=== PATIENT | male | born 1955 | race Caucasian/White ===

== ENCOUNTER 2021-11-29 08:25 | Outpatient (CLI) | payer MEDICARE, OTHER, SELFPAY ==
--- NOTE | 2021-11-29 08:45 | CRLHL7_ITS ---
For Patients: As a result of the Century Cures Act, medical imaging exams and procedure reports are released immediately into your electronic medical record. You may view this report before your referring provider. If you have questions, please contact your health care provider. Examination: Doppler Ultrasound of mesenteric arteries Indication: Periumbilical pain. Technique: Ultrasound images of the aorta and mesenteric vessels was obtained. Ultrasound performed using real-time chester scale imaging (B-mode 2D), color-flow Doppler and spectral analysis. 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 Proximal aorta: 142 cm/S. Celiac origin: 310 cm/S Celiac proximal: 361 cm/S Celiac mid/distal: 200 cm/S Superior mesenteric artery origin: 328 cm/S Superior mesenteric artery proximal: 212 cm/S Superior mesenteric artery mid: 88 cm/S Superior mesenteric artery distal: 111 cm/S SMA/aorta ratio: 2.3 Splenic artery: 158 cm/S Hepatic artery: 248 cm/S Inferior mesenteric origin: 119 cm/S Limited Doppler exam demonstrates multiphasic waveforms in the celiac and SMA with no parvus tardus waveform distally in either artery. Impression: 1. Indeterminate exam. The peak systolic velocities at the celiac and SMA origins would meet criteria for a greater than 70 percent stenosis. However, the distal waveforms are not diminished and that SMA/aorta ratio is below the threshold for a severe stenosis. If there is ongoing concern for mesenteric ischemia, consider CTA or MRA for further evaluation. Dictated by Michele Alanis MD @ 11/30/2021 4:18:16 PM (Electronically Signed)
== END 2021-11-29 08:26 | disposition home or self-care (01) ==
LOC: US 08:31
PROVIDERS: Visit Provider Internal Medicine Gastroenterology
DX: R10.33 Periumbilical pain (principal); I70.8 Atherosclerosis of other arteries
CPT/HCPCS: 93975

== ENCOUNTER 2023-10-07 10:07 | Emergency (ER) | payer MEDICARE, BC, SELFPAY ==
[2023-10-07] VITALS (13 sets, daily range): BP systolic 118–138; BP diastolic 70–90; PULSE 62–80; RESP 24; TEMP 36.3; O2SAT 96–100; BMI 31.6
--- NOTE | 2023-10-07 10:44 | CRLHL7_ITS ---
For Patients: As a result of the Century Cures Act, medical imaging exams and procedure reports are released immediately into your electronic medical record. You may view this report before your referring provider. If you have questions, please contact your health care provider. INDICATION: Lower chest and abdominal pain. History of carcinoid. TECHNIQUE: CT chest pulmonary angiogram acquired with 95 cc of Isovue 370 IV contrast. COMPARISON: None. FINDINGS: Cardiovascular structures: CT pulmonary angiogram demonstrates adequate opacification of the pulmonary arteries. No evidence of pulmonary embolus. Aortic atherosclerosis. The thoracic aorta is normal in caliber. Coronary artery calcifications. Heart size is within normal limits. Mediastinum and antonio: No pathologic lymphadenopathy. Lungs: No pneumothorax. Central airways are patent. Calcified granuloma in the right upper lobe. Mild motion artifact. Mild bibasilar ground-glass opacities. Lungs are otherwise clear. Pleura and pericardium: No effusions. Chest wall and axilla: Unremarkable. Bones: Degenerative changes. No acute or suspicious osseous abnormality. Upper abdomen: Please refer to CT abdomen and pelvis same day. IMPRESSION: 1. No evidence of pulmonary embolus. 2. Mild bibasilar ground-glass opacities may represent incidental subsegmental atelectasis or infection/inflammation in the appropriate clinical setting. Dictated by Zackery Quintero MD @ 10/07/2023 12:51:59 PM Please note that all CT scans at this facility use dose modulation, iterative reconstruction, and/or weight-based dosing when appropriate to reduce radiation dose to as low as reasonably achievable. Dictated by: Zackery Quintero MD @ 10/07/2023 12:52:15 (Electronically Signed)
--- NOTE | 2023-10-07 10:44 | CRLHL7_ITS ---
For Patients: As a result of the Century Cures Act, medical imaging exams and procedure reports are released immediately into your electronic medical record. You may view this report before your referring provider. If you have questions, please contact your health care provider. 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 TECHNIQUE: CT abdomen and pelvis acquired with 95 cc Isovue 370 IV contrast. COMPARISON: Same day chest CT. FINDINGS: Lower chest: Please see same-day chest CT for findings above the diaphragm. Liver: Unremarkable. Normal in size and attenuation. No suspicious masses. Gallbladder and bile ducts: Prior cholecystectomy. No biliary dilatation. Pancreas: Atrophic pancreas. No mass or inflammation. No pancreatic duct dilation. Spleen: Unremarkable. Normal in size. No masses. Adrenal glands: Unremarkable. No nodules. Kidneys: Unremarkable. No suspicious masses, stones, or hydronephrosis. GI tract: Unremarkable. Normal in caliber. No sign of mass or inflammation. Colonic diverticulosis Vasculature: Abdominal aorta is normal in caliber. Moderate atherosclerotic calcifications of the abdominal aorta. Mesenteric arteries are patent. Lymph nodes: No lymphadenopathy. Peritoneum/Abdominal Wall: Unremarkable. No sign of mass or infiltration. No free air or significant free fluid. Pelvis: Streak artifact from bilateral hip arthroplasties slightly limits evaluation in the pelvis, however there is no definite abnormality. Bones: Bilateral hip arthroplasties. Multilevel degenerative change of the imaged spine. Chronic appearing mild anterior compression deformity of the L1 and L2 vertebral bodies. IMPRESSION: 1. No acute findings in the abdomen or pelvis. No evidence of disease recurrence. 2. Please see same-day chest CT for findings above the diaphragm. Please note that all CT scans at this facility use dose modulation, iterative reconstruction, and/or weight-based dosing when appropriate to reduce radiation dose to as low as reasonably achievable. Dictated by Mónica Carlton MD @ 10/07/2023 12:23:14 PM (Electronically Signed)
[2023-10-07] MEDS: 0.9 % SODIUM CHLORIDE 500 ML 500 ML IV (11:07)
[2023-10-07 11:09] LABS: Lactate Sepsis w/Reflex* 1.8 mmol/L (0.5-1.9)
[2023-10-07 11:16] LABS: Basophils Absolute Auto 0.05 K/uL (0.00-0.30); Basophils Percent Auto 0.9 % (0.0-3.0); Eosinophils Absolute Auto 0.11 K/uL (0.00-0.50); Eosinophils Percent Auto 2.1 % (0.0-7.0); Hematocrit 40.5 % (37.0-53.0); Hemoglobin* 13.5 gm/dL (13.5-17.5); Immature Granulocytes Abs Auto 0.01 K/uL (0.00-0.30); Immature Granulocytes Pct Auto 0.2 %; Lymphocytes Absolute Auto 1.83 K/uL (0.90-2.90); Lymphocytes Percent Auto 34.2 % (20-44); Mean Corpuscular HGB Conc 33 gm/dL (32-36); Mean Corpuscular Hemoglobin 26 pg (26-34); Mean Corpuscular Volume 79 fL (80-100); Monocytes Percent Auto 9.3 % (0.0-11.0); Neutrophils Absolute Auto 2.85 K/uL (1.7-7.0); Neutrophils Percent Auto 53.3 % (42.0-72.0); Platelet Count* 146 K/uL (140-440); RDW Coefficient of Variation % 13.4 % (11.5-15.5); Red Blood Count 5.12 m/uL (4.30-5.90); White Blood Count* 5.35 K/uL (4.50-11.00)
[2023-10-07 11:17] LABS: Slide Review Reflex No
[2023-10-07 11:19] LABS: Troponin, Point-of-Care* 0.01 ng/ml (0.01-0.04)
[2023-10-07 11:27] LABS: Chloride* 104 mmol/L (96-114); Potassium* 3.9 mmol/L (3.6-5.1); Sodium* 135 mmol/L (135-149)
[2023-10-07 11:29] LABS: Alkaline Phosphatase* 113 U/L (40-150); Aspartate Amino Transferase* 30 U/L (12-35); Bilirubin Direct* 0.2 mg/dL (0.0-0.5); Bilirubin Total* 0.7 mg/dL (0.1-1.5); Total Protein* 6.8 g/dL (6.0-8.3)
[2023-10-07 11:30] LABS: Alanine Aminotransferase* 26 U/L (4-50); Est. Creatinine Clearance* 88.01; Estimated Glomerular Filt Rate 82 ml/min; Lipase* 53 U/L (23-300)
[2023-10-07 11:31] LABS: Anion Gap 9 mEq/L (7-15); Blood Urea Nitrogen* 16 mg/dL (7-30); Calcium* 8.6 mg/dL (8.4-10.6); Carbon Dioxide* 22 mmol/L (20-32); Glucose* 200 mg/dL (60-115)
[2023-10-07 11:36] LABS: C Reactive Protein* < 0.5 mg/dL (0.5-1.0)
[2023-10-07] MEDS: MORPHINE 4 MG/ML INJ IVP (11:57)
--- NOTE | 2023-10-07 13:08 | ED.GENADULT ---
HPI - General Adult General Date Seen: 10/07/23 Chief complaint: Chest Pain Stated complaint: Chest Pain/Short of Breath Time Seen by Provider: 10/07/23 10:32 Source: patient Mode of arrival: ambulatory Limitations: no limitations History of Present Illness HPI narrative: Patient is a 68-year-old male who presents for evaluation of chest pain. He says about a week and half ago he started to have problems with some dizziness, he talked to his commercial real estate paralegal at [facility] and had some kind of monitoring, it sounds like maybe a Holter monitor was placed. He says that nothing was found there. About a week ago he started to get pain in his rib cage bilaterally. This started out as episodic, lasting an hour to but the last several days has been continuous. He notes pain with breathing and with moving. He has not had a cough, denies fever. He has not had vomiting or diarrhea, denies lower extremity swelling or pain. No history of DVT or PE. He does have a history of carcinoid tumor and a couple of prior abdominal surgeries, he has had small bowel resection and also tells me that his gallbladder and appendix have been removed. He does have chronic abdominal pain, which he says has been attributed previously to his carcinoid. He also says however that his last surgeries were about 15 years ago and that he has not had progression of his carcinoid since then. His doctor discontinued his octreotide few months ago wondering if maybe that was contributing to his abdominal symptoms. He does have oxycodone at home prescribed for chronic pain but he says he does not take it because he is worried about constipation which he says is worse than the chronic GI symptoms. He does have a history of PR, several stents placed previously. Current pain is not exertional, feels somewhat better lying down. Related Data Home Medications ?Medication ?Instructions ?Recorded ?Confirmed apixaban 5 mg tablet (Eliquis) 5 mg PO BID 10/07/23 10/07/23 atorvastatin 20 mg tablet 20 mg PO DAILY 10/07/23 10/07/23 baclofen 10 mg tablet 10 mg PO QPM 10/07/23 10/07/23 calcium citrate 200 mg (950 mg) 200 mg PO 3XD 10/07/23 10/07/23 tablet clomiphene citrate 50 mg tablet 50 mg PO Q1D 10/07/23 10/07/23 (Clomid) cyanocobalamin (vitamin B-12) 1,000 mcg IM 10/07/23 1,000 mcg/mL injection solution empagliflozin 25 mg tablet 25 mg PO DAILY 10/07/23 10/07/23 (Jardiance) ergocalciferol (vitamin D2) 1,250 1,250 mcg PO 2XW 10/07/23 10/07/23 mcg (50,000 unit) capsule famotidine 40 mg tablet 40 mg PO DAILY 10/07/23 10/07/23 gabapentin 300 mg capsule 600 mg PO 3XD 10/07/23 10/07/23 insulin glargine 100 unit/mL (3 0 - 40 unit subcut DAILY 10/07/23 10/07/23 mL) subcutaneous pen (Lantus Solostar U-100 Insulin) insulin lispro 100 unit/mL 0 - 55 unit subcut DAILY 10/07/23 10/07/23 subcutaneous pen (Humalog KwikPen (U-100) Insulin) levothyroxine 125 mcg tablet 250 mcg PO DAILY 10/07/23 10/07/23 ledakv-ukoffgxm-pugdkwx 2 cap PO 3XD 10/07/23 10/07/23 12,000-38,000-60,000 unit capsule,delayed rel (Creon) lubiprostone 24 mcg capsule 24 mcg PO DAILY 10/07/23 10/07/23 metoprolol tartrate 50 mg tablet 50 mg PO BID 10/07/23 10/07/23 omeprazole 40 mg capsule,delayed 40 mg PO DAILY 10/07/23 10/07/23 release oxycodone 5 mg tablet 5 mg PO Q6H PRN pain 10/07/23 10/07/23 sucralfate 1 gram tablet 1 g PO QID 10/07/23 10/07/23 Allergies Allergy/AdvReac Type Severity Reaction Status Date / Time No Known Drug Allergies Allergy Verified 10/07/23 10:15 Review of Systems Status of ROS: Reports: 10 or more systems reviewed and unremarkable except as noted in History and below [facility] Social History Smoking Status: Never smoker Do you use any of these nicotine containing products: None Second hand tobacco smoke exposure: No How often do you have a drink containing alcohol: never AUDIT-C Alcohol total score: 0 Non-prescribed substance use: denies use Exam Narrative: Exam Narrative: Vital signs as noted above. In general, an alert, nontoxic male, looks uncomfortable. Head: Normocephalic, atraumatic. Eyes: Pupils are equal reactive. Extraocular movements are full. Conjunctivae are normal. ENT: Mucous membranes are moist. Throat is normal. Neck: Supple without lymphadenopathy. Heart: Regular rate and rhythm. No murmur or rub. Lungs: Clear bilaterally. No increased work of breathing, crackles or wheezes. Chest wall seems nontender to palpation laterally, but he does have some tenderness around the sternal costal joints anteriorly. Abdomen: Soft, protuberant. Minimally tender to palpation diffusely. Large midline scar. No obvious hernia. Extremities: Well perfused. No edema. No calf tenderness. Pulses intact. Neurologic: Patient is alert and oriented to person and place. Speech is fluent. Face is symmetric. Moves all extremities equally. Affect: Normal. Skin: Warm and dry. Well perfused. Const: Vital Signs, click to edit/add: Vital Signs - 24 hr 10/07/23 10:11 10/07/23 11:33 10/07/23 11:34 Temperature 97.3 F L Pulse Rate 67 68 Pulse Rate [Right Pulse Oximeter] 80 Respiratory Rate 24 Blood Pressure 118/73 Blood Pressure [Ri ght Upper Arm] 134/75 Pulse Oximetry 97 98 [facility] 10/07/23 11:52 10/07/23 12:00 10/07/23 12:02 Temperature Pulse Rate 65 66 64 Pulse Rate [Right Pulse Oximeter] Respiratory Rate Blood Pressure 138/74 Blood Pressure [Ri ght Upper Arm] Pulse Oximetry 100 100 99 Oxygen Delivery Nh thod 10/07/23 12:15 10/07/23 12:30 10/07/23 12:32 Temperature Pulse Rate 63 62 62 Pulse Rate [Right Pulse Oximeter] Respiratory Rate Blood Pressure 128/70 Blood Pressure [Ri ght Upper Arm] Pulse Oximetry 98 97 [facility] 10/07/23 12:45 10/07/23 13:00 10/07/23 13:01 Temperature Pulse Rate 62 65 63 Pulse Rate [Right Pulse Oximeter] Respiratory Rate Blood Pressure 118/90 H Blood Pressure [Ri ght Upper Arm] Pulse Oximetry 99 99 98 Oxygen Delivery Me thod 10/07/23 13:15 Temperature Pulse Rate 67 Pulse Rate [Right Pulse Oximeter] Respiratory Rate Blood Pressure Blood Pressure [Ri ght Upper Arm] Pulse Oximetry 96 Oxygen Delivery Nh thod Documenting provider has reviewed patient's vital signs: yes Course Course ED Course: Initially, patient declined pain medication stating that he did not want anything that might be constipating. However he did change his mind and was given 4 mg of morphine IV. I ordered labs as well as a CT angiogram of the chest and a CT of the abdomen and pelvis. Differential diagnosis would include acute coronary syndrome though I think this is unlikely given the history, pulmonary embolism, pneumonia, pneumothorax, bony pathology such as metastases, pancreatitis gastritis, perforated viscus, diverticulitis, colitis, among others. Labs notable for a normal white blood cell count of 5.4, normal hemoglobin of 13.5. Metabolic panel is unremarkable. Blood sugar is elevated at 200 but everything else is normal. Lactate is normal at 1.8, LFTs are unremarkable and lipase was 53. CRP is normal at less than 0.5. Point of care troponin is 0.01. I think given a week of pain and 3-4 days of constant pain a single troponin is adequate to rule out acute coronary syndrome. He did have an EKG which by my review showed a sinus rhythm, ventricular rate of 74. No acute ST segment changes. Q-waves noted in the inferior leads. CT of the chest by my review did not show evidence of pulmonary embolism. Read as follows by Radiology:FINDINGS: Cardiovascular structures: CT pulmonary angiogram demonstrates adequate opacification of the pulmonary arteries. No evidence of pulmonary embolus. Aortic atherosclerosis. The thoracic aorta is normal in caliber. Coronary artery calcifications. Heart size is within normal limits. Mediastinum and antonio: No pathologic lymphadenopathy. Lungs: No pneumothorax. Central airways are patent. Calcified granuloma in the right upper lobe. Mild motion artifact. Mild bibasilar ground-glass opacities. Lungs are otherwise clear. Pleura and pericardium: No effusions. Chest wall and axilla: Unremarkable. Bones: Degenerative changes. No acute or suspicious osseous abnormality. Upper abdomen: Please refer to CT abdomen and pelvis same day. IMPRESSION: 1. No evidence of pulmonary embolus. 2. Mild bibasilar ground-glass opacities may represent incidental subsegmental atelectasis or infection/inflammation in the appropriate clinical setting. FINDINGS: Lower chest: Please see same-day chest CT for findings above the diaphragm. Liver: Unremarkable. Normal in size and attenuation. No suspicious masses. Gallbladder and bile ducts: Prior cholecystectomy. No biliary dilatation. Pancreas: Atrophic pancreas. No mass or inflammation. No pancreatic duct dilation. Spleen: Unremarkable. Normal in size. No masses. Adrenal glands: Unremarkable. No nodules. Kidneys: Unremarkable. No suspicious masses, stones, or hydronephrosis. GI tract: Unremarkable. Normal in caliber. No sign of mass or inflammation. Colonic diverticulosis Vasculature: Abdominal aorta is normal in caliber. Moderate atherosclerotic calcifications of the abdominal aorta. Mesenteric arteries are patent. Lymph nodes: No lymphadenopathy. Peritoneum/Abdominal Wall: Unremarkable. No sign of mass or infiltration. No free air or significant free fluid. Pelvis: Streak artifact from bilateral hip arthroplasties slightly limits evaluation in the pelvis, however there is no definite abnormality. Bones: Bilateral hip arthroplasties. Multilevel degenerative change of the imaged spine. Chronic appearing mild anterior compression deformity of the L1 and L2 vertebral bodies. IMPRESSION: 1. No acute findings in the abdomen or pelvis. No evidence of disease recurrence. 2. Please see same-day chest CT for findings above the diaphragm. I will add on COVID test. At this time, etiology of symptoms is somewhat unclear although there may be an infectious component contributing. I have discussed all this with him. I do not think this pain is cardiac based on normal EKG, negative COVID and several days of continuous pain which in general is not consistent with cardiac pain. Patient says he is very susceptible to pneumonia, get sick ?all the time. He says he always gets better with a Z-Mundo. Discussed with him that azithromycin is typically not my 1st choice for community-acquired pneumonia, but as he feels quite sure that this is the best medicine for him, I will prescribe that along with Augmentin. Reviewed with him that he can certainly take the oxycodone that he has at home for chronic pain, if he does that, he probably would benefit from starting on MiraLax as well. If not improving over the next couple of days, primary care follow-up recommended. He does not have a primary care doctor as of this point, I have given him the number for clinic, offered to make an appointment but he says he will do that himself he does not improve. If he worsens, has severe pain, significant shortness of breath, new symptoms such as fever vomiting, return to the emergency department at any time Vital Signs Vital signs: Initial Vital Signs Temperature 97.3 F L 10/07/23 10:11 Temperature Source Temporal Artery Scan 10/07/23 10:11 Pulse Rate 80 10/07/23 10:11 Pulse Rhythm Regular 10/07/23 10:11 Pulse Strength 3+ Normal 10/07/23 10:11 Respiratory Rate 24 10/07/23 10:11 Blood Pressure 134/75 10/07/23 10:11 Blood Pressure Mean 94 10/07/23 10:11 Blood Pressure Position Sitting 10/07/23 10:11 Pulse Oximetry 97 10/07/23 10:11 Oxygen Delivery Method Room Air 10/07/23 10:11 Vital Signs Temperature 97.3 F L 10/07/23 10:11 Pulse Rate 80 10/07/23 10:11 Respiratory Rate 24 10/07/23 10:11 Blood Pressure 134/75 10/07/23 10:11 Pulse Oximetry 97 10/07/23 10:11 Oxygen Delivery Method Room Air 10/07/23 10:11 Temperature 97.3 F L 10/07/23 10:11 Pulse Rate 67 10/07/23 13:15 Respiratory Rate 24 10/07/23 10:11 Blood Pressure 118/90 H 10/07/23 13:01 Pulse Oximetry 96 10/07/23 13:15 Oxygen Delivery Method Room Air 10/07/23 10:11 Medications Administered Medications: Discontinued Medications Generic Name Dose Route Start Last Admin Trade Name Anirudhq PRN Reason Stop Dose Admin Sodium Chloride 500 mls @ 500 mls/hr 10/07/23 10:44 10/07/23 12:28 0.9 % Sodium Chloride 500 Ml IV 10/07/23 11:43 Infused .Q1H ONE Infusion Morphine Sulfate 4 mg 10/07/23 11:53 10/07/23 11:57 Morphine 4 Mg/Ml Inj IVP 10/07/23 11:54 4 mg ONCE ONE Administration Medical Decision Making Lab Data Labs: Lab Results 10/07/23 10/07/23 Range/Units 10:45 11:00 WBC 5.35 (4.50-11.00) K/uL RBC 5.12 (4.30-5.90) m/uL Hgb 13.5 (13.5-17.5) gm/dL Hct 40.5 (37.0-53.0) % MCV 79 L (80-100) fL MCH 26 (26-34) pg MCHC 33 (32-36) gm/dL RDW Coeff of Carolyn 13.4 (11.5-15.5) % Plt Count 146 (140-440) K/uL Neut % (Auto) 53.3 (42.0-72.0) % Lymph % (Auto) 34.2 (20-44) % [place] % (Auto) 9.3 (0.0-11.0) % Eos % (Auto) 2.1 (0.0-7.0) % Baso % (Auto) 0.9 (0.0-3.0) % Neut # (Auto) 2.85 (1.7-7.0) K/uL Lymph # (Auto) 1.83 (0.90-2.90) K/uL [place] # (Auto) 0.50 (0.00-0.90) K/UL Eos # (Auto) 0.11 (0.00-0.50) K/uL Baso # (Auto) 0.05 (0.00-0.30) K/uL Abs Immat Gran (auto) 0.01 (0.00-0.30) K/uL Imm/Tot Granulo (auto) 0.2 % Sodium 135 (135-149) mmol/L Potassium 3.9 (3.6-5.1) mmol/L Chloride 104 (96-114) mmol/L Carbon Dioxide 22 (20-32) mmol/L Anion Gap 9 (7-15) mEq/L BUN 16 (7-30) mg/dL Creatinine 1.0 (0.5-1.5) mg/dL Estimated Creat Clear 88.01 Estimated GFR 82 ml/min Glucose 200 H (60-115) mg/dL Lactate 1.8 (0.5-1.9) mmol/L Calcium 8.6 (8.4-10.6) mg/dL Total Bilirubin 0.7 (0.1-1.5) mg/dL Direct Bilirubin 0.2 (0.0-0.5) mg/dL AST 30 (12-35) U/L ALT 26 (4-50) U/L Alkaline Phosphatase 113 (40-150) U/L C-Reactive Protein < 0.5 L (0.5-1.0) mg/dL Total Protein 6.8 (6.0-8.3) g/dL Albumin 4.0 (3.3-5.0) g/dL Lipase 53 (23-300) U/L POC Troponin I 0.01 (0.01-0.04) ng/ml Discharge Plan Discharge Clinical Impression: Atypical chest pain, Pneumonia Patient Disposition: Home, Self-Care Condition: Improved Instructions: Community Acquired Pneumonia (DC), Noncardiac Chest Pain (ED) Additional Instructions: Antibiotics as prescribed. If you are not improving over the next couple of days please follow-up in clinic, [address] Estevez would be a good option for you. You can take the oxycodone that you have at home if you needed for pain, I would recommend starting on MiraLax if you choose to take the oxycodone. Return to the ER at any time for severe uncontrolled pain, fevers, significant worsening shortness of breath or other worsening. Prescriptions: No Action famotidine 40 mg tablet 40 mg PO DAILY omeprazole 40 mg capsule,delayed release(DR/EC) 40 mg PO DAILY baclofen 10 mg tablet 10 mg PO QPM levothyroxine 125 mcg tablet 250 mcg PO DAILY metoprolol tartrate 50 mg tablet 50 mg PO BID gabapentin 300 mg capsule 600 mg PO 3XD ergocalciferol (vitamin D2) 1,250 mcg (50,000 unit) capsule 1,250 mcg PO 2XW calcium citrate 200 mg (950 mg) tablet 200 mg PO 3XD lubiprostone 24 mcg capsule 24 mcg PO DAILY Creon 12,000-38,000 -60,000 unit capsule,delayed release(DR/EC) 2 cap PO 3XD Eliquis 5 mg tablet 5 mg PO BID Jardiance 25 mg tablet 25 mg PO DAILY atorvastatin 20 mg tablet 20 mg PO DAILY clomiphene citrate [Clomid] 50 mg tablet 50 mg PO Q1D sucralfate 1 gram tablet 1 g PO QID cyanocobalamin (vitamin B-12) 1,000 mcg/mL solution 1,000 mcg IM oxycodone 5 mg tablet 5 mg PO Q6H PRN (Reason: pain) insulin lispro [Humalog KwikPen Insulin] 100 unit/mL insulin pen 0 - 55 unit subcut DAILY insulin glargine [Lantus Solostar U-100 Insulin] 100 unit/mL (3 mL) insulin pen 0 - 40 unit subcut DAILY Follow Up/Referrals: Provider,Not a Local [Primary Care Provider] - Stand Alone [facility]: [facility] Inst[facility]
[2023-10-07 14:05] LABS: PCR FLU A Negative PCR FLU A (Negative); PCR FLU B Negative PCR FLU B (Negative); PCR RSV Negative PCR RSV (Negative); SARS PCR* Negative SARS-CoV-2 (Negative)
== END 2023-10-07 13:48 | disposition home or self-care (01) ==
PROVIDERS: Emergency Provider Emergency Medicine
DX: R07.9 Chest pain, unspecified (principal); J18.9 Pneumonia, unspecified organism
CPT/HCPCS: 36415; 71275; 74177; 80048; 80076; 83605; 83690; 84484; 85025; 86140; 87631; 93005; 99284; 99285; J2270; J7030; Q9967

== ENCOUNTER 2024-07-03 07:02 | Emergency (ER) | payer MEDICARE, BC, SELFPAY ==
[2024-07-03] VITALS (34 sets, daily range): BP systolic 133–154; BP diastolic 80–108; PULSE 69–85; RESP 7–27; TEMP 36.2; O2SAT 93–99; BMI 34.6
--- OUTSIDE RECORDS SUMMARY | 2024-07-03 07:04 | XMS_ITS | Data Portability ---
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 I reviewed the pathophysiology of the disorder, potential contributing and risk factors as well as treatment options to address their complaints. I recommended advanced imaging with CT to rule out DJD. Today cone beam CT imaging was obtained. From a treatment perspective I recommended a rehabilitative treatment approach. Treatment begins with home self management designed to rest the muscles of mastication and reduce inflammation in the temporomandibular joints. This includes heat and ice compresses, eating a soft food or pain-free diet, bilateral chewing identifying and decreasing daytime muscle tension and modification of their sleep position. Beyond self management I believe that they would benefit from a mandibular intraoral appliance. In addition I've recommended rehabilitation with physical therapy. The goal of treatment is to improve pain, function and focus on long-term self-management strategies. I believe that by following these treatment recommendations there is a good prognosis for reduction of symptoms. History was obtained from the patient. The patient has 3 diagnoses they would like to address. This case is moderate complexity because of multiple diagnoses with chronic symptoms. Data reviewed included: outside records. Discussion with pain team members before visit was necessary. Risk of complications include progressive disease/symptoms. Today time spent may have included a review of past records, history taking, review of diagnoses, contributing factors, treatment plan, diagnostic testing, prognosis, expectations, risks and complications of treatment/no treatment, discussions with other providers and completing documentation was 60 minutes. Cost of care and insurance coverage was reviewed and discussed with the patient. [email or web address] Not available 08/24/2020 13:16:30 09/06/2020 09/06/2020 Symptoms are consistent with TMD diagnosis. Patient is low complexity with 1 personal factors/comorbidit ies affecting the plan of care, low complexity decision making and a stable clinical presentation. Examination yields 3 affected structures, participation restrictions and/or functional limitations. The patient will benefit from PT to decrease pain and increase function. Contributing factors include muscle guarding, Treatment will include exercises to release muscle tension and increase strength and stability. Habit monitoring and repeated reminding techniques will be utilized to eliminate habitual clenching. Improvement in first session; jaw opening increased, cervical ROM increased, pain level decreased Short term goals; 3 weeks Client to be able to open mouth to 35 mm pain free without deviation or crepitis Client to be able to bite down with 50% less pain than at evaluation Client to improve cervical ROM to Within Normal Limits Improve patient awareness of muscle guarding habits to decrease pain by 50% ferry terminal agent goals-6 weeks Client to not have jaw pain upon awakening in AM Client to demonstrate independence in maintaining precautions to prevent TMJ pain Client to present with at least 75% less crepitis Client to open jaw to at least 40 mm without pain, deviation or crepitis Improve active lateral excursion to at least 8 mm right and left without pain Client to have pain-free chewing with moderately hard diet 75% of the time Client to report pain level is reduced at least 75% as evidenced by functional limitation scale PLAN: Client is to be seen 1x/week for up to 8 visits for instruction in jaw and neck exercises, postural exercises and body mechanics instructions, self-soft tissue mobilization and avoidance of precipitating parafunctional activities.. At end of initial treatment series, client is to be seen PRN within 90 days from last visit. [email or web address] Not available 09/06/2020 10:55:55 09/07/2020 09/07/2020 Patient was seen today for follow-up and insertion of a mandibular stabilization intraoral appliance. Diagnosis and contributing factors were reviewed. Questions were answered. Self-management and home exercise techniques were reviewed. Today the intraoral appliance was fit to patient comfort. Specifically, no adjustments were necessary. Instructions on proper use and care were discussed/reviewed both written and verbally. I suggested that (s)he uses the appliance as a retraining tool to aid in relaxing their jaw muscles - put it in 20-30 minutes before bed time, keeping their jaw in a relaxed balanced position, simultaneously applying a heat compress on the jaw as a way to help with jaw relaxation. Potential side effects were reviewed. The patient was advised to discontinue oral appliance use should they experience untoward side effects or be unable to return for follow-up care. The patient was advised to return in 3-4 weeks to reassess their progress and continue their treatment plan as previously outlined. In addition to oral appliance insertion today we review home self-care strategies as previously discussed. We discussed additional treatment options including rehabilitative treatment with physical therapy. History today was obtained from the patient. The patient has 3 diagnoses which we are addressing. Their symptoms are improving. This case is moderate complexity because of Today I reviewed the pathophysiology of this disorder, potential contributing factors and treatment options with the patient. We reviewed the findings of his CT. Findings include We reviewed the findings of her CT. 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 The left side also showed signs of DJD. Questionable apical periodontitis of #9 and #15. There were no other abnormalities noted. For complete details regarding her imaging see the radiology report in their EHR. Diagnosis and treatment options were reviewed at today's appointment. I am continuing to recommend rehabilitative care at this time. The focus of care will be continued, gradual rehabilitation and pain management with occasional oral appliance adjustments as needed. I suggested that he return for follow-up care in 3-4 weeks. History today was obtained from the patient. The patient has 3 diagnoses they would like to address. Their symptoms are improving. This case is moderate complexity because of multiple diagnoses with chronic symptoms. Data reviewed included previous imaging. Discussion with treatment team members before visit was necessary. Risk of complications include monitoring for complications of treatment were discussed. Today time spent may have included a review of past records, history taking, review of diagnoses, contributing factors, treatment plan, diagnostic testing, prognosis, expectations, risks and complications of treatment/no treatment, discussions with other providers and completing documentation was 35 minutes. [email or web address] Not available 09/07/2020 09:39:18 Plan of Treatment Reminders Order Date Submit Date Provider Last Modified By Organization Details Last Modified Time Details Appointments None recorded. Lab None recorded. Referral physical therapist referral 2020 [email or web address] Zenobia Vazquez[address], [place], [address], 13:19:34 Procedures None recorded. Surgeries None recorded. Imaging CT, temporal bone, w/o contrast 2020 021 [facility], [address] [facility] [address], [place], [address], 14:30:52 Medication Orders None recorded. Patient TargetsNo targets recorded. Patient Instructions Encounter Date Encounter Id Patient Instructions Last Modified By Organization Details Last Modified Time 08/24/2020 [id number] oral appliance preparation* [email or web address] Not available 08/24/2020 13:19:34 Self Care for TMD [email or web address] Not availabl e 08/24/2020 13:19:34 09/06/2020 [id number] Plan: Medicare requires a portable track crew chief or STAFF WRITER to authorize our plan of care. If you agree with the plan as outlined above, please sign, date and fax back to [phone]. Thank you. 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 [address], [place], [address], 08/29/2020 10:24:03 09/08/19 CT, tempo ral bone, w/o contr ast No observ ation record ed. [address], [place], [address], 09/07/2020 15:33:57 09/14/19 CT, tempo ral bone, w/o contr ast No observ ation record ed. [address] , [place], [address], 09/14/2020 15:22:10 Result Notes None recorded. 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 Procedures Surgical History Date Name Laterality Status Provider Name and Address Organization Details Recorded Time Oral appliance completed Ihsan JAY [facility] 09/07/2020 09:35:08 1 97444 PT Eval - Low Complexity completed Charmaine Young [facility] 09/06/2020 10:53:51 1 36206: Therapeutic Exercise completed Charmaine Marisol [facility] 09/06/2020 10:54:10 1 16843: Manual Therapy completed Charmaine Marisol [facility] 09/06/2020 10:54:[address] TMJ completed Ihsan Bennett [facility] 08/24/2020 13:21:05 1 Hip arthroscopy dx completed Guera Ash [facility] 08/24/2020 10:50:16 0 Hip arthroscopy dx completed Guera Ash [facility] 08/24/2020 10:49:46 8 Cancer Surgery completed Guera Ash [facility] 08/24/2020 10:48:36 7 Cancer treatment plan change completed Guera Ash [facility] 08/24/2020 10:48:15 5 procedure on back completed Guera Ash [facility] 08/24/2020 10:50:50 Imaging Results Imaging Date Name Status LastModified by Organiz ation Details LastModified Time 08/25/2020 CT, temporal bone, w/o contrast completed [address] [place], [address], 08/29/2020 10:24:03 09/07/2020 CT, temporal bone, w/o contrast completed [address] [place], [address], 09/07/2020 15:33:57 09/13/2020 CT, temporal bone, w/o contrast completed [address] [place], [address], 09/14/2020 15:22:10 Procedure Notes None recorded. Medical Equipment None Reported. Allergies No known drug allergies Medications Name Sig Start Date Stop Date Status Note LastModified by Organization Details LastModified Time celecoxib 200 mg capsule TAKE 1 CAPSULE DAILY START THE DAY BEFORE SURGERY, CONTINUE AFTER SURGERY UNTIL GONE 09/07 completed Not Available Not Available Not Available atorvastati n 20 mg tablet TAKE 1 TABLET BY MOUTH EVERY DAY active Not Available Not Available No t Available tizanidine 2 mg tablet TAKE 1 TABLET BY MOUTH EVERY 8 HOURS. DO NO EXCEED 3 TABLETS IN A 24 HOUR PERIOD active Not Available Not Available No t Available azithromyci n 250 mg tablet TAKE 2 TABLETS BY MOUTH TODAY, THEN TAKE 1 TABLET DAILY FOR 4 DAYS 09/07 completed Not Available Not Available Not Available clomiphene citrate 50 mg tablet 1 tablet every other day by oral route. active Not Available Not Available No t Available hydrocodone 5 mg-acetamin ophen 325 mg tablet active Not Available Not Available No t Available phentermine 37.5 mg tablet 1 tablet every day by oral route. active Not Available Not Available No t Available cyanocobala min (vit B-12) 1,000 mcg/mL injection solution INJECT 1 ML UNDER THE SKIN ONCE EVERY MONTH active Not Available Not Available No t Available levothyroxi ne 125 mcg tablet 2 tablets every day by oral route. active Not Available Not Available No t Available octreotide acetate 1,000 mcg/mL injection solution active Not Available Not Available Not Available metoprolol tartrate 50 mg tablet 1 tablet every day by oral route. active Not Available Not Available No t Available gabapentin 300 mg capsule 2 capsules 3 times a day by oral route. active Not Available Not Available No t Available omeprazole 20 mg capsule,del ayed release TAKE 1 CAPSULE (20 MG TOTAL) BY MOUTH 2 (TWO) TIMES A DAY BEFORE MEALS. active Not Available Not Available No t Available hydroxyzine HCl 25 mg tablet TAKE 1 TABLET (25 MG TOTAL) BY MOUTH EVERY 6 (SIX) HOURS NEEDED FOR ANXIETY (ADJUVANT PAIN). active Not Available Not Available No t Available methylpredn isolone 4 mg tablets in a dose pack TAKE 6 TABLETS ON DAY 1 DIRECTED ON PACKAGE AND DECREASE BY 1 TAB EACH DAY FOR A TOTAL OF 6 DAYS 09/07 completed Not Available Not Available Not Available Vitamin D2 1,250 mcg (50,000 unit) capsule 1 capsule twice a week by oral route. active Not Available Not Available No t Available Calcitrate 200 mg (950 mg) tablet TAKE 1 TABLET BY MOUTH 3 TIMES A DAY WITH EACH MEAL active Not Available Not Available No t Available BD Luer-Lisset Syringe 3 mL 22 x 1 1/2 USE 1 SYRINGE ONCE MONTHLY FOR CYANOCOBA MARITZA INJECTION S active Not Available Not Available No t Available amoxicillin 875 mg-potassiu m clavulanate 125 mg tablet TAKE 1 TABLET BY MOUTH TWICE DAILY WITH MEALS FOR 10 DAYS 09/07 completed Not Available Not Available Not Available oxycodone 5 mg tablet TAKE 1 2 TABLETS BY MOUTH EVERY 4 6 HOURS NEEDED FOR PAIN active Not Available Not Available No t Available Paradigm Nebo 3 mL active Not Available Not Available Not Available BD Ultra-Fine Mini Pen Needle 31 gauge x 3/16 USES 1 PEN 4 TIMES DAILY active Not Available Not Available No t Available atorvastati n active Not Available Not Available Not Available amoxicillin 2020 active Not Available Not Available Not Avai lable octreotide acetate active Not Available Not Available Not Available Calcitrate active Not Available Not Av ailable Not Available Lantus Solostar U-100 Insulin 100 unit/mL (3 mL) subcutaneou s pen 26 mL every day by sub-q route. active Not Available Not Available No t Available Humalog KwikPen (U-100) Insulin 100 unit/mL subcutaneou s 8 mL 3 times a day by sub-q route. active Not Available Not Available No t Available Creon 12,000-38,0 00-60,000 unit capsule,del ayed release TAKE 2 CAPSULES BY MOUTH 3 TIMES DAILY active Not Available Not Available No t Available Zenpep active Not Available Not Availa ble Not Available Eliquis 5 mg tablet 2 tablets every day by oral route. active Not Available Not Available No t Available Invokana 300 mg tablet 1 tablet every day by oral route. active Not Available Not Available No t Available Zenpep 15,000 unit-47,000 unit-63,000 unit capsule,del ayed release TAKE 1 2 CAPSULES BY MOUTH 3 TIMES DAILY BEFORE MEALS. active Not Available Not Available No t Available Accu-Chek Fastclix Lancet Drum USE 1 LANCET 4 TIMES DAILY active Not Available Not Available No t Available MiniMed Dameon Advance Infusion Set 23 active Not Available Not Available Not Available Vitals Date Recorded Body height Body mass index (BMI) Body weight Body temperature Heart rate Systolic blood pressure Diastolic blood pressure Provider Name and Address Organization Details Last Updated DateTime 1 190.5 cm 35 kg/m2 486880. 86 g 95.1 [degF] 80 /min 125 mm[Hg] 89 mm[Hg] Guera Ash [facility] 11:17:22 Date Recorded Body height Body mass index (BMI) Body weight Body temperature Heart rate Systolic blood pressure Diastolic blood pressure Provider Name and Address Organization Details Last Updated DateTime 1 190.5 cm 35 kg/m2 177051. 86 g 95.5 [degF] 74 /min 131 mm[Hg] 81 mm[Hg] Amy Tang [facility] 09:06:12 Social History Question Answer Notes LastModified by Organizat ion Details LastModified Time Tobacco Smoking Status Former Smoker Guera Ash [facility] 08/24/2020 10:47:15 What Is Your Level Of Caffeine Consumption? Heavy [email or web address] Information not available 08/24/2020 What Type Of Diet Are You Following? REGULAR [email or web address] Information not available 08/24/2020 What Is The Highest Grade Or Level Of School You Have Completed Or The Highest Degree You Have Received? [id number] [email or web address] Information not available 08/24/2020 What Is Your Relationship Status? [email or web address] Information not available 08/24/2020 Sex: Unknown Functional Status Question Answer Note LastModified by Organization D etails LastModified Time What is your level of alcohol consumption? Moderate [email or web address] Information not available 08/24/2020 What is your exercise level? Heavy [email or web address] Information not available 08/24/2020 Mental Status None recorded. Family History Relationship Description Onset Age of this Age Resolved Age Notes LastModified by Organization Details LastModified Time Brother Diabetes mellitus [email or web address] Not available 08/2020 10:45:23 Sister Diabetes mellitus [email or web address] Not available 08/2020 10:45:24 Sister Diabetes mellitus [email or web address] Not available 08/2020 10:45:24 Father Heart disease [email or web address] Not available 08/2020 10:45:53 Mother Heart disease [email or web address] Not available 08/2020 10:45:53 Medical History Condition Response Coronary Artery Disease N Gout N Other N Chronic fatigue syndrome N Hyperthyroidism N Premenstrual syndrome (PMS) N MRSA N Emphysema N Head Trauma/Injury N Irritable bowel syndrome N Hypothyroidism N Lung Disease N Glaucoma N Depression N COPD N Pneumonia N Pacemaker N Obstructive Sleep Apnea N Anxiety Disorder N Muscle, Joint, or Bone Problems N Autoimmune disease N Vision or Eye Problems N Arthritis N Serious Illness or Injuries N Acid Reflux (GERD) N Cancer Y Stroke N Neck Injury N Eating disorder N Back Injury Y High Cholesterol N Neurologic Disorder N History of chemotherapy N Liver Disease N Organ Transplant N Rheumatoid Arthritis N Headaches N Fibromyalgia N Kidney Disease N Allergies/Hayfever N Post traumatic stress disorder (PTSD) N Parkinson's Disease N Migraines N Brain Tumors N Anemia N Multiple Sclerosis N Immune System Disorder N Meningitis N Pancreatic disease N Heart Attack ([place]) Y Stomach Ulcers N Diabetes Y Back pain N Bleeding Disorder N Seizures/Epilepsy N Sjogren's syndrome N Mental Health Concerns N Tuberculosis N AIDS/HIV N Hyperlipidemia N History of radiation therapy N Dementia N Asthma N Physical or sexual abuse N Substance Abuse N Psoriasis N Peripheral Vascular Disease N Reflux/GERD N Vertigo N Sleep Disorder N Hepatitis N Aneurysm N Neuropathy N Heart Disease Y Pulmonary Embolism N Hypertension N Osteoporosis N Immunizations Vaccine Type Date Status Note Provider Nam e and Address Organization Details Recorded Time Influenza, split virus, trivalent, preservative completed MISTY Munroe [facility] 08/24/2020 10:43:27 Past Encounters Encounter ID Performer Location Encounter Start Date Encounter Closed Date Diagnosis/Indication Diagnosis SNOMED-CT Code Diagnosis ICD10 Code Diagnosis Note [id number] IHSAN BENNETT DDS [address] [place] [address] 08/24/2020 10:37:30 08/24/2020 12:01:00 Myofascial pain 528647564 M79.11 M79.12 Pain of temporomandibular joint 51701505 M26.621 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 5460269738 2526273 M26.631 [id number] CHARMAINE YOUNG, PT Mike [place] [address] [place] [address] 09/06/2020 09:54:30 09/06/2020 11:00:24 Pain of temporomandibular joint 66603816 M26.629 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 9829775273 4423689 M26.631 Myofascial pain 82240968 9 M79.10 [id number] IHSAN BENNETT, [address] [facility] [address] [place] [address] 09/07/2020 08:59:32 09/07/2020 09:38:13 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 9564978873 7196974 M26.631 Myofascial pain 88323765 9 M79.11 M79.12 Pain of temporomandibular joint 48323766 M26.621 Health Concerns Section Related Observation LastModified by Organization Detai ls LastModified Time None Recorded Concern Status LastModified by Organization Details LastModified Time None Recorded Advance Directives Directive None Recorded Payers Encounter Date Sequence Insurance Name Policy Number Policy Rodriguez Covered Member ID Rodriguez Member ID Guarantor Name 08/24/2020 1 [employer] Gale Munson [id number] Brooks Munson 09/06/2020 1 [employer] Gale Munson [id number] Brooks Munson 09/07/2020 1 [employer] Gale Munson [id number] Brooks Munson Notes Date Note Type Note Provider Name and Address Organization Details Recorded Time 08/24/2020 text/html Jaw painReported bypatient.Onset:starte d 10 year(s) ago Location:right Quality:shooting; sharp; stabbing; throbbing Severity:moderate; pain level 5-10/10 Duration and frequencyconstant Context:chews gum; chews hard/crunchy/chewy foods Aggravating/contributi on factors:stress; wide mouth opening; chewing; crunchy foods Alleviating Factors:NSAIDs Associated Symptoms:jaw clicking right;jaw popping right;jaw locks open;jaw locks closed right;causing awakening from sleep;causing inability to sleep Prior Tests:CT maxillofacial Prior Treatment:soft diet Prior opinionprimary care provider Patient presents today for evaluation of a possible temporomandibular disorder. These symptoms are {{acute chronic*}} and began with {{ no clear triggering events* significant stress and tension}}. Previous consultation include {{ none evaluation with his/her primary care provider* evaluation with his/her dentist evaluation with both his/her dentist and primary care provider}}. Symptoms are {{right sided only* left sided only bilateral}} and aggravated by {{ no clear triggers jaw use and function* clenching and grinding of their teeth stress and tension}}. The patient is {{aware not aware*}} of teeth clenching and grinding. Pt has been having trouble with Jaw pain for 10 years.Saturday he his jaw locked closed. He went to the clinic for this severe jaw pain.Pain scale was 10 on Saturday and a 5 today. He was given Vicodin however has not taken it due to not liking how It made him feel. Ihsan corrales [facility] 08/24/2020 13:22:10 09/06/2020 text/html Jaw painReported bypatient.Onset:starte d 10 year(s) ago Location:right Quality:shooting; sharp; stabbing; throbbing Severity:moderate; pain level 5-10/10 Duration and frequencyconstant Context:chews gum; chews hard/crunchy/chewy foods Aggravating/contributi on factors:stress; wide mouth opening; chewing; crunchy foods Alleviating Factors:NSAIDs Associated Symptoms:jaw clicking right;jaw popping right;jaw locks open;jaw locks closed right;causing awakening from sleep;causing inability to sleep Prior Tests:CT maxillofacial Prior Treatment:soft diet Prior opinionprimary care provider Patient presents today for PT evaluation regarding {{jaw pain* jaw pain and neck pain jaw pain, neck pain and headaches jaw pain and decreased jaw range of motion}}. Symptoms began with {{no clear triggering events* trauma stress and anxiety oral habits stress, anxiety and oral habits}}. Functional limitations and participation restrictions include eating, yawning, talking, laughing, oral hygiene. Personal factors and/or comorbidities affecting the plan of care include: *Clenching; not sure *Bruxism *Leaning on chin no *Biting objects nono Unilateral chewing *{{Low* Medium High}} stress level *{{Low* Medium High}} anxiety level *Nicotine no. gum chew used to until this acted up he reports *Caffeine {{1 2* 3 4 5}} per day *Sleep position {{left side right side sides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
--- OUTSIDE RECORDS SUMMARY | 2024-07-03 07:04 | XMS_ITS | Encounter Summary ---
Author Organization [facility] Address [address] [place] [address]. [place] [address] Care Team Providers Care [employer] Program Coordinator Name Role Phone Ciarra PascalC Primary Care Provider + Denis Sharma MD Unavailable Unavailab Sergio Rosas MD Unavailable Misty Wellington NP Unavailable [phone] Prosper Shrestha MD Unavailable [phone] Jayden Brantley MD Unavailable [phone] Avril Dumont RN Unavailable Ramin Whitfield MD Unavailable [phone] Sergio Martinez MD Unavailable Sarah Gould RN Unavailable Jerrod Werner MD Unavailable [phone] Jerrod Werner MD Unavailable [phone] Reason for Visit * Reason Onset Date Comments Appointment 05/07/2023 1-2 weeks per re ferral Encounter Details Date Type Department Care Team (Late st Contact Info) Description 05/07/[address] [place] [address] Denis Sharma MD Appointment (1-2 weeks per referral) Social History Tobacco Use Types Packs/Day Years Used Date Smoking Tobacco: Former Cigarettes Q uit: 02/19/1984 Passive Smoke Exposure: Never Smokeless Tobacco: Never Alcohol Use Standard Drinks/Week Comments Not Currently 0 (1 standard drink = 0.6 oz pur e alcohol) PHQ-2 Answer Date Recorded PHQ-2 Score 0 06/02/2024 Adolescent Education Answer Date Record ed Getting School Help Needed Not on file 11/09 Interpersonal Safety Answer Date Record ed Do you feel physically and e motionally safe where you currently live? Yes 05/05/2024 Within the past 12 months, h ave you been hit, slapped, kicked or otherwise physically hurt by someone? No 05/05/2024 Within the past 12 months, h ave you been humiliated or emotionally abused in other ways by your partner or ex-partner? 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 Sharma. Based on theavailability of our provider(s), we are unable to accommodate this request. Were all sites offered this patient? Yes Does scheduling algorithm request to schedule next available? Patient has been scheduled for the first available opening with Dr. Sharma on 08/07/23. We have informed the patient that the clinic will review their referral and reach out if a sooner appointment is medically necessary. Patient scheduled as above. Please assist patient for a sooner appointment. documented in this encounter Plan of Treatment Upcoming Encounters Date Type Department Care Team (Latest Contact Info) Description 07/28/2024 9:00 AM CDT Infusion Therapy Visit [facility] [address] [place] [address] Sergio Martinez MD [address] [place] [address] 08/18/2024 2:30 PM CDT Virtual Visit [facility] [address] [place] [phone] Sergio Martinez MD [address] [place] [address] 08/25/2024 11:00 AM CDT Infusion Therapy Visit [facility] [id number] [place] [address] [address] [place] [phone] Sergio Martinez MD [address] [place] [address] 10/23/2024 10:30 AM CDT Office Visit [facility] [place] [address] [facility] [address] [place] [phone] Jerrod Werner MD [address] [place] [address] 11/11/2024 9:35 AM CDT Hospital Encounter [facility] [address] [place] [phone] Alfonzo Sultana MD [facility] [address] [place] [address] 11/11/2024 9:35 AM CDT - 11/11/2024 12:30 PM CDT Surgery [facility] [address] [place] [phone] Alfonzo Sultana MD [facility] [place] [address] RIGHT TOTAL SHOULDER ARTHROPLASTY VERSUS Scheduled Procedures Name Priority Associated Diagnoses Date/Ti me ARTHROPLASTY, SHOULDER, TOTAL Osteoarthritis of right shoulder 11/11/2024 9:35 AM CDT ARTHROPLASTY, SHOULDER, TOTAL, REVERSE Osteoarthritis of right shoulder 11/11/2024 9:35 AM CDT documented as of this encounter Visit Diagnoses Not on filedocumented in this encounter Care Teams [employer] Coordinator Relationship Specialty Start Date End Date Ciarra Pascal PA-C PCP - General 05/03/20 10/21/23 Denis Sharma MD Assigned Heart and Vascular Provider 05/12/22 04/11/24 Sergio Martinez MD [address] [place] [address] Hematology 05/06/23 Misty Wellington, ERLIN [address] [place] [address] Nurse Practitioner Nurse Practitioner 05/07/23 Prosper Shrestha MD [address] [place], [place] [phone] Emergency Medicine 05/07/23 Jayden Brantley MD [address] [facility] [address] [place] [address] Assigned Surgical Provider 05/11/23 07/10/23 Avril Dumont, GRZEGORZ Specialty Disability Insurance Claim Examiner Hematology & Oncology 05/28/23 05/22/24 Ramin Whitfield MD [address] [place] [id number] Assigned Surgical Provider 07/11/23 Sergio Martinez MD [address] [facility] [place], [place] [address] Assigned Cancer Care Provider 09/10/23 Sarah Gould, GRZEGORZ [address] [place] [address] Specialty Disability Insurance Claim Examiner Hematology & Oncology 08/13/23 Jerrod Werner MD [address] [place] [id number] Cardiovascular Disease 04/07/24 Jerrod Werner MD [address] [place] [address] Assigned Heart and Vascular Provider 04/12/24 documented as of this encounter
--- OUTSIDE RECORDS SUMMARY | 2024-07-03 07:04 | XMS_ITS | Clinical Summary ---
Author Organization [facility] Address [address] [place] [address]. [place] [address] Care Team Providers Care General Medical Practitioner Name Role Phone Heaven Sumner MD Unavailable Misty Wellington NP Unavailable [phone] Prosper Shrestha MD Unavailable [phone] Ramin Whitfield MD Unavailable [phone] Heaven Sumner MD Unavailable No Ref-Primary, Physician Primary Care Provider Sarah Gould RN Unavailable Ihsan Sharif MD Unavailable [phone] Ihsan Sharif MD Unavailable [phone] Shaila Landis MD Unavailable [phone] Allergies No known active allergies Medications jjjlvaz-eelkjc-jjy tease (CREON 12) 43734 UNITS CPEP Take 2 capsules by mouth 3 times daily (with meals) Active cyanocobalamin (VITAMIN B12) 1000 MCG/ML injection Inject 1 mL into the muscle every 30 days Injection once a month 01/03/20 16 Active levothyroxine (SYNTHROID, LEVOTHROID) 125 MCG tablet Take 2 tablets (250 mcg) by mouth daily 01/03/20 16 Active gabapentin (NEURONTIN) 300 MG capsule Take 2 capsules (600 mg) by mouth 3 times daily 01/03/20 16 Active insulin lispro (HUMALOG PEN) 100 UNIT/ML pen Inject 8 Units Subcutaneous 3 times daily (before meals) Active Octreotide Acetate 1000 MCG/ML SOLN 1,800 mcg by Subcutaneous Infusion route daily Patient uses an insulin pump to infuse octreotide subcutaneously. It is filled with octreotide 1000mcg/ml(pt brought vials). Pt infuses 1.8ml/day(1800mc g/day) continous with the basal setting at 7.5 units/hr(0.075ml /hr) and has the option for a 100mcg(0.1ml or 10 units on insulin pump) bolus up to three times a day as needed. His insulin pump reservoir is only 2ml so pt fills pump twice daily to avoid it possibly running out. Active JARDIANCE 25 MG TABS tablet Take 25 mg by mouth daily 07/15/19 22 Active insulin glargine (LANTUS PEN) 100 UNIT/ML pen Inject 26 Units Subcutaneous At Bedtime Active omeprazole (PRILOSEC) [address] capsule Take 40 mg by mouth daily Active vitamin D2 (ERGOCALCIFEROL) 53351 units (1250 mcg) capsule Take 50,000 Units by mouth twice a week Saturday & Active calcium citrate (CITRACAL) 950 (200 Ca) MG tablet Take 200 mg by mouth 3 times daily Active clomiPHENE (CLOMID) 50 MG tablet Take 50 mg by mouth every other day Active lubiprostone (AMITIZA) 24 MCG capsule Take 24 mcg by mouth daily. 04/19/19 24 Active famotidine (PEPCID) 40 MG tablet Take 40 mg by mouth daily Active oxyCODONE (ROXICODONE) 5 MG tablet Take 5 mg by mouth every 6 hours as needed 05/18/19 24 Active sucralfate (CARAFATE) 1 GM tablet Take 1 g by mouth 4 times daily 06/13/19 24 Active baclofen (LIORESAL) 10 MG tablet Take 10 mg by mouth once 04/28/19 24 Active B-D U/F insulin pen needle USE 1 (ONE) PEN NEEDLE FOUR TIMES DAILY 08/06/19 24 Active apixaban ANTICOAGULANT (ELIQUIS ANTICOAGULANT) 5 MG tabletIndications: Atrial fibrillation with RVR (H) Take 1 tablet (5 mg) by mouth 2 times daily 180 tablet 3 08/27/19 24 Active metoprolol tartrate (LOPRESSOR) 50 MG tabletIndications: Coronary artery disease involving [place] coronary artery of [place] heart without angina pectoris Take 1 tablet (50 mg) by mouth 2 times daily. 180 tablet 3 10/29/19 24 Active diazepam (VALIUM) 5 MG tabletIndications: Neuroendocrine cancer (H) Take 1 tablet (5 mg) by mouth every 6 hours as needed for anxiety. 4 tablet 01/28/20 24 Active Additional Information Patient not taking.Reported on 2024 atorvastatin (LIPITOR) 40 MG tabletIndications: Mixed hyperlipidemia,Cor onary artery disease involving [place] coronary artery of [place] heart without angina pectoris Take 1 tablet (40 mg) by mouth daily. 60 tablet 3 04/22/19 25 Active oxyCODONE (ROXICODONE) 5 MG tabletIndications: Primary pancreatic neuroendocrine tumor (H) Take 1 tablet (5 mg) by mouth every 6 hours as needed for pain. 30 tablet 06/18/19 25 025 Active polyethylene glycol (MIRALAX) 17 g packetIndications: Primary pancreatic neuroendocrine tumor (H) Take 17 g by mouth daily. 30 each 3 06/18/19 25 Active Active Problems Problem Noted Date Diagnosed Date Neuroendocrine cancer 06/23/2024 Nonrheumatic mitral valve regurgitation 03/07/19 21 Benign essential hypertension 05/05/2018 PAF (paroxysmal atrial fibrillation) 04/22/2018 Atypical chest pain 04/22/2018 Unstable angina 12/03/2016 ACS (acute coronary syndrome) 12/03/2016 HDL deficiency 07/14/2015 Class 1 obesity due to exces s calories with serious comorbidity and body mass index (BMI) of 33.0 to 33.9 in adult 07/14/2015 Hypothyroidism Stomach cancer Mixed hyperlipidemia Type 2 diabetes mellitus wit hout complication, with long-term current use of insulin NSTEMI (non-ST elevated myocardial infarction) Coronary artery disease invo lving [place] coronary artery of [place] heart without angina pectoris Overview (09/20/2014): cardiac cath 2014: BMS to OM1, cath 2010: diffuse disease Family history of early CAD Resolved Problems Problem Noted Date Diagnosed Date Resolved Date Ischemic cardiomyopathy 10/07/201407/20 Hypertriglyceridemia 016 Cardiomyopathy 10/07/2014 Overview (07/22/2014): 07/2014 EF 50-55% by Echo Encounters Date Type Department Care Team Description 07/01/2024 11:34 AM CDT Anesthesia Event [facility] PeriOp Services [address] [place] [address] Kelton Bah MD Anderson, Jeanna 07/01/2024 11:10 AM CDT - 07/01/2024 12:20 PM CDT Surgery [facility] [address] [place] [address] Guru Nicolle Garzon MD ENDOSCOPIC ULTRASOUND, ESOPHAGOSCOPY / UPPER GASTROINTESTINAL TRACT (GI) with celiac plexus block 07/01/2024 9:47 AM CDT - 07/01/2024 1:00 PM CDT Hospital Encounter [facility] Same Day Surgery [place] [address] [place] [address] Guru Nicolle Garzon MD Discharge Disposition: Home or Self Care 06/30/2024 12:00 PM CDT Infusion Therapy Visit [facility] [address] [place] [phone] Heaven Sumner MD Neuroendocrine cancer (H) (Primary Dx) 06/29/2024 Travel 06/26/2024 Travel 06/26/2024 MyC Medical Advice [facility] Gastroenterology Clinic [address] [address] Baldo Bailon 06/26/2024 Prep for Procedure [facility] Pancreas [facility] Biliary [facility] [address] [address] Carmina Reed, GRZEGORZ Neuroendocrine tumor (H) (Primary Dx); Cancer related pain 06/23/2024 Telephone [facility] [address] [address] Oxana Bullock RN 06/22/2024 8:30 AM CDT Virtual Visit [facility] [address] [phone] Heaven Sumner MD Neuroendocrine cancer (H) (Primary Dx) 06/17/2024 Orders Only [facility] [address] [phone] Heaven Sumner MD Primary pancreatic neuroendocrine tumor (H) (Primary Dx) 06/10/2024 Telephone [facility] Heart [facility] [address] [facility] [address] [place] [phone] Ihasn Sharif MD Results (Echo & NM Lexiscan stress test (nuc card)) 06/02/2024 8:00 AM CDT Virtual Visit [address] [address] Shaila Landis MD Secondary diabetes mellitus (H) (Primary Dx); 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); Hypothyroidism, unspecified type 05/12/2024 3:30 PM CDT Virtual Visit [facility] Cancer [address] [phone] Heaven Sumner MD Primary pancreatic neuroendocrine tumor (H) (Primary Dx) 05/05/2024 10:30 AM CDT - 05/05/2024 11:30 AM CDT Surgery [facility] Endoscopy [address] [place] [phone] Guru Nicolle Garzon MD ESOPHAGOGASTRODUODENOS COPY, WITH FINE NEEDLE ASPIRATION BIOPSY, WITH ENDOSCOPIC ULTRASOUND GUIDANCE 05/05/2024 9:59 AM CDT Anesthesia Event [facility] Endoscopy [address] [place] [phone] Hong Reina MD 05/05/2024 8:38 AM CDT - 05/05/2024 1:01 PM CDT Hospital Encounter [facility] Same Day Surgery [place] [address] [place] [phone] Guru Nicolle Garzon MD S/P fine needle aspiration (Primary Dx) Discharge Disposition: Home or Self Care 04/28/2024 MyC Medical Advice [facility] [address] [phone] Stephanie Damon, GRZEGORZ 04/28/2024 Telephone [facility] [phone] [place] [phone] Shaila Landis MD Appointment 04/28/2024 MyC Medical Advice [facility] Gastroenterology [address] [phone] Stephanie Damon, GRZEGORZ 04/28/2024 Telephone [facility] Gastroenterology [address] [phone] Stephanie Damon, RN Pt. Information/instructio n (EUS) 04/27/2024 Telephone [facility] Gastroenterology [address] [address] None Procedure (EUS) 04/22/2024 7:09 AM EPIC ANESTHESIA ANALYST - 04/22/2024 11:59 PM EPIC ANESTHESIA ANALYST Hospital Encounter [facility] [address] [place] [address] Ihsan Sharif MD PAF (paroxysmal atrial fibrillation) (H); Type 2 diabetes mellitus without complication, with long-term current use of insulin (H); Benign essential hypertension; Coronary artery disease involving [place] coronary artery of [place] heart without angina pectoris; Dizziness; Atrial fibrillation with RVR (H) Discharge Disposition: Home or Self Care 04/22/2024 Travel 04/21/2024 Refill [facility] Heart [address] [place] [phone] Denis Sharma MD Refill Request 04/17/2024 Telephone [facility] [address] [place] [phone] Esther Walker RN 04/16/2024 9:57 AM EPIC ANESTHESIA ANALYST - 04/16/2024 11:59 PM EPIC ANESTHESIA ANALYST Hospital Encounter [facility] [address] [place] [address] Ihsan Sharif MD Discharge Disposition: Home or Self Care 04/16/2024 9:57 AM EPIC ANESTHESIA ANALYST - 04/16/2024 11:59 PM EPIC ANESTHESIA ANALYST Hospital Encounter [facility] Heart Care [address] [place] [address] Ihsan Sharif MD Discharge Disposition: Home or Self Care 04/16/2024 Travel 04/15/2024 7:06 AM EPIC ANESTHESIA ANALYST - 04/15/2024 11:59 PM EPIC ANESTHESIA ANALYST Hospital Encounter [facility] [address] [place] [address] Ihsan Sharif MD Discharge Disposition: Home or Self Care 04/15/2024 7:06 AM EPIC ANESTHESIA ANALYST - 04/15/2024 11:59 PM EPIC ANESTHESIA ANALYST Hospital Encounter [facility] [address] [place] [address] Ihsan Sharif MD PAF (paroxysmal atrial fibrillation) (H); Type 2 diabetes mellitus without complication, with long-term current use of insulin (H); Benign essential hypertension; Coronary artery disease involving [place] coronary artery of [place] heart without angina pectoris Discharge Disposition: Home or Self Care 04/15/2024 Travel 04/14/2024 Orders Only [facility] [address] [phone] Carmina Reed RN Epigastric pain (Primary Dx) 2024 8:00 AM EPIC ANESTHESIA ANALYST Office Visit [facility] [address] [place] [phone] Ihsan Sharif MD PAF (paroxysmal atrial fibrillation) (H) (Primary Dx); Type 2 diabetes mellitus without complication, with long-term current use of insulin (H); Benign essential hypertension; Coronary artery disease involving [place] coronary artery of [place] heart without angina pectoris 2024 Telephone [facility] [address] [place] [address] Esther Walker RN 2024 Telephone [facility] [address] [facility] [address] [place] [address] Ihsan Sharif MD Appointment 04/06/2024 8:30 AM EPIC ANESTHESIA ANALYST Virtual Visit [facility] [address] [place] [address] Heaven Sumner MD Neuroendocrine cancer (H) (Primary Dx) from Last 3 Months Immunizations Immunization Administration Dates Next Due Pneumococcal 23 valent 02/06/2002 TDAP (Adacel,Boostrix) 04/11/2020 Zoster vaccine, live 02/01/2014 Family History Medical History Relation Comments Diabetes Brother Heart Disease Brother Heart Surgery Brother stents placed Myocardial Infarction Father Cancer Mother ovarian Myocardial Infarction Paternal Grandfather Diabetes Sister 1 Diabetes Sister 2 Relation Status Comments Brother Alive Father Maternal Grandfather Maternal Grandmother Mother Paternal Grandfather Paternal Grandmother Sister 1 Alive Sister 2 Alive Social History Tobacco Use Types Packs/Day Years Used Date Smoking Tobacco: Former Cigarettes Q uit: 02/19/1984 Passive Smoke Exposure: Never Smokeless Tobacco: Never Tobacco Cessation:Counseling Given: Not Answered Alcohol Use Standard Drinks/Week Comments Not Currently 0 (1 standard drink = 0.6 oz pur e alcohol) PHQ-2 Answer Date Recorded PHQ-2 Score 0 06/02/2024 Adolescent Education Answer Date Record ed Getting School Help Needed Not on file 11/09 Interpersonal Safety Answer Date Record ed Do you feel physically and e motionally safe where you currently live? Yes 07/01/2024 Within the past 12 months, h ave you been hit, slapped, kicked or otherwise physically hurt by someone? No 07/01/2024 Within the past 12 months, h ave you been humiliated or emotionally abused in other ways by your partner or ex-partner? No 07/01/2024 Sex and Gender Information Value Date Recorded Sex Assigned at Not on file Legal Sex Male 3:10 AM EPIC ANESTHESIA ANALYST Gender Identity Not on file Sexual Orientation Not on file Last Filed Vital Signs Vital Sign Reading Time Taken Comments Blood Pressure 127/77 07/01/2024 12:30 PM CDT Pulse 76 07/01/2024 12:10 PM CDT Temperature 37 C (98.6 F) 07/01/2024 12:30 PM CDT Respiratory Rate 19 07/01/2024 12:3 0 PM CDT Oxygen Saturation 96% 07/01/2024 12: 30 PM CDT Inhaled Oxygen Concentration - - Weight 125.5 kg (276 lb 10.8 oz) 2024 10:45 AM CDT Height 190.5 cm (6' 3) 07/01/2024 10:4 5 AM CDT Body Mass Index 34.58 07/01/2024 10:45 AM CDT Plan of Treatment Upcoming Encounters Date Type Department Care Team (Latest Contact Info) Description 07/28/2024 9:00 AM CDT Infusion Therapy Visit [address] [place] [phone] Heaven Sumner MD [address] [place], [place] [phone] 08/18/2024 2:30 PM CDT Virtual Visit [facility] [address] [place] [address] Heaven Sumner MD [address] [place] [address] 08/25/2024 11:00 AM CDT Infusion Therapy Visit [facility] [address] [place] [phone] Heaven Sumner MD [address] [place] [address] 10/23/2024 10:30 AM CDT Office Visit [facility] [place] [address] [place] [address] Ihsan Sharif MD [address] [place] [address] 11/11/2024 9:35 AM CDT Hospital Encounter [facility] Services [address] [place] [address] Alfonzo Sultana MD [facility] [address] [place] [address] 11/11/2024 9:35 AM CDT - 11/11/2024 12:30 PM CDT Surgery [facility] [address] [place] [address] Alfonzo Sultana MD [facility] [address] [place] [phone] RIGHT TOTAL SHOULDER ARTHROPLASTY VERSUS Scheduled Procedures Name Priority Associated Diagnoses Date/Ti me ARTHROPLASTY, SHOULDER, TOTAL Osteoarthritis of right shoulder 11/11/2024 9:35 AM CDT ARTHROPLASTY, SHOULDER, TOTAL, REVERSE Osteoarthritis of right shoulder 11/11/2024 9:35 AM CDT Health Maintenance Due Date Last Done Comments ADVANCE CARE PLANNING 1955 ANNUAL REVIEW OF HM ORDERS [address] CT COLONOGRAPHY 1955 DIABETIC FOOT EXAM 1955 FIT 1955 FLEX SIG 1955 MICROALBUMIN 1955 sDNA (Cologuard) 1955 HEPATITIS C SCREENING 1974 ZOSTER IMMUNIZATION (1 of 2) 03/29/2014 02/01/2014 RSV VACCINE (1 - Risk 60-74 years 1-dose series) 2016 A1C 10/22/2018 04/21/2018, 11/18, 07/20/2014, Additional history exists TSH W/FREE T4 REFLEX 04/22/2019 04/21/2018, 06/04/2017, 12/03/2016 FALL RISK ASSESSMENT 2021 MEDICARE ANNUAL WELLNESS VISIT 2021 Pneumococcal Vaccine: 50+ Years (3 of 3 - PPSV23, PCV20 or PCV21) 03/23/2022 01/26/2022, 02/06/2002 COVID-19 Vaccine ( season) 2023 05/29/2021, 06/09/2020, 05/19/2020 EYE EXAM 04/12/2024 04/12/2023 LIPID 08/06/2024 08/07/2023, 04/19, 05/18/2021, Additional history exists INFLUENZA VACCINE (Season Ended) 2024 04/06/2020, 01/03/2017, 12/06/2015, Additional history exists BMP 01/20/2025 01/21/2024, 09/0 04/2023, 08/07/2023, Additional history exists DTAP/TDAP/TD IMMUNIZATION (2 - Td or Tdap) 04/11/2030 04/11/2020, 12/11/2005 COLONOSCOPY 07/07/2031 07/06/2021, 06/18, 06/30/2021, Additional history exists COLORECTAL CANCER SCREENING 07/07/2031 AORTIC ANEURYSM SCREENING (SYSTEM ASSIGNED) Completed 03/31/2024, 05/06/2023, 04/26/2023, Additional history exists PHQ-2 (once per calendar year) Completed 06/02/2024, 2024, 08/07/2023, Additional history exists HPV IMMUNIZATION Aged Out No longer e ligible based on patient's age to complete this topic MENINGITIS IMMUNIZATION Aged Out No l onger eligible based on patient's age to complete this topic Goals Goal Patient Goal Type Associated Problems Recent Progress Patient-Stated? Author Total Joint Replacement Shoulder Pathway Care Plan Total Joint Replacement Shoulder Pathway No [employer] Implanted Type Area Inventory Administrator Device Identifier Shelf Expiration Date Model / Serial / Lot Cement Bone Simplex P Speedset Full Dose - [id number] Implanted:Qt y: 1 on 01/31/2022 by Alfonzo Sultana MD at [facility] Cement, Bone Left: Shoulder [employer] 03/20/2023 [id number] / / [id number] Imp [place] Hole Eliminator Hip Depuy Duraloc 1246-03-000 Implanted:Qt y: 1 on 08/04/2018 Metallic Hardware/A nchor Right: Hip [employer] [id number] 05/18/2026 [id number] / / [id number] Imp [place] Hole Eliminator Hip Depuy Duraloc 1246-03-000 Implanted:Qt y: 1 on 05/02/2020 Metallic Hardware/A nchor Left: Hip [employer] [id number] 01/17/2030 [id number] / / [id number] Cementless Femoral Stem Size 18 High Offset Implanted:Qt y: 1 on 05/02/2020 Other Left: Hip Depuy [id number] 02/17/2023 [id number] / / [id number] Imp Liner Depuy [place] Altrx [id number] +4 [id number] Implanted:Qt y: 1 on 08/04/2018 Total Joint Component/ Insert Right: Hip [employer] [id number] 06/17/2022 [id number] / / [id number] Imp Cup Chris [place] 60mm 1217-22-060 Implanted:Qt y: 1 on 08/04/2018 Total Joint Component/ Insert Right: Hip [employer] [id number] 03/20/2028 [id number] / / [id number] Stem Femoral Ho Collarless Sz 16 Implanted:Qt y: 1 on 08/04/2018 Total Joint Component/ Insert Right: Hip [employer] [id number] 06/17/2020 [id number] / / [id number] Head Ceramic Delta 01/31 36mm +12 Implanted:Qt y: 1 on 08/04/2018 Total Joint Component/ Insert Right: Hip [employer] [id number] 08/17/2021 1365-36-740 / / [id number] Liner Acetabular Altrx +4 Neut [id number] Implanted:Qt y: 1 on 05/02/2020 Total Joint Component/ Insert Left: Hip [employer] [id number] 10/19/2023 [id number] / / [id number] Imp Head Femoral Depuy Ceramic 36mm +1.5mm 1365-36-310 Implanted:Qt y: 1 on 05/02/2020 Total Joint Component/ Insert Left: Hip [employer] [id number] 03/20/2025 [id number] / / [id number] Imp Cup Chris [place] 62mm 1217-22-062 Implanted:Qt y: 1 on 05/02/2020 Total Joint Component/ Insert Left: Hip [employer] [id number] 09/17/2029 [id number] / / [id number] [place] Cortiloc Md 40mm - [id number] Implanted:Qt y: 1 on 01/31/2022 by Alfonzo Sultana MD at [facility] Total Joint Component/ Insert Left: Shoulder [employer] [id number] 04/25/2026 [id number] / [id number] / NA Head Humeral Stb Low Offset [id number] - [id number] Implanted:Qt y: 1 on 01/31/2022 by Alfonzo Sultana MD at [facility] Total Joint Component/ Insert Left: Shoulder [employer] [id number] 08/21/2026 [id number] / [id number] / NA Stem Humeral Anatomic Std Ptc 6b - [id number] Implanted:Qt y: 1 on 01/31/2022 by Alfonzo Sultana MD at [facility] Total Joint Component/ Insert Left: Shoulder [employer] [id number] 10/04/2026 [id number] / [id number] / NA Procedures Procedure Name Priority Date/Time Associated Diagnosis Comments GLUCOSE BY METER Routine 07/01/2024 12:20 PM CDT ESOPHAGOGASTRODUODENOSCOPY 07/01 11:34 AM CDT Neuroendocrine tumor (H) Cancer related pain ENDOSCOPIC ULTRASOUND, ESOPHAGOSCOPY / UPPER GASTROINTESTINAL TRACT (GI) 07/01/2024 11:34 AM CDT Neuroendocrine tumor (H) Cancer related pain GLUCOSE BY METER Routine 07/01/2024 11:01 AM CDT UPPER EUS Routine 07/01/2024 11:00 AM CDT FINE NEEDLE ASPIRATE Routine 05/05/2024 10:41 AM CDT SURGICAL PATHOLOGY EXAM Routine 05/06/19 10:20 AM CDT UGI ENDOSCOPY DIAG W BIOPSY 04/18 9:59 AM CDT Epigastric pain ESOPHAGOGASTRODUODENOSCOPY, WITH FINE NEEDLE ASPIRATION BIOPSY, WITH ENDOSCOPIC ULTRASOUND GUIDANCE 05/05/2024 9:59 AM CDT Epigastric pain UPPER EUS Routine 05/05/2024 9:43 AM CDT GLUCOSE BY METER Routine 05/05/2024 9:29 AM CDT ECHO COMPLETE Routine 04/22/2024 7:45 AM EPIC ANESTHESIA ANALYST PAF (paroxysmal atrial fibrillation) (H) Type 2 diabetes mellitus without complication, with long-term current use of insulin (H) Benign essential hypertension Coronary artery disease involving [place] coronary artery of [place] heart without angina pectoris Dizziness Atrial fibrillation with RVR (H) NM MPI WITH LEXISCAN Routine 04/16/2024 11:40 AM EPIC ANESTHESIA ANALYST PAF (paroxysmal atrial fibrillation) (H) Type 2 diabetes mellitus without complication, with long-term current use of insulin (H) Benign essential hypertension Coronary artery disease involving [place] coronary artery of [place] heart without angina pectoris CT CHEST/ABDOMEN/PELVIS W CONTRAST Routine 03/31/2024 2:36 PM EPIC ANESTHESIA ANALYST Neuroendocrine cancer (H) Secondary carcinoid tumors of peritoneum (H) Carcinoid tumor, unspecified site, unspecified whether malignant (H) COMPREHENSIVE METABOLIC PANEL Routine 10:00 AM EPIC ANESTHESIA ANALYST Neuroendocrine cancer (H) LIPID PROFILE Routine 08/07/2023 10:46 AM CDT Mixed hyperlipidemia COLONOSCOPY - HIM SCAN 12:00 AM CDT TSH Routine 04/21/2018 10:46 PM EPIC ANESTHESIA ANALYST HEMOGLOBIN A1C Routine 04/21/2018 10:46 PM EPIC ANESTHESIA ANALYST Syncope, unspecified syncope type from Last 3 Months or Most Recently Relevant to Health Maintenance Results * (ABNORMAL) Glucose by meter (07/01/2024 12:20 PM CDT) Only the most recent of3 resultswithin the time period is included. GLUCOSE BY METER POCT 167(H) 70 - 99 mg/dL 07/01/2024 12:27 PM CDT [facility] Blood, Capillary BLOOD SPECIMEN / Unknown 07/01/2024 12:20 PM CDT 07/01/2024 12:27 PM CDT Guru Nicolle Garzon MD LAB - BEAK ER POCT Final Result [facility] [address] [facility], [address] [place] [address] * UPPER EUS (07/01/2024 11:00 AM CDT) [facility] [address] [place] [address] [phone] Endoscopy Department ___ Patient Name: Brooks Willis Procedure Date: 07/01/2024 11:00 AM Date of : 1955 Admit Type: Outpatient Age: 69 Room: [place] [address] Gender: Male Note Status: Finalized Attending MD: GURU NICOLLE GARZON , , Pause for the Cause: completed Total Sedation Time: ___ Procedure: Upper EUS Indications: Abdominal pain. 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 Providers: PHYLLIS POLANCO Referring MD: HEAVEN SUMNER Medicines: Monitored Anesthesia Care Complications: No immediate complications. ___ Procedure: Pre-Anesthesia Assessment: - Prior to the procedure, a History and Physical was performed, and patient medications and allergies were reviewed. The patient is competent. The risks and benefits of the procedure and the sedation options and risks were discussed with the patient. All questions were answered and informed consent was obtained. Patient identification and proposed procedure were verified by the physician, the nurse and the feather drying machine operator in the procedure room. Mental Status Examination: alert and oriented. Respiratory Examination: Normal work of breathing. CV Examination: regular rate and rhythm. Prophylactic Antibiotics: The patient does not require prophylactic antibiotics. Prior Anticoagulants: The patient has taken no anticoagulant or antiplatelet agents. ASA Grade Assessment: III - A patient with severe systemic disease. After reviewing the risks and benefits, the patient was deemed in satisfactory condition to undergo the procedure. The anesthesia plan was to use general anesthesia. Immediately prior to administration of medications, the patient was re-assessed for adequacy to receive sedatives. The heart rate, respiratory rate, oxygen saturations, blood pressure, adequacy of pulmonary ventilation, and response to care were monitored throughout the procedure. The physical status of the patient was re-assessed after the procedure. After obtaining informed consent, the endoscope was passed under direct vision. Throughout the procedure, the patient's blood pressure, pulse, and oxygen saturations were monitored continuously. The EUS Linear was introduced through the mouth, and advanced to the second part of duodenum. The Endoscope was introduced through the mouth, and advanced to the body of the stomach. The upper EUS was accomplished without difficulty. The patient tolerated the procedure well. Findings: ENDOSCOPIC FINDING: : The Z-line was regular and was found 38 cm from the incisors. The examined esophagus was normal. The entire examined stomach was normal. The examined duodenum was normal. ENDOSONOGRAPHIC FINDING: : Celiac plexus neurolysis was performed. Celiac axis was identified. A 22 gauge EchoTip needle was used to puncture the posterior gastric wall. The needle was inserted under EUS guidance immediately adjacent and anterior to the lateral aspect of the aorta at the level of the celiac trunk. The needle was flushed with bupivacaine to remove any tissue acquired during insertion. An aspiration test was performed to rule out vessel penetration prior to each injection. 9 mL (0.25 percent) of bupivacaine was injected followed by 9 mL (98 percent) dehydrated alcoho. The entire process was then repeated on the opposite side of the aorta. A total of 18 ml of bupivacaine and 18 ml of dehydrated alcohol was injected. Impression: - Fundic gland polyps but otherwise normal EGD and no clear cause for abdominal pain could be identified during upper endoscopy - EUS with successful celiac plexus neurolysis by injecting bupivacaine and ethanol Recommendation: - Observe patient in GI recovery unit for possible discharge same day. - Resume previous diet. - If he shows clinical response with improvement of pain, will consider repeat neurolysis in the future. If no significant clinical improvement, then consider IR consult for splanchnic lucille block - The findings and recommendations were discussed with the patient and their family. - Written discharge instructions were provided to the patient. GURU NICOLLE GARZON, 07/02/2024 9:22:05 AM I was physically present for the entire viewing portion of the exam. Signature of teaching physician Jean/[id number] GARZON FRANKLIN MERRITT, Number of Addenda: 0 Note Initiated On: 07/01/2024 11:00 AM Scope In: Scope Out: RADIOLOGY RESULTS 07/01/2024 11:0 0 AM CDT Heaven Sumner MD PROCEDURES Final Result RADIOLOGY RESULTS * (ABNORMAL) Fine Needle Aspirate Other (05/05/2024 10:41 AM CDT) Final Diagnosis OTHER, SOFT TISSUE ALONG SPLENIC ARTERY, ULTRASOUND-GUIDED FINE NEEDLE ASPIRATION: Interpretation: - Well-differentiated neuroendocrine tumor, see comment Adequacy: Satisfactory for evaluation 05/07/2024 2:06 PM CDT [facility] Comment Cytologic preparatio n and cell block demonstrate clusters of tumor cells with neuroendocrine differentiation. Immunohistochemical stains with appropriate controls are performed. The tumor cells are positive for INSM1 and synaptophysin. Ki-67 demonstrates a proliferation index of less than 3%. The overall morphologic and immunohistochemical profile is consistent with a well-differentiated neuroendocrine tumor, preliminarily grade 1. However, cytologic evaluation is limited by sampling and a better proliferation index can be obtained on excision specimen. This case received intradepartmental peer review. 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 Aspirate immediate study/adequacy: I, ARACELI RUCKER MD, attest that I immediately examined smears while the procedure was underway and determined or confirmed the adequacy of the specimens via telepathology. It is of note that the final assessment and report may be performed and signed by a different pathologist. Onsite adequacy/interpretati on: A: Adequate 05/07/2024 2:06 PM CDT [facility] Gross Description A(3). Other, soft tissue along splenic artery:A. Other, soft tissue along splenic artery, Fine Needle Aspirate: Received are 1 fixed slides, processed for Pap stain, 1 air dried slides, processed for Diff Quik stain, and material in formalin, processed for one hematoxylin stained cell block. 05/07/2024 2:06 PM CDT [facility] Microscopic Description Microscopic examination is performed. Case was reviewed by the following: Pathology Fellow: Sierra Mack MD Pathology Fellow: Adali Jeong DO Resident Pathologist: Venkat Prabhakar MD A resident or fellow in a training program was involved in the initial review, preparation, and/or interpretation of this case. I, as the senior physician, attest that I have personally reviewed all specimens and or slides, including the listed special stains, and used them with my medical judgement to determine the final diagnosis. 05/07/2024 2:06 PM CDT [facility] Abnormal Result? Yes(A) No 05/07/2024 2:06 PM CDT [facility] Performing Labs The technical component of this testing was completed at [facility]. Stain controls for all stains resulted within this report have been reviewed and show appropriate reactivity. 05/07/2024 2:06 PM CDT [facility] Fine Needle Aspiration TOPOGRAPHY UNKNOWN / Unknown 05/05/2024 10:41 AM CDT 05/05/2024 10:46 AM CDT Guru Nicolle Garzon MD LAB - [facility] AP Final Result [facility] Specialty Lab [address] [facility], [address] [place] [address] * Surgical Pathology Exam (05/05/2024 10:20 AM CDT) Case Report Surgical Pathology Report Case: [id number] Authorizing Provider: Guru Nicolle Garzon Collected: 05/05/2024 10:20 AM MD Renato Ordering Location: [facility] Received: 05/05/2024 10:52 AM Endoscopy Pathologist: Charlie Mills DO Specimens: A) - Stomach, multiple polyps bx B) - Stomach, Gastric biopsy 05/06/2024 8:10 AM CDT [facility] Final Diagnosis A. GASTRIC POLYPS: - Fundic gland polyps - No H. pylori-like organisms identified on routine staining - No intestinal metaplasia identified B. GASTRIC BIOPSY - Mild reactive gastropathy - No H. pylori-like organisms identified on routine staining - No intestinal metaplasia identified 05/06/2024 8:10 AM CDT [facility] Clinical Information Epigastric pain 05/06/2024 8:10 AM CDT [facility] Gross Description A(1). Stomach, multiple polyps bx: The specimen is received in formalin with proper patient identification , labeled multiple polyps BX. The specimen consists of 5 pieces of pink-hartley soft tissue averaging 0.1 cm each, which are entirely submitted in cassette A1. B(2). Stomach, Gastric biopsy: The specimen is received in formalin with proper patient identification , labeled gastric biopsy. The specimen consists of 5 pieces of pink-hartley soft tissue ranging in size from 0.1 to 0.2 cm in greatest dimension, which are entirely submitted in cassette B1. 05/06/2024 8:10 AM CDT [facility] Microscopic Description Microscopic examination was performed. 05/06/2024 8:10 AM CDT [facility] Performing Labs The technical component of this testing was completed at [facility]. Stain controls for all stains resulted within this report have been reviewed and show appropriate reactivity. 05/06/2024 8:10 AM CDT [facility] Case Images 05/06/2024 8:10 AM CDT [facility] Biopsy STOMACH STRUCTURE / Unknown 05/05/2024 10:20 AM CDT 05/05/2024 10:52 AM CDT Specimen from unspecified body site obtained by biopsy (specimen) STOMACH STRUCTURE / Unknown 05/05/2024 10:21 AM CDT 05/05/2024 10:52 AM CDT Comment:R/O H Pylori us Guru Nicolle HARDY - SYD MASCORRO Final Result [facility] [address] [facility] [address], [address] [address], [facility] [address] [facility] [address] [facility], [address] [address], [facility] * UPPER EUS (05/05/2024 9:43 AM CDT) Pathologist [facility] Upper EUS [facility] [address] [place] [place] [address] [phone] Endoscopy Department ___ Patient Name: Brooks Willis Procedure Date: 05/05/2024 9:43 AM Date of : 1955 Admit Type: Outpatient Age: 69 Room: [place] [address] Gender: Male Note Status: Finalized Attending MD: GURU NICOLLE GARZON , , Total Sedation Time: ___ Procedure: Upper EUS Indications: Abnormal abdominal PET scan Providers: GURU NICOLLE GARZON, Irais Ponce RN Referring MD: HEAVEN SUMNER Medicines: Monitored Anesthesia Care Complications: No immediate complications. ___ Procedure: Pre-Anesthesia Assessment: - Prior to the procedure, a History and Physical was performed, and patient medications and allergies were reviewed. The patient is competent. The risks and benefits of the procedure and the sedation options and risks were discussed with the patient. All questions were answered and informed consent was obtained. Patient identification and proposed procedure were verified by the physician and the nurse in the pre-procedure area. Mental Status Examination: alert and oriented. Airway Examination: normal oropharyngeal airway and neck mobility. Respiratory Examination: clear to auscultation. CV Examination: normal. Prophylactic Antibiotics: The patient does not require prophylactic antibiotics. Prior Anticoagulants: The patient has taken no anticoagulant or antiplatelet agents. ASA Grade Assessment: II - A patient with mild systemic disease. After reviewing the risks and benefits, the patient was deemed in satisfactory condition to undergo the procedure. The anesthesia plan was to use monitored anesthesia care (MAC). Immediately prior to administration of medications, the patient was re-assessed for adequacy to receive sedatives. The heart rate, respiratory rate, oxygen saturations, blood pressure, adequacy of pulmonary ventilation, and response to care were monitored throughout the procedure. The physical status of the patient was re-assessed after the procedure. After obtaining informed consent, the endoscope was passed under direct vision. Throughout the procedure, the patient's blood pressure, pulse, and oxygen saturations were monitored continuously. The was introduced through the mouth, and advanced to the second part of duodenum. The EGD was introduced through the mouth, and advanced to the second part of duodenum. The upper EUS was accomplished without difficulty. The patient tolerated the procedure well. Findings: ENDOSCOPIC FINDING: : The Z-line was irregular. A few 2 to 3 mm sessile polyps with no bleeding and no stigmata of recent bleeding were found in the stomach. This was biopsied with a cold forceps for histology. Localized mildly erythematous mucosa without bleeding was found in the gastric antrum. Biopsies were taken with a cold forceps for Helicobacter pylori testing. The examined duodenum was normal. ENDOSONOGRAPHIC FINDING: : The major papilla was endoscopically and sonographically normal. The common bile duct was followed from the major papilla to the liver and no stones were seen. The duct was non-dilated, measuring 5 mm in maximal diameter.The gallbladder was surgically absent.There was no intrahepatic biliary dilation. An irregular mass was identified in the pancreatic tail. The mass was hypoechoic. The mass measured 5 mm by 4 mm in maximal cross-sectional diameter. The outer margins were irregular. An intact interface was seen between the mass and the adjacent structures suggesting a lack of invasion. Fine needle biopsy was performed. Color Doppler imaging was utilized prior to needle puncture to confirm a lack of significant vascular structures within the needle path. Three passes were made with the 22 gauge Acquire biopsy needle using a transgastric approach. A preliminary cytologic examination was performed. Final cytology results are pending. Pancreatic parenchymal abnormalities were noted in the entire pancreas. These consisted of patchy areas of echogenicity suggestive of fatty changes. Main pancreatic duct measured Endosonographic imaging in the visualized portion of the liver showed no intrahepatic ductal dilation, lesion or mass. The major papilla was endoscopically and sonographically normal. The common bile duct was followed from the major papilla to the liver and no stones were seen. The duct was non-dilated.The gallbladder was surgically absent.There was no intrahepatic biliary dilation. There was no sign of significant endosonographic abnormality in the visualized portion of the left adrenal gland. No focal pathology was identified. No lymphadenopathy seen. Impression: - No cause for abdominal pain could be identified from the upper endoscopy - Z-line irregular. - A few gastric polyps. Biopsied. - Erythematous mucosa in the antrum. Random biopsies were performed from the gastric body and antrum to exclude H.pylori. - Normal examined duodenum. - A 5 mm by 4 mm soft tissue mass was identified along the splenic artery in the region pancreatic tail which may correspond to the focal intense radiotracer activity seen in the DOTATATE scan. The endosonographic appearance is a neuroendocrine tumor. Fine needle biopsy performed. - Rest of the parenchymal abnormalities consisting of diffuse echogenicity were noted in the entire pancreas. - No focal masses or lesions were seen in the visualized portion of the liver - Endosonographic images of the left adrenal gland were unremarkable. Recommendation: - Observe patient in same day observation unit for ongoing care. - Await cytology results. - Discussed with patient and his that the cause for abdominal pain could not be established following this EGD/EUS examination. If cytology is positive for neuroendocrine tumor, full work up for possible functional neuroendocrine tumor should be performed - The findings and recommendations were discussed with the patient. GURU NICOLLE GARZON, 05/05/2024 7:46:51 PM I was physically present for the entire viewing portion of the exam. Signature of teaching physician [place]/[id number] GARZON Number of Addenda: 0 Note Initiated On: 05/05/2024 9:43 AM Scope In: Scope Out: RADIOLOGY RESULTS 05/05/2024 9:43 AM CDT us Heaven Sumner MD PROCEDURES Final Result RADIOLOGY RESULTS * ECHO COMPLETE (04/22/2024 7:45 AM EPIC ANESTHESIA ANALYST) LVEF 50-55% CARDIOLOGY RESULTS Anatomical Region Laterality Modality Echocardiography 04/22/2024 7:19 AM EPIC ANESTHESIA ANALYST Narrative 04/22/2024 8:12 AM EPIC ANESTHESIA ANALYST [id number]^CHANTE^IHSAN^IMELDA [facility] Echocardiography Laboratory [address] [place], [place] [id number] Name: BROOKS WILLIS : 1955 Study Date: 04/22/2024 07:19 AM Age: 69 yrs Gender: Male Patient Location: [facility] Reason For Study: PAF (paroxysmal atrial fibrillation) (H), Type 2 diabetes mellit Ordering Physician: IHSAN SHARIF Referring Physician: IHSAN SHARIF Performed By: Jaron Medina RDCS BSA: 2.6 m2 Height: 75 in Weight: 285 lb HR: 63 BP: 138/81 mmHg Procedure Echocardiogram with two-dimensional, color and spectral Doppler. Interpretation Summary There is mild concentric left ventricular hypertrophy. The visual ejection fraction is 50-55%. There is borderline lateral wall hypokinesis. There is moderate inferolateral wall hypokinesis. The right ventricular systolic function is borderline reduced. Aortic valve not well seen, it is likely trileaflet, sclerotic with mild/moderate aortic valve stenosis. The has increased mildly compared to echo 05/01/21 Sinus rhythm was noted. Left Ventricle The left ventricle is normal in size. There is mild concentric left ventricular hypertrophy. The visual ejection fraction is 50-55%. Left ventricular diastolic function is indeterminate. There is borderline lateral wall hypokinesis. There is moderate inferolateral wall hypokinesis. Right Ventricle The right ventricle is normal size. The right ventricular systolic function is borderline reduced. Atria Normal left atrial size. Right atrial size is normal. Mitral Valve There is mild mitral annular calcification. There is trace mitral regurgitation. Tricuspid Valve Normal tricuspid valve. Right ventricular systolic pressure could not be approximated due to inadequate tricuspid regurgitation. Aortic Valve Aortic valve not well seen, it is likely trileaflet, sclerotic with mild/moderate aortic valve stenosis. The has increased mildly compared to echo 05/01/21. Moderate valvular aortic stenosis. The mean AoV pressure gradient is 16.0 mmHg. Pulmonic Valve The pulmonic valve is not well seen, but is grossly normal. Vessels The aortic root is normal size. Pericardium The pericardium appears normal. Rhythm Sinus rhythm was noted. MMode/2D Measurements & Calculations IVSd: 1.3 cm LVIDd: 5.4 cm LVIDs: 3.5 cm LVPWd: 1.2 cm FS: 35.3 % LV mass(C)d: 276.7 grams LV mass(C)dI: 108.5 grams/m2 Ao root diam: 3.8 cm asc Aorta Diam: 3.7 cm LVOT diam: 2.3 cm LVOT area: 4.0 cm2 Ao root diam index Ht(cm/m): 2.0 Ao root diam index BSA (cm/m2): 1.5 Asc Ao diam index BSA (cm/m2): 1.4 Asc Ao diam index Ht(cm/m): 1.9 LA Volume (BP): 66.3 ml LA Volume Index (BP): 26.0 ml/m2 RV Base: 4.0 cm RWT: 0.44 TAPSE: 2.5 cm Time Measurements Aortic HR: 64.0 BPM Doppler Measurements & Calculations MV E max reagan: 87.5 cm/sec MV A max reagan: 93.8 cm/sec MV E/A: 0.93 MV max P.6 mmHg MV mean P.1 mmHg MV V2 VTI: 34.4 cm MVA(VTI): 2.7 cm2 MV dec time: 0.27 sec Ao V2 max: 262.0 cm/sec Ao max P.0 mmHg Ao V2 mean: 184.0 cm/sec Ao mean P.0 mmHg Ao V2 VTI: 59.2 cm ZAC(I,D): 1.5 cm2 ZAC(V,D): 1.5 cm2 LV V1 max P.7 mmHg LV V1 max: 95.9 cm/sec LV V1 VTI: 22.8 cm CO(LVOT): 5.9 l/min CI(LVOT): 2.3 l/min/m2 SV(LVOT): 91.6 ml SI(LVOT): 35.9 ml/m2 PA acc time: 0.11 sec AV Reagan Ratio (DI): 0.37 ZAC Index (cm2/m2): 0.61 E/E' av.3 Lateral E/e': 12.6 Medial E/e': 14.1 Report approved by: Shayne Castellanos MD on 04/22/2024 08:12 AM Procedure Note Shayne Castellanos MD - 04/22/2024 [id number]^CHANTE^IHSAN^IMELDA [facility] Echocardiography Laboratory [address] [place] [address] Name: BROOKS WILLIS : 1955 Study Date: 04/22/2024 07:19 AM Age: 69 yrs Gender: Male Patient Location: [facility] Reason For Study: PAF (paroxysmal atrial fibrillation) (H), Type 2diabetes mellit Ordering Physician: IHSAN SHARIF Referring Physician: IHSAN SHARIF Performed By: Jaron Medina RDCS BSA: 2.6 m2 Height: 75 in Weight: 285 lb HR: 63 BP: 138/81 mmHg Procedure Echocardiogram with two-dimensional, color and spectral Doppler. Interpretation Summary There is mild concentric left ventricular hypertrophy. The visual ejection fraction is 50-55%. There is borderline lateral wall hypokinesis. There is moderate inferolateral wall hypokinesis. The right ventricular systolic function is borderline reduced. Aortic valve not well seen, it is likely trileaflet, sclerotic with mild/moderate aortic valve stenosis. The has increased mildly comparedto echo 05/01/21 Sinus rhythm was noted. Left Ventricle The left ventricle is normal in size. There is mild concentric left ventricular hypertrophy. The visual ejection fraction is 50-55%. Left ventricular diastolic function is indeterminate. There is borderlinelateral wall hypokinesis. There is moderate inferolateral wall hypokinesis. Right Ventricle The right ventricle is normal size. The right ventricular systolicfunction is borderline reduced. Atria Normal left atrial size. Right atrial size is normal. Mitral Valve There is mild mitral annular calcification. There is trace mitral regurgitation. Tricuspid Valve Normal tricuspid valve. Right ventricular systolic pressure could not be approximated due to inadequate tricuspid regurgitation. Aortic Valve Aortic valve not well seen, it is likely trileaflet, sclerotic with mild/moderate aortic valve stenosis. The has increased mildly comparedto echo 05/01/21. Moderate valvular aortic stenosis. The mean AoV pressure gradient is 16.0 mmHg. Pulmonic Valve The pulmonic valve is not well seen, but is grossly normal. Vessels The aortic root is normal size. Pericardium The pericardium appears normal. Rhythm Sinus rhythm was noted. MMode/2D Measurements & Calculations IVSd: 1.3 cm LVIDd: 5.4 cm LVIDs: 3.5 cm LVPWd: 1.2 cm FS: 35.3 % LV mass(C)d: 276.7 grams LV mass(C)dI: 108.5 grams/m2 Ao root diam: 3.8 cm asc Aorta Diam: 3.7 cm LVOT diam: 2.3 cm LVOT area: 4.0 cm2 Ao root diam index Ht(cm/m): 2.0 Ao root diam index BSA (cm/m2): 1.5 Asc Ao diam index BSA (cm/m2): 1.4 Asc Ao diam index Ht(cm/m): 1.9 LA Volume (BP): 66.3 ml LA Volume Index (BP): 26.0 ml/m2 RV Base: 4.0 cm RWT: 0.44 TAPSE: 2.5 cm Time Measurements Aortic HR: 64.0 BPM Doppler Measurements & Calculations MV E max reagan: 87.5 cm/sec MV A max reagan: 93.8 cm/sec MV E/A: 0.93 MV max P.6 mmHg MV mean P.1 mmHg MV V2 VTI: 34.4 cm MVA(VTI): 2.7 cm2 MV dec time: 0.27 sec Ao V2 max: 262.0 cm/sec Ao max P.0 mmHg Ao V2 mean: 184.0 cm/sec Ao mean P.0 mmHg Ao V2 VTI: 59.2 cm ZAC(I,D): 1.5 cm2 ZAC(V,D): 1.5 cm2 LV V1 max P.7 mmHg LV V1 max: 95.9 cm/sec LV V1 VTI: 22.8 cm CO(LVOT): 5.9 l/min CI(LVOT): 2.3 l/min/m2 SV(LVOT): 91.6 ml SI(LVOT): 35.9 ml/m2 PA acc time: 0.11 sec AV Reagan Ratio (DI): 0.37 ZAC Index (cm2/m2): 0.61 E/E' av.3 Lateral E/e': 12.6 Medial E/e': 14.1 Report approved by: Shayne Castellanos MD on 04/22/2024 08:12 AM us Ihsan Sharif MD CV ECHO ORDERABLES Edited Result - Final * NM Lexiscan stress test (nuc card) (04/16/2024 11:40 AM EPIC ANESTHESIA ANALYST) Target HR 152 RADIANT Baseline Systolic BP 145 RADIANT Baseline Diastolic BP 76 RADIANT Last Stress Systolic BP 139 RADIANT Last Stress Diastolic BP 81 RADIANT Baseline HR 71 bpm RADIANT Max HR 89 RADIANT Max Predicted HR 59 % RADIANT Rate Pressure Product 12,371.0 RADIANT Left Ventricular EF 57 % RADIANT Anatomical Region Laterality Modality Chest Nuclear Medicine Narrative 04/16/2024 3:56 PM EPIC ANESTHESIA ANALYST The nuclear stress test is abnormal. There is a small area of transmural infarction in the basal and mid inferior and basal inferolateral sesay of the left ventricle. No residual ischemia is idenfied. Left ventricular function is normal. The left ventricular ejection fraction at stress is 57%. A prior study was conducted on 04/23/2018. This study has changes noted when compared with the prior study. The region of abnormality appears the same as the previous study, but now appears more fixed, rather than partially reversible. Stress Findings A pharmacologic stress test was performed following a sitting Lexiscan protocol using 0.4 mg of intravenous regadenoson administered over 10 seconds under the supervision of Toribio Roy MD [[id number]]. The patient reported chest discomfort, dyspnea and flushing during the stress test. ECG Baseline electrocardiogram demonstrates sinus rhythm. Inferior Q waves. The stress electrocardiogram is negative for inducible ischemic EKG changes. Isotope Administration Nuclear imaging was accomplished using a two day high dose protocol with 32.9 mCi of technetium sestamibi injected at the completion of Lexiscan infusion on 04/16/2024 and 33 mCi of technetium sestamibi at rest on 04/15/2024. Nuclear Study Quality The quality improvement consultant images demonstrate diaphragmatic attenuation. Final image quality is satisfactory. Perfusion Defect The nuclear stress test is abnormal. There is a small area of transmural infarction in the basal and mid inferior and basal inferolateral sesay of the left ventricle. No residual ischemia is idenfied. The left ventricular ejection fraction at stress is 57%. Left ventricular function is normal. Nuclear Prior Study A prior study was conducted on 04/23/2018. This study has changes noted when compared with the prior study. The region of abnormality appears the same at the previous study, but now appears more fixed, rather than partially reversible. Perfusion Scoring Stress Summed Score: 6 Percent Normal: 8.82% Severe count reduction in the following segments: basal inferolateral. Moderate count reduction in the following segments: basal inferior. Mild count reduction in the following segments: mid inferior. All other segments are normal. Perfusion Scoring Resting Summed Score: 6 Percent Normal: 8.82% Severe count reduction in the following segments: basal inferolateral. Moderate count reduction in the following segments: basal inferior. Mild count reduction in the following segments: mid inferior. All other segments are normal. Perfusion Scores: SRS Score: 6 Percentage Abnormal: 8.82% Perfusion Scores: SSS Score: 6 Percentage Abnormal: 8.82% Perfusion Scores: SDS Score: 0 Percentage Abnormal: 0.00% Wall Motion Score Index: 1.24 The following segments are akinetic: basal inferolateral. The following segments are hypokinetic: basal inferior and mid inferior. All other segments are normal. Ihsan Sharif MD [facility] [place] ORDERABLES Final R esult * CT Chest/Abdomen/Pelvis w Contrast (03/31/2024 2:36 PM EPIC ANESTHESIA ANALYST) Anatomical Region Laterality Modality Abdomen/Pelvis, Chest, SUBRA D CT BODY, UMP CT CHEST, UMP CT ABDOMEN PELVIS, RAD CT Positron Emission Tomography (PET) Impressions 04/01/2024 11:15 AM EPIC ANESTHESIA ANALYST IMPRESSION: 1. Unchanged size of intensely radiotracer avid central mesenteric lymph node/nodule, concerning for metastatic disease. 2. Multiple foci of increased uptake throughout the head and body of the pancreas, with possible CT correlates, though the pancreas is incompletely characterized on this examination. This is nonspecific, but could represent pancreatic neuroendocrine tumor foci. Recommend further characterization with pancreatic protocol CT or MRI for further characterization of these regions. 3. Slight increase in avidity of lymph nodes within the mediastinum and antonio laterally, more likely reflect inflammatory change. Recommend continued attention on follow-up imaging. 4. Bilateral dependent pulmonary opacities, without significant uptake. These are more likely to reflect bibasilar atelectatic changes in the setting of intubation, though developing inflammatory or infectious process cannot be excluded. Recommend correlation patient's symptoms. 5. Incidental CT findings, as above Krenning Score of Neuroendocrine Tumor Uptake 0: None 1: Much lower than liver 2: Slightly less than or equal to liver 3: Greater than liver 4: Greater than spleen GLEN FISHER MD Narrative 04/01/2024 11:15 AM EPIC ANESTHESIA ANALYST Combined Report of: PET Dotatate and CT on 03/31/2024 2:36 PM: 1. PET of the neck, chest, abdomen, and pelvis. 2. PET CT Fusion for Attenuation Correction and Anatomical Localization. 3. Diagnostic CT of the chest, abdomen and pelvis with intravenous contrast obtained for diagnostic interpretation. 4. 3D MIP and PET-CT fused images were processed on an independent workstation and archived to PACS and reviewed by a radiologist. Technique: 1. PET: The patient received 5.2 mCi of Ga-68 Dotatate; body weight was 120.9 kg. Images were evaluated in the axial, sagittal, and coronal planes as well as the rotational whole body MIP. Images were acquired from the Vertex to the Feet. UPTAKE WAS MEASURED AT [address]: Volumetric acquisition for clinical interpretation of the chest, abdomen, and pelvis acquired at 3 mm sections. The chest, abdomen, and pelvis were evaluated at 5 mm sections in bone, soft tissue, and lung windows. -- Contrast and Medications: IV contrast: 135 mL of Isovue 370 intravenously. PO contrast: None. Additional Medications: None. 3. 3D MIP and PET-CT fused images were processed on an independent workstation and archived to PACS and reviewed by a radiologist. 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 Subcutaneous octreotide via insulin pump, beginning in 2011 to present COMPARISON: Multiple priors, most recent is a CT of the abdomen and pelvis dated 05/06/2023. Most recent PET/CT comparison dated 06/08/2021 FINDINGS: BACKGROUND: Liver SUV max = 8.2, Spleen SUV max = 20.3. HEAD/NECK: No abnormal uptake. Mild mucosal thickening noted within the nasopharyngeal spaces. Paranasal sinuses are otherwise clear. Mastoid air cells are clear. Mucosal and deep spaces of the neck are unremarkable. Major salivary glands are unremarkable. Thyroid is unremarkable. Major cervical vasculature is patent. CHEST: Bilateral dependent opacities, which may represent atelectasis in the setting of intubation. Endotracheal tube, with tip terminating at the level of the gisel.. Unchanged calcified granuloma within the right upper lobe. Uptake within multiple mediastinal nodes, minimal to mild, slightly increased, up to SUV max 3.3, Krenning score 1, in the right hilum. Central tracheobronchial tree is otherwise clear. No pleural effusion or pneumothorax. Normal heart size. No pericardial effusion. Normal caliber thoracic aorta and main pulmonary artery. Esophagus is unremarkable. ABDOMEN AND PELVIS: No abnormal uptake. No focal hepatic lesion identified. Cholecystectomy. Mild biliary dilation, likely secondary to reservoir effect, grossly unchanged. Diffuse fatty atrophy of the pancreas. Focal intense radiotracer avidity at the superior margin of the pancreatic body, without definite CT correlate, though may correspond to tiny soft tissue nodule within this region. SUV max 20.6, Krenning score 4. Other similar foci of increased uptake within the head of the pancreas anteriorly, nonspecific with similar questionable CT correlates, SUV max 6.7 Krenning score 2. Physiologic uptake noted within the region of the uncinate process. Again noted is small central mesenteric nodule/lymph node, measuring 8 mm in diameter, not significant change compared to prior exams, SUV max 21.9, Krenning score 4. Spleen is unremarkable. Adrenal glands are unremarkable. No hydronephrosis. Urinary bladder is unremarkable. Reproductive organs are unremarkable. Normal caliber small and large bowel. No free air or fluid. Normal caliber abdominal aorta. BONES: Degenerative changes noted throughout the spine. Superior endplate compression deformity at L2, unchanged. Increased uptake associated with significant degenerative changes at the anterior L5/S1 disc space, increased compared to prior. Procedure Note Glen Fisher MD - 04/01/2024 Combined Report of: PET Dotatate and CT on 03/31/2024 2:36 PM: 1. PET of the neck, chest, abdomen, and pelvis. 2. PET CT Fusion for Attenuation Correction and Anatomical Localization. 3. Diagnostic CT of the chest, abdomen and pelvis with intravenous contrast obtained for diagnostic interpretation. 4. 3D MIP and PET-CT fused images were processed on an independent workstation and archived to PACS and reviewed by a radiologist. Technique: 1. PET: The patient received 5.2 mCi of Ga-68 Dotatate; body weight was 120.9 kg. Images were evaluated in the axial, sagittal, and coronal planes as well as the rotational whole body MIP. Images were acquired from the Vertex to the Feet. UPTAKE WAS MEASURED AT [address]: Volumetric acquisition for clinical interpretation of the chest, abdomen, and pelvis acquired at 3 mm sections. The chest, abdomen, and pelvis were evaluated at 5 mm sections in bone, soft tissue, and lung windows. -- Contrast and Medications: IV contrast: 135 mL of Isovue 370 intravenously. PO contrast: None. Additional Medications: None. 3. 3D MIP and PET-CT fused images were processed on an independent workstation and archived to PACS and reviewed by a radiologist. 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 Subcutaneous octreotide via insulin pump, beginning in 2011 to present COMPARISON: Multiple priors, most recent is a CT of the abdomen and pelvis dated 05/06/2023. Most recent PET/CT comparison dated 06/08/2021 FINDINGS: BACKGROUND: Liver SUV max = 8.2, Spleen SUV max = 20.3. HEAD/NECK: No abnormal uptake. Mild mucosal thickening noted within the nasopharyngeal spaces. Paranasal sinuses are otherwise clear. Mastoid air cells are clear. Mucosal and deep spaces of the neck are unremarkable. Major salivary glands are unremarkable. Thyroid is unremarkable. Major cervical vasculature is patent. CHEST: Bilateral dependent opacities, which may represent atelectasis in the setting of intubation. Endotracheal tube, with tip terminating at the level of the gisel.. Unchanged calcified granuloma within the right upper lobe. Uptake within multiple mediastinal nodes, minimal to mild, slightly increased, up to SUV max 3.3, Krenning score 1, in the right hilum. Central tracheobronchial tree is otherwise clear. No pleural effusion or pneumothorax. Normal heart size. No pericardial effusion. Normal caliber thoracic aorta and main pulmonary artery. Esophagus is unremarkable. ABDOMEN AND PELVIS: No abnormal uptake. No focal hepatic lesion identified. Cholecystectomy. Mild biliary dilation, likely secondary to reservoir effect, grossly unchanged. Diffuse fatty atrophy of the pancreas. Focal intense radiotracer avidity at the superior margin of the pancreatic body, without definite CT correlate, though may correspond to tiny soft tissue nodule within this region. SUV max 20.6, Krenning score 4. Other similar foci of increased uptake within the head of the pancreas anteriorly, nonspecific with similar questionable CT correlates, SUV max 6.7 Krenning score 2. Physiologic uptake noted within the region of the uncinate process. Again noted is small central mesenteric nodule/lymph node, measuring 8 mm in diameter, not significant change compared to prior exams, SUV max 21.9, Krenning score 4. Spleen is unremarkable. Adrenal glands are unremarkable. No hydronephrosis. Urinary bladder is unremarkable. Reproductive organs are unremarkable. Normal caliber small and large bowel. No free air or fluid. Normal caliber abdominal aorta. BONES: Degenerative changes noted throughout the spine. Superior endplate compression deformity at L2, unchanged. Increased uptake associated with significant degenerative changes at the anterior L5/S1 disc space, increased compared to prior. IMPRESSION: 1. Unchanged size of intensely radiotracer avid central mesenteric lymph node/nodule, concerning for metastatic disease. 2. Multiple foci of increased uptake throughout the head and body of the pancreas, with possible CT correlates, though the pancreas is incompletely characterized on this examination. This is nonspecific, but could represent pancreatic neuroendocrine tumor foci. Recommend further characterization with pancreatic protocol CT or MRI for further characterization of these regions. 3. Slight increase in avidity of lymph nodes within the mediastinum and antonio laterally, more likely reflect inflammatory change. Recommend continued attention on follow-up imaging. 4. Bilateral dependent pulmonary opacities, without significant uptake. These are more likely to reflect bibasilar atelectatic changes in the setting of intubation, though developing inflammatory or infectious process cannot be excluded. Recommend correlation patient's symptoms. 5. Incidental CT findings, as above Krenning Score of Neuroendocrine Tumor Uptake 0: None 1: Much lower than liver 2: Slightly less than or equal to liver 3: Greater than liver 4: Greater than spleen GLEN FISHER MD Heaven Sumner MD [facility] [place] CT ORDERABLES Final Result * (ABNORMAL) Comprehensive metabolic panel (01/21/2024 10:00 AM EPIC ANESTHESIA ANALYST) Sodium 140 135 - 145 mmol/L 01/21/2024 10:52 AM EPIC ANESTHESIA ANALYST [facility] Potassium 4.4 3.4 - 5.3 mmol/L 01/21/2024 10:52 AM EPIC ANESTHESIA ANALYST [facility] Carbon Dioxide (CO2) 29 22 - 29 mmol/L 01/21/2024 10:52 AM EPIC ANESTHESIA ANALYST [facility] Anion Gap 8 7 - 15 mmol/L 01/21/2024 10:52 AM EPIC ANESTHESIA ANALYST [facility] Urea Nitrogen 16.4 8.0 - 23.0 mg/dL 01/21/2024 10:52 AM EPIC ANESTHESIA ANALYST [facility] Creatinine 1.09 0.67 - 1.17 mg/dL 01/21/2024 10:52 AM EPIC ANESTHESIA ANALYST [facility] GFR Estimate 74 >60 mL/min/1.7 3m2 01/21/2024 10:52 AM EPIC ANESTHESIA ANALYST [facility] Comment:eGFR calculated usin 2020 CKD-EPI equation. Calcium 8.6(L) 8.8 - 10.4 mg/dL 01/21/2024 10:52 AM EPIC ANESTHESIA ANALYST [facility] Comment:Reference intervals for this test were updated on 09/03/2023 to reflect our healthy population more accurately. There may be differences in the flagging of prior results with similar values performed with this method. Those prior results can be interpreted in the context of the updated reference intervals. Chloride 103 98 - 107 mmol/L 01/21/2024 10:52 AM EPIC ANESTHESIA ANALYST [facility] Glucose 129(H) 70 - 99 mg/dL 01/21/2024 10:52 AM EPIC ANESTHESIA ANALYST [facility] Alkaline Phosphatase 109 40 - 150 U/L 01/21/2024 10:52 AM EPIC ANESTHESIA ANALYST [facility] AST 21 0 - 45 U/L 01/21/2024 10:52 AM EPIC ANESTHESIA ANALYST [facility] ALT 15 0 - 70 U/L 01/21/2024 10:52 AM EPIC ANESTHESIA ANALYST [facility] Protein Total 7.2 6.4 - 8.3 g/dL 01/21/2024 10:52 AM EPIC ANESTHESIA ANALYST [facility] Albumin 4.1 3.5 - 5.2 g/dL 01/21/2024 10:52 AM EPIC ANESTHESIA ANALYST [facility] Bilirubin Total 0.8 <=1.2 mg/dL 01/21/2024 10:52 AM EPIC ANESTHESIA ANALYST [facility] Blood BLOOD SPECIMEN / Unknown Venipuncture / Unknown 01/21/2024 10:00 AM EPIC ANESTHESIA ANALYST 01/21/2024 10:16 AM EPIC ANESTHESIA ANALYST us Heaven Sumner MD LAB - BLOOD ORDERABLES Final Res ult [facility] [address] [facility] [place] [address] * (ABNORMAL) Lipid Profile (08/07/2023 10:46 AM CDT) Cholesterol 145 <200 mg/dL 08/07/2023 2:38 PM CDT [facility] Triglycerides 150(H) <150 mg/dL 08/07/2023 2:38 PM CDT [facility] Direct Measure HDL 46 >=40 mg/dL 08/07/2023 2:38 PM CDT [facility] LDL Cholesterol Calculated 69 <=100 mg/dL 08/07/2023 2:38 PM CDT [facility] Non HDL Cholesterol 99 <130 mg/dL 08/07/2023 2:38 PM CDT [facility] Patient Fasting > 8hrs? Yes 08/07/2023 2:38 PM CDT [facility] Blood STRUCTURE OF RIGHT UPPER LIMB / Unknown Venipuncture / Unknown 08/07/2023 10:46 AM CDT 08/07/2023 10:46 AM CDT Narrative [facility] - 08/07/2023 2:38 PM CDT Cholesterol Desirable: <200 mg/dL Triglycerides Normal: Less than 150 mg/dL Borderline High: 150-199 mg/dL High: 200-499 mg/dL Very High: Greater than or equal to 500 mg/dL Direct Measure HDL Female: Greater than or equal to 50 mg/dL Male: Greater than or equal to 40 mg/dL LDL Cholesterol Desirable: <100mg/dL Above Desirable: 100-129 mg/dL Borderline High: 130-159 mg/dL High: 160-189 mg/dL Very High: >= 190 mg/dL Non HDL Cholesterol Desirable: 130 mg/dL Above Desirable: 130-159 mg/dL Borderline High: 160-189 mg/dL High: 190-219 mg/dL Very High: Greater than or equal to 220 mg/dL Denis Sharma MD LAB - BLOOD ORDERABLES Fin al Result [facility] [address] [facility] [address], [address] [place] [address], [facility] [address] Lab (1st floor, no room number) [place] [address], [facility] * COLONOSCOPY - HIM SCAN (07/06/2021 12:00 AM CDT) 07/06/2021 us Provider Outside PROCEDURES Final Result * TSH (04/21/2018 10:46 PM EPIC ANESTHESIA ANALYST) TSH 0.56 0.40 - 4.00 mU/L 04/21/2018 11:17 PM EPIC ANESTHESIA ANALYST [facility] 04/21/2018 10:4 6 PM EPIC ANESTHESIA ANALYST 04/21/2018 10:49 PM EPIC ANESTHESIA ANALYST Marlon Grover MD LAB - BLOOD ORDERABLES Fin al Result Performing Organization Address [facility] de Phone Number [facility] [address] [place], [place] [id number] [place] [address] * (ABNORMAL) Hemoglobin A1c (04/21/2018 10:46 PM EPIC ANESTHESIA ANALYST) Hemoglobin A1C 6.2(H) 0 - 5.6 % 04/22/2018 2:38 AM [facility] Comment: Normal <5.7% Prediabetes 5.7-6.4% Diabetes 6.5% or higher - adopted from ADA consensus guidelines. 04/21/2018 10:4 6 PM EPIC ANESTHESIA ANALYST 04/21/2018 10:49 PM EPIC ANESTHESIA ANALYST Marlon Grover MD LAB - BLOOD ORDERABLES Fin al Result Performing Organization Address [facility] Number [facility] [address] [place], [place] [id number] [place] [address] from Last 3 Months or Most Recently Relevant to Health Maintenance Additional Health Concerns Active Problems Noted Date Diagnosed Date 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 Insurance [place]ICARE [place] MED[place] MED[place] Advance Directives For more information, please contact: [phone] * Full Code (Latest Code Status on File) Date Activated Date Inactivated Comments 01/31/2022 2:54 PM 02/01/2022 12:24 PM All basic and advanced life-sustaining interventions are performed as appropriate Question Answer Comments Code status determined by: Unable to dis cuss and no AD/POLST on file; continue PREVIOUSLY ORDERED code status * Full Code Date Activated Date Inactivated Comments 04/23/2018 11:25 AM 07/14/2019 8:11 AM Question Answer Comments Code status determined by: Discussion with patie nt/legal decision maker * Full Code Date Activated Date Inactivated Comments 04/22/2018 1:12 AM 04/23/2018 11:25 AM Question Answer Comments Code status determined by: Discussion with patie nt/legal decision maker * Full Code Date Activated Date Inactivated Comments 12/05/2016 10:20 AM 04/21/2018 10:27 PM * Full Code Date Activated Date Inactivated Comments 12/03/2016 5:05 PM 12/05/2016 10:20 AM Care Teams General Medical Practitioner Relationship Specialty Start Date End Date No Ref-Primary, Physician PCP - General 07/01/24 Heaven Sumner MD [address] [place], [place] [phone] Hematology 05/06/23 Misty Wellington [employer] [address] [place], [place] [address] Nurse Practitioner Nurse Practitioner 05/07/23 Prosper Shrestha MD [address] [place], [place] [address] Emergency Medicine 05/07/23 Ramin Whitfield MD [address] [facility] [address] [place], [place] [address] Assigned Surgical Provider 07/11/23 Heaven Sumner MD [address] [place], [place] [address] Assigned Cancer Care Provider 09/10/23 Sarah Gould, [facility] [address] [facility] [address] [place] [address] Specialty Cage Fighter Hematology & Oncology 08/13/23 Ihsan Sharif MD [address] [place] [address] Cardiovascular Disease 04/07/24 Ihsan Sharif MD [address] [place] [address] Assigned Heart and Vascular Provider 04/12/24 [place] [address] [place] [address] Assigned Endocrinology Provider 06/10/24
--- OUTSIDE RECORDS SUMMARY | 2024-07-03 07:05 | XMS_ITS | Encounter Summary ---
Author Organization [facility] Address [address] [place] [address] Care Team Providers Care Sugarcane Research Technician Name Role Phone Sergio Martinez MD Unavailable Misty Wellington NP Unavailable [phone] Prosper Shrestha MD Unavailable [phone] Ramin Whitfield MD Unavailable [phone] Sergio Martinez MD Unavailable Sarah Gould RN Unavailable Jerrod Werner MD Unavailable Jerrod Werner MD Unavailable [phone] RadShaila cerna MD Unavailable Reason for Referral * Consultation (Priority: 1-2 Weeks) - Pending Review Specialty Diagnoses / Procedures Referred By Doris t Referred To Contact Gastroenterology Diagnoses Neuroendocrine cancer (H) Sergio Martinez MD [address] [place] [address] Phone: tel: fax: Referral ID Status Reason Start Date Expiration Date V isits Requested Visits Authorized [id number] Pending Review 06/23/2024 06/23/2025 1 1 Question Answer Service: EUS EUS Type: Upper EUS Sedation Concerns: Chronic or scheduled pain/narcotic medication use Sedation Type: General Anesthesia Reason for EUS: consider celiac block for severe pain, may need GA, may need same support as for endoscopy, thank you. Preferred Location: [facility] Patient Scheduling Instructions: Addi [facility] will call you to coordinate your care as prescribed by the provider. If you don t hear from a dairy supplies sales representative within 2 business days, please call . Comments Please be aware that coverage of these services is subject to the terms and limitations of your health insurance plan. Call member services at your health plan with any benefit or coverage questions. [facility] will call you to coordinate your care as prescribed by the provider. If you don t hear from a dairy supplies sales representative within 2 business days, please call . * Consultation (Priority: 1-2 Weeks) - Pending Review Specialty Diagnoses / Procedures Referred By Doris t Referred To Contact Hospice And Palliative Care Diagnoses Neuroendocrine cancer (H) Sergio Martinez MD [address] [place] [address] Phone: tel: fax: Referral ID Status Reason Start Date Expiration Date V isits Requested Visits Authorized [id number] Pending Review 06/23/2024 06/23/2025 1 1 Question Answer Reason for Referral: Evaluate and treat symptoms (including writing prescriptions) What is the patient's life-limiting diagnosis? NET with severe abdominal pain, thank you. Scheduling Instructions: [facility] will call you to coordinate your care as prescribed by your provider. If you don't hear from a dairy supplies sales representative within 2 business days, please call . Comments [facility] will call you to coordinate your care as prescribed by your provider. If you don't hear from a dairy supplies sales representative within 2 business days, please call . 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 Gender Identity Not on file Sexual Orientation Not on file documented as of this encounter Last Filed Vital Signs Vital Sign Reading Time Taken Comments Blood Pressure - - Pulse - - Temperature - - Respiratory Rate - - Oxygen Saturation - - Inhaled Oxygen Concentration - - Weight 122.5 kg (270 lb) 06/22/2024 8:05 AM CDT Height 190.5 cm (6' 3) 06/22/2024 8:05 AM CDT Body Mass Index 33.75 06/22/2024 8:05 AM CDT documented in this encounter Progress Notes * Sergio Martinez MD - 06/22/2024 8:30 AM CDT Virtual Visit Details Type of service: Video Visit Video Start Time: 8:21 AM Video End Time: 8:40 AM Originating Location (pt. 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 Chapa, , Reason for consultation/ patient visit: Abdominal pain and NET History of presenting illness: Mr. Brooks Munson is a 68 year old man. 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 Meds/ allergies: Reviewed in [facility] NET history: summarized from BRIE Guzman note from [facility] on 06/13/2023: 2006: Initial symptoms began with abdominal pain, cramping, nausea and diarrhea. 02/26/2007: Laparoscopic cholecystectomy and excision of cystic lymph nodes. 03/28/2007: Exploratory laparotomy with small bowel resection of mid jejunum and ileum with lymphadenectomy at external facility. Pathology: Multifocal well- differentiated neuroendocrine tumors, 0.4 - 2.9 cm, low grade, invades muscularis propria into subserosa. LVI and PNI present. Multiple mesenteric deposits, largest 3.7 cm, with 8/15 lymph nodes positive, largest 1.1 cm. 03/2007:Initiated Octreotide LAR 3 weekly. 03/21/2009:Exploratory laparotomy with enterolysis and mesenteric mass debulking at external facility. Pathology: Metastatic neuroendocrine tumor, largest 1.7 cm, extracapsular extension present. 08/09/2009: CT CAP: Stable pulmonary nodule in RUL. Mild increased density in mesentery. No discretemass. Capecitabine and panitumumab begun outside hospital with negative OctreoScan at the time. Side effects led to stopping these two drugs. 12/22/2010: CT CAP: No new evidence of recurrent or metastatic disease. Stable nodule in RML, undetermined etiology. Fatty liver infiltration without focal liver lesions. 05/2011: Cycle #1 Jigna-177 DOTA-modified octreotide (ADONIS) peptide receptor radionuclide therapy (PRRNT) 202 mCi in [facility], 07/2011: Cycle #2 Jigna-177 DOTA-modified octreotide (ADONIS) peptide receptor radionuclide therapy (PRRNT) 202 mCi in [facility]. 10/05/2011: CT AP: Fatty liver. Normal arterial phase. No hepatic lesions. No abdominal or pelvic lymphadenopathy. No ascites. Carcinomatosis, suspected but not established. 12/05/2012: Outside CT AP: Decrease of mesenteric mets (from 03/2012). Now only fatty infiltration. 01/13/2014: CT AP: No evidence of liver or retroperitoneal disease. 06/25/2014: CT AP: No liver lesions. No lymphadenopathy. No evidence of partial bowel obstruction. 08/12/2015: CT AP: No evidence of metastatic disease. No retroperitoneal or lymphadenopathy. 10/05/2016: CT CAP: No evidence of metastatic disease. 08/07/2017: [id number] PET, [place]: Two avid mesenteric lymph nodes. 05/08/2018: Ga-68 PET, [place]: Stable mesenteric lymph nodes only. 08/19/2019: CT CAP: No evidence of disease 01/10/2021: Gallium DOTATOC PET: Single mesenteric lymph node visible. Otherwise no evidence of disease. 06/14/2022: CT AP: Unchanged mesenteric node over past 3 years no other disease evident. 01/07/2023: EGD, ext: Normal exam. 04/26/2023: CT AP, ext (for epigastric pain at ED): Normal exam. 05/06/2023: CTA CAP, ext: No aortic dissection. Aortic valve calcifications. Left coronary stent. Coronary arteries heavily calcified. Subcm mesenteric lymph nodes. 06/13/2023: MRI Abd: Incomplete test. No IV contrast. No diagnostic quality. Late 2023: paused octreotide pump, symptoms worsened, he re-started 03/2024: dotatate PET with essentially SD 04/2024: EGD EUS to eval abdominal pain, no clear cause of pain, 5 mm x 4 mm soft tissue mass along the splenic artery, pathology with well-diff grade 1 (Ki67 <3%) NET. TTE with no carcinoid heart disease. 05/2024: visit with Dr. Landis in endocrine and with [place] NET team, no major changes to plan Interval history: Video visit Has continued subQ pump Shoulder surgery-- of R shoulder-- complete replacement postponed to fall (had left sided one done 2 years ago) Severe belly pain, no relation to food Physical examination: ECOG performance status: 1 General: patient appears well in no acute distress, alert and oriented, speech clear and fluid Skin: no visualized rash or lesions on visualized skin Resp: Appears to be breathing comfortably without accessory muscle usage, speaking in full sentences, no audible wheezes or cough. Psych: Coherent speech, normal rate and volume, able to articulate logical thoughts, able to abstract reason, no tangential thoughts, no hallucinations or delusions. Lab and imaging data: I personally reviewed the Hb 14.9 on 06/09/2024 in [place] Assessment and Plan: 68 yo man with NET as above. On subcutaneous octreotide pump, provided by [facility]. In 05/2024, they met with him and he did agree to come off of the pump. Endocrine team agrees with it. The pump may be contributing to the pain Swapna'm unsure of how well the drug is being delivered with this old pump. Will put in for monthly lanreotide, prefers at [place] or home. He may use subq octreotide PRN for flushing. Degree of tumor in body is not large, and cancer is largely stable for years. In terms of active cancer treatment, do not need much/ anything. Even for surveillance, we can do a simple CT CAP or so in 1 year (early 2025). He has extreme claustrophobia, so may need support for scan. Re: abdominal pain, EGD/EUS in 04/2024 with no clear cause of pain. Could the peripanc lesion be the cause? I doubt based on the location but maybe. Some patients can have some desmoplastic reaction from the serotonin or adhesions from prior surgery that can cause this unusual episodic cramping pain. If truly disease related- maybe switching to lanreotide might show some benefit over the next few months. Otherwise, symptomatic management is probably all we would have to offer. Will put in for celiac plexus block and pall care referral. Will keep our 08/11 appt for clinical check in. The longitudinal plan of care for the diagnosis(es)/condition(s) as documented were addressed during this visit. Due to the added complexity in care, I will continue to support Mr. Munson in the subsequent management and with ongoing continuity of care. I spent a total of 55 minutes on the date of service including preparation time (e.g., review of records and interpretation of tests), visit time with the patient and care partners, requesting interventions, communicating with other health childcare teacher, and documentation. Sergio Martinez M.D. Remote Inpatient Coderjunior mechanical engineer Division of Hematology, Oncology and Transplantation [facility] documented in this encounter Nursing Notes * Breanna Harris - 06/22/2024 8:30 AM CDT Current patient location: [address] [place] [phone] Is the patient currently in the state of [place]? YES Visit mode: VIDEO If the visit is dropped, the patient can be reconnected by: Mychart Will anyone else be joining the visit? NO (If patient encounters technical issues they should call [phone]) Are changes needed to the allergy or medication list? Pt stated no changes to allergies and Pt stated no med changes Are refills needed on medications prescribed by this physician? NO Rooming Documentation: Not applicable Reason for visit: RECHECK Breanna Kimberly VVF documented in this encounter Plan of Treatment Upcoming Encounters Date Type Department Care Team (Latest Contact Info) Description 07/28/2024 9:00 AM CDT Infusion Therapy Visit [facility] [address] [place] [phone] Sergio Martinez MD [address] [place] [phone] 08/18/2024 2:30 PM CDT Virtual Visit [facility] [address] [place] [address] Sergio Martinez MD [address] [place] [address] 08/25/2024 11:00 AM CDT Infusion Therapy Visit [facility] [address] [place] [phone] Sergio Martinez MD [address] [place] [address] 10/23/2024 10:30 AM CDT Office Visit [facility] [place] [address] [place] [phone] Jerrod Werner MD [address] [place], [place] [address] 11/11/2024 9:35 AM CDT Hospital Encounter [facility] [address] [place] [phone] Alfonzo Sultana MD [facility] [address] [place] [address] 11/11/2024 9:35 AM CDT - 11/11/2024 12:30 PM CDT Surgery [facility] [address] [place] [phone] Alfonzo Sultana MD [facility] [address] [place] [address] RIGHT TOTAL SHOULDER ARTHROPLASTY VERSUS Scheduled Procedures Name Priority Associated Diagnoses Date/Ti me ARTHROPLASTY, SHOULDER, TOTAL Osteoarthritis of right shoulder 11/11/2024 9:35 AM CDT ARTHROPLASTY, SHOULDER, TOTAL, REVERSE Osteoarthritis of right shoulder 11/11/2024 9:35 AM CDT Scheduled Referrals Name Type Priority Associated Diagnoses Orde r Schedule Adult Palliative Care Rfid Analyst Referral Referral Routine: Next available opening Neuroendocrine cancer (H) Expected: 06/23/2024 (Approximate), Expires: 06/23/2025 Adult GI Rfid Analyst Referral - Procedure Only Referral Priority: 1-2 Weeks Neuroendocrine cancer (H) Expected: 06/23/2024 (Approximate), Expires: 06/23/2025 documented as of this encounter Goals Goal Patient Goal Type Associated Problems Recent Progress Patient-Stated? Author Total Joint Replacement Shoulder Pathway Care Plan Total Joint Replacement Shoulder Pathway Arabella Colleen Cohen documented as of this encounter Visit Diagnoses Diagnosis Neuroendocrine cancer (H)- Primary Other malignant neoplasm without specification of site Osteoarthritis of right shoulder 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 documented as of this encounter Care Teams Sugarcane Research Technician Relationship Specialty Start Date End Date Sergio Martinez MD [address] [place], [place] [address] Hematology 05/06/23 Misty Wellington, [place] [address] [place] [address] Nurse Practitioner Nurse Practitioner 05/07/23 Prosper Shrestha MD [address] [place], [place] [phone] Emergency Medicine 05/07/23 Ramin Whitfield MD [address] [facility] [address] [place], [place] [phone] Assigned Surgical Provider 07/11/23 Sergio Martinez MD [address] [place] [address] Assigned Cancer Care Provider 09/10/23 Sarah Gould, [facility] [address] [facility] [address] [place] [address] Specialty Barrel Planer Hematology & Oncology 08/13/23 Jerrod Werner MD [address] [place] [address] Cardiovascular Disease 04/07/24 Jerrod Werner MD [address] [place] [address] Assigned Heart and Vascular Provider 04/12/24 [place] [address] [place] [address] Assigned Endocrinology Provider 06/10/24 documented as of this encounter
--- OUTSIDE RECORDS SUMMARY | 2024-07-03 07:05 | XMS_ITS | Encounter Summary ---
Author Organization [facility] Address [facility] [place] [address] Care Team Providers Care Critical Care Technician Name Role Phone Sergio Martinez MD Unavailable Misty Wellington NP Unavailable [phone] Prosper Shrestha MD Unavailable [phone] Avril Dumont RN Unavailable Ramin Whitfield MD Unavailable [phone] Sergio Martinez MD Unavailable No Ref-Primary, Physician Primary Care Provider Sarah Gould RN Unavailable Jerrod Werner MD Unavailable [phone] Jerrod Werner MD Unavailable [phone] Shaila Landis MD Unavailable Encounter Details Date Type Department Care Team (Late st Contact Info) Description 04/28/2024 [facility] [address] [place] [address] Stephanie Damon, [place]ORZ Social History Tobacco Use Types Packs/Day Years Used Date Smoking Tobacco: Former Cigarettes Q uit: 02/19/1984 Passive Smoke Exposure: Never Smokeless Tobacco: Never Alcohol Use Standard Drinks/Week Comments Not Currently 0 (1 standard drink = 0.6 oz pur e alcohol) PHQ-2 Answer Date Recorded PHQ-2 Score 0 2024 Adolescent Education Answer Date Record ed Getting School Help Needed Not on file 11/09 Interpersonal Safety Answer Date Record ed Do you feel physically and e motionally safe where you currently live? Yes 03/31/2024 Within the past 12 months, h ave you been hit, slapped, kicked or otherwise physically hurt by someone? No 03/31/2024 Within the past 12 months, h ave you been humiliated or emotionally abused in other ways by your partner or ex-partner? 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 Gender Identity Not on file Sexual Orientation Not on file documented as of this encounter Plan of Treatment Upcoming Encounters Date Type Department Care Team (Latest Contact Info) Description 07/28/2024 9:00 AM CDT Infusion Therapy Visit [facility] [address] [place] [phone] Sergio Martinez MD [address] [place] [phone] 08/18/2024 2:30 PM CDT Virtual Visit [facility] [address] [place] [phone] Sergio Martinez MD [address] [place] [address] [phone] 08/25/2024 11:00 AM CDT Infusion Therapy Visit [facility] [address] [place] [phone] Sergio Martinez MD [address] [place] [address] 10/23/2024 10:30 AM CDT Office Visit [facility] [address] [place] [phone] Jerrod Werner MD [address] [place] [address] 11/11/2024 9:35 AM CDT Hospital Encounter [facility] [address] [place] [phone] Alfonzo Sultana MD [facility] [address] [place] [address] 11/11/2024 9:35 AM CDT - 11/11/2024 12:30 PM CDT Surgery [facility] [address] [place] [phone] Alfonzo Sultana MD [facility] [address] [place] [address] RIGHT TOTAL SHOULDER ARTHROPLASTY VERSUS Scheduled Procedures Name Priority Associated Diagnoses Date/Ti me ARTHROPLASTY, SHOULDER, TOTAL Osteoarthritis of right shoulder 11/11/2024 9:35 AM CDT ARTHROPLASTY, SHOULDER, TOTAL, REVERSE Osteoarthritis of right shoulder 11/11/2024 9:35 AM CDT documented as of this encounter Visit Diagnoses Not on filedocumented in this encounter Care Teams Critical Care Technician Relationship Specialty Start Date End Date No Ref-Primary, Physician PCP - General 07/01/24 Sergio Martinez MD [address] [place] [address] Hematology 05/06/23 [place] [address] [place] [address] Nurse Practitioner Nurse Practitioner 05/07/23 Prosper Shrestha MD [address] [place] [address] Emergency Medicine 05/07/23 Avril Dumont, GRZEGORZ Specialty Physicist Astrophysics Hematology & Oncology 05/28/23 05/22/24 Ramin Whitfield MD [address] [facility] [address] [place], [place] [address] Assigned Surgical Provider 07/11/23 Sergio Martinez MD [address] [place], [place] 4[address]65 Assigned Cancer Care Provider 09/10/23 Sarah Gould, [facility] [facility] [address] [facility] [address] [place], [place] [phone] Specialty Physicist Astrophysics Hematology & Oncology 08/13/23 Jerrod Werner MD [address] [place] [phone] Cardiovascular Disease 04/07/24 Jerrod Werner MD [address] [place] [address] Assigned Heart and Vascular Provider 04/12/24 [place] [address] [place] [id number] Assigned Endocrinology Provider 06/10/24 documented as of this encounter
--- OUTSIDE RECORDS SUMMARY | 2024-07-03 07:05 | XMS_ITS | Encounter Summary ---
Author Organization [facility] Address [facility] [place] [address] Care Team Providers Care Counter Waiter Name Role Phone Sergio Martinez MD Unavailable Misty Wellington NP Unavailable [phone] Prosper Shrestha MD Unavailable Ramin Whitfield MD Unavailable [phone] Sergoi Martinez MD Unavailable Sarah Gould RN Unavailable Jerrod Werner MD Unavailable Jerrod Werner MD Unavailable RadShaila cerna MD Unavailable Encounter Details Date Type Department Care Team (Latest Contact Info) Description 06/26/2024 Prep for Procedure [facility] [id number] [facility] [address] [place] [address] Carmina Reed, GRZEGORZ Neuroendocrine tumor (H) (Primary Dx); Cancer related pain Social History Tobacco Use Types Packs/Day Years [...] on file Legal Sex Male 3:[address] Gender Identity Not on file Sexual Orientation Not on file documented as of this encounter Progress Notes * Carmina Reed RN - 06/26/2024 11:10 AM CDT Please assist in scheduling: Procedure/Imaging/Clinic: Endoscopic Ultrasound (EUS) with celiac plexus block Physician: Duran Timing: everett Scope time: Provider average Anesthesia: General Dx: Neuroendocrine tumor; cancer related pain Tier:2 Location: [facility] OK to schedule while attending: Not specified by provider Patient communication letter header:Endoscopic Ultrasound (EUS) with nerve block for pain management. documented in this encounter Plan of Treatment Upcoming Encounters Date Type Department Care Team (Latest Contact Info) Description 07/28/2024 9:00 AM CDT Infusion Therapy Visit [facility] [address] [address] [place] [phone] Sergio Martinez MD [address] [place] [address] 08/18/2024 2:30 PM CDT Virtual Visit [facility] [address] [place] [phone] Sergio Martinez MD [address] [place], [place] [address] 08/25/2024 11:00 AM CDT Infusion Therapy Visit [facility] [address] [place] [phone] Sergio Martinez MD [address] [place] [address] 10/23/2024 10:30 AM CDT Office Visit [facility] [place] [address] [facility] [address] [place] [phone] Jerrod Werner MD [address] [place], [place] [address] 11/11/2024 9:35 AM CDT Hospital Encounter [facility] [address] [place] [phone] Alfonzo Sultana MD [facility] [address] [place] [address] 11/11/2024 9:35 AM CDT - 11/11/2024 12:30 PM CDT Surgery [place] [address] [place] [phone] Alfonzo Sultana MD [facility] [address] [place] [id number] RIGHT TOTAL SHOULDER ARTHROPLASTY VERSUS Scheduled Procedures Name Priority Associated Diagnoses Date/Ti va ARTHROPLASTY, SHOULDER, TOTAL Osteoarthritis of right shoulder 11/11/2024 9:35 AM CDT ARTHROPLASTY, SHOULDER, TOTAL, REVERSE Osteoarthritis of right shoulder 11/11/2024 9:35 AM CDT documented as of this encounter Goals Goal Patient Goal Type Associated Problems Recent Progress Patient-Stated? 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 Cancer related pain Neoplasm related pain (acute) (chronic) Osteoarthritis of right shoulder 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 documented as of this encounter Care Teams Counter Waiter Relationship Specialty Start Date End Date Sergio Martinez MD [address] [place] [address] Hematology 05/06/23 [place] [address] [place] [address] Nurse Practitioner Nurse Practitioner 05/07/23 Prosper Shrestha MD [address] [place] [address] Emergency Medicine 05/07/23 Ramin Whitfield MD [address] [place] [address] [address] [place] [address] Assigned Surgical Provider 07/11/23 Sergio Martinez MD [address] [place] [address] Assigned Cancer Care Provider 09/10/23 Sarah Gould, GRZEGORZ [facility] [address] [facility] [address] [place] [address] Specialty Redevelopment Specialist Hematology & Oncology 08/13/23 Jerrod Werner MD [address] [place] [id number] Cardiovascular Disease 04/07/24 Jerrod Werner MD [address] [place] [id number] Assigned Heart and Vascular Provider 04/12/24 [place] [address] [place] [address] Assigned Endocrinology Provider 06/10/24 documented as of this encounter
--- OUTSIDE RECORDS SUMMARY | 2024-07-03 07:05 | XMS_ITS | Encounter Summary ---
Author Organization [facility] Address [address] [place] [address] Care Team Providers Care Underwriter Mortgage Loan Name Role Phone Heaven Sumner MD Unavailable Misty Wellington NP Unavailable [phone] Prosper Shrestha MD Unavailable [phone] Ramin Whitfield MD Unavailable [phone] Heaven Sumner MD Unavailable No Ref-Primary, Physician Primary Care Provider Sarah Gould RN Unavailable Jerrod Werner MD Unavailable [phone] Jerrod Werner MD Unavailable [phone] Shaila Landis MD Unavailable Reason for Visit * Auth/Cert Specialty Diagnoses / Procedures Referred By Doris t Referred To Contact Surgery Diagnoses Neuroendocrine tumor (H) Cancer related pain Neuroendocrine tumor (H) [D3A.8] Cancer related pain [G89.3] Procedures ENDOSCOPIC ULTRASOUND, ESOPHAGOSCOPY / UPPER GASTROINTESTINAL TRACT (GI) with celiac plexus block [facility] [address] [place] [address] Phone: tel: fax: Referral ID Status Reason Start Date Expiration Date Visits Re quested Visits Authorized [id number] 1 1 Encounter Details Date Type Department Care Team (Late st Contact Info) Description 07/01/2024 11:10 AM CDT - 07/01/2024 12:20 PM CDT Surgery [facility] [address] [place] [address] Guru Nicolle Garzon MD [address] [place] [address] ENDOSCOPIC ULTRASOUND, ESOPHAGOSCOPY / UPPER GASTROINTESTINAL TRACT (GI) with celiac plexus block Surgery Details Date/Time Status Location OR Service Patient Class Case Class Case Type Trauma Case? 07/01/2024 11:10 AM Posted UU OR UU OR 18 Gastroenterology Same Day Surgery Elective Panel 1 Procedure LRB Anes Op Region Wound Class Comments ENDOSCOPIC ULTRASOUND, ESOPHAGOSCOPY / UPPER GASTROINTESTINAL TRACT (GI) with celiac plexus block N/A MAC Esophagus II-Clean Contaminated Esophagoscopy, gastroscopy, duodenoscopy (EGD), combined N/A Esophagus II-Clean Con taminated Surgeon Surgeon Role Service Panel Phyllis Merritt MD Fellow - Assisting Gastroenterol ogy 1 Guru Nicolle Garzon MD Primary G astroenterology 1 documented in this encounter Social History Tobacco Use Types Packs/Day Years [...] on file 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 Gender Identity Not on file Sexual Orientation Not on file documented as of this encounter Last Filed Vital Signs Vital Sign Reading Time Taken Comments Blood Pressure 111/93 07/01/2024 12:20 PM CDT moving arm will recheck Pulse 76 07/01/2024 12:10 PM CDT Temperature 36.9 C (98.4 F) 07/01/2024 12:10 PM CDT Respiratory Rate 18 07/01/2024 12:2 0 PM CDT Oxygen Saturation 100% 07/01/2024 12: 20 PM CDT Inhaled Oxygen Concentration - - Weight 125.5 kg (276 lb 10.8 oz) 07/01/2024 10:45 AM CDT Height 190.5 cm (6' 3) 07/01/2024 10:4 5 AM CDT Body Mass Index 34.58 07/01/2024 10:45 AM CDT documented in this encounter Discharge Instructions * Discharge Instructions* Pj Pittman RN - 07/01/2024 12:32 PM CDT Contacting your Doctor - To contact a doctor, call Dr Garzon's clinic at [phone] or: [phone] and ask for the resident sr risk management consultant for Internal Medicine (answered 24 hours a day) 911 if you are in need of immediate or emergent help * Attachments The following attachments cannot be sent through Care Everywhere. * (s) After Anesthesia (Sleep Medicine) (Estonian) documented in this encounter Medications at Time of Discharge [id number]-kerg ease (CREON 12) [id number] UNITS CPEP Take 2 capsules by mouth 3 times daily (with meals) apixaban ANTICOAGULANT (ELIQUIS ANTICOAGULANT) 5 MG tabletIndications:A trial fibrillation with RVR (H) Take 1 tablet (5 mg) by mouth 2 times daily 180 tablet 3 4 atorvastatin (LIPITOR) 40 MG tabletIndications:M ixed hyperlipidemia,Harley nary artery disease involving [place] coronary artery of o[place]inkie heart without angina pectoris Take 1 tablet (40 mg) by mouth daily. 60 tablet 3 5 B-D U/F insulin pen needle USE 1 (ONE) PEN NEEDLE FOUR TIMES DAILY 4 baclofen (LIORESAL) 10 MG tablet Take 10 mg by mouth once 4 calcium citrate (CITRACAL) 950 (200 Ca) MG tablet Take 200 mg by mouth 3 times daily clomiPHENE (CLOMID) 50 MG tablet Take 50 mg by mouth every other day cyanocobalamin (VITAMIN B12) 1000 MCG/ML injection Inject 1 mL into the muscle every 30 days Injection once a month 6 diazepam (VALIUM) 5 MG tabletIndications:N euroendocrine cancer (H) Take 1 tablet (5 mg) by mouth every 6 hours as needed for anxiety. 4 tablet 4 famotidine (PEPCID) 40 MG tablet Take 40 mg by mouth daily gabapentin (NEURONTIN) 300 MG capsule Take 2 capsules (600 mg) by mouth 3 times daily 6 insulin glargine (LANTUS PEN) 100 UNIT/ML pen Inject 26 Units Subcutaneous At Bedtime insulin lispro (HUMALOG PEN) 100 UNIT/ML pen Inject 8 Units Subcutaneous 3 times daily (before meals) JARDIANCE 25 MG TABS tablet Take 25 mg by mouth daily 2 levothyroxine (SYNTHROID, LEVOTHROID) 125 MCG tablet Take 2 tablets (250 mcg) by mouth daily 6 lubiprostone (AMITIZA) 24 MCG capsule Take 24 mcg by mouth daily. 4 metoprolol tartrate (LOPRESSOR) 50 MG tabletIndications:C oronary artery disease involving [place] coronary artery of [place] heart without angina pectoris Take 1 tablet (50 mg) by mouth 2 times daily. 180 tablet 3 4 Octreotide Acetate 1000 MCG/ML SOLN 1,800 mcg by Subcutaneous Infusion route daily Patient uses an insulin pump to infuse octreotide subcutaneously. It is filled with octreotide 1000mcg/ml(pt brought vials). Pt infuses 1.8ml/day(1800mcg /day) continous with the basal setting at 7.5 units/hr(0.075ml/ hr) and has the option for a 100mcg(0.1ml or 10 units on insulin pump) bolus up to three times a day as needed. His insulin pump reservoir is only 2ml so pt fills pump twice daily to avoid it possibly running out. omeprazole (PRILOSEC) [address] capsule Take 40 mg by mouth daily oxyCODONE (ROXICODONE) 5 MG tabletIndications:P rimary pancreatic neuroendocrine tumor (H) Take 1 tablet (5 mg) by mouth every 6 hours as needed for pain. 30 tablet 5 07/18/19 25 oxyCODONE (ROXICODONE) 5 MG tablet Take 5 mg by mouth every 6 hours as needed 4 polyethylene glycol (MIRALAX) 17 g packetIndications:P rimary pancreatic neuroendocrine tumor (H) Take 17 g by mouth daily. 30 each 3 5 sucralfate (CARAFATE) 1 GM tablet Take 1 g by mouth 4 times daily 4 vitamin D2 (ERGOCALCIFEROL) 14377 units (1250 mcg) capsule Take 50,000 Units by mouth twice a week Saturday & documented as of this encounter Miscellaneous Notes * Brief Op Note - Phyllis Merritt MD - 07/01/2024 12:22 PM CDT [facility] Brief Operative Note Pre-operative diagnosis: Neuroendocrine tumor (H) [D3A.8] Cancer related pain [G89.3] Post-operative diagnosis Same as pre-operative diagnosis Procedure: ENDOSCOPIC ULTRASOUND, ESOPHAGOSCOPY / UPPER GASTROINTESTINAL TRACT (GI) with celiac plexus block, N/A - Esophagus Esophagoscopy, gastroscopy, duodenoscopy (EGD), combined, N/A - Esophagus Surgeon: Surgeons and Role: * Guru Nicolle Garzon MD - Primary * Phyllis Merritt MD - Fellow - Assisting Anesthesia: MAC Estimated Blood Loss: None Drains: None Specimens: * No specimens in log * Findings: - Fundic gland polyps but otherwise normal EGD - EUS with successful celiac plexus neurolysis by injecting bupivacaine and ethanol Recommendations: - Observe patient in GI recovery prior anticipated home discharge - Resume previous diet - If he shows clinical response with improvement of pain, will consider repeat neurolysis in the future. If no significant clinical improvement, then consider IR consult for splanchnic lucille block - The findings and recommendations were discussed with the patient. Complications: None. Implants: * No implants in log * documented in this encounter Plan of Treatment Upcoming Encounters Date Type Department Care Team (Latest Contact Info) Description 07/28/2024 9:00 AM CDT Infusion Therapy Visit [facility] [id number] [place] [address] [address] [place] [phone] Heaven Sumner MD [address] [place], [place] [phone] 08/18/2024 2:30 PM CDT Virtual Visit [facility] [address] [place] [phone] Heaven Sumner MD [address] [place] [address] 08/25/2024 11:00 AM CDT Infusion Therapy Visit [address] [place] [phone] Heaven Sumner MD [address] [place], [place] [address] 10/23/2024 10:30 AM CDT Office Visit [facility] [place] [address] [facility] [address] [place] [phone] Jerrod Werner MD [address] [place], [place] [address] 11/11/2024 9:35 AM CDT [facility] [address] [place] [phone] Alfonzo Sultana MD [facility] [address] [place] [address] 11/11/2024 9:35 AM CDT - 11/11/2024 12:30 PM CDT [facility] [address] [place] [phone] Alfonzo Sultana MD [facility] [address] [place] [phone] RIGHT TOTAL SHOULDER ARTHROPLASTY VERSUS Scheduled Procedures [...] Colleen Cohen documented as of this encounter Procedures Procedure Name Priority Date/Time Associated Diagnosis Comments GLUCOSE BY METER Routine 07/01/2024 12:20 PM CDT ESOPHAGOGASTRODUODENOSCOPY 07/01 11:34 AM CDT Neuroendocrine tumor (H) Cancer related pain ENDOSCOPIC ULTRASOUND, ESOPHAGOSCOPY / UPPER GASTROINTESTINAL TRACT (GI) 07/01/2024 11:34 AM CDT Neuroendocrine tumor (H) Cancer related pain GLUCOSE BY METER Routine 07/01/2024 11:01 AM CDT UPPER EUS Routine 07/01/2024 11:00 AM CDT documented in this encounter Results * (ABNORMAL) Glucose by meter (07/01/2024 12:20 PM CDT) GLUCOSE BY METER POCT 167(H) 70 - 99 mg/dL 07/01/2024 12:27 PM CDT [facility]U LABORATORY POC Blood, Capillary BLOOD SPECIMEN / Unknown 07/01/2024 12:20 PM CDT 07/01/2024 12:27 PM CDT Guru Nicolle Garzon MD LAB - AK ER POCT Final Result LABORATORY POC [facility] Core Lab [address] [facility], Room [address] [place] [phone] * (ABNORMAL) Glucose by meter (07/01/2024 11:01 AM CDT) GLUCOSE BY METER POCT 169(H) 70 - 99 mg/dL 07/01/2024 11:08 AM CDT U LABORATORY POC Blood, Capillary BLOOD SPECIMEN / Unknown 07/01/2024 11:01 AM CDT 07/01/2024 11:08 AM CDT Guru Nicolle Garzon MD LAB - BEAK ER POCT Final Result LABORATORY POC [facility] Core Lab [address] [facility], [address] [place] [phone] * UPPER EUS (07/01/2024 11:00 AM CDT) Upper EUS [facility] [address] [place] [address] [phone] Endoscopy Department ___ Patient Name: Brooks Munson Procedure Date: 07/01/2024 11:00 AM Date of : 1955 Admit Type: Outpatient Age: 69 Room: OR Gender: Male Note Status: Finalized Attending MD: [...] by the physician, the nurse and the automation manager in the procedure room. Mental Status Examination: [...] instructions were provided to the patient. GURU RICHARDSON OCTAVIOBALAJI GARZON, 07/02/2024 9:22:05 AM I was physically present for the entire viewing portion of the exam. 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 Cancer related pain Neoplasm related pain (acute) (chronic) Osteoarthritis of right shoulder documented in this encounter Administered Medications Inactive Administered Medications - up to 3 most recent administrations Medication Order MAR Action Action Date Dose Rate Site alcohol (dehydrated) (ABLYSINOL) 99 % injection PRN, Starting on Sat07/01/24 at 1203, Intra-procedure $Given 07/01/2024 12:03 PM CDT 6 mLs BUPivacaine (MARCAINE) 0.25 % injection PRN, Starting on Sat07/01/24 at 1203, Intra-procedure $Given 07/01/2024 12:03 PM CDT 6 mLs Operative Site/Surgical Site dexAMETHasone (DECADRON) injection 4 mg 4 mg, Intravenous, ONCE PRN, nausea/vomiting - 2nd line, PACU, Administer over 1 Minutes, Starting on Sat07/01/24 at 1229, For 1 dose, Administer ONLY if dexamethasone (DECADRON) NOT given in the OR. This is Step 2 of nausea and vomiting management. IF nausea vomiting NOT resolved within 30 minutes or dexamethasone (DECADRON) was given in the OR go to Step 3 prochlorperazine (COMPAZINE)., PACU dexAMETHasone (DECADRON) injection 4 mg 4 mg, Intravenous, ONCE PRN, nausea/vomiting - 2nd line, Phase II, Administer over 1 Minutes, Starting on Sat07/01/24 at 1229, For 1 dose, Administer ONLY if dexamethasone (DECADRON) NOT given in the OR. This is Step 2 of nausea and vomiting management. IF nausea vomiting NOT resolved within 30 minutes or dexamethasone (DECADRON) was given in the OR go to Step 3 prochlorperazine (COMPAZINE)., Phase ll fentaNYL (PF) (SUBLIMAZE) injection 25 mcg 25 mcg, Intravenous, EVERY 5 MIN PRN, moderate pain, Give fentaNYL (SUBLIMAZE) first if HYDROmorphone (DILAUDID) also ordered., Starting on Sat07/01/24 at 1229, Administer fentaNYL (SUBLIMAZE) for acute pain control. Move to HYDROmorphone (DILAUDID): - IF patient has received up to 200 mcg of fentaNYL (SUBLIMAZE) OR - IF patient has received 2 doses of fentaNYL (SUBLIMAZE) AND continues to have pain score greater than or equal to six (6) or is unable to participate in post op recovery due to pain. Wait 5 minutes AFTER last fentaNYL (SUBLIMAZE) dose before administering HYDROmorphone (DILADUDID). Postop Anesthesia Phase I only. Notify Provider to assess for uncontrolled pain or analgesic side effects. DO NOT revert back to fentanyl (SUBLIMAZE) after administering HYDROmorphone (DILAUDID)., PACU fentaNYL (PF) (SUBLIMAZE) injection 50 mcg 50 mcg, Intravenous, EVERY 5 MIN PRN, severe pain, Give fentaNYL (SUBLIMAZE) first if HYDROmorphone (DILAUDID) also ordered., Starting on Sat07/01/24 at 1229, Administer fentaNYL (SUBLIMAZE) for acute pain control. Move to HYDROmorphone (DILAUDID): - IF patient has received up to 200 mcg of fentaNYL (SUBLIMAZE), OR - IF patient has received 2 doses of fentaNYL (SUBLIMAZE) AND continues to have severe pain (pain score greater than or equal to seven (7) or is unable to participate in post op recovery due to pain. Wait 5 minutes AFTER last fentaNYL (SUBLIMAZE) dose before administering HYDROmorphone (DILADUDID). Postop Anesthesia Phase I only. Notify Provider to assess for uncontrolled pain or analgesic side effects. DO NOT revert back to fentanyl (SUBLIMAZE) after administering HYDROmorphone (DILAUDID)., PACU hydrALAZINE (APRESOLINE) injection 2.5-5 mg 2.5-5 mg, Intravenous, EVERY 10 MIN PRN, other, for Systolic Blood Pressure greater than 160 mmHg, Administer over 1 Minutes, Starting on Sat07/01/24 at 1229, Max cumulative dose = 20 mg. FOR USE IN PACU ONLY., PACU HYDROmorphone (DILAUDID) injection 0.2 mg 0.2 mg, Intravenous, EVERY 5 MIN PRN, moderate pain, Starting on Sat07/01/24 at 1229, Use FentaNYL (SUBLIMAZE) first if ordered. Maximum total cumulative dose NOT to exceed 2 mg. DO NOT revert back to fentanyl (SUBLIMAZE) after administering HYDROmorphone (DILAUDID). Notify Provider to assess for uncontrolled pain or analgesic side effects., PACU HYDROmorphone (DILAUDID) injection 0.4 mg 0.4 mg, Intravenous, EVERY 5 MIN PRN, severe pain, Starting on Sat07/01/24 at 1229, Use FentaNYL (SUBLIMAZE) first if ordered. Maximum total cumulative dose NOT to exceed 2 mg. DO NOT revert back to fentanyl (SUBLIMAZE) after administering HYDROmorphone (DILAUDID). Notify Provider to assess for uncontrolled pain or analgesic side effects., PACU labetalol (NORMODYNE/TRANDATE) injection 10 mg 10 mg, Intravenous, ONCE PRN, other, for Systolic Blood Pressure GREATER than 160 mmHg AND Heart Rate GREATER than 60 bpm. HOLD if heart rate LESS than 60 bpm., Starting on Sat07/01/24 at 1229, For 1 dose, For PACU USE ONLY., PACU lactated ringers infusion at 100 mL/hr, Intravenous, CONTINUOUS, Continue until IV catheter is weaned, PACU, Starting on Sat07/01/24 at 1230, Until Sat07/01/24 at 1504 naloxone (NARCAN) injection 0.1 mg 0.1 mg, Intravenous, EVERY 2 MIN PRN, opioid reversal, Starting on Sat07/01/24 at 1229, Notify Anesthesia Provider when administering naloxone (NARCAN) for unintended sedation or respiratory depression IF all three of the following criteria are met: 1. Respiratory rate LESS than or EQUAL to 8. 2. SaO2 is LESS than 92% and/or end-tidal CO2 is GREATER than 50. 3. Patient is receiving an opioid, has unintended sedation assessed as RASS (-4) or (-5) and patient is NOT currently on mechanical ventilation. RASS scale (-4) is deep sedation with no response to voice but movement or eye opening to physical stimulation. RASS scale (-5) is unarousable. Notify Anesthesia Provider PRIOR to administering additional opioids if naloxone (NARCAN) given. Monitor in Phase I for 2 hours after last naloxone (NARCAN) dose PRIOR to transfer to Patient Care Unit or Phase II., PACU naloxone (NARCAN) injection 0.1 mg 0.1 mg, Intravenous, EVERY 2 MIN PRN, opioid reversal, Starting on Sat07/01/24 at 1229, Notify Anesthesia Provider when administering naloxone (NARCAN) for unintended sedation or respiratory depression IF all three of the following criteria are met: 1. Respiratory rate LESS than or EQUAL to 8. 2. SaO2 is LESS than 92% and/or end-tidal CO2 is GREATER than 50. 3. Patient is receiving an opioid, has unintended sedation assessed as RASS (-4) or (-5) and patient is NOT currently on mechanical ventilation. RASS scale (-4) is deep sedation with no response to voice but movement or eye opening to physical stimulation. RASS scale (-5) is unarousable. Notify Anesthesia Provider PRIOR to administering additional opioids if naloxone (NARCAN) given. Once patient has demonstrated a response to naloxone (NARCAN), continue to monitor respiratory rate, depth, oxygen saturation EVERY 15 minutes x 2, then EVERY 30 minutes x 2, then EVERY hour x 1 after each naloxone (NARCAN) dose. Monitor in Phase II for 2 hours after last naloxone (NARCAN) dose PRIOR to discharge., Phase ll ondansetron (ZOFRAN ODT) ODT tab 4 mg 4 mg, Oral, EVERY 30 MIN PRN, nausea/vomiting - 1st line, PACU, Starting on Sat07/01/24 at 1229, For 2 doses, Administer if NO vascular access present. This is Step 1 of nausea and vomiting management. If nausea/vomiting not resolved in 15 minutes, go to Step 2 dexamethasone (DECADRON) IV. MAX total dose = 8 mg, including OR dosing. With dry hands, peel back foil backing and gently remove tablet. Do not push oral disintegrating tablet through foil backing. Administer immediately on tongue and oral disintegrating tablet dissolves in seconds, then swallow with saliva. Liquid not required., PACU ondansetron (ZOFRAN ODT) ODT tab 4 mg 4 mg, Oral, EVERY 30 MIN PRN, nausea/vomiting - 1st line, Phase II, Starting on Sat07/01/24 at 1229, For 2 doses, Administer if NO vascular access present. This is Step 1 of nausea and vomiting management. If nausea/vomiting not resolved in 15 minutes, go to Step 2 dexamethasone (DECADRON) IV. MAX total dose = 8 mg, including OR dosing. With dry hands, peel back foil backing and gently remove tablet. Do not push oral disintegrating tablet through foil backing. Administer immediately on tongue and oral disintegrating tablet dissolves in seconds, then swallow with saliva. Liquid not required., Phase ll ondansetron (ZOFRAN ODT) ODT tab 4 mg 4 mg, Oral, EVERY 6 HOURS PRN, nausea, vomiting, Starting on Sat07/01/24 at 1229, This is Step 1 of nausea and vomiting management. If nausea not resolved in 15 minutes, go to Step 2 prochlorperazine (COMPAZINE). Do not push through foil backing. Peel back foil and gently remove. Place on tongue immediately. Administration with liquid unnecessary With dry hands, peel back foil backing and gently remove tablet. Do not push oral disintegrating tablet through foil backing. Administer immediately on tongue and oral disintegrating tablet dissolves in seconds, then swallow with saliva. Liquid not required. ondansetron (ZOFRAN) injection 4 mg 4 mg, Intravenous, EVERY 30 MIN PRN, nausea/vomiting - 1st line, PACU, Administer over 2-5 Minutes, Starting on Sat07/01/24 at 1229, For 2 doses, This is Step 1 of nausea and vomiting management. If nausea/vomiting not resolved in 15 minutes, then go to Step 2 dexamethasone (DECADRON) IV. MAX total dose = 8 mg, including OR dosing., PACU ondansetron (ZOFRAN) injection 4 mg 4 mg, Intravenous, EVERY 30 MIN PRN, nausea/vomiting - 1st line, Phase II, Administer over 2-5 Minutes, Starting on Sat07/01/24 at 1229, For 2 doses, This is Step 1 of nausea and vomiting management. If nausea/vomiting not resolved in 15 minutes, then go to Step 2 dexamethasone (DECADRON) IV. MAX total dose = 8 mg, including OR dosing., Phase ll ondansetron (ZOFRAN) injection 4 mg 4 mg, Intravenous, EVERY 6 HOURS PRN, nausea, vomiting, Administer over 2-5 Minutes, Starting on Sat07/01/24 at 1229, This is Step 1 of nausea and vomiting management. If nausea not resolved in 15 minutes, go to Step 2 prochlorperazine (COMPAZINE). oxyCODONE (ROXICODONE) tablet 5 mg 5 mg, Oral, ONCE PRN, moderate pain, Starting on Sat07/01/24 at 1229, For 1 dose, Max: 5 mg for opioid-na ve patient., Phase ll oxyCODONE IR (ROXICODONE) tablet 10 mg 10 mg, Oral, ONCE PRN, severe pain, Starting on Sat07/01/24 at 1229, For 1 dose, Max: 5 mg for opioid-na ve patient. Use caution with patient Age GREATER than 65 years, COPD, or CrCl LESS than 50 mL/min., Phase ll prochlorperazine (COMPAZINE) injection 5 mg 5 mg, Intravenous, EVERY 6 HOURS PRN, nausea/vomiting - 3rd line, PACU, Administer over 1-2 Minutes, Starting on Sat07/01/24 at 1229, This is Step 3 of the nausea and vomiting protocol. If nausea/vomiting not resolved in 15-30 minutes, notify Provider., PACU prochlorperazine (COMPAZINE) injection 5 mg 5 mg, Intravenous, EVERY 6 HOURS PRN, nausea/vomiting - 3rd line, Phase II, Administer over 1-2 Minutes, Starting on Sat07/01/24 at 1229, This is Step 3 of the nausea and vomiting protocol. If nausea/vomiting not resolved in 15-30 minutes, notify Provider., Phase ll prochlorperazine (COMPAZINE) injection 5 mg 5 mg, Intravenous, EVERY 6 HOURS PRN, nausea, vomiting, Administer over 1-2 Minutes, Starting on Sat07/01/24 at 1229, This is Step 2 of nausea and vomiting management. If nausea not resolved in 15-30 minutes, Notify provider. prochlorperazine (COMPAZINE) tablet 5 mg 5 mg, Oral, EVERY 6 HOURS PRN, nausea, vomiting, Starting on Sat07/01/24 at 1229, This is Step 2 of nausea and vomiting management. If nausea not resolved in 15-30 minutes, Notify provider. documented in this encounter Active and Recently Administered Medications Times are shown in CDT. Continuous Medication Order 06/29/2024 06/30/2024 07/01/2024 lactated ringers infusion at 100 mL/hr, Intravenous, CONTINUOUS, Continue until IV catheter is weaned, PACU, Starting on Sat07/01/24 at 1230, Until Sat07/01/24 at 1504 1230 (Canceled Entry - Provider: Orders Generic Provider - Comment: Automatically canceled at discontinue of medication order) PRN Medication Order 06/29/2024 06/30/2024 07/01/2024 alcohol (dehydrated) (ABLYSINOL) 99 % injection (CANCELED) PRN, Starting on Sat07/01/24 at 1203, Intra-procedure 1203 ($Given - Provi giulia: Guru Nicolle Garzon MD) BUPivacaine (MARCAINE) 0.25 % injection (CANCELED) PRN, Starting on Sat07/01/24 at 1203, Intra-procedure 1203 ($Given - Provi giulia: Guru Nicolle Garzon MD) dexAMETHasone (DECADRON) injection 4 mg 4 mg, Intravenous, ONCE PRN, nausea/vomiting - 2nd line, PACU, Administer over 1 Minutes, Starting on Sat07/01/24 at 1229, For 1 dose, Administer ONLY if dexamethasone (DECADRON) NOT given in the OR. This is Step 2 of nausea and vomiting management. IF nausea vomiting NOT resolved within 30 minutes or dexamethasone (DECADRON) was given in the OR go to Step 3 prochlorperazine (COMPAZINE)., PACU dexAMETHasone (DECADRON) injection 4 mg 4 mg, Intravenous, ONCE PRN, nausea/vomiting - 2nd line, Phase II, Administer over 1 Minutes, Starting on Sat07/01/24 at 1229, For 1 dose, Administer ONLY if dexamethasone (DECADRON) NOT given in the OR. This is Step 2 of nausea and vomiting management. IF nausea vomiting NOT resolved within 30 minutes or dexamethasone (DECADRON) was given in the OR go to Step 3 prochlorperazine (COMPAZINE)., Phase ll fentaNYL (PF) (SUBLIMAZE) injection 25 mcg 25 mcg, Intravenous, EVERY 5 MIN PRN, moderate pain, Give fentaNYL (SUBLIMAZE) first if HYDROmorphone (DILAUDID) also ordered., Starting on Sat07/01/24 at 1229, Administer fentaNYL (SUBLIMAZE) for acute pain control. Move to HYDROmorphone (DILAUDID): - IF patient has received up to 200 mcg of fentaNYL (SUBLIMAZE) OR - IF patient has received 2 doses of fentaNYL (SUBLIMAZE) AND continues to have pain score greater than or equal to six (6) or is unable to participate in post op recovery due to pain. Wait 5 minutes AFTER last fentaNYL (SUBLIMAZE) dose before administering HYDROmorphone (DILADUDID). Postop Anesthesia Phase I only. Notify Provider to assess for uncontrolled pain or analgesic side effects. DO NOT revert back to fentanyl (SUBLIMAZE) after administering HYDROmorphone (DILAUDID)., PACU fentaNYL (PF) (SUBLIMAZE) injection 50 mcg 50 mcg, Intravenous, EVERY 5 MIN PRN, severe pain, Give fentaNYL (SUBLIMAZE) first if HYDROmorphone (DILAUDID) also ordered., Starting on Sat07/01/24 at 1229, Administer fentaNYL (SUBLIMAZE) for acute pain control. Move to HYDROmorphone (DILAUDID): - IF patient has received up to 200 mcg of fentaNYL (SUBLIMAZE), OR - IF patient has received 2 doses of fentaNYL (SUBLIMAZE) AND continues to have severe pain (pain score greater than or equal to seven (7) or is unable to participate in post op recovery due to pain. Wait 5 minutes AFTER last fentaNYL (SUBLIMAZE) dose before administering HYDROmorphone (DILADUDID). Postop Anesthesia Phase I only. Notify Provider to assess for uncontrolled pain or analgesic side effects. DO NOT revert back to fentanyl (SUBLIMAZE) after administering HYDROmorphone (DILAUDID)., PACU flumazenil (ROMAZICON) injection 0.2 mg 0.2 mg, Intravenous, EVERY 1 MIN PRN, benzodiazepine reversal, over sedation, Administer over 1 Minutes, Starting on Sat07/01/24 at 1229, For 12 hours, Give over 15 seconds. If inadequate response after 45 seconds, may repeat up to a MAX total dose of 1 mg. Continue monitoring until discharge criteria are met for a minimum of 2 hours Use with caution in patients on benzodiazepine therapy. hydrALAZINE (APRESOLINE) injection 2.5-5 mg 2.5-5 mg, Intravenous, EVERY 10 MIN PRN, other, for Systolic Blood Pressure greater than 160 mmHg, Administer over 1 Minutes, Starting on Sat07/01/24 at 1229, Max cumulative dose = 20 mg. FOR USE IN PACU ONLY., PACU HYDROmorphone (DILAUDID) injection 0.2 mg 0.2 mg, Intravenous, EVERY 5 MIN PRN, moderate pain, Starting on Sat07/01/24 at 1229, Use FentaNYL (SUBLIMAZE) first if ordered. Maximum total cumulative dose NOT to exceed 2 mg. DO NOT revert back to fentanyl (SUBLIMAZE) after administering HYDROmorphone (DILAUDID). Notify Provider to assess for uncontrolled pain or analgesic side effects., PACU HYDROmorphone (DILAUDID) injection 0.4 mg 0.4 mg, Intravenous, EVERY 5 MIN PRN, severe pain, Starting on Sat07/01/24 at 1229, Use FentaNYL (SUBLIMAZE) first if ordered. Maximum total cumulative dose NOT to exceed 2 mg. DO NOT revert back to fentanyl (SUBLIMAZE) after administering HYDROmorphone (DILAUDID). Notify Provider to assess for uncontrolled pain or analgesic side effects., PACU labetalol (NORMODYNE/TRANDATE) injection 10 mg 10 mg, Intravenous, ONCE PRN, other, for Systolic Blood Pressure GREATER than 160 mmHg AND Heart Rate GREATER than 60 bpm. HOLD if heart rate LESS than 60 bpm., Starting on Sat07/01/24 at 1229, For 1 dose, For PACU USE ONLY., PACU naloxone (NARCAN) injection 0.1 mg 0.1 mg, Intravenous, EVERY 2 MIN PRN, opioid reversal, Starting on Sat07/01/24 at 1229, Notify Anesthesia Provider when administering naloxone (NARCAN) for unintended sedation or respiratory depression IF all three of the following criteria are met: 1. Respiratory rate LESS than or EQUAL to 8. 2. SaO2 is LESS than 92% and/or end-tidal CO2 is GREATER than 50. 3. Patient is receiving an opioid, has unintended sedation assessed as RASS (-4) or (-5) and patient is NOT currently on mechanical ventilation. RASS scale (-4) is deep sedation with no response to voice but movement or eye opening to physical stimulation. RASS scale (-5) is unarousable. Notify Anesthesia Provider PRIOR to administering additional opioids if naloxone (NARCAN) given. Monitor in Phase I for 2 hours after last naloxone (NARCAN) dose PRIOR to transfer to Patient Care Unit or Phase II., PACU naloxone (NARCAN) injection 0.1 mg 0.1 mg, Intravenous, EVERY 2 MIN PRN, opioid reversal, Starting on Sat07/01/24 at 1229, Notify Anesthesia Provider when administering naloxone (NARCAN) for unintended sedation or respiratory depression IF all three of the following criteria are met: 1. Respiratory rate LESS than or EQUAL to 8. 2. SaO2 is LESS than 92% and/or end-tidal CO2 is GREATER than 50. 3. Patient is receiving an opioid, has unintended sedation assessed as RASS (-4) or (-5) and patient is NOT currently on mechanical ventilation. RASS scale (-4) is deep sedation with no response to voice but movement or eye opening to physical stimulation. RASS scale (-5) is unarousable. Notify Anesthesia Provider PRIOR to administering additional opioids if naloxone (NARCAN) given. Once patient has demonstrated a response to naloxone (NARCAN), continue to monitor respiratory rate, depth, oxygen saturation EVERY 15 minutes x 2, then EVERY 30 minutes x 2, then EVERY hour x 1 after each naloxone (NARCAN) dose. Monitor in Phase II for 2 hours after last naloxone (NARCAN) dose PRIOR to discharge., Phase ll naloxone (NARCAN) injection 0.2 mg 0.2 mg, Intravenous, EVERY 2 MIN PRN, opioid reversal, Starting on Sat07/01/24 at 1229, Administer intravenous route when available and notify provider when administered. For unintended sedation or respiratory depression if all of the below criteria are met: ~ respiratory rate LESS than or EQUAL to 8. ~SaO2 less than 92% and or/end-tidal CO2 is greater than 50. ~ the patient is receiving an opioid, has unintended sedations assessed as RASS (-3), and is currently not on mechanical ventilation. RASS scale moderate (-3) is movement or eye opening to voice but no eye contact. Patient Monitoring Once the patient has demonstrated a response to the naloxone, continue to monitor respiratory rate, depth, oxygen saturation and end-tidal CO2 (if available) every 15 minutes x 2, then every 30 minutes x 2, then every 1 hour x 1 after each naloxone dose. Consider transfer to ICU if patient respiratory parameters have not improved after 4 naloxone doses. naloxone (NARCAN) injection 0.2 mg 0.2 mg, Intramuscular, EVERY 2 MIN PRN, opioid reversal, Starting on Sat07/01/24 at 1229, Administer intramuscular if an intravenous route is not available and notify provider when administered. For unintended sedation or respiratory depression if all of the below criteria are met: ~ respiratory rate LESS than or EQUAL to 8. ~SaO2 less than 92% and or/end-tidal CO2 is greater than 50. ~ the patient is receiving an opioid, has unintended sedations assessed as RASS (-3), and is currently not on mechanical ventilation. RASS scale moderate (-3) is movement or eye opening to voice but no eye contact. Patient Monitoring Once the patient has demonstrated a response to the naloxone, continue to monitor respiratory rate, depth, oxygen saturation and end-tidal CO2 (if available) every 15 minutes x 2, then every 30 minutes x 2, then every 1 hour x 1 after each naloxone dose. Consider transfer to ICU if patient respiratory parameters have not improved after 4 naloxone doses. naloxone (NARCAN) injection 0.4 mg 0.4 mg, Intravenous, EVERY 2 MIN PRN, opioid reversal, Starting on Sat07/01/24 at 1229, Administer intravenous route when available and notify provider when administered. For unintended sedation or respiratory depression if all of the below criteria are met: ~ respiratory rate LESS than or EQUAL to 8. ~ SaO2 less than 92% and or/end-tidal CO2 is greater than 50. ~ the patient is receiving an opioid, has unintended sedation assessed as RASS (-4) or (-5) and patient is currently not on mechanical ventilation. RASS scale (-4) is deep sedation with no response to voice but movement or eye opening to physical stimulation. RASS scale (-5) is unarousable. Patient Monitoring Once the patient has demonstrated a response to the naloxone, continue to monitor respiratory rate, depth, oxygen saturation and end-tidal CO2 (if available) every 15 minutes x 2, then every 30 minutes x 2, then every 1 hour x 1 after each naloxone dose. Consider transfer to ICU if patient respiratory parameters have not improved after 4 naloxone doses. naloxone (NARCAN) injection 0.4 mg 0.4 mg, Intramuscular, EVERY 2 MIN PRN, opioid reversal, Starting on Sat07/01/24 at 1229, Administer intramuscular if an intravenous route is not available and notify provider when administered. For unintended sedation or respiratory depression if all of the below criteria are met: ~ respiratory rate LESS than or EQUAL to 8. ~ SaO2 less than 92% and or/end-tidal CO2 is greater than 50. ~ the patient is receiving an opioid, has unintended sedation assessed as RASS (-4) or (-5) and patient is currently not on mechanical ventilation. RASS scale (-4) is deep sedation with no response to voice but movement or eye opening to physical stimulation. RASS scale (-5) is unarousable. Patient Monitoring Once the patient has demonstrated a response to the naloxone, continue to monitor respiratory rate, depth, oxygen saturation and end-tidal CO2 (if available) every 15 minutes x 2, then every 30 minutes x 2, then every 1 hour x 1 after each naloxone dose. Consider transfer to ICU if patient respiratory parameters have not improved after 4 naloxone doses. ondansetron (ZOFRAN ODT) ODT tab 4 mg(Linked Group 1) 4 mg, Oral, EVERY 30 MIN PRN, nausea/vomiting - 1st line, PACU, Starting on Sat07/01/24 at 1229, For 2 doses, Administer if NO vascular access present. This is Step 1 of nausea and vomiting management. If nausea/vomiting not resolved in 15 minutes, go to Step 2 dexamethasone (DECADRON) IV. MAX total dose = 8 mg, including OR dosing. With dry hands, peel back foil backing and gently remove tablet. Do not push oral disintegrating tablet through foil backing. Administer immediately on tongue and oral disintegrating tablet dissolves in seconds, then swallow with saliva. Liquid not required., PACU ondansetron (ZOFRAN ODT) ODT tab 4 mg(Linked Group 2) 4 mg, Oral, EVERY 30 MIN PRN, nausea/vomiting - 1st line, Phase II, Starting on Sat07/01/24 at 1229, For 2 doses, Administer if NO vascular access present. This is Step 1 of nausea and vomiting management. If nausea/vomiting not resolved in 15 minutes, go to Step 2 dexamethasone (DECADRON) IV. MAX total dose = 8 mg, including OR dosing. With dry hands, peel back foil backing and gently remove tablet. Do not push oral disintegrating tablet through foil backing. Administer immediately on tongue and oral disintegrating tablet dissolves in seconds, then swallow with saliva. Liquid not required., Phase ll ondansetron (ZOFRAN ODT) ODT tab 4 mg(Linked Group 3) 4 mg, Oral, EVERY 6 HOURS PRN, nausea, vomiting, Starting on Sat07/01/24 at 1229, This is Step 1 of nausea and vomiting management. If nausea not resolved in 15 minutes, go to Step 2 prochlorperazine (COMPAZINE). Do not push through foil backing. Peel back foil and gently remove. Place on tongue immediately. Administration with liquid unnecessary With dry hands, peel back foil backing and gently remove tablet. Do not push oral disintegrating tablet through foil backing. Administer immediately on tongue and oral disintegrating tablet dissolves in seconds, then swallow with saliva. Liquid not required. ondansetron (ZOFRAN) injection 4 mg(Linked Group 1) 4 mg, Intravenous, EVERY 30 MIN PRN, nausea/vomiting - 1st line, PACU, Administer over 2-5 Minutes, Starting on Sat07/01/24 at 1229, For 2 doses, This is Step 1 of nausea and vomiting management. If nausea/vomiting not resolved in 15 minutes, then go to Step 2 dexamethasone (DECADRON) IV. MAX total dose = 8 mg, including OR dosing., PACU ondansetron (ZOFRAN) injection 4 mg(Linked Group 2) 4 mg, Intravenous, EVERY 30 MIN PRN, nausea/vomiting - 1st line, Phase II, Administer over 2-5 Minutes, Starting on Sat07/01/24 at 1229, For 2 doses, This is Step 1 of nausea and vomiting management. If nausea/vomiting not resolved in 15 minutes, then go to Step 2 dexamethasone (DECADRON) IV. MAX total dose = 8 mg, including OR dosing., Phase ll ondansetron (ZOFRAN) injection 4 mg(Linked Group 3) 4 mg, Intravenous, EVERY 6 HOURS PRN, nausea, vomiting, Administer over 2-5 Minutes, Starting on Sat07/01/24 at 1229, This is Step 1 of nausea and vomiting management. If nausea not resolved in 15 minutes, go to Step 2 prochlorperazine (COMPAZINE). oxyCODONE (ROXICODONE) tablet 5 mg 5 mg, Oral, ONCE PRN, moderate pain, Starting on Sat07/01/24 at 1229, For 1 dose, Max: 5 mg for opioid-na ve patient., Phase ll oxyCODONE IR (ROXICODONE) tablet 10 mg 10 mg, Oral, ONCE PRN, severe pain, Starting on Sat07/01/24 at 1229, For 1 dose, Max: 5 mg for opioid-na ve patient. Use caution with patient Age GREATER than 65 years, COPD, or CrCl LESS than 50 mL/min., Phase ll prochlorperazine (COMPAZINE) injection 5 mg 5 mg, Intravenous, EVERY 6 HOURS PRN, nausea/vomiting - 3rd line, PACU, Administer over 1-2 Minutes, Starting on Sat07/01/24 at 1229, This is Step 3 of the nausea and vomiting protocol. If nausea/vomiting not resolved in 15-30 minutes, notify Provider., PACU prochlorperazine (COMPAZINE) injection 5 mg 5 mg, Intravenous, EVERY 6 HOURS PRN, nausea/vomiting - 3rd line, Phase II, Administer over 1-2 Minutes, Starting on Sat07/01/24 at 1229, This is Step 3 of the nausea and vomiting protocol. If nausea/vomiting not resolved in 15-30 minutes, notify Provider., Phase ll prochlorperazine (COMPAZINE) injection 5 mg(Linked Group 4) 5 mg, Intravenous, EVERY 6 HOURS PRN, nausea, vomiting, Administer over 1-2 Minutes, Starting on Sat07/01/24 at 1229, This is Step 2 of nausea and vomiting management. If nausea not resolved in 15-30 minutes, Notify provider. prochlorperazine (COMPAZINE) tablet 5 mg(Linked Group 4) 5 mg, Oral, EVERY 6 HOURS PRN, nausea, vomiting, Starting on Sat07/01/24 at 1229, This is Step 2 of nausea and vomiting management. If nausea not resolved in 15-30 minutes, Notify provider. Linked Groups Order Group 1: ondansetron (ZOFRAN ODT) ODT tab 4 mgJump to med 4 mg, Oral, EVERY 30 MIN PRN, nausea/vomiting - 1st line, PACU, Starting on Sat07/01/24 at 1229, For 2 doses, Administer if NO vascular access present. This is Step 1 of nausea and vomiting management. If nausea/vomiting not resolved in 15 minutes, go to Step 2 dexamethasone (DECADRON) IV. MAX total dose = 8 mg, including OR dosing. With dry hands, peel back foil backing and gently remove tablet. Do not push oral disintegrating tablet through foil backing. Administer immediately on tongue and oral disintegrating tablet dissolves in seconds, then swallow with saliva. Liquid not required., PACU Or ondansetron (ZOFRAN) injection 4 mgJump to med 4 mg, Intravenous, EVERY 30 MIN PRN, nausea/vomiting - 1st line, PACU, Administer over 2-5 Minutes, Starting on Sat07/01/24 at 1229, For 2 doses, This is Step 1 of nausea and vomiting management. If nausea/vomiting not resolved in 15 minutes, then go to Step 2 dexamethasone (DECADRON) IV. MAX total dose = 8 mg, including OR dosing., PACU Group 2: ondansetron (ZOFRAN ODT) ODT tab 4 mgJump to med 4 mg, Oral, EVERY 30 MIN PRN, nausea/vomiting - 1st line, Phase II, Starting on Sat07/01/24 at 1229, For 2 doses, Administer if NO vascular access present. This is Step 1 of nausea and vomiting management. If nausea/vomiting not resolved in 15 minutes, go to Step 2 dexamethasone (DECADRON) IV. MAX total dose = 8 mg, including OR dosing. With dry hands, peel back foil backing and gently remove tablet. Do not push oral disintegrating tablet through foil backing. Administer immediately on tongue and oral disintegrating tablet dissolves in seconds, then swallow with saliva. Liquid not required., Phase ll Or ondansetron (ZOFRAN) injection 4 mgJump to med 4 mg, Intravenous, EVERY 30 MIN PRN, nausea/vomiting - 1st line, Phase II, Administer over 2-5 Minutes, Starting on Sat07/01/24 at 1229, For 2 doses, This is Step 1 of nausea and vomiting management. If nausea/vomiting not resolved in 15 minutes, then go to Step 2 dexamethasone (DECADRON) IV. MAX total dose = 8 mg, including OR dosing., Phase ll Group 3: ondansetron (ZOFRAN ODT) ODT tab 4 mgJump to med 4 mg, Oral, EVERY 6 HOURS PRN, nausea, vomiting, Starting on Sat07/01/24 at 1229, This is Step 1 of nausea and vomiting management. If nausea not resolved in 15 minutes, go to Step 2 prochlorperazine (COMPAZINE). Do not push through foil backing. Peel back foil and gently remove. Place on tongue immediately. Administration with liquid unnecessary With dry hands, peel back foil backing and gently remove tablet. Do not push oral disintegrating tablet through foil backing. Administer immediately on tongue and oral disintegrating tablet dissolves in seconds, then swallow with saliva. Liquid not required. Or ondansetron (ZOFRAN) injection 4 mgJump to med 4 mg, Intravenous, EVERY 6 HOURS PRN, nausea, vomiting, Administer over 2-5 Minutes, Starting on Sat07/01/24 at 1229, This is Step 1 of nausea and vomiting management. If nausea not resolved in 15 minutes, go to Step 2 prochlorperazine (COMPAZINE). Group 4: prochlorperazine (COMPAZINE) injection 5 mgJump to med 5 mg, Intravenous, EVERY 6 HOURS PRN, nausea, vomiting, Administer over 1-2 Minutes, Starting on Sat07/01/24 at 1229, This is Step 2 of nausea and vomiting management. If nausea not resolved in 15-30 minutes, Notify provider. Or prochlorperazine (COMPAZINE) tablet 5 mgJump to med 5 mg, Oral, EVERY 6 HOURS PRN, nausea, vomiting, Starting on Sat07/01/24 at 1229, This is Step 2 of nausea and vomiting management. If nausea not resolved in 15- 30 minutes, Notify provider. 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 documented as of this encounter Care Teams Underwriter Mortgage Loan Relationship Specialty Start Date End Date No Ref-Primary, Physician PCP - General 07/01/24 Heaven Sumner MD [address] [place] [address] Hematology 05/06/23 Misty Wellington, [employer] SPECIALIST [address] [place] [address] Nurse Practitioner Nurse Practitioner 05/07/23 Prosper Shrestha MD [address] [place], [place] [address] Emergency Medicine 05/07/23 Ramin Whitfield MD [address] [facility] [address] [place], [place] [address] Assigned Surgical Provider 07/11/23 Heaven Sumner MD [address] [place], [place] [address] Assigned Cancer Care Provider 09/10/23 Sarah Gould, [facility] [address] [place], [place] [id number] Specialty Internet Technology Manager Hematology & Oncology 08/13/23 Jerrod Werner MD [address] [place] [id number] Cardiovascular Disease 04/07/24 Jerrod Werner MD [address] [place] [id number] Assigned Heart and Vascular Provider 04/12/24 [place] [address] [place] [address] Assigned Endocrinology Provider 06/10/24 documented as of this encounter
--- OUTSIDE RECORDS SUMMARY | 2024-07-03 07:05 | XMS_ITS | Encounter Summary ---
Author Organization [facility] Address [address] [place] [address] Care Team Providers Care Sole Blacker Name Role Phone Sergio Martinez MD Unavailable Misty Wellington NP Unavailable [phone] Prosper Shrestha MD Unavailable [phone] Ramin Whitfield MD Unavailable [phone] Sergio Martinez MD Unavailable No Ref-Primary, [...] GASTROINTESTINAL TRACT (GI) with celiac plexus block Formerly [facility] [address] [place] [address] Phone: tel: fax: Referral ID Status Reason Start Date Expiration Date Visits Re quested Visits Authorized [id number] 1 1 Encounter Details Date Type Department Care Team (Late st Contact Info) Description 07/01/2024 11:34 AM CDT Anesthesia Event M [facility] [address] [place] [address] Kelton Bah MD [address] [facility] [address] [place] [address] Karin Cartagena Anesthesia Record Procedure Summary Procedure Name Responsible Anesthesiologist Anesthesia Start Time Anesthesia Stop Time ENDOSCOPIC ULTRASOUND, ESOPHAGOSCOPY / UPPER GASTROINTESTINAL TRACT (GI) with celiac plexus block (Esophagus) Kelton Bah MD 07/01/24 1134 07/01/24 1213 Events Date Time Event Comment 07/01/2024 1134 An Start Anesthesia Star t is defined as when the anesthesia provider assumed care, began anesthesia prep, remained continuously present with the patient, and excludes all time for performing the pre-anesthesia evaluation. The Pre-Anesthesia Evaluation was completed before Anesthesia Start. 1134 An Start Data 1139 AN REASSESS I attest that I have identified and re-evaluated the patient immediately before the induction of anesthesia and I am satisfied that the anesthetic plan is suitable for the patient's condition and procedure. The first vital signs recorded are pre-induction. Samantha Navarro APRN CRNA 1139 Anesthesia Ready for Procedu re 1205 an stop data 1213 An Stop Electronically signed by Samantha Navarro APRN CRNA on July 01, 2024 12:13 PM Meds Name Total lidocaine 2% 60 mg propofol 10 mg/mL 70 mg propofol drip mcg/kg/min 340.54 mg ondansetron 2 mg/mL 4 mg benzocaine (HURRICAINE/TOPEX) 20% spray 1 each LR 100 mL * Agents Name O2 N2O Air Exp Sevoflurane Exp Isoflurane Exp Desflurane O2 Delivery Device Ins Sevoflurane Ins Isoflurane Ins Desflurane * Blood No blood administrations on file. 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 Gender Identity Not on file Sexual Orientation Not on file documented as of this encounter OR Notes * Anesthesia Postprocedure Evaluation - Kelton Bah MD - 07/02/2024 1:32 PM CDT Patient: Brooks Munson Procedure: Procedure(s): ENDOSCOPIC ULTRASOUND, ESOPHAGOSCOPY / UPPER GASTROINTESTINAL TRACT (GI) with celiac plexus block Esophagoscopy, gastroscopy, duodenoscopy (EGD), combined Anesthesia Type: MAC Note: Disposition: Outpatient Postop Pain Control: Uneventful Sign Out: Well controlled pain PONV: No Neuro/Psych: Uneventful Sign Out: Acceptable/Baseline neuro status Airway/Respiratory: Uneventful Sign Out: Acceptable/Baseline resp. status CV/Hemodynamics: Uneventful Sign Out: Acceptable CV status; No obvious hypovolemia; No obvious fluid overload Other NRE: NONE DID A NON-ROUTINE EVENT OCCUR? No Last vitals: Vitals Value Taken Time BP 127/77 07/01/24 12:30 Temp 37 ??C (98.6 ??F) 07/01/24 12:30 Pulse 76 07/01/24 12:10 Resp 19 07/01/24 12:30 SpO2 97 % 07/01/24 12:38 Vitals shown include unfiled device data. Electronically Signed By: Kelton Bah MD July 02, 2024 1:32 PM * Anesthesia Preprocedure Evaluation - Kelton Bah MD - 07/01/2024 7:16 AM CDT Anesthesia Pre-Procedure Evaluation Patient: Brooks Munson : 1955 Procedure : Procedure(s): ENDOSCOPIC ULTRASOUND, ESOPHAGOSCOPY / UPPER GASTROINTESTINAL TRACT (GI) with celiac plexus block Past Medical History: Diagnosis Date A-fib (H) ACS (acute coronary syndrome) (H) 12/03/2016 Arthritis bilat. hips CAD (coronary artery disease) 2010 cardiac cath 2014: BMS to OM1, cath 2010: diffuse disease Cancer (H) small intestine Carcinoid syndrome (H) Cardiomyopathy (H) 07/2014 EF 50-55% by Echo Coronary artery disease Diabetes mellitus (H) Diabetes mellitus (H) Disease of thyroid gland Family history of early CAD Hypertension Hypothyroidism Ischemic cardiomyopathy 10/07/2014 Low back pain Mixed hypercholesterolemia and hypertriglyceridemia Mixed hyperlipidemia Myocardial infarction (H) Non morbid obesity due to excess calories 07/14/2015 NSTEMI (non-ST elevated myocardial infarction) (H) Stomach cancer (H) 2007 partial small bowel resection, on continuous infusion of octreotide Unstable angina (H) 12/03/2016 Past Surgical History: Procedure Laterality Date ARTHROPLASTY SHOULDER Left 01/31/2022 Procedure: LEFT TOTAL SHOULDER ARTHROPLASTY; Surgeon: Alfonzo Sultana MD; Location: [facility] Main OR BACK SURGERY Laminectomy-lower back L4-L5 CHOLECYSTECTOMY CORONARY ANGIOGRAPHY ADULT ORDER 08/2010 mild diffuse disease (25-30% left main, 50-60% LAD, 25-30% CFX, 30-40% RCA, EF 60-65% ESOPHAGOSCOPY, GASTROSCOPY, DUODENOSCOPY (EGD), COMBINED N/A 05/05/2024 Procedure: ESOPHAGOGASTRODUODENOSCOPY, WITH FINE NEEDLE ASPIRATION BIOPSY, WITH ENDOSCOPIC ULTRASOUND GUIDANCE; Surgeon: Guru Nicolle Garzon MD; Location: GI ESOPHAGOSCOPY, GASTROSCOPY, DUODENOSCOPY (EGD), COMBINED N/A 05/05/2024 Procedure: ESOPHAGOGASTRODUODENOSCOPY, WITH BIOPSY; Surgeon: Guru Nicolle Garzon MD; Location: [facility] GI exploratory abd surgery 2009 lymph node exploration HEART CATH DRUG ELUTING STENT PLACEMENT 12/04/2016 NICO to RCA HEART CATH STENT COR W/WO PTCA 07/2014 3 vessel CAD - 40-50% left main, 70-75% ostial LAD, 40-50% 1st diagonal, occluded OM1 - BMS placed,tiny RI, 70-75% RCA, EF 50% HEMORRHOID SURGERY 1998 JOINT REPLACEMENT [place] OTHER SURGICAL HISTORY 2017 coronary stents OTHER SURGICAL HISTORY cardiacstents partial small bowel resection 2007 RELEASE CARPAL TUNNEL RHINOPLASTY SMALL INTESTINE SURGERY [facility] TOTAL HIP ARTHROPLASTY Right 08/04/2018 Procedure: RIGHT DIRECT ANTERIOR TOTAL HIP ARTHROPLASTY; Surgeon: Herrera Worrell MD; Location: [facility] Main OR; Service: Orthopedics [facility] TOTAL HIP ARTHROPLASTY Left 05/02/2020 Procedure: LEFT DIRECT ANTERIOR TOTAL HIP ARTHROPLASTY; Surgeon: Herrera Worrell MD; Location: [facility] OR; Service: Orthopedics No Known Allergies Social History Tobacco Use Smoking status: Former Current packs/day: 0.00 Types: Cigarettes Quit date: 02/19/1984 Years since quittin.3 Passive exposure: Never Smokeless tobacco: Never Substance Use Topics Alcohol use: Not Currently Wt Readings from Last 1 Encounters: 06/22/24 122.5 kg (270 lb) Anesthesia Evaluation Pt has had prior anesthetic. Type: General and MAC. ROS/MED HX ENT/Pulmonary: Neurologic: Cardiovascular: (+) Dyslipidemia hypertension- - CAD angina- - stent-2014, 2016, 2021. 3 Bare Metal Stent and Drug Eluting Stent. dysrhythmias, a-fib, Previous cardiac testing Echo: Date: 04/22/2024 Results: Interpretation Summary There is mild concentric left ventricular hypertrophy. The visual ejection fraction is 50-55%. There is borderline lateral wall hypokinesis. There is moderate inferolateral wall hypokinesis. The right ventricular systolic function is borderline reduced. Aortic valve not well seen, it is likely trileaflet, sclerotic with mild/moderate aortic valve stenosis. The has increased mildly compared to echo 05/01/21 Sinus rhythm was noted. Stress Test: Date: Results: ECG Reviewed: Date: Results: Cath: Date: Results: METS/Exercise Tolerance: 4 - Raking leaves, gardening Hematologic: Musculoskeletal: GI/Hepatic: (+) GERD, Asymptomatic on medication, Renal/Genitourinary: Endo: (+) type II DM, Last HgA1c: 7.5, date: 9 months ago, thyroid problem, hypothyroidism, Obesity, (-)Type I DM Psychiatric/Substance Use: Infectious Disease: Malignancy: (+) Malignancy, History of Other.Other CA Carcinoid on octreotide, tried to come off but developped diarrhea. denies cardiovascular nor pulmonary sx status post Surgery, Chemo and Radiation. Other: Physical Exam Airway Mallampati: I Neck ROM: limited Mouth opening: >= 4 cm Cardiovascular - normal exam Dental (+) Minor Abnormalities - some fillings, tiny chips Pulmonary - normal exam Neurological - normal exam He appears awake, alert and oriented x3. Other Findings OUTSIDE LABS: CBC: Lab Results Component Value Date WBC 6.5 01/21/2024 WBC 7.0 10/22/2023 HGB 14.2 01/21/2024 HGB 13.9 10/22/2023 HCT 43.3 01/21/2024 HCT 42.0 10/22/2023 PLT 179 01/21/2024 PLT 159 10/22/2023 BMP: Lab Results Component Value Date NA 140 01/21/2024 NA 137 10/22/2023 POTASSIUM 4.4 01/21/2024 POTASSIUM 4.5 10/22/2023 CHLORIDE 103 01/21/2024 CHLORIDE 101 10/22/2023 CO2 29 01/21/2024 CO2 23 10/22/2023 BUN 16.4 01/21/2024 BUN 17.0 10/22/2023 CR 1.09 01/21/2024 CR 1.12 10/22/2023 GLC 168 (H) 05/05/2024 GLC 124 (H) 03/31/2024 COAGS: Lab Results Component Value Date PTT 29 01/02/2016 INR 1.19 (H) 08/05/2018 POC: Lab Results Component Value Date BGM 78 07/14/2019 HEPATIC: Lab Results Component Value Date ALBUMIN 4.1 01/21/2024 PROTTOTAL 7.2 01/21/2024 ALT 15 01/21/2024 AST 21 01/21/2024 ALKPHOS 109 01/21/2024 BILITOTAL 0.8 01/21/2024 OTHER: Lab Results Component Value Date LACT 1.4 05/06/2023 A1C 6.2 (H) 04/21/2018 SAGE 8.6 (L) 01/21/2024 MAG 2.4 05/02/2020 LIPASE 19 05/06/2023 TSH 0.56 04/21/2018 CRP <3.0 04/20/2008 SED 4 04/20/2008 Anesthesia Plan ASA Status: 3 NPO Status: NPO Appropriate Anesthesia Type: MAC. Airway: natural airway. Techniques and Equipment: - Monitoring Plan: standard ASA monitoring Consents Anesthesia Plan(s) and associated risks, benefits, and realistic alternatives discussed. Questions answered and patient/apprenticeship training representative(s) expressed understanding. - Discussed: - Discussed with: Patient Postoperative Care Pain management: multimodal analgesia. Comments: Kelton Bah MD I have reviewed the pertinent notes and labs in the chart from the past 30 days and (re)examined the patient. Any updates or changes from those notes are reflected in this note. Clinically Significant Risk Factors Present on Admission # Hypertension: Noted on problem list # Obesity: Estimated body mass index is 33.75 kg/m?? as calculated from the following: Height as of 06/22/24: 1.905 m (6' 3). Weight as of 06/22/24: 122.5 kg (270 lb). documented in this encounter Miscellaneous Notes * Anesthesia Care Transfer Note - Samantha Navarro APRN CRNA - 07/01/2024 12:13 PM CDT Patient: Brooks Munson Procedure: Procedure(s): ENDOSCOPIC ULTRASOUND, ESOPHAGOSCOPY / UPPER GASTROINTESTINAL TRACT (GI) with celiac plexus block Esophagoscopy, gastroscopy, duodenoscopy (EGD), combined Diagnosis: Neuroendocrine tumor (H) [D3A.8] Cancer related pain [G89.3] Diagnosis Additional Information: No value filed. Anesthesia Type: MAC Note: Oropharynx: oropharynx clear of all foreign objects and spontaneously breathing Level of Consciousness: drowsy Oxygen Supplementation: face mask Level of Supplemental Oxygen (L/min / FiO2): 8 Independent Airway: airway patency satisfactory and stable Dentition: dentition unchanged Vital Signs Stable: post-procedure vital signs reviewed and stable Report to RN Given: handoff report given Patient transferred to: PACU Handoff Report: Identifed the Patient, Identified the Reponsible Provider, Reviewed the pertinent medical history, Discussed the surgical course, Reviewed Intra-OP anesthesia mangement and issues during anesthesia, Set expectations for post-procedure period and Allowed opportunity for questions andacknowledgement of understanding Vitals: Vitals Value Taken Time BP 139/70 07/01/24 12:11 Temp Pulse 76 07/01/24 12:08 Resp 16 SpO2 100 % 07/01/24 12:12 Vitals shown include unfiled device data. Electronically Signed By: Samantha Navarro APRN CRNA July 01, 2024 12:13 PM documented in this encounter Plan of Treatment Upcoming Encounters Date Type Department Care Team (Latest Contact Info) Description 07/28/2024 9:00 AM CDT Infusion Therapy Visit [facility] [address] [place] [phone] Sergio Martinez MD [address] [place] [address] 08/18/2024 2:30 PM CDT Virtual Visit [facility] [address] [place] [phone] Sergio Martinez MD [address] [place] [address] 08/25/2024 11:00 AM CDT Infusion Therapy Visit [facility] [address] [place] [phone] Sergio Martinez MD [address] [place] [address] 10/23/2024 10:30 AM CDT Office Visit [facility] [place] [address] [facility] [address] [place] [phone] Jerrod Werner MD [address] [place] [address] 11/11/2024 9:35 AM CDT Hospital Encounter [place] [address] [place] [phone] Alfonzo Sultana MD [facility] [address] [place] [address] 11/11/2024 9:35 AM CDT - 11/11/2024 12:30 PM CDT Surgery [place] [address] [place] [phone] Alfonzo Sultana MD [facility] [address] [place] [address] RIGHT TOTAL SHOULDER ARTHROPLASTY VERSUS Scheduled Procedures Name Priority Associated Diagnoses Date/Ti ne ARTHROPLASTY, SHOULDER, TOTAL Osteoarthritis of right shoulder [...] Diagnoses Not on filedocumented in this encounter Administered Medications Inactive Administered Medications - up to 3 most recent administrations Medication Order MAR Action Action Date Dose Rate Site benzocaine 20% (HURRICAINE/TOPEX) 20 % spray Mouth/Throat, PRN, Starting on Sat07/01/24 at 1134, Anesthesia Intra-op $Given 07/01/2024 11:34 AM CDT 1 each lactated ringers infusion Intravenous, CONTINUOUS PRN, Anesthesia Intra-op, Starting on Sat07/01/24 at 1134, Until Sat07/01/24 at 1213 $New Bag 07/01/2024 11:34 AM CDT lidocaine 2% injection (MDV) Intravenous, PRN, Starting on Sat07/01/24 at 1134, Anesthesia Intra-op $Given 07/01/2024 11:34 AM CDT 60 mg ondansetron (ZOFRAN) injection Intravenous, PRN, Administer over 2-5 Minutes, Starting on Sat07/01/24 at 1143, Anesthesia Intra-op $Given 07/01/2024 11:43 AM CDT 4 mg propofol (DIPRIVAN) infusion Intravenous, CONTINUOUS PRN, Starting on Sat07/01/24 at 1137, Anesthesia Intra-op Rate/Dose Change 07/01/2024 11:58 AM CDT 175 mcg/kg/min 105.945 mL/hr Rate/Dose Change 07/01/2024 11:56 AM CDT 150 mcg/kg/min 90 .81 mL/hr $New Bag 07/01/2024 11:37 AM CDT 125 mcg/kg/min 75.675 m L/hr propofol (DIPRIVAN) injection 10 mg/mL vial Intravenous, PRN, Starting on Sat07/01/24 at 1143, Anesthesia Intra-op $Given 07/01/2024 11:57 AM CDT 20 mg $Given 07/01/2024 11:56 AM CDT 30 mg $Given 07/01/2024 11:43 AM CDT 20 mg 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 documented as of this encounter Care Teams Sole Blacker Relationship Specialty Start Date End Date No Ref-Primary, Physician PCP - General 07/01/24 Sergio Martinez MD [address] [place] [address] Hematology 05/06/23 [place] [address] [place] [address] Nurse Practitioner Nurse Practitioner 05/07/23 Prosper Shrestha MD [address] [place] [address] Emergency Medicine 05/07/23 Ramin Whitfield MD [address] [facility] [address] [place], [place] [address] Assigned Surgical Provider 07/11/23 Sergio Martinez MD [address] [place] [address] Assigned Cancer Care Provider 09/10/23 Sarah Gould, [facility] [address] [facility] [address] [place] [address] Specialty Mortgage Loan Officer Originator Hematology & Oncology 08/13/23 Jerrod Werner MD [address] [place] [address] Cardiovascular Disease 04/07/24 Jerrod Werner MD [address] [place] [address] Assigned Heart and Vascular Provider 04/12/24 [place] [address] [place] [address] Assigned Endocrinology Provider 06/10/24 documented as of this encounter
--- OUTSIDE RECORDS SUMMARY | 2024-07-03 07:05 | XMS_ITS | Clinical Summary ---
Author Organization [employer] [facility] Address [address] [place] [id number] Care Team Providers Care Order Entry Specialist Name Role Phone Ignacio Schroeder MD Primary Care Provider [phone] Allergies Active Allergy Reactions Criticality Noted Date Comments Nsaids (Non-Steroidal Anti-Inflammatory Drug) Other - Describe In Comment Field Medium 05/02/2020 Maintenance Representative is told patient he should avoid NSAIDs with past history of acute DE x2 Medications NITROGLYCERIN 0.[address] 1 tablet (0.4mg) by sublingual route at the first sign of an attack; may be repeated every 5 minutes, until relief is obtained. Seek med attn if pain persists after a total of 3 tablets in 15 minutes. 25 prn 1 year 01/30/20 06 Active insulin lispro (HUMALOG KWIKPEN) 100 unit/mL inpn pen Inject 8 Units subcutaneous 3 times daily before meals. Active levothyroxine (SYNTHROID) 125 mcg tablet Take 125 mcg by mouth before breakfast. Active NaCl 0.9% 100 mL with octreotide 50 mcg/mL soln 500 mcgIndications :octriatide per infusion pump Inject 25 mcg/hr intravenous continuous. Indications: octriatide per infusion pump Active cyanocobalamin (VITAMIN B12) 1,000 mcg/mL injection Inject 1,000 mcg intramuscular every 4 weeks. 03/30/19 21 Active ergocalciferol (VITAMIN D2; DRISDOL) 50,000 unit capsule 04/04/19 21 Active insulin glargine (LANTUS U-100 INSULIN) 100 unit/mL injection Inject 26 units subcutaneous before bedtime. 10 mL 04/11/19 Active apixaban (ELIQUIS) 5 mg tablet Take 1 tablet by mouth 2 times daily. 0 04/11/19 Active Calcitrate 200 mg (950 mg) tablet TAKE 1 TABLET BY MOUTH 3 TIMES A DAY WITH EACH MEAL 06/24/19 Active clomiPHENE citrate (CLOMID) 50 mg tablet Take 50 mg by mouth. 04/09/19 Active [facility] Set iset 06/28/19 Active octreotide (SANDOSTATIN) 100 mcg/mL soln Inject subcutaneous. Active bd insulin pen needle uf mini 31 gauge x 3/16 USES 1 PEN 4 TIMES DAILY 06/16/19 Active atorvastatin (LIPITOR) 20 mg tablet Take 20 mg by mouth once daily. 04/29/19 Active metoprolol tartrate (LOPRESSOR) 50 mg tablet Take 50 mg by mouth. 04/13/19 Active lancets (ACCU-CHEK FASTCLIX LANCET DRUM MIS) Accu-Chek Fastclix Lancet Drum USE 1 LANCET 4 TIMES DAILY Active diabetic supplies, miscellan. BD Luer-Lisset Syringe 3 mL 22 x 1 1/2 USE 1 SYRINGE ONCE MONTHLY FOR CYANOCOBALAMIN INJECTIONS Active lancets Accu-Chek Fastclix Lancet Drum USE 1 LANCET 4 TIMES DAILY Active famotidine (PEPCID) 40 mg tablet Take 40 mg by mouth once daily. 04/10/19 Active gabapentin (NEURONTIN) 300 mg capsule Take 2 Capsules (600 mg) by mouth three times daily. 03/27/19 Active oxyCODONE (ROXICODONE) 5 mg immediate release tablet Take 1 Tablet (5 mg) by mouth every 6 hours if needed for Pain. 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 - Initial electron-beam computed tomography scan in August 2000 showed a coronary calcium score of 329.5 (98th percentile.) Subsequent coronary angiogram at [facility] in October 2000 showed a 20% lesion in the proximal left anterior descending and a 20% lesion in the distal right coronary artery, no intervention, normal left ventriculogram. - Repeat electron-beam computed tomography scan on December 07, 2002 showed increased coronary calcium score of 482.9 (97th percentile,) with five new lesions in the right coronary artery. Subsequent Myoview treadmill stress test negative for ischemia. DYSLIPIDEMIA , PRIMARILY HYPERTRIGLYCERIDEMIA Overview (09/25/2004): Intolerance to fish oil capsules, which exacerbate the patient's acid reflux. Esophageal reflux Resolved Problems Problem Noted Date Diagnosed Date Resolved Date HISTORY OF ELEVATED HOMOCYSTEINE LEVEL 04/11/2020 Encounters Date Type Department Care Team Description 04/13/2024 8:30 AM GASTROENTEROLOGIST Office Visit [facility] [address] [place], [place] [id number] Kelsey Akhtar, Preoperative Exam (RIGHT Shoulder replacement - [facility] - Dr. Sultana - 04/23/2024) 04/13/2024 Travel from Last 3 Months Immunizations Immunization Administration Dates Next Due COVID-19 vaccine (OTOYBio NTech 30mcg/0.3mL) 12YO+ GHANSHYAM-SUCROSE GAETANO MAZARIEGOS 05/29/2021 COVID-19 vaccine (Conex Med NTKoding 30mcg/0.3mL) PF, MDV 06/09/2020,05/19/2020 Influenza Virus, Unspecified 04/06/2020 Influenza, IIV3 (Age >=3 years) 01/29/2006 Influenza, IIV4 01/03/2017,12/06/2015,12/03/2015 Pneumococcal Poly,23-Valent (Pneumovax) 02/07/20 02 Pneumococcal conj 13-Valent (Prevnar 13) 022 Td (Age >=7 Years) 12/11/2005 Tdap 04/11/2020 Zoster (Zostavax-ZVL, live) 02/01/2014 Family History Medical History Relation Name Comments Heart attack Father Cancer-colon Mother Genetic Other Father - a t age 48 of an DE, hx of smoking. Mother - at age 72, cancer, hx of rheumatic heart disease. Three brothers (ages 57, 52, 45) - oldest with diabetes. Two sisters (ages 58, 50) - both with diabetes. Paternal grandfather of an * Relation Name Status Comments Father Mother Other Social History Tobacco Use Types Packs/Day Years Used Date Smoking Tobacco: Former Cigarettes Smokeless Tobacco: Never Tobacco Cessation:Counseling Given: Yes Comments:Quit smokin Alcohol Use Standard Drinks/Week Comments Not Currently 0 (1 standard drink = 0.6 oz pur e alcohol) 12 pack Q 2 days PHQ-2 Answer Date Recorded PHQ-2 TOTAL SCORE 0 08/22/2020 Social Connections Answer Date Recorded Do you often feel lonely or isolated from those around you? 0 03/26/2024 Financial Resource Strain Answer Date R ecorded Difficulty of Paying Living Expenses 3 03/26/2024 Difficulty of Paying Living Expenses Not on file 03/26/2024 Food Insecurity Answer Date Recorded Do you worry your food will run out before you are able to buy more? 1 03/26/2024 Transportation Needs Answer Date Record ed Does lack of transportation keep you from medica l appointments? 1 03/26/2024 Does lack of transportation keep you from work, meetings or getting things that you need? 1 03/26/2024 Housing Stability Answer Date Recorded What is your housing situation today? 1 03/26/2024 Utilities Answer Date Recorded Do you have trouble paying f or utilities (for example, heat, electricity, water, phone)? 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 Not on file Not on file Not on fi le Obstetrics History Last Filed Vital Signs Vital Sign Reading Time Taken Comments Blood Pressure 137/85 04/13/2024 8:39 AM GASTROENTEROLOGIST Pulse 83 04/13/2024 8:39 AM GASTROENTEROLOGIST Temperature 36.7 C (98.1 F) 09/03/2022 8:55 AM CDT Respiratory Rate 14 06/20/2023 8:58 AM CDT Oxygen Saturation 98% 04/13/2024 8:39 AM GASTROENTEROLOGIST Inhaled Oxygen Concentration - - Weight 129.5 kg (285 lb 8 oz) 04/13/2024 8:39 AM GASTROENTEROLOGIST Height 189.2 cm (6' 2.5) 03/27/2024 7:03 AM GASTROENTEROLOGIST Body Mass Index 36.17 03/27/2024 7:03 AM GASTROENTEROLOGIST Plan of Treatment Health Maintenance Due Date Last Done Comments Depression screening for age 12+ 1968 Hepatitis C screening for ag e 18-79 1974 Lipids for age 45-75 01/29/2011 01/29/2006, 09/26/2004, 09/26/2004, Additional history exists Zoster (shingles) series for age 50+ (2 of 3) 03/29/2014 02/01/2014 RSV vaccine for adults or (1 - Risk 60-74 years 1-dose series) 2016 AAA screening age 65-74 2021 Medicare Wellness for age 65+ 2021 COVID-19 vaccine series ( season) 2023 05/29/2021, 06/09/2020, 05/19/2020 Influenza Vaccine (Season Ended) 2024 04/06/2020, 01/03/2017, 12/06/2015, Additional history exists BMI (ht and wt on same day) for age 18+ 03/27/2025 03/27/2024, 06/20/2023, 01/26/2022, Additional history exists Pneumococcal series for age 50+ (3 of 3 - PCV20 or PCV21) 01/26/2027 01/26/2022, 02/06/2002 Tetanus booster 04/11/2030 04/11/2020, 12/11/2005 Colonoscopy through age 75 07/07/203107/06, 06/30/2021, 11/02/2018 (Completed outside of [facility]) Tdap Completed 04/11/2020 Procedures Procedure Name Priority Date/Time Associated Diagnosis Comments SCAN-COLONOSCOPY 07/06/2021 2:00 PM CDT LIPID PANEL Timed 01/29/2006 10:10 AM GASTROENTEROLOGIST DYSLIPIDEMIA , PRIMARILY HYPERTRIGLYCERIDEMIA from Last 3 Months or Most Recently Relevant to Health Maintenance Results * SCAN-COLONOSCOPY (07/06/2021 2:00 PM CDT) Narrative Procedure Note Ricky Zurita MD - 07/06/2021 12:53 PM CDT [facility] [address], [address], [place] [address] Patient Name: Brooks Munson Gender: Male Exam Date: 07/06/2021 Visit Number: [id number] Age: 66 Years Date of : 1955 Attending MD: Ricky Zurita MD Medical Record#: [id number] Procedure: Colonoscopy Indications: Previous adenomatous polyp(s) Abdominal pain and rectal bleeding 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 Complications: No immediate complications Procedure: An examination of the heart and lungs was performed and found to be withinacceptable limits. . The patient was therefore deemed a reasonablecandidate for endoscopy and sedation. The risks and benefits of the procedure were explained to the patient.After obtaining informed consent, the patient received monitoredanesthesia care and I passed the scope with difficulty via the rectum to the transverse colon. The quality ofthe prep was good (Miralax/Gatorade Double Prep). This procedure was incomplete due to redundant colon with looping (likelydue to adhesions). Findings: Polyp location: transverse colon. Quantity: 3. Size: 3-5 mm. Polypshape: sessile. Maneuver: polypectomy was performed with a cold snare. Removal: complete. Retrieval: complete. Bleeding: none. Polyp location: sigmoid. Quantity: 2. Size: 3-5 mm. Polyp shape:sessile. Maneuver: polypectomy was performed with a cold snare . Removal: complete. Retrieval: complete. Bleeding: none. Diverticulosis. Location: - sigmoid. Size: medium. Quantity:several. Anal canal: internal hemorrhoid(s) Remainder of the exam is normal. Impression: Colorectal polyps Diverticulosis of colon Internal hemorrhoids Preliminary Plan: The patient and their physician will receive a copy of the pathologyreport as well as pathology-based recommendations for future screening orsurveillance. Antiplatelets/Anticoagulants: Apixaban (Eliquis). Last dose: 3 days ago. Restart. Date: 07/06/2021 Recommendation Comments: Follow-up pathology results. Bleeding likely from hemorrhoids. No cause of abdominal pain found. Continue routine PET scans for metastatic carcinoid. Repeat colonoscopies likely to be technically difficult, but could beconsidered if necessary based on imaging findings or other diagnosticabnormalities in the future. Pathology Results: A: COLON, TRANSVERSE, POLYPS: 1. Tubular adenomas (3) 2. Negative for high grade dysplasia 3. Per the colonoscopy report: a. Polyp sizes: 3 mm - 5 mm b. Resection: Complete c. Retrieval: Complete B: COLON, SIGMOID, POLYPS: 1. Tubular adenomas (2) 2. Negative for high grade dysplasia 3. Per the colonoscopy report: a. Polyp sizes: 3 mm - 5 mm b. Resection: Complete c. Retrieval: Complete MICROSCOPIC A: Performed B: Performed Electronically signed by: Buck [place] [address] Orders Instruction(s)/Education: Instruction/Education Timeframe Assessment Colon Cancer Prevention K64.8 Colon Polyps K64.8 Diverticulosis/Diverticulitis K64.8 Hemorrhoids K64.8 High Fiber Diet K64.8 Additional Comments: As discussed, attempts at repeat colonoscopy would likely be difficult dueto adhesions from prior surgery. However, if repeat colonoscopy isconsidered necessary based on diagnostic abnormalities such as abnormalimaging, it could be attempted. For now, I do not recommend routine surveillance colonoscopy given thatthe colonoscopy was technically difficult, and since you are havingregular PET scans, which may screen for large intestinal lesions aswell. _Electronically signed by: Ricky Zurita MD 07/06/2021 cc: No Primary cc: Migel Greenwood MD Ricky Zurita MD OTHER Final R esult * (ABNORMAL) LIPID PANEL (01/29/2006 10:10 AM GASTROENTEROLOGIST) CHOLESTEROL,TOTAL 194 110 - 199 mg/dL [facility] TRIGLYCERIDES 267(H) <150 mg/dL [facility] HDL CHOLESTEROL 39(L) >40 mg/dL [facility] CHOL/HDL RATIO 4.97(H) <4.51 [facility] LDL CHOLESTEROL 102 60 - 130 mg/dL [facility] PATIENT STATUS Fasting [facility] Blood specimen (specimen) BLOOD SPECIMEN / Unknown 01/29/2006 10:10 AM GASTROENTEROLOGIST 01/29/2006 9:57 AM GASTROENTEROLOGIST Denilson Adams MD CHEMISTRY Final Result [facility] [address] [place] [address] from Last 3 Months or Most Recently Relevant to Health Maintenance Insurance MEDICARE [place] ONLY MEDICARE PART A HB ONLY [facility] MEDICARE PART B HB ONLY Advance Directives * Full Code (Latest Code Status on File) Date Activated Date Inactivated Comments 08/25/2015 8:03 AM 08/25/2015 2:56 PM Question Answer Comments Code Status Discussion: Per Existing Order Care Teams Order Entry Specialist Relationship Specialty Start Date End Date Ignacio Schroeder MD [facility] [place] [address] PCP - General Family Practice 04/13/24
--- OUTSIDE RECORDS SUMMARY | 2024-07-03 07:05 | XMS_ITS | Encounter Summary ---
Author Organization [place] Address [facility] 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 Gender Identity Not on file Sexual Orientation Not on file documented as of this encounter Plan of Treatment Upcoming Encounters Date Type Department Care Team (Latest Contact Info) Description 07/28/2024 9:00 AM CDT Infusion Therapy Visit [address] [place] [phone] Sergio Martinez MD [address] [place], [place] [id number] 08/18/2024 2:30 PM CDT Virtual Visit [facility] [address] [place] [phone] Sergio Martinez MD [address] [place], [place] [address] 08/25/2024 11:00 AM CDT Infusion Therapy Visit [address] [place] [phone] Sergio Martinez MD [address] [place], [place] [address] 10/23/2024 10:30 AM CDT Office Visit [facility] [address] [place] [address] [address] [place] [phone] Jerrod Werner MD [address] [place] [address] 11/11/2024 9:35 AM CDT Hospital Encounter [facility] [address] [place] [address] Alfonzo Sultana MD [facility] [address] [place] [address] 11/11/2024 9:35 AM CDT - 11/11/2024 12:30 PM CDT Surgery [facility] [address] [place] [address] Alfonzo Sultana MD [facility] [address] [place] [id number] RIGHT TOTAL SHOULDER ARTHROPLASTY VERSUS Scheduled Procedures [...] Diagnoses Not on file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 documented as of this encounter Care Teams Title 1 Tutor Relationship Specialty Start Date End Date Sergio Martinez MD [address] [place] [address] Hematology 05/06/23 [place] [address] [address] [place] [address] Nurse Practitioner Nurse Practitioner 05/07/23 Prosper Shrestha MD [address] [place] [address] Emergency Medicine 05/07/23 Ramin Whitfield MD [address] [facility] [address] [place], [place] [address] Assigned Surgical Provider 07/11/23 Sergio Martinez MD [address] [facility] [place], [place] [address] Assigned Cancer Care Provider 09/10/23 Sarah Gould, [facility] [address] [facility] [address] [place], [place] [address] Specialty Line O Scribe Operator Hematology & Oncology 08/13/23 Jerrod Werner MD [address] [place], [place] [address] Cardiovascular Disease 04/07/24 Jerrod Werner MD [address] [place], [place] [address] Assigned Heart and Vascular Provider 04/12/24 [place] [address] [place], [place] [address] Assigned Endocrinology Provider 06/10/24 documented as of this encounter
--- OUTSIDE RECORDS SUMMARY | 2024-07-03 07:05 | XMS_ITS | Encounter Summary ---
Author Organization [place] Address [facility] [place] [address] Care Team Providers Care Assistant Superintendent Name Role Phone Sergio Martinez MD Unavailable Misty Wellington NP Unavailable [phone] Prosper Shrestha MD Unavailable Ramin Whitfield MD Unavailable [phone] Sergio Martinez MD Unavailable Sarah Gould RN Unavailable Jerrod Werner MD Unavailable Jerrod Werner MD Unavailable RadShaila cerna MD Unavailable Encounter Details Date Type Department Care Team (Late st Contact Info) Description 06/23/2024 Telephone [facility] [place] [id number] [facility] 4th [place] [address] Oxana Bullock, RN Social History Tobacco Use Types Packs/Day Years Used Date Smoking Tobacco: Former Cigarettes Q uit: 02/19/1984 Passive Smoke Exposure: Never Smokeless Tobacco: Never Alcohol Use Standard Drinks/Week Comments Not Currently 0 (1 standard drink = 0.6 oz pur e alcohol) PHQ-2 Answer Date Recorded PHQ-2 Score 0 06/02/2024 Adolescent Education Answer Date Record ed Getting School Help Needed Not on file 09/22 /2023 Interpersonal Safety Answer Date Record ed Do [...] on file 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 Called to discuss with patient. Unable to reach at this time. LVM with request to return call to clinic. Attempted to reach patient again and was able to connect. He is agreeable to proceed with scheduling on 07/01/[address] Garzon. Patient will need a hog driver, someone to stay with them for 24 hours and should stay in town for 24 hours (within 45 min of Hospital) post procedure. Patient will need a pre-op physical within 30 days of procedure. If outside Health system, will need physical faxed to number [phone] If you do not get a preop physical, your procedure could be cancelled, patient voiced understanding* Preop Plan: Update Dr. Martinez visit 06/22/24; no PAC appointments available prior to procedure. Does patient have any history of gastric bypass/gastric surgery/altered panc/bili anatomy? No Med Review Blood thinner - apixaban (eliquis) 2 day hold to begin 06/29/24 ASA - None Diabetic - Insulin; empagliflozin (Jardiance) 3 day hold to begin 06/28/24 Injectable or oral medications for weight loss - None Patient Education r/t procedure: Discussion/MyChart A pre-op nurse will call 1-2 days prior to the procedure. NPO/Prep: No solid food 8 hours prior to arrival at the hospital. Clear liquids okay until 2 hours prior to arrival. Other specific details/comments: None Verbalized understanding of all instructions. All questions answered. Clinic contact and schedulingnumbers verified for future questions/concerns. Message routed to OR scheduling. Carmina Reed RN, BSN Cabin Cleaning Supervisor Advanced [facility] * Telephone Encounter - Oxana Bullock RN - 06/23/2024 7:56 AM CDT [facility] Referring provider: Dr Martinez Referred to: [facility] Provider Group Provider Requested: Dr. Garzon did EGD/EUS in April 2024 Referral Received: 06/23/24 Records received: Epic Images received: PACS Insurance Coverage: Medicare Evaluation for: consider celiac block for severe pain, may need GA, may need same support as for endoscopy, thank you. 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 Provider review date: 06/26/24 Dr. Garzon Provider Decision for clinic consultation/Orders: Okay to arrange EUS for celiac plexus block, next availble. Referral updates/Patient contacted: 06/26/24 documented in this encounter Plan of Treatment Upcoming Encounters Date Type Department Care Team (Latest Contact Info) Description 07/28/2024 9:00 AM CDT Infusion Therapy Visit [facility] [id number] [place] [address] [address] [place] [phone] Sergio Martinez MD [address] [place], [place] [address] 08/18/2024 2:30 PM CDT Virtual Visit [facility] [address] [place] [phone] Sergio Martinez MD [address] [place] [address] 08/25/2024 11:00 AM CDT Infusion Therapy Visit [address] [place] [phone] Sergio Martinez MD [address] [place], [place] [address] 10/23/2024 10:30 AM CDT Office Visit [facility] [address] [facility] [address] [place] [phone] Jerrod Werner MD [address] [place], [place] [address] 11/11/2024 9:35 AM CDT [facility] [address] [place] [phone] Alfonzo Sultana MD [facility] [address] [place] [address] 11/11/2024 9:35 AM CDT - 11/11/2024 12:[address] [facility] [place] [phone] Alfonzo Sultana MD [facility] [address] [place] [address] RIGHT TOTAL SHOULDER ARTHROPLASTY VERSUS Scheduled Procedures [...] documented as of this encounter Care Teams Assistant Superintendent Relationship Specialty Start Date End Date Sergio Martinez MD [address] [place], [place] [phone] Hematology 05/06/23 [place] [address] [place] [address] Nurse Practitioner Nurse Practitioner 05/07/23 Prosper Shrestha MD [address] [place], [place] [address] Emergency Medicine 05/07/23 Ramin Whitfield MD [address] [place] [phone] Assigned Surgical Provider 07/11/23 Sergio Martinez MD [address] [place], [place] [phone] Assigned Cancer Care Provider 09/10/23 Sarah Gould, GRZEGORZ [address] [facility] [address] [place], [place] [address] Specialty Cabin Cleaning Supervisor Hematology & Oncology 08/13/23 Jerrod Werner MD [address] [place] [id number] Cardiovascular Disease 04/07/24 Jerrod Werner MD [address] [place] [address] Assigned Heart and Vascular Provider 04/12/24 [place] [address] [place] [address] Assigned Endocrinology Provider 06/10/24 documented as of this encounter
--- OUTSIDE RECORDS SUMMARY | 2024-07-03 07:05 | XMS_ITS | Clinical Summary ---
Author Organization [facility] Address [address] [address] Care Team Providers Care Assistant Boiler Operator Name Role Phone Unassigned, Provider Primary Care Provider Unava ilable Source Comments You are receiving this document as you are listed as the primary care provider,follow-up provider, or the patient has been referred to you for consultation.This is in compliance with the Medicare and[facility] EHR Incentive Program,which states Providers who transition their patient to another setting of careor provider of care or refers their patient to another provider of care shouldprovide summary care record for each transition of care or referral. [email or web address] Allergies No known active allergies Medications Phentermine HCl 37.5 MG TBDP Take 1 Tab by mouth. 6 Active insulin lispro, Human, (HUMALOG KWIKPEN) 100 UNIT/ML injection pen 8 Units by Subdermal route. Active insulin glargine (LANTUS) 100 UNIT/ML pen 26 Units by Subdermal route. Active levothyroxine (SYNTHROID) 125 MCG tablet Take 250 mcg by mouth. 6 Active Canagliflozin 300 MG TABS Take by mouth. 6 Active omeprazole (PRILOSEC) 20 MG capsule Take 20 mg by mouth. 6 Active ergocalciferol (DRISDOL) 76264 UNITS capsule Take 50,000 Units by mouth. 6 Active cyanocobalamin (GCLPTHOV71) 1000 MCG/ML injection Injection once a month 6 Active metoPROLOL tartrate (LOPRESSOR) 25 MG tablet Take 25 mg by mouth. 6 Active Octreotide Acetate (OCTREOTIDE 500 MCG IN NACL 0.9% 250 ML) 6 Active Cyproheptadine HCl 2 MG/5ML syrup 1 tsp three times a day Active atorvastatin (LIPITOR) 40 MG tablet Take 40 mg by mouth. Active lisinopril (ZESTRIL) 5 MG tablet Take 5 mg by mouth. Active gabapentin (NEURONTIN) 300 MG capsule Take 600 mg by mouth. Active pancrelipase, Rjt-Myhi-Vysb, ([id number]) 18675 UNITS capsule-delayed release particles Take 2 Caps by mouth. 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 IHD (ischemic heart disease) 02/14/2016 Old PA (myocardial infarction) 02/14/2016 Immunizations Immunization Administration Dates Next Due Influenza IIV4 (Quadrivalent) 0.5mL (01453) 11/18 Social History Tobacco Use Types Packs/Day Years Used Date Smoking Tobacco: Former Cigarettes Smokeless Tobacco: Never Sex and Gender Information Value Date Recorded Sex Assigned at Not on file Legal Sex Male 7:01 AM CDT Gender Identity Not on file Sexual Orientation Not on file Last Filed Vital Signs Vital Sign Reading Time Taken Comments Blood Pressure 110/79 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 Pulse 79 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 Temperature - - Respiratory Rate - - Oxygen Saturation - - Inhaled Oxygen Concentration - - Weight - - Height - - Body Mass Index - - Plan of Treatment Health Maintenance Due Date Last Done Comments Diabetes: Creatinine 1956 Diabetes: Eye Exam 1956 Diabetes: Foot Exam 1956 Diabetes: HGBA1C 1956 Diabetes: Lipid Panel 1956 Diabetes: Urine Microalbumin 1956 Hep C Screening (Preventive Services) 1955 PSA Screening Discussion 1956 Adult Preventive Visit 1974 DTaP/Tdap/Td Vaccine (1 - Tdap) 1975 Pneumococcal Vaccine 50+ Yrs (1 of 2 - PCV) 1975 Zoster/Shingles Vaccine (1 of 2) 2006 Colon Cancer Screening Plan Due 02/24/2010 1 COVID-19 Vaccine (2023-2 5 season) 2023 Influenza Vaccine (Season Ended) 2024 12/03/19 16 RSV Vaccine (1 - 1-dose 75+ series) 2031 HepA Vaccine Aged Out No longer eligi ble based on patient's age to complete this topic HepB Vaccine Aged Out No longer eligi ble based on patient's age to complete this topic Hib Vaccine Aged Out No longer eligi ble based on patient's age to complete this topic IPV (Polio) Vaccine Aged Out No longe r eligible based on patient's age to complete this topic MCV4 Vaccine Aged Out No longer eligi ble based on patient's age to complete this topic Meningococcal B Vaccine Aged Out No l onger eligible based on patient's age to complete this topic Insurance F[employer] INSUR[employer] Care Teams Assistant Boiler Operator Relationship Specialty Start Date End Date Unassigned, Provider [address] [place] [address] PCP - General 01/28/00
--- OUTSIDE RECORDS SUMMARY | 2024-07-03 07:05 | XMS_ITS | Encounter Summary ---
Author Organization [place] Address [facility] [place] [address] Care Team Providers Care Change Number Operator Name Role Phone Sergio Martinez MD Unavailable Misty Wellington NP Unavailable [phone] Prosper Shrestha MD Unavailable [phone] Ramin Whitfield MD Unavailable [phone] Sergio Martinez MD Unavailable Sarah Gould RN Unavailable Jerrod Werner MD Unavailable Jerrod Werner MD Unavailable [phone] Reason for Visit * Reason Comments RECHECK Encounter Details Date Type Department Care Team (Latest Contact Info) Description 06/02/2024 8:00 AM CDT Virtual Visit [address] [address] Shaila Landis MD [address] [place] [address] Secondary diabetes mellitus (H) (Primary Dx); 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 Location): Home Distant Location (provider location): Off-site Mode of Communication: Video Conference via iTagged Assessment Brooks Munson is a 69 year old male seen for a second opinion regarding management of symptomaticmetastatic NET with subcutaneous octreotide. Metastatic malignant neuroendocrine tumor - Symptoms likely related to neuroendocrine tumors. Tumor does not produce a biochemical marker formonitoring. Octreotide used for symptom management. - Encourage discontinuation of the pump for octreotide and consideration of intramuscular octreotide/lanreotide. Discussed with the patient that the intramuscular dose can be actually more easily adjusted based on his symptoms. Lanreotide offers the option of administering the injections at home, after appropriate instruction. Patient prefers to continue current pump use until consultation at the [facility] on June 09, 2024. Diabetes, either type II or secondary diabetes,, with no microvascular disease per patient report. Diabetes managed with Lantus and Humalog. Episodes of tremor and sweating may be related to hypoglycemia or tumor. I encouraged the patient to consider a glucose sensor or even better, use the Medtronic insulin pump for insulin delivery. Briefly counseled on closed-loop insulin pumps, which should address variability in blood sugar numbers and reduce the risk of hypo and hyperglycemic episodes. No orders of the defined types were placed in this encounter. The patient is seen in consultation at the request of Dr. Martinez. History of Present Illness: Brooks Munson is a 69 year old male with a past medical history significant for coronary artery disease (dx 2002), atrial fibrillation, carcinoid syndrome, diabetes, hypertension, hypothyroidism, hypercholesterolemia, obesity. This patient has NET (extensively treated with minimal burden of disease now) and has been on a subcutaneous octreotide pump for years and years, all prescribed/ managed by [facility] (even thought they were not seeing him actively). 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 He continues to follow-up at [facility] and he has an appointment scheduled next week. He uses an insulin pump for octreotide administration, which he finds effective in managing his symptoms compared to previous intramuscular injections. He prefers not to have clinic appointments for intramuscular injections. Reports having only 2 insulin pumps over the years, which means he has been using the pumps out of warranty. Gutierrez has been experiencing epigastric abdominal pain about three days a week, described as a burningsensation, lasting 2-3 hours. Over the years, he has not been able to identify food products which trigger the abdominal pain. The episodes of abdominal pain are associated with nausea but no other symptoms. He also reports night sweats (resumed 3 to 4 months ago), episodes of facial flushing (intermittently present for the last year, a couple times a week, sometimes 3-4 times daily), and tremors, independent of the abdominal pain. Denies experiencing palpitations, vomiting. Reports episodes of voice loss and persistent phlegm in his throat. He has shoulder pain, with surgery postponed. At times, he wakes up with tremors during the night, which questions whether or not he might have a hypoglycemic episode. 2. Dx with type 2 diabetes in 2011 when A1x was 9.4. The patient follows up with Dr. Bello (plaque maker in [place]). The endocrinology notes were not available at the time of the appointment. Treatment with insulin was started around 2014. Average A1c over the last couple of years has been around 7.5%. Current antidiabetic meds: Jardiance, 25 mg daily Lantus, 26 units at bedtime Humalog, 8 units subcutaneously 3 times daily Prior medications per chart: Metformin Linagliptin He has not been using the sensor. At home, he checks his blood sugar using a glucometer once a week. Reports blood glucose numbers between 80 and 180. No confirming hypoglycemia at the time he is symptomatic, just having a candy bar. According to the patient, he has no diabetes complications. 3. Hypothyroidism, diagnosed around 2009 On 125 mcg levothyroxine daily NET history: 2006: Initial symptoms began with abdominal pain, [...] therapy (PRRNT) 202 mCi in [facility], 07/2011: Cycle #2 [id number] DOTA-modified octreotide (ADONIS) peptide receptor radionuclide therapy (PRRNT) 202 mCi in [facility]. 10/05/2011: CT AP: Fatty liver. Normal [...] CAP: No evidence of metastatic disease. 08/07/2017: [id number] PET, [place]: Two avid mesenteric lymph nodes. 05/08/2018: Ga-68 [...] paused octreotide pump, symptoms worsened, he re-started 03/31/24 PET DOTATATE Unchanged size of intensely radiotracer avid central mesenteric lymph node/nodule, concerning for metastatic disease. Multiple foci of increased uptake throughout the head and body of the pancreas. Slight increase in avidity of lymph nodes within the mediastinum and antonio laterally. 05/05/24 endoscopic FNA of soft tissue along splenic artery: Well-differentiated neuroendocrine tumor, with a Ki-67 index less than 3%. Pertinent labs reviewed: 01/21/24 chromogranin A normal at 45 06/13/23 TSH 0.45, free T41.4, free T3 normal at 2.9 A1c 7.5 chromogranin A normal at 124 (0-1 87), normal serotonin, normal neurokinin A, normal pancreastatin, mildly elevated gastrin at 177 (0-100),normal B12 I met him for the first time last year, and sporadically since. We tried pausing pump last year to see if he really needed it, but then he developed bad diarrhea per him, and he self-started it. His tumor burden is very low (see dotatate In Mar 2024) and he has intense epigastric pain-- he is undergoing an unrelated shoulder surgery soon, may undergo EGD/ possibly even celiac block soon Past Medical History Past Medical History: Diagnosis Date A-fib (H) ACS (acute coronary syndrome) (H) 12/03/2016 Arthritis bilat. hips CAD (coronary artery disease) 2010 cardiac cath 2015: BMS to OM1, cath 2011: diffuse disease Cancer (H) small intestine Carcinoid syndrome Cardiomyopathy (H) 07/2014 EF 50-55% by Echo [...] octreotide Unstable angina (H) 12/03/2016 Past Surgical History Past Surgical History: Procedure Laterality Date ARTHROPLASTY SHOULDER Left 01/31/2022 Procedure: LEFT TOTAL SHOULDER ARTHROPLASTY; Surgeon: Alfonzo Sultana MD; Location: [facility] Main OR BACK SURGERY Laminectomy-lower back [...] BIOPSY; Surgeon: Guru Nicolle Garzon MD; Location: GI exploratory abd surgery 2009 lymph node [...] RELEASE CARPAL TUNNEL RHINOPLASTY SMALL INTESTINE SURGERY [facility] TOTAL HIP ARTHROPLASTY Right 08/04/2018 Procedure: RIGHT DIRECT ANTERIOR TOTAL HIP ARTHROPLASTY; Surgeon: Herrera Worrell MD; Location: [facility] Main OR; Service: Orthopedics [facility] TOTAL HIP ARTHROPLASTY Left 05/02/2020 Procedure: LEFT DIRECT ANTERIOR TOTAL HIP ARTHROPLASTY; Surgeon: Herrera Worrell MD; Location: [facility] Main OR; Service: Orthopedics Current Medications Current Outpatient Medications: socbfac-pajimb-lwailure (CREON 12) 84983 UNITS CPEP, Take 2 capsules by mouth 3 times daily (with meals), Disp: , Rfl: apixaban ANTICOAGULANT (ELIQUIS ANTICOAGULANT) 5 MG tablet, Take 1 tablet (5 mg) by mouth 2 times daily, Disp: 180 tablet, Rfl: 3 atorvastatin (LIPITOR) 40 MG tablet, Take 1 tablet (40 mg) by mouth daily., Disp: 60 tablet, Rfl: 3 B-D U/F insulin pen needle, USE 1 (ONE) PEN NEEDLE FOUR TIMES DAILY, Disp: , Rfl: baclofen (LIORESAL) 10 MG tablet, Take 10 mg by mouth once, Disp: , Rfl: calcium citrate (CITRACAL) 950 (200 Ca) MG tablet, Take 200 mg by mouth 3 times daily, Disp: , Rfl: clomiPHENE (CLOMID) 50 MG tablet, Take 50 mg by mouth every other day, Disp: , Rfl: cyanocobalamin (VITAMIN B12) 1000 MCG/ML injection, Inject 1 mL into the muscle every 30 days Injection once a month, Disp: , Rfl: diazepam (VALIUM) 5 MG tablet, Take 1 tablet (5 mg) by mouth every 6 hours as needed for anxiety. (Patient not taking: Reported on 2024), Disp: 4 tablet, Rfl: 0 famotidine (PEPCID) 40 MG tablet, Take 40 mg by mouth daily, Disp: , Rfl: gabapentin (NEURONTIN) 300 MG capsule, Take 2 capsules (600 mg) by mouth 3 times daily, Disp: , Rfl: insulin glargine (LANTUS PEN) 100 UNIT/ML pen, Inject 26 Units Subcutaneous At Bedtime, Disp: , Rfl: insulin lispro (HUMALOG PEN) 100 UNIT/ML pen, Inject 8 Units Subcutaneous 3 times daily (before meals), Disp: , Rfl: JARDIANCE 25 MG TABS tablet, Take 25 mg by mouth daily, Disp: , Rfl: levothyroxine (SYNTHROID, LEVOTHROID) 125 MCG tablet, Take 2 tablets (250 mcg) by mouth daily, Disp: , Rfl: lubiprostone (AMITIZA) 24 MCG capsule, Take 24 mcg by mouth daily., Disp: , Rfl: metoprolol tartrate (LOPRESSOR) 50 MG tablet, Take 1 tablet (50 mg) by mouth 2 times daily., Disp: 180 tablet, Rfl: 3 Octreotide Acetate 1000 MCG/ML SOLN, 1,800 mcg by Subcutaneous Infusion route daily Patient uses aninsulin pump to infuse octreotide subcutaneously. It is filled with octreotide 1000mcg/ml(pt brought vials). Pt infuses 1.8ml/day(1800mcg/day) continous with the basal setting at 7.5 units/hr(0.075ml/ hr) and has the option for a 100mcg(0.1ml or 10 units on insulin pump) bolus up to three times a day as needed. His insulin pump reservoir is only 2ml so pt fills pump twice daily to avoid it possibly running out., Disp: , Rfl: omeprazole (PRILOSEC) [address] capsule, Take 40 mg by mouth daily, Disp: , Rfl: oxyCODONE (ROXICODONE) 5 MG tablet, Take 5 mg by mouth every 6 hours as needed, Disp: , Rfl: sucralfate (CARAFATE) 1 GM tablet, Take 1 g by mouth 4 times daily (Patient not taking: Reported on2024), Disp: , Rfl: vitamin D2 (ERGOCALCIFEROL) 27386 units (1250 mcg) capsule, Take 50,000 Units by mouth twice a weekSaturday & , Disp: , Rfl: Family History Problem Relation Age of Onset Cancer Mother ovarian Myocardial Infarction Father Myocardial Infarction Paternal Grandfather Heart Surgery Brother stents placed Heart Disease Brother Diabetes Brother Diabetes Sister Diabetes Sister His father of coronary artery disease at the age of 48. His mother at 73 years old of ovarian cancer. 4 of his siblings have diabetes and HTN. Social History . He has 4 daughters. He denies smoking, drinking alcohol or using illicit drugs. 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 Over the recent years, his weight has been stable at 270 to 280 pounds. Eye: No eye symptoms Teri-Laryngeal: No dysphagia, he sometimes has to clear his throat, episodes when his voice gets weak Breast: No breast symptoms Cardiovascular: CP in between the shoulder blades; No palpitations Pulmonary: occasional SOB in the morning; no cough Gastrointestinal: No diarrhea or constipation in the last month; prior episodes of both diarrhea and constipation Genitourinary: No genitourinary symptoms, no increased thirst or urination; drinks 10 bottles of water daily Endocrine: longstanding cold intolerance Neurological: headaches present every other day, no numbness or tingling sensation, some muscle cramps; no dizziness unless he bends over fast Musculoskeletal: joint pain Skin: skin is fragile, with easy bruising, no dry skin, no hair falling out Psychological: No psychological symptoms Vital Signs Previous Weights: Wt Readings from Last 10 Encounters: 05/12/24 127 kg (280 lb) 04/07/24 129.3 kg (285 lb) 04/06/24 122.5 kg (270 lb) 03/31/24 128.9 kg (284 lb 2.8 oz) 03/24/24 120.2 kg (265 lb) 10/22/23 127.4 kg (280 lb 13.9 oz) 08/12/23 123.4 kg (272 lb) 08/07/23 123.1 kg (271 lb 4.8 oz) 05/27/23 122.5 kg (270 lb) 05/02/23 117.9 kg (260 lb) There were no vitals taken for this visit. Physical Exam General Appearance: alert, no distress noted Eyes: grossly normal to inspection, conjunctivae and sclerae normal, no lid lag or stare Respiratory: no audible wheeze, cough, or visible cyanosis. No visible retractions or increased work of breathing. Able to speak fully in complete sentences. Neurological: Cranial nerves grossly intact, mentation intact and speech normal; no tremor of the hands Skin: no lesions on exposed skin Psychological: mentation appears normal, affect normal, judgement and insight intact, normal speechand appearance well-groomed Lab Results I reviewed prior lab results documented in Epic. TSH Date Value Ref Range Status 04/21/2018 0.56 0.40 - 4.00 mU/L Final 06/04/2017 0.449 0.358 - 3.740 mcU/mL Final 12/03/2016 1.59 0.40 - 4.00 mU/L Final 50 minutes spent on the date of the encounter doing chart review, history and exam, coordinating care and documenting in the EHR, as detailed above, exclusive of CGM time. documented in this encounter Nursing Notes * Fernanda Smith CMA - 06/02/2024 8:00 AM CDT Current patient location: [address] [place] [phone] Is the patient currently in the state of [place]? YES Visit mode: VIDEO If the visit is dropped, the patient can be reconnected by:VIDEO VISIT: Text to cell phone: Telephone Information: Will anyone else be joining the visit? NO (If patient encounters technical issues they should call [phone] :[phone]) Are changes needed to the allergy or medication list? No Are refills needed on medications prescribed by this physician? NO Rooming Documentation: Not applicable Reason for visit: RECHECK Fernanda Smith CMA VVF documented in this encounter Plan of Treatment Upcoming Encounters Date Type Department Care Team (Latest Contact Info) Description 07/28/2024 9:00 AM CDT Infusion Therapy Visit [facility] [address] [place] [phone] Sergio Martinez MD [address] [place] [address] 08/18/2024 2:30 PM CDT Virtual Visit [facility] [address] [place] [phone] Sergio Martinez MD [address] [place] [address] 08/25/2024 11:00 AM CDT Infusion Therapy Visit [facility] [address] [place] [phone] Sergio Martinez MD [address] [place] [address] 10/23/2024 10:30 AM CDT Office Visit [facility] [address] [facility] [address] [place] [phone] Jerrod Werner MD [address] [place] [address] 11/11/2024 9:35 AM CDT [facility] [address] [place] [phone] Alfonzo Sultana MD [facility] [address] [place] [address] 11/11/2024 9:35 AM CDT - 11/11/2024 12:30 PM CDT Surgery [facility] [address] [place] [phone] Alfonzo Sultana MD [facility] [address] [place] [address] RIGHT TOTAL SHOULDER ARTHROPLASTY VERSUS Scheduled Procedures Name Priority Associated Diagnoses Date/Ti me ARTHROPLASTY, SHOULDER, TOTAL Osteoarthritis of right shoulder 11/11/2024 9:35 AM CDT ARTHROPLASTY, SHOULDER, TOTAL, REVERSE Osteoarthritis of right shoulder 11/11/2024 9:35 AM CDT documented as of this encounter Visit Diagnoses Diagnosis Secondary diabetes mellitus (H)- Primary Secondary diabetes mellitus without mention of complication, not stated as uncontrolled, or unspecified 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) Secondary neuroendocrine tumor of other sites Hypothyroidism, unspecified type Osteoarthritis of right shoulder documented in this encounter Care Teams Change Number Operator Relationship Specialty Start Date End Date Sergio Martinez MD [address] [place] [address] Hematology 05/06/23 [place] [address] [place] [address] Nurse Practitioner Nurse Practitioner 05/07/23 Prosper Shrestha MD [address] [place] [address] Emergency Medicine 05/07/23 Ramin Whitfield MD [address] [place] [address] [phone] Assigned Surgical Provider 07/11/23 Sergio Martinez MD [address] [place] [address] Assigned Cancer Care Provider 09/10/23 Sarah Gould, RN [facility] [address] [facility] [address] [place] [address] Specialty Bonsai Culturist Hematology & Oncology 08/13/23 Jerrod Werner MD [address] [place] [address] Cardiovascular Disease 04/07/24 Jerrod Werner MD [address] [place] [address] Assigned Heart and Vascular Provider 04/12/24 documented as of this encounter
--- OUTSIDE RECORDS SUMMARY | 2024-07-03 07:05 | XMS_ITS | Encounter Summary ---
Author Organization [place] Address [facility] [place] [address] Care Team Providers Care Shank Stapler Name Role Phone Sergio Martinez MD Unavailable Misty Wellington NP Unavailable [phone] Prosper Shrestha MD Unavailable [phone] Ramin Whitfield MD Unavailable [phone] Sergio Martinez MD Unavailable No Ref-Primary, Physician Primary Care Provider Sarah Gould RN Unavailable Jerrod Werner MD Unavailable [phone] Jerrod Werner MD Unavailable [phone] Shaila Landis MD Unavailable Encounter Details Date Type Department Care Team (Late st Contact Info) Description 06/26/2024 [facility] Medical Advice [facility] [place] [address] [facility] 4th [place] [address] Baldo Bailon Social History Tobacco Use Types Packs/Day Years [...] on file 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 Gender Identity Not on file Sexual Orientation Not on file documented as of this encounter Plan of Treatment Upcoming Encounters Date Type Department Care Team (Latest Contact Info) Description 07/28/2024 9:00 AM CDT Infusion Therapy Visit [address] [place] [phone] Sergio Martinez MD [address] [place], [place] [address] 08/18/2024 2:30 PM CDT [facility] [address] [place] [phone] Sergio Martinez MD [address] [place], [place] [address] 08/25/2024 11:00 AM CDT Infusion Therapy Visit [place] [address] [place] [phone] Sergio Martinez MD [address] [place], [place] [address] 10/23/2024 10:30 AM CDT Office Visit [facility] [address] [place] [phone] Jerrod Werner MD [address] [place], [place] [address] 11/11/2024 9:35 AM CDT Hospital Encounter [place] [address] [place] [address] Alfonzo Sultana MD [facility] [address] [place] [address] 11/11/2024 9:35 AM CDT - 11/11/2024 12:30 PM CDT Surgery [place] [address] [place] [phone] Alfonzo Sultana MD [facility] [address] [place] [address] RIGHT TOTAL SHOULDER ARTHROPLASTY VERSUS Scheduled Procedures [...] documented as of this encounter Care Teams Shank Stapler Relationship Specialty Start Date End Date No Ref-Primary, Physician PCP - General 07/01/24 Sergio Martinez MD [address] [place], [place] [address] Hematology 05/06/23 [place] [address] [place] [address] Nurse Practitioner Nurse Practitioner 05/07/23 Prosper Shrestha MD [address] [place] [address] Emergency Medicine 05/07/23 Ramin Whitfield MD [address] [facility] [address] [place], [place] [address] Assigned Surgical Provider 07/11/23 Sergio Martinez MD [address] [place], [place] [address] Assigned Cancer Care Provider 09/10/23 Sarah Gould, [facility] [address] [facility] [address] [place], [place] [address] Specialty Culinary Art Teacher Hematology & Oncology 08/13/23 Jerrod Werner MD [address] [place] [address] Cardiovascular Disease 04/07/24 Jerrod Werner MD [address] [place] [id number] Assigned Heart and Vascular Provider 04/12/24 [place] [address] [place] [address] Assigned Endocrinology Provider 06/10/24 documented as of this encounter
--- OUTSIDE RECORDS SUMMARY | 2024-07-03 07:05 | XMS_ITS ---
Author Organization [place] Address [address] [place] [address]. 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 No medications schedul ed. No medications scheduled. Past Treatment and Therapy Plans No past plan information found. Resolved Problems Problem Noted Date Diagnosed Date Resolved Date Ischemic cardiomyopathy 10/07/201407/20 Hypertriglyceridemia 016 Cardiomyopathy 10/07/2014 Overview (07/22/2014): 07/2014 EF 50-55% by Echo
--- OUTSIDE RECORDS SUMMARY | 2024-07-03 07:05 | XMS_ITS | Encounter Summary ---
Author Organization [employer] Address [address] [facility] [place] [address] Care Team Providers Care Impress Associate Name Role Phone Heaven Sumner MD Unavailable Misty Wellington NP Unavailable [phone] Prosper Shrestha MD Unavailable [phone] Ramin Whitfield MD Unavailable [phone] Heaven Sumner MD Unavailable No Ref-Primary, [...] TRACT (GI) with celiac plexus block Formerly [facility] PeriOp Services [address] [place] [address] Phone: tel: fax: Referral ID Status Reason Start Date Expiration Date Visits Re quested Visits Authorized [id number] 1 1 Encounter Details Date Type Department Care Team (Latest Contact Info) Description 07/01/2024 9:47 AM CDT - 07/01/2024 1:00 PM CDT Hospital Encounter [facility]ly [facility] Same Day Surgery [facility] [address] [place] [address] Guru Nicolle Garzon MD [address] [place] [address] Discharge Disposition: Home or Self Care Social History Tobacco Use Types Packs/Day Years [...] on file 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 * (s) After Anesthesia (Sleep Medicine) (Prydeinig) documented in this encounter Medications at Time of Discharge hoywtbn-qeqetb-lijj ease (CREON 12) 45688 UNITS CPEP Take 2 capsules by mouth 3 times daily (with meals) apixaban ANTICOAGULANT (ELIQUIS ANTICOAGULANT) 5 MG tabletIndications:A trial fibrillation with RVR (H) Take 1 tablet (5 mg) by mouth 2 times daily 180 tablet 3 4 atorvastatin (LIPITOR) 40 MG tabletIndications:M ixed hyperlipidemia,Harley nary artery disease involving ute coronary artery of ute heart without angina pectoris Take 1 tablet [...] hours as needed for anxiety. 4 tablet 12/10/202 4 famotidine (PEPCID) 40 MG tablet Take [...] 50 MG tabletIndications:C oronary artery disease involving ute coronary artery of ute heart without angina pectoris Take 1 tablet [...] 4 times daily 4 vitamin D2 (ERGOCALCIFEROL) 11984 units (1250 mcg) capsule Take 50,000 Units by mouth twice a week Saturday & documented as of this encounter Miscellaneous Notes * Brief Op Note - Phyllis Merritt MD - 07/01/2024 12:22 PM CDT [facility] Brief Operative Note Pre-operative diagnosis: Neuroendocrine tumor [...] Therapy Visit [facility] [address] [place] [address] [place] [address] Heaven Sumner MD [address] [place] [address] 08/18/2024 2:30 PM CDT Virtual Visit [facility] [address] [place] [phone] Heaven Sumner MD [address] [place] [address] 08/25/2024 11:00 AM CDT Infusion Therapy Visit [facility] [address] [place] [address] Heaven Sumner MD [address] [place] [address] 10/23/2024 10:30 AM CDT Office Visit [facility] Heart [facility] [address] [facility] [address] [place] [address] Jerrod Werner MD [address] [facility] [place] [address] 11/11/2024 9:35 AM CDT Hospital Encounter [facility] Periop Services [address] [place] [address] Alfonzo Sultana MD [facility] [address] [place] [address] 11/11/2024 9:35 AM CDT - 11/11/2024 12:30 PM CDT [facility] [address] [place] [address] Alfonzo Sultana MD [facility] [address] [place] [address] RIGHT TOTAL SHOULDER ARTHROPLASTY VERSUS Scheduled Procedures [...] Guru Nicolle Garzon MD LAB - BEAK POCT Final Result [facility] Core Lab [address] [facility], Room [address] [place] [address] * (ABNORMAL) Glucose by meter (07/01/2024 11:01 AM CDT) GLUCOSE BY METER POCT 169(H) 70 - 99 mg/dL 07/01/2024 11:08 AM CDT [facility] Blood, Capillary BLOOD SPECIMEN / Unknown 07/01/2024 11:01 AM CDT 07/01/2024 11:08 AM CDT us Guru Nicolle Garzon MD LAB - BEAK ER POCT Final Result [facility] Ox[facility] Core Lab [address] [facility] [address], [address] [place] [address] * UPPER EUS (07/01/2024 11:00 AM CDT) Pathologist [facility] Upper EUS [facility] [address] [facility] [place] [address] [phone] Endoscopy Department ___ Patient Name: Brooks Munson Procedure Date: 07/01/2024 11:00 AM Date of : 1955 Admit Type: Outpatient Age: 69 Room: [place] [address] Gender: Male Note Status: Finalized Attending MD: [...] for EUS for celiac pelxus neurolysis. Providers: GURU VYTHIA GANPHYLLIS RAZO MD: HEAVEN SUMNER Medicines: Monitored Anesthesia Care [...] by the physician, the nurse and the arnp in the procedure room. Mental Status Examination: [...] of the exam. Signature of teaching physician [id number] GARZON PHYLLIS MERRITT, Number of Addenda: 0 Note Initiated On: 07/01/2024 11:00 AM Scope In: Scope Out: RADIOLOGY RESULTS 07/01/2024 11:0 0 AM CDT us Heaven Sumner MD PROCEDURES Final Result RADIOLOGY RESULTS documented in this encounter Visit Diagnoses Not on filedocumented in this encounter Administered Medications Inactive Administered Medications - up to 3 most recent administrations Medication Order MAR Action Action Date Dose Rate Site dexAMETHasone (DECADRON) injection 4 mg 4 [...] documented as of this encounter Care Teams Impress Associate Relationship Specialty Start Date End Date No Ref-Primary, Physician PCP - General 07/01/24 Heaven Sumner MD [address] [place] [address] Hematology 05/06/23 [place] [address] [place] [address] Nurse Practitioner Nurse Practitioner 05/07/23 Prosper Shrestha MD [address] [place], [place] [address] Emergency Medicine 05/07/23 Ramin Whitfield MD [address] [place] [address] [address] [place] [address] Assigned Surgical Provider 07/11/23 Heaven Sumner MD [address] [place] [address] Assigned Cancer Care Provider 09/10/23 Sarah Gould, [facility]Z [facility] [address] [facility] 806 [place] [address] Specialty Casting And Curing Operator Hematology & Oncology 08/13/23 Jerrod Werner MD [address] [place] [address] Cardiovascular Disease 04/07/24 Jerrod Werner MD [address] [place] [address] Assigned Heart and Vascular Provider 04/12/24 [place] [address] [place] [address] Assigned Endocrinology Provider 06/10/24 documented as of this encounter
--- OUTSIDE RECORDS SUMMARY | 2024-07-03 07:05 | XMS_ITS | Encounter Summary ---
Author Organization [employer] Address [address] [place] [address]. [place] [address] Care Team Providers Care Patient Care Manager Name Role Phone Ciarra PascalC Primary Care Provider + Antonietta Burton APRN SIZING SPONGER Unavailable [phone] Ramin Whitfield MD Unavailable [phone] Dago Newell MD Unavailable [phone] Denis Sharma MD Unavailable Unavailab Sergio oRsas MD Unavailable Misty Wellington PERSONAL SECURITY SPECIALIST Unavailable [phone] Prosper Shrestha MD Unavailable [phone] Jayden Brantley MD Unavailable [phone] Avril Dumont RN Unavailable Ramin Whitfield MD Unavailable [phone] Sergio Martinez MD Unavailable Sarah Gould RN Unavailable Jerrod Werner MD Unavailable [phone] Jerrod Werner MD Unavailable [phone] Encounter Details Date Type Department Care Team (Late st Contact Info) Description 05/30/2021 Documentation Only INTERFACED REPORT Unknown, Provider Social History Tobacco Use Types Packs/Day Years Used Date Smoking Tobacco: Former Cigarettes Q uit: 02/18/1979 Smokeless Tobacco: Never Alcohol Use Standard Drinks/Week Comments Yes 24 (1 standard drink = 0.6 oz pure alcohol) Alcoholic Drinks/day: reports 24 ETOH beverages/week PHQ-2 Answer Date Recorded PHQ-2 Score 0 [...] on file 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 No / Unsure 05/09/2022 11:17 AM CDT documented as of this encounter Plan of Treatment Upcoming Encounters Date Type Department Care Team (Latest Contact Info) Description 07/28/2024 9:00 AM CDT Infusion Therapy Visit [address] CARTY [address] [place] [phone] Sergio Martinez MD [address] [place] [address] 08/18/2024 2:30 PM CDT Virtual Visit [facility] Cancer Clinic [address] [place] [phone] Sergio Martinez MD [address] [place] [address] 08/25/2024 11:00 AM CDT [facility] [address] [place] [address] [place] [address] Sergio Martinez MD [address] [place] [address] 10/23/2024 10:30 AM CDT Office Visit [facility] [place] [address] [facility] [address] [place] [phone] Jerrod Werner MD [address] [facility] [address] [place] [address] 11/11/2024 9:35 AM CDT Hospital Encounter [facility] Services [address] [place] [address] [facility]fonzo [facility] [address] [place] [address] 11/11/2024 9:35 AM CDT - 11/11/2024 12:30 PM CDT Surgery [address] [phone] Alfonzo Sultana MD [facility] [address] [place] [address] RIGHT TOTAL SHOULDER ARTHROPLASTY VERSUS Scheduled Procedures Name Priority Associated Diagnoses Date/Ti me ARTHROPLASTY, SHOULDER, TOTAL Osteoarthritis of right shoulder 11/11/2024 9:35 AM CDT ARTHROPLASTY, SHOULDER, TOTAL, REVERSE Osteoarthritis of right shoulder 11/11/2024 9:35 AM CDT documented as of this encounter Visit Diagnoses Not on filedocumented in this encounter Care Teams Patient Care Manager Relationship Specialty Start Date End Date Ciarra Pascal PA-C PCP - General 05/03/20 10/21/23 Antonietta Burton APRN SIZING SPONGER [address] [place] [address] Assigned Heart and Vascular Provider 05/21/21 10/25/21 Ramin Whitfield MD [address] [facility] [address] [place], [place] [address] Assigned Surgical Provider 09/16/21 03/13/23 Dago Newell [facility] [address] [facility] [address] [place] [address] Assigned Heart and Vascular Provider 10/28/21 05/11/22 Denis Sharma MD [facility] [address] [address] [place] [address] Assigned Heart and Vascular Provider 05/12/22 04/11/24 Sergio Martinez MD [address] [place], [place] [address] Hematology 05/06/23 [place] [address] [place] [address] Nurse Practitioner Nurse Practitioner 05/07/23 Prosper Shrestha MD 500 [place] [address] Emergency Medicine 05/07/23 Jayden Brantley MD [address] [facility] [address] [place], [place] [address] Assigned Surgical Provider 05/11/23 07/10/23 Avril Dumont RN Specialty Warehouse Loader Hematology & Oncology 05/28/23 05/22/24 Ramin Whitfield MD [address] [facility] [address] [place], [place] [address] Assigned Surgical Provider 07/11/23 Sergio Martinez MD [address] [place], [place] [address] Assigned Cancer Care Provider 09/10/23 Sarah Gould, [facility] [address] [facility] 8[address] [place], [place] [address] Specialty Warehouse Loader Hematology & Oncology 08/13/23 Jerrod Werner MD [address] [place] [address] Cardiovascular Disease 04/07/24 Jerrod Werner MD [address] [place] [address] Assigned Heart and Vascular Provider 04/12/24 documented as of this encounter
--- OUTSIDE RECORDS SUMMARY | 2024-07-03 07:05 | XMS_ITS | Encounter Summary ---
Author Organization [employer] Address [facility] [place] [address] Care Team Providers Care What Job Titles Mean Name Role Phone Sergio Martinze MD Unavailable Misty Wellington NP Unavailable Prosper Shrestha MD Unavailable Ramin Whitfield MD Unavailable Sergio Martinez MD Unavailable Sarah Gould RN Unavailable [phone] Jerrod Werner MD Unavailable Jerrod Werner MD Unavailable RadShaila cerna MD Unavailable Encounter Details Date Type Department Care Team (Late st Contact Info) Description 06/17/2024 [facility] [address] [place] [address] Sergio Martinez MD [address] [place] [address] Primary pancreatic neuroendocrine tumor (H) (Primary Dx) Social History Tobacco Use [...] on file 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 Gender Identity Not on file Sexual Orientation Not on file documented as of this encounter Plan of Treatment Upcoming Encounters Date Type Department Care Team (Latest Contact Info) Description 07/28/2024 9:00 AM CDT Infusion Therapy Visit [facility] [address] [place] [phone] Sergio Martinez MD [address] [place], [place] [address] 08/18/2024 2:30 PM CDT Virtual Visit [facility] Cancer [facility] [address] [place] [address] Sergio Martinez MD [address] [place] [address] 08/25/2024 11:00 AM CDT Infusion Therapy Visit [facility] [address] [place] [address] [place] [address] Sergio Martinez MD [address] [place] [address] 10/23/2024 10:30 AM CDT Office Visit [facility] Heart [facility] [address] [facility] [address] [place] [address] Jerrod Werner MD [address] [place] [address] 11/11/2024 9:35 AM CDT Hospital Encounter [facility] Services [address] [place] [address] Alfonzo Sultana MD [facility] [address] [place] [address] 11/11/2024 9:35 AM CDT - 11/11/2024 12:30 PM CDT Surgery [facility] [address] [place] [address] Alfonzo Sultana MD [facility] [address] [place] [address] RIGHT TOTAL SHOULDER ARTHROPLASTY VERSUS Scheduled Procedures [...] Care Plan Total Joint Replacement Shoulder Pathway Collene Walker documented as of this encounter Visit Diagnoses Diagnosis 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, any site Osteoarthritis of right shoulder 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 documented as of this encounter Care Teams What Job Titles Mean Relationship Specialty Start Date End Date Sergio Martinez MD [address] [place] [address] Hematology 05/06/23 [place] [address] [place] [address] Nurse Practitioner Nurse Practitioner 05/07/23 Prosper Shrestha MD [address] [place] [address] Emergency Medicine 05/07/23 Ramin Whitfield MD [address] [facility] 195 [place], [place] [address] Assigned Surgical Provider 07/11/23 Sergio Martinez MD [address] [place] [address] Assigned Cancer Care Provider 09/10/23 Sarah Gould, [facility] 420 [facility] 806 [place] [address] Specialty Calcine Furnace Tender Hematology & Oncology 08/13/23 Jerrod Werner MD [address] [place] [address] Cardiovascular Disease 04/07/24 Jerrod Werner MD [address] [place] [address] Assigned Heart and Vascular Provider 04/12/24 [place] [address] [place] [address] Assigned Endocrinology Provider 06/10/24 documented as of this encounter
--- OUTSIDE RECORDS SUMMARY | 2024-07-03 07:05 | XMS_ITS | Encounter Summary ---
Author Organization [place] Address [facility] [place] 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 Gender Identity Not on file Sexual Orientation Not on file documented as of this encounter Plan of Treatment Upcoming Encounters Date Type Department Care Team (Latest Contact Info) Description 07/28/2024 9:00 AM CDT Infusion Therapy Visit [address] [place] [phone] Sergio Martinez MD [address] [place], [place] [address] 08/18/2024 2:30 PM CDT Virtual Visit [facility] [address] [place] [address] Sergio Martinez MD [address] [place], [place] [address] 08/25/2024 11:00 AM CDT Infusion Therapy Visit [address] [place] [phone] Sergio Martinez MD [address] [place], [place] [address] 10/23/2024 10:30 AM CDT Office Visit [facility] [address] [place] [address] [address] [place] [phone] Jerrod Werner MD [address] [place] [address] 11/11/2024 9:35 AM CDT Hospital Encounter [facility] [address] [place] [address] Alfonzo Sultana MD [facility] [address] [place] [address] 11/11/2024 9:35 AM CDT - 11/11/2024 12:30 PM CDT Surgery [facility] [address] [place] [address] Alfonzo Sultana MD [facility] [address] [place] [address] RIGHT TOTAL SHOULDER ARTHROPLASTY VERSUS Scheduled Procedures [...] documented as of this encounter Care Teams Director Of Midwifery/Staff Midwife Relationship Specialty Start Date End Date Sergio Martinez MD [address] [place] [address] Hematology 05/06/23 [place] [address] [address] [place] [address] Nurse Practitioner Nurse Practitioner 05/07/23 Prosper Shrestha MD [address] [place] [address] Emergency Medicine 05/07/23 Ramin Whitfield MD 420 [facility] [address] [place], [place] [address] Assigned Surgical Provider 07/11/23 Sergio Martinez MD [address] [facility] [address] [place], [place] [address] Assigned Cancer Care Provider 09/10/23 Sarah Gould, [facility] 420 [facility] [address] [place], [place] [address] Specialty Engine Manager Hematology & Oncology 08/13/23 Jerrod Werner MD [address] [place], [place] [address] Cardiovascular Disease 04/07/24 Jerrod Werner MD [address] [place], [place] [address] Assigned Heart and Vascular Provider 04/12/24 [place] [address] [place], [place] [address] Assigned Endocrinology Provider 06/10/24 documented as of this encounter
--- OUTSIDE RECORDS SUMMARY | 2024-07-03 07:05 | XMS_ITS | Encounter Summary ---
Author Organization [place] Address [address] [place] [address]. [place] [address] Care Team Providers Care Jet Blade Polisher Name Role Phone Sergio Martinez MD Unavailable Misty Wellington NP Unavailable [phone] Prosper Shrestha MD Unavailable [phone] Ramin Whitfield MD Unavailable [phone] Sergio Martinez MD Unavailable Sarah Gould RN Unavailable [phone] Jerrod Werner MD Unavailable Jerrod Werner MD Unavailable [phone] RadShaila cerna MD Unavailable Reason for Visit * Reason Comments Imm/Inj Lanreotide * Treatment and Therapy Plans (Routine: Next available opening) - Authorized Specialty Diagnoses / Procedures Referred By Contkimmie t Referred To Contact Infusion Therapy Diagnoses Neuroendocrine cancer (H) Procedures ZZC INJECTION, LANREOTIDE, 1 MG Sergio Martinez MD [address] [place] [address] Phone: tel: fax: [address] [place] [address] Phone: tel: fax: Referral ID Status Reason Start Date Expiration Date V isits Requested Visits Authorized [id number] Authorized 06/23/2024 02/17/2025 99 99 Encounter Details Date Type Department Care Team (Latest Contact Info) Description 06/30/2024 12:00 PM CDT Infusion Therapy Visit [facility] [address] [place] [place] [phone] Sergio Martinez MD [address] [place], [place] [id number] Neuroendocrine cancer (H) (Primary Dx) Social History [...] on file 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 Patient seen by provider today: No Mushroom Cultivator present during visit today: Not Applicable. Note: Gutierrez has been treated for neuroendocrine tumor for past 15 years. Has been on Sandostatin in the past. Most recently was on subcutaneous Octreotide for the past 5 years. This was discontinues inApril of this year Will start monthly Lanreotide today To undergo EUS with nerve block tomorrow, as well as get rid of one small lymph node by my pancreas Denies any abd pain today. States it comes/goes but can get severe at times. Intravenous Access: No Intravenous access/labs at this visit. Treatment Conditions: Not Applicable. Post Infusion Assessment: Patient tolerated Lanreotide injection to superior external quadrant of left buttock Site patent and intact, free from redness, edema or discomfort. Discharge Plan: AVS to patient via MYCHART. Patient will return 07/28/24 for next dose of Lanreotide Patient discharged in stable condition accompanied by: self. Departure Mode: Ambulatory. Neetu Mason RN documented in this encounter Plan of Treatment Upcoming Encounters Date Type Department Care Team (Latest Contact Info) Description 07/28/2024 9:00 AM CDT Infusion Therapy Visit [facility] [address] [place] [phone] Sergio Martinez MD [address] [place], [place] [address] 08/18/2024 2:30 PM CDT Virtual Visit [facility] [address] [place] [address] Sergio Martinez MD [address] [place], [place] [address] 08/25/2024 11:00 AM CDT Infusion Therapy [facility] [address] [place] [address] [address] [place] [phone] Sergio Martinez MD [address] [place] [address] 10/23/2024 10:30 AM CDT Office Visit [facility] [place] [address] [facility] [address] [place] [phone] Jerrod Werner MD [address] [place], [place] [address] 11/11/2024 9:35 AM CDT Hospital Encounter [facility] [address] [place] [address] Alfonzo [facility]ultana MD [facility] [address] [place] [address] 11/11/2024 9:35 AM CDT - 11/11/2024 12:30 PM CDT Surgery [place] [address] [place] [address] Alfonzo Sultana MD [facility] [address] [place] [address] RIGHT TOTAL SHOULDER ARTHROPLASTY VERSUS Scheduled Procedures Name Priority Associated Diagnoses Date/Ti nv ARTHROPLASTY, SHOULDER, TOTAL Osteoarthritis of right shoulder [...] MAR Action Action Date Dose Rate Site lanreotide acetate (SOMATULINE) injection 120 mg 120 mg, Subcutaneous, ONCE, On Sat06/30/24 at 1200, For 1 dose, Inject via the deep subcutaneous route in the superior external quadrant of the buttock. Alternate the injection site between the right and left sides from one injection to the next. See enclosed Instructions for Use Leaflet for further information.Indications:Neuroendo crine cancer (H) $Given 06/30/2024 12:10 PM CDT 120 mg 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 documented as of this encounter Care Teams Jet Blade Polisher Relationship Specialty Start Date End Date Sergio Martinez MD [address] [place] [address] Hematology 05/06/23 [place] [address] [facility] [place] [address] Nurse Practitioner Nurse Practitioner 05/07/23 Prosper Shrestha MD 500 [place] [address] Emergency Medicine 05/07/23 Ramin Whitfield MD [address] [place] [address] 195 [place] [address] Assigned Surgical Provider 07/11/23 Sergio Martinez MD [address] [place] [address] Assigned Cancer Care Provider 09/10/23 Sarah Gould, GRZEGORZ [facility] [address] [facility] 806 [place] [address] Specialty First Line Supervisor Hematology & Oncology 08/13/23 Jerrod Werner MD [address] [place] [address] Cardiovascular Disease 04/07/24 Jerrod Werner MD [address] [place] [address] Assigned Heart and Vascular Provider 04/12/24 [place] [address] [place] [address] Assigned Endocrinology Provider 06/10/24 documented as of this encounter
--- OUTSIDE RECORDS SUMMARY | 2024-07-03 07:05 | XMS_ITS | Encounter Summary ---
Author Organization [place] Address [facility] [place] [address] Care Team Providers Care Repair Service Clerk Name Role Phone Sergio Martinez MD Unavailable Misty Wellington NP Unavailable [phone] Prosper Shrestha MD Unavailable [phone] Avril Dumont RN Unavailable Ramin Whitfield MD Unavailable [phone] Sergio Martinez MD Unavailable No Ref-Primary, Physician Primary Care Provider Sarah Gould RN Unavailable Jerrod Werner MD Unavailable [phone] Jerrod Werner MD Unavailable [phone] Shaila Landis MD Unavailable Encounter Details Date Type Department Care Team (Late st Contact Info) Description 04/28/2024 [facility] [address] [place] [address] Stephanie Damon, GRZEGORZ Social History [...] on file 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 Gender Identity Not on file Sexual Orientation Not on file documented as of this encounter Plan of Treatment Upcoming Encounters Date Type Department Care Team (Latest Contact Info) Description 07/28/2024 9:00 AM CDT Infusion Therapy Visit [place] [address] [place] [address] [place] [phone] Sergio Martinez MD [address] [place] [address] 08/18/2024 2:30 PM CDT Virtual Visit [facility] [address] [place] [phone] Sergio Martinez MD [address] [place] [address] 08/25/2024 11:00 AM CDT Infusion Therapy Visit [place] [address] [place] [address] [place] [address] Sergio Martinez MD [address] [place] [address] 10/23/2024 10:30 AM CDT Office Visit [facility] Heart [address] [place] [phone] Jerrod Werner MD [address] [place] [address] 11/11/2024 9:35 AM CDT Hospital Encounter [facility] [address] [place] [address] Alfonzo Sultana MD [facility] [address] [place] [address] 11/11/2024 9:35 AM CDT - 11/11/2024 12:[address] [facility] [address] [place] [address] Alfonzo Sultana MD [facility] [address] [place] [address] RIGHT TOTAL SHOULDER ARTHROPLASTY VERSUS Scheduled Procedures Name Priority Associated Diagnoses Date/Ti me ARTHROPLASTY, SHOULDER, TOTAL Osteoarthritis of right shoulder 11/11/2024 9:35 AM CDT ARTHROPLASTY, SHOULDER, TOTAL, REVERSE Osteoarthritis of right shoulder 11/11/2024 9:35 AM CDT documented as of this encounter Visit Diagnoses Not on filedocumented in this encounter Care Teams Repair Service Clerk Relationship Specialty Start Date End Date No Ref-Primary, Physician PCP - General 07/01/24 Sergio Martinez MD [address] [place] [address] Hematology 05/06/23 [place] [address] [place] [address] Nurse Practitioner Nurse Practitioner 05/07/23 Prosper Shrestha MD [address] [place] [address] Emergency Medicine 05/07/23 Avril Dumont, GRZEGORZ Specialty Doll Dresser Hematology & Oncology 05/28/23 05/22/24 Ramin Whitfield MD 420 [facility] 195 [place], [place] [address] Assigned Surgical Provider 07/11/23 Sergio Martinez MD [address] [place], [place] [address] Assigned Cancer Care Provider 09/10/23 Sarah Gould, GR[facility]Z [facility] 420 [facility] 806 [place], [place] [address] Specialty Doll Dresser Hematology & Oncology 08/13/23 Jerrod Werner MD [address] [place] [address] Cardiovascular Disease 04/07/24 Jerrod Werner MD [address] [place] [address] Assigned Heart and Vascular Provider 04/12/24 [place] [address] [place] [address] Assigned Endocrinology Provider 06/10/24 documented as of this encounter
--- OUTSIDE RECORDS SUMMARY | 2024-07-03 07:05 | XMS_ITS | Encounter Summary ---
Author Organization [place] Address [facility] [place] [address] Care Team Providers Care Lapping Machine Operator Name Role Phone Sergio Martinez MD Unavailable Misty Wellington NP Unavailable [phone] Prosper Shrestha MD Unavailable Avril Dumont RN Unavailable Ramin Whitfield MD Unavailable [phone] Sergio Martinez MD Unavailable No Ref-Primary, Physician Primary Care Provider Sarah Gould RN Unavailable Jerrod Werner MD Unavailable Jerrod Werner MD Unavailable [phone] Shaila Landis MD Unavailable Encounter Details Date Type Department Care Team (Late st Contact Info) Description 04/17/[address] [address] Esther Walker, RN Social History Tobacco Use Types Packs/Day [...] on file 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 Per below. Will fax copy of response below to 's Team at [phone] Esther [facility] UCTION SUPPLY EQUIPMENT TENDER * Telephone Encounter - Scarlet Gudino RN - 04/22/2024 1:57 PM CST Faxed to [facility] attention Dr. Sultana's team Left message for patient to return call. Scarlet Gudino RN, BSN [phone] UCTION SUPPLY EQUIPMENT TENDER * Telephone Encounter - Saundra Kovacs RN - 04/22/2024 8:31 AM CST Echocardiogram noted 04/22/24: Interpretation Summary There is mild concentric left ventricular hypertrophy. The visual ejection fraction is 50-55%. There is borderline lateral wall hypokinesis. There is moderate inferolateral wall hypokinesis. The right ventricular systolic function is borderline reduced. Aortic valve not well seen, it is likely trileaflet, sclerotic with mild/moderate aortic valve stenosis. The has increased mildly compared to echo 05/01/21 Sinus rhythm was noted. Will route to Dr. Werner for review to get cardiac clearance for patient's surgery tomorrow. UCTION SUPPLY EQUIPMENT TENDER * Telephone Encounter - Esther Walker RN - 04/17/2024 1:03 PM CST Patient left detailed VM. Once pt completes his Echo on 04/22 and it's reviewed by MD. If pt is cleared, he will need a clearance letter typed up and faxed to [facility]. Reminder was sent to [facility] - [phone] Fax #: [phone] Pt has Right Shoulder replacement on 04/23/2024. Esther [facility] UCTION SUPPLY EQUIPMENT TENDER UCTION SUPPLY EQUIPMENT TENDER * Telephone Encounter - Esther Walker RN - 04/17/2024 10:57 AM PRODUCTION SUPPLY EQUIPMENT TENDER Called patient to review stress test results. Pt has Echo on 04/22/24. Will await results. Spoke with pt. Advised pt to check if he needs Cardiology to write a letter of clearance once we get Echo results and where to send to. Pt will call back once he has more information on what is needed from us. ----- Message ----- From: Jerrod Werner MD Sent: 04/16/2024 5:10 PM PRODUCTION SUPPLY EQUIPMENT TENDER To: Sergio Martinez MD; Saundra Kovacs RN; # Hi team Please tell the patient his nuclear stress test is stable and there is no indication for an angiogram before his planned orthopedic surgery. We are still awaiting his TTE to evaluate the cardiac murmur. UCTION SUPPLY EQUIPMENT TENDER UCTION SUPPLY EQUIPMENT TENDER UCTION SUPPLY EQUIPMENT TENDER documented in this encounter Plan of Treatment Upcoming Encounters Date Type Department Care Team (Latest Contact Info) Description 07/28/2024 9:00 AM CDT Infusion Therapy Visit [facility] [address] [place] [place] [phone] Sergio Martinez MD [address] [place] [address] 08/18/2024 2:30 PM CDT Virtual Visit [facility] 909 [place] [address] Sergio Martinez MD [address] [place], [place] [address] 08/25/2024 11:00 AM CDT Infusion Therapy Visit [facility] [address] [place] [address] Sergio Martinez MD [address] [place] [address] 10/23/2024 10:30 AM CDT Office Visit [facility] [address] [facility] [address] [place] [phone] Jerrod Werner MD [address] [place], [place] [address] 11/11/2024 9:35 AM CDT [facility] [address] [place] [phone] Alfonzo Sultana MD [facility] [address] [place] [address] 11/11/2024 9:35 AM CDT - 11/11/2024 12:30 PM CDT Surgery [facility] [address] [place] [address] Alfonzo Sultana MD [facility] [address] [place] [address] RIGHT TOTAL SHOULDER ARTHROPLASTY VERSUS Scheduled Procedures Name Priority Associated Diagnoses Date/Ti me ARTHROPLASTY, SHOULDER, TOTAL Osteoarthritis of right shoulder 11/11/2024 9:35 AM CDT ARTHROPLASTY, SHOULDER, TOTAL, REVERSE Osteoarthritis of right shoulder 11/11/2024 9:35 AM CDT documented as of this encounter Visit Diagnoses Not on filedocumented in this encounter Care Teams Lapping Machine Operator Relationship Specialty Start Date End Date No Ref-Primary, Physician PCP - General 07/01/24 Sergio Martinez MD [address] [place] [address] Hematology 05/06/23 [place] [address] [place] [address] Nurse Practitioner Nurse Practitioner 05/07/23 Prosper Shrestha MD 500 [place] [address] Emergency Medicine 05/07/23 Avril Dumont, RN Specialty Bag Loader Hematology & Oncology 05/28/23 05/22/24 Ramin Whitfield MD [address] [place] [address] Assigned Surgical Provider 07/11/23 Sergio Martinez MD 500 [facility] [place] [address] Assigned Cancer Care Provider 09/10/23 Sarah Gould, RN [address] [place] [address] Specialty Bag Loader Hematology & Oncology 08/13/23 Jerrod Werner MD [address] [place] [address] Cardiovascular Disease 04/07/24 Jerrod Werner MD [address] [place] [address] Assigned Heart and Vascular Provider 04/12/24 [place] [address] [place] [address] Assigned Endocrinology Provider 06/10/24 documented as of this encounter
--- OUTSIDE RECORDS SUMMARY | 2024-07-03 07:06 | XMS_ITS | Encounter Summary ---
Author Organization [place] Address [address] [place] [address] Care Team Providers Care Anatomy Professor Name Role Phone Sergio Martinez MD Unavailable Misty Wellington NP Unavailable [phone] Prosper Shrestha MD Unavailable Ramin Whitfield MD Unavailable [phone] Sergio Martinez MD Unavailable No Ref-Primary, Physician Primary Care Provider Sarah Gould RN Unavailable Jerrod Werner MD Unavailable Jerrod Werner MD Unavailable RadShaila cerna MD Unavailable Reason for Visit * Reason Onset Date Comments Results 06/10/2024 Echo & NM Lexisc an stress test (nuc card) Encounter Details Date Type Department Care Team (Late st Contact Info) Description 06/10/2024 Telephone [facility] [address] [facility] [address] [place] [address] Jerrod Werner MD [address] [facility] [address] [place], [place] [address] Results (Echo & NM Lexiscan stress test (nuc card)) Social History Tobacco Use Types Packs/Day Years [...] on file 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 Patient states that his oncologist read his echo results and stress test results the other day, and was concerned about the results. Reviewed results again with patient, as well as comments from Dr. Werner regarding the testing. Patient verbalized understanding and agreed with plan of care. Patient states that he is having shoulder surgery end of October, and will need to see cardiology prior to that, so he is wanting to schedule follow up with Dr. Werner or someone in October to see someone within 30 days prior to shoulder surgery for cardiac clearance. Will route to scheduling to set up. * Telephone Encounter - Saundra Kovacs RN - 06/10/2024 10:01 AM CDT Contacted patient to review further. No answer. Left message for patient to call back. * Telephone Encounter - June Kelly - 06/10/2024 8:15 AM CDT [facility] Phone Message May a detailed message be left on voicemail: yes Reason for Call: Patient called requesting to speak with a member of his care team. Would like to go over the results for his Echo & NM Lexiscan stress test (nuc card). Please call back to further discuss. Thank you! [facility] documented in this encounter Plan of Treatment Upcoming Encounters Date Type Department Care Team (Latest Contact Info) Description 07/28/2024 9:00 AM CDT Infusion Therapy Visit [facility] [address] [place] [address] [address] [place] [phone] Sergio Martinez MD [address] [place], [place] [address] 08/18/2024 2:30 PM CDT Virtual Visit [facility] 909 [place] [phone] Sergio Martinez MD [address] [place], [place] [address] 08/25/2024 11:00 AM CDT Infusion Therapy Visit [facility] [address] [place] [address] [address] [place] [phone] Sergio Martinez MD [address] [place], [place] [address] 10/23/2024 10:30 AM CDT Office Visit [facility] [place] [address] [facility] [address] [place] [phone] Jerrod Werner MD [address] [place] [address] 11/11/2024 9:35 AM CDT Hospital Encounter [address] [address] Alfonzo Sultana MD [facility] [address] [place] [address] 11/11/2024 9:35 AM CDT - 11/11/2024 12:30 PM CDT Surgery [facility] [address] [place] [address] Alfonzo Sultana MD [facility] [address] [place] [address] RIGHT TOTAL SHOULDER ARTHROPLASTY VERSUS Scheduled Procedures [...] documented as of this encounter Care Teams Anatomy Professor Relationship Specialty Start Date End Date No Ref-Primary, Physician PCP - General 07/01/24 Sergio Martinez MD [address] [place] [address] Hematology 05/06/23 [place] [address] [place] [address] Nurse Practitioner Nurse Practitioner 05/07/23 Prosper Shrestha MD [address] [place], [place] [address] Emergency Medicine 05/07/23 Ramin Whitfield MD [address] [facility] 195 [place], [place] [address] Assigned Surgical Provider 07/11/23 Sergio Martinez MD [address] [place], [place] [address] Assigned Cancer Care Provider 09/10/23 Sarah Gould, GR[facility]Z [facility] [address] [facility] 806 [place], [place] [address] Specialty Reed Worker Hematology & Oncology 08/13/23 Jerrod Werner MD [address] [place], [place] [address] Cardiovascular Disease 04/07/24 Jerrod Werner MD [address] [place] [address] Assigned Heart and Vascular Provider 04/12/24 [place] [address] [facility] [place] [address] Assigned Endocrinology Provider 06/10/24 documented as of this encounter
--- NOTE | 2024-07-03 07:23 | ED.CHESTPAIN ---
HPI - Chest Pain General Chief Complaint: Chest Pain <Johnnie Estes MD - Last Filed: 07/04/24 08:04> Stated Complaint: chest pain <Johnnie Estes MD - Last Filed: 07/04/24 08:04> Time Seen by Provider: 07/03/24 07:07 <Johnnie Estes MD - Last Filed: 07/04/24 08:04> History of Present Illness HPI narrative: Patient is a 69-year-old gentleman who comes in today with pain in the left side of his chest with radiation through to his back. Patient has had intermittent chest pain similar to this in the past. He is anticoagulated on apixaban. He 2 days ago had some type of upper GI endoscopy with resection of tissue at the [facility]. The pain is been present ever since. He has had no fevers no chills. He has had a nonproductive cough general malaise body aches and fatigue. He is not able to identify any aggravating or alleviating factors although he does have some improvement when he lays on heating pad. Patient states he does have history of heart disease. History is somewhat unclear at this point as the patient is very uncomfortable. <Johnnie Estes MD - Last Filed: 07/04/24 08:04> Related Data Home Medications: Home Medications ?Medication ?Instructions ?Recorded ?Confirmed apixaban 5 mg tablet (Eliquis) 5 mg PO BID 10/07/23 07/03/24 atorvastatin 20 mg tablet 20 mg PO DAILY 10/07/23 07/03/24 baclofen 10 mg tablet 10 mg PO QPM 10/07/23 07/03/24 calcium citrate 200 mg PO 3XD 10/07/23 07/03/24 clomiphene citrate 50 mg tablet 50 mg PO Q1D 10/07/23 10/07/23 (Clomid) cyanocobalamin (vitamin B-12) 1,000 mcg IM 10/07/23 1,000 mcg/mL injection solution empagliflozin 25 mg tablet 25 mg PO DAILY 10/07/23 10/07/23 (Jardiance) ergocalciferol (vitamin D2) 1,250 1,250 mcg PO 2XW 10/07/23 10/07/23 mcg (50,000 unit) capsule famotidine 40 mg tablet 40 mg PO DAILY 10/07/23 07/03/24 gabapentin 300 mg capsule 600 mg PO 3XD 10/07/23 07/03/24 insulin glargine 100 unit/mL (3 0 - 40 unit subcut DAILY 10/07/23 10/07/23 mL) subcutaneous pen (Lantus Solostar U-100 Insulin) insulin lispro 100 unit/mL 0 - 55 unit subcut DAILY 10/07/23 10/07/23 subcutaneous pen (Humalog KwikPen (U-100) Insulin) levothyroxine 125 mcg tablet 250 mcg PO DAILY 10/07/23 07/03/24 mlqnvu-hvuvwyck-wgsdszr 2 cap PO 3XD 10/07/23 07/03/24 12,000-38,000-60,000 unit capsule,delayed rel (Creon) lubiprostone 24 mcg capsule 24 mcg PO DAILY 10/07/23 07/03/24 metoprolol tartrate 50 mg tablet 50 mg PO BID 10/07/23 07/03/24 omeprazole 40 mg capsule,delayed 40 mg PO DAILY 10/07/23 07/03/24 release oxycodone 5 mg tablet 5 mg PO Q6H PRN pain 10/07/23 10/07/23 sucralfate 1 gram tablet 1 g PO QID 10/07/23 10/07/23 <Johnnie Estes MD - Last Filed: 07/04/24 08:04> Allergies/Adverse Reactions: Allergies Allergy/AdvReac Type Severity Reaction Status Date / Time No Known Drug Allergies Allergy Verified 10/07/23 10:15 <Johnnie Estes MD - Last Filed: 07/04/24 08:04> Review of Systems Status of ROS Reports: 10 or more systems reviewed and unremarkable except as noted in History and below <Johnnie Estes MD - Last Filed: 07/04/24 08:04> [facility] Social History: Social History Smoking Status: Never smoker Do you use any of these nicotine containing products: None Second hand tobacco smoke exposure: No How often do you have a drink containing alcohol: never AUDIT-C Alcohol total score: 0 Non-prescribed substance use: denies use <Johnnie Estes MD - Last Filed: 07/04/24 08:04> Exam Narrative Exam Narrative: EXAM GENERAL: Patient appears comfortable and well. EYES: No scleral icterus. LYMPH: No supraclavicular or cervical lymphadenopathy. SKIN: Visible skin seen during exam normal or with benign process only. EXT: No dependent lower extremity pedal edema. HEART: Regular rate and rhythm with no murmurs, rubs, or gallops. LUNGS: Clear to auscultation bilaterally with no crackles or wheezes. ABD: Soft, non tender, non distended. PSYCH: Good eye contact, speech is not pressured. <Johnnie Estes MD - Last Filed: 07/04/24 08:04> Const Vital Signs, click to edit/add: Vital Signs - 24 hr 07/03/24 08:15 07/03/24 08:30 07/03/24 08:55 Pulse Rate 73 80 73 Respiratory Rate 25 H 24 21 Blood Pressure Pulse Oximetry 94 93 97 07/03/24 08:57 07/03/24 09:00 07/03/24 09:01 Pulse Rate 71 70 73 Respiratory Rate 22 22 23 Blood Pressure 147/87 H 152/84 H Pulse Oximetry 98 95 95 07/03/24 09:15 07/03/24 09:30 07/03/24 09:31 Pulse Rate 74 74 75 Respiratory Rate 17 10 L 16 Blood Pressure 140/87 H Pulse Oximetry 96 95 96 07/03/24 09:52 07/03/24 10:00 07/03/24 10:01 Pulse Rate 72 69 Respiratory Rate 23 19 16 Blood Pressure 133/85 Pulse Oximetry 97 99 07/03/24 10:15 07/03/24 10:30 07/03/24 10:31 Pulse Rate 74 72 70 Respiratory Rate 27 H 19 23 Blood Pressure 139/80 Pulse Oximetry 99 95 94 07/03/24 10:45 07/03/24 11:00 07/03/24 11:01 Pulse Rate 74 77 74 Respiratory Rate 20 16 Blood Pressure 154/108 H Pulse Oximetry 95 93 95 07/03/24 11:15 07/03/24 14:33 07/03/24 14:34 Pulse Rate 78 85 84 Respiratory Rate 16 10 L 12 Blood Pressure Pulse Oximetry 94 97 96 07/03/24 14:45 07/03/24 15:00 07/03/24 15:15 Pulse Rate 79 81 84 Respiratory Rate 9 L 14 Blood Pressure Pulse Oximetry 94 96 94 07/03/24 15:36 07/03/24 15:45 07/03/24 16:00 Pulse Rate 83 81 84 Respiratory Rate 21 7 L 17 Blood Pressure Pulse Oximetry 94 94 93 <Johnnie Estes MD - Last Filed: 07/04/24 08:04> Vital Signs - 24 hr 07/03/24 08:15 07/03/24 08:30 07/03/24 08:55 Pulse Rate 73 80 73 Respiratory Rate 25 H 24 21 Blood Pressure Pulse Oximetry 94 93 97 07/03/24 08:57 07/03/24 09:00 07/03/24 09:01 Pulse Rate 71 70 73 Respiratory Rate 22 22 23 Blood Pressure 147/87 H 152/84 H Pulse Oximetry 98 95 95 07/03/24 09:15 07/03/24 09:30 07/03/24 09:31 Pulse Rate 74 74 75 Respiratory Rate 17 10 L 16 Blood Pressure 140/87 H Pulse Oximetry 96 95 96 07/03/24 09:52 07/03/24 10:00 07/03/24 10:01 Pulse Rate 72 69 Respiratory Rate 23 19 16 Blood Pressure 133/85 Pulse Oximetry 97 99 07/03/24 10:15 07/03/24 10:30 07/03/24 10:31 Pulse Rate 74 72 70 Respiratory Rate 27 H 19 23 Blood Pressure 139/80 Pulse Oximetry 99 95 94 07/03/24 10:45 07/03/24 11:00 07/03/24 11:01 Pulse Rate 74 77 74 Respiratory Rate 20 16 Blood Pressure 154/108 H Pulse Oximetry 95 93 95 07/03/24 11:15 07/03/24 14:33 07/03/24 14:34 Pulse Rate 78 85 84 Respiratory Rate 16 10 L 12 Blood Pressure Pulse Oximetry 94 97 96 07/03/24 14:45 07/03/24 15:00 07/03/24 15:15 Pulse Rate 79 81 84 Respiratory Rate 9 L 14 Blood Pressure Pulse Oximetry 94 96 94 07/03/24 15:36 07/03/24 15:45 07/03/24 16:00 Pulse Rate 83 81 84 Respiratory Rate 21 7 L 17 Blood Pressure Pulse Oximetry 94 94 93 <Arlene Siddiqui MD - Last Filed: 07/03/24 17:04> Course Course ED Course: This time I am not certain what his past medical history fully consists of or what is procedure at the [facility] was. I did send off CBC troponin EKG CTA of the chest comprehensive metabolic panel and we will reassess. <Johnnie Estes MD - Last Filed: 07/04/24 08:04> Reevaluation(s) Time of Reevaluation #1: 08:26 <Arlene Siddiqui MD - Last Filed: 07/03/24 17:04> Reevaluation #1: This patient is complaining about anxiety with imaging. Will discuss with him that the CT is not like MRI. He should not have any claustrophobia with the CT. Patient is reassured. Did cancel the Ativan as I do not believe we have any IV left or are critically low on this. Patient now understands that this is different than the MRI and feels he can do this. He is still having some discomfort but remains hemodynamically stable. <Arlene Siddiqui MD - Last Filed: 07/03/24 17:04> Time of Reevaluation #2: 09:26 <Arlene Siddiqui MD - Last Filed: 07/03/24 17:04> Reevaluation #2: Patient had follow-up EGD reportedly on Saturday, and had a procedure where they had done some nerve ablation a few weeks prior. 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 Will give him some IV fentanyl, he has not had any pain management yet. Will also give him some Zofran as he is nauseated. Reviewed that the radiologist does see some free air in the left retroperitoneum. It is possible that he had some procedure that will explain this, will get CT imaging done and have all images pushed up to the [facility]. We are proceeding with abdominal imaging, reviewed with the radiologist and he does want IV contrast given. Will give 500 mL normal saline fluid bolus. <Arlene Siddiqui MD - Last Filed: 07/03/24 17:04> Time of Reevaluation #3: 12:19 <Arlene Siddiqui MD - Last Filed: 07/03/24 17:04> Reevaluation #3: Did update patient on my conversation with GI at [facility]. His pain is return back. His abdomen is benign, soft, nontender, certainly no rebound or guarding. His pain is likely referred pain, feeling it in his left chest radiating up to his left shoulder and back area. <Arlene Siddiqui MD - Last Filed: 07/03/24 17:04> Additional Reevaluation(s): 3:15 p.m.: Patient was requesting to leave AMA. He unfortunately is in the room without a TV. Reviewed with him that we cannot facilitate the transfer right now as they do not have beds. Explain to him that his situation could certainly be life-threatening and a surgical emergency if there is a micro perforation that would become infected/septic. There is a possible need for surgical intervention if worsening. I highly encourage him to stay. Consequences of significant illness from this are real and very concerning. We can work to try to make him more comfortable, just needs to be a bit patient with us. Soon as we have some room availability, can switch him to room with the TV. Staff will try to get him a hospital bed. We will get an Accu-Chek on him. He states he has not ate or drink, did take his insulin this morning but feels flushed, feels like his glucose is high. Reviewed with him that I do want him NPO. He did take his morning medicines. 3:48 p.m.: Point care glucose is 97. Will talk to patient regarding this. I feel he is possibly relatively hypoglycemic as he does seem to have some symptoms. Can do some oral glucose but do not want to give him significant oral intake. 4:58 p.m.: There reportedly is a bed at [facility] of for patient. Nursing staff is giving sign-out. Patient is having a headache. Will do a point of care glucose to make sure this is stable. Will give him some IV Tylenol as we are attempting to maintain NPO status until he has been cleared by GI. patient actually just got his oral glucose, had not come down from pharmacy. His headache is resolving with oral glucose. Did have nursing staff hold on rechecking the point of care glucose as he actually just got the oral glucose. Did order IV Tylenol but nursing staff will hold if the headache resolves. They will do the point of care glucose in the next hour or before if return of symptoms. He hopefully will be transferring shortly. <Arlene Siddiqui MD - Last Filed: 07/03/24 17:04> Consultations Consultation #1: Have spoke with Dr. Sultan WILLIAMSON from [facility]. She did look in patient's record. 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 This was done by Dr. Garzon. We will need to page this physician. 12:10 p.m.: Have spoken with Dr. Abdi from . He accepts patient in transfer, does want the patient up there. 1:25 p.m.: Did speak with the hospitalist Dr. Brooks from [facility]. The E spank is currently full and patients have been waiting days to get in there. She is hesitant to place him on the [facility] due to inability to get surgical consult there but GI could see him. Patient at this time does not have an acute surgical abdomen. I do understand if there is a microperforation it could worsen and could become surgical. GI reportedly does want him up there as soon as possible to evaluate. From my perspective, do feel comfortable that this patient transfer for GI consultation. I am going to cover with antibiotics as there is likely [place] [facility] [place], have ordered Zosyn. He already has p.r.n. fentanyl written for. Will start him on IV fluids, make sure his oral status is NPO, will give a dose of IV Protonix. <Arlene Siddiqui MD - Last Filed: 07/03/24 17:04> Time: 10:38 <Arlene Siddiqui MD - Last Filed: 07/03/24 17:04> Vital Signs Vital signs: Initial Vital Signs Pulse Rate 81 07/03/24 07:12 Respiratory Rate 18 07/03/24 07:12 Respiratory Effort Normal, Spontaneous, Non-Labored 07/03/24 07:12 Respiratory Depth Normal 07/03/24 07:12 Respiratory Pattern Normal 07/03/24 07:12 Blood Pressure 147/91 H 07/03/24 07:12 Blood Pressure Mean 109 H 07/03/24 07:12 Pulse Oximetry 97 07/03/24 07:12 Vital Signs Pulse Rate 81 07/03/24 07:12 Respiratory Rate 18 07/03/24 07:12 Blood Pressure 147/91 H 07/03/24 07:12 Pulse Oximetry 97 07/03/24 07:12 Temperature 97.1 F L 07/03/24 07:13 Pulse Rate 84 07/03/24 16:00 Respiratory Rate 17 07/03/24 16:00 Blood Pressure 154/108 H 07/03/24 11:01 Pulse Oximetry 93 07/03/24 16:00 Oxygen Delivery Method Room Air 07/03/24 07:13 <Johnnie Estes MD - Last Filed: 07/04/24 08:04> Initial Vital Signs Pulse Rate 81 07/03/24 07:12 Respiratory Rate 18 07/03/24 07:12 Respiratory Effort Normal, Spontaneous, Non-Labored 07/03/24 07:12 Respiratory Depth Normal 07/03/24 07:12 Respiratory Pattern Normal 07/03/24 07:12 Blood Pressure 147/91 H 07/03/24 07:12 Blood Pressure Mean 109 H 07/03/24 07:12 Pulse Oximetry 97 07/03/24 07:12 Vital Signs Pulse Rate 81 07/03/24 07:12 Respiratory Rate 18 07/03/24 07:12 Blood Pressure 147/91 H 07/03/24 07:12 Pulse Oximetry 97 07/03/24 07:12 Temperature 97.1 F L 07/03/24 07:13 Pulse Rate 84 07/03/24 16:00 Respiratory Rate 17 07/03/24 16:00 Blood Pressure 154/108 H 07/03/24 11:01 Pulse Oximetry 93 07/03/24 16:00 Oxygen Delivery Method Room Air 07/03/24 07:13 <Arlene Siddiqui MD - Last Filed: 07/03/24 17:04> Medications Administered Medications: Discontinued Medications Generic Name Dose Route Start Last Admin Trade Name Freq PRN Reason Stop Dose Admin Fentanyl 50 mcg 07/03/24 09:30 07/03/24 10:12 Fentanyl 100 Mcg/2 Ml Inj IVP 07/03/24 09:31 50 mcg ONCE ONE Administration Fentanyl 50 mcg 07/03/24 12:19 07/03/24 14:06 Fentanyl 100 Mcg/2 Ml Inj IVP 07/03/24 12:20 50 mcg ONCE ONE Administration Glucose 4 gm 07/03/24 15:49 07/03/24 16:58 Glucose 4 Gm Chewable Tab PO 4 gm Q30M PRN Administration Sodium Chloride 500 mls @ 500 mls/hr 07/03/24 09:26 07/03/24 11:24 0.9 % Sodium Chloride 500 Ml IV 07/03/24 10:25 Infused .Q1H ONE Infusion Piperacillin Sod/Tazobactam 100 mls @ 200 mls/hr 07/03/24 14:00 07/03/24 14:52 Sod 3.375 gm/ Sodium Chloride IVPB Infused Q6H CAREY Infusion Potassium Chloride/Sodium Chloride 1,000 mls @ 100 mls/hr 07/03/24 13:50 07/03/24 15:00 0.9 % Sodium Ch + Kcl 20 Meq/L IV 100 mls/hr .Q10H CAREY Administration Acetaminophen 1,000 mg in 100 mls @ 400 mls/hr 07/03/24 16:59 07/03/24 18:22 Acetaminophen Inj IVPB 07/03/24 17:13 Not Given ONCE ONE Ondansetron HCl 4 mg 07/03/24 09:30 07/03/24 10:12 Ondansetron 2 Mg/Ml Inj IVP 07/03/24 09:31 4 mg ONCE ONE Administration Pantoprazole Sodium 40 mg 07/03/24 13:49 07/03/24 14:07 Pantoprazole Sodium 40 Mg Inj IVP 07/03/24 13:50 40 mg ONCE ONE Administration <Johnnie Estes MD - Last Filed: 07/04/24 08:04> Discontinued Medications Generic Name Dose Route Start Last Admin Trade Name Freq PRN Reason Stop Dose Admin Fentanyl 50 mcg 07/03/24 09:30 07/03/24 10:12 Fentanyl 100 Mcg/2 Ml Inj IVP 07/03/24 09:31 50 mcg ONCE ONE Administration Fentanyl 50 mcg 07/03/24 12:19 07/03/24 14:06 Fentanyl 100 Mcg/2 Ml Inj IVP 07/03/24 12:20 50 mcg ONCE ONE Administration Glucose 4 gm 07/03/24 15:49 07/03/24 16:58 Glucose 4 Gm Chewable Tab PO 4 gm Q30M PRN Administration Sodium Chloride 500 mls @ 500 mls/hr 07/03/24 09:26 07/03/24 11:24 0.9 % Sodium Chloride 500 Ml IV 07/03/24 10:25 Infused .Q1H ONE Infusion Piperacillin Sod/Tazobactam 100 mls @ 200 mls/hr 07/03/24 14:00 07/03/24 14:52 Sod 3.375 gm/ Sodium Chloride IVPB Infused Q6H CAREY Infusion Potassium Chloride/Sodium Chloride 1,000 mls @ 100 mls/hr 07/03/24 13:50 07/03/24 15:00 0.9 % Sodium Ch + Kcl 20 Meq/L IV 100 mls/hr .Q10H CAREY Administration Acetaminophen 1,000 mg in 100 mls @ 400 mls/hr 07/03/24 16:59 07/03/24 18:22 Acetaminophen Inj IVPB 07/03/24 17:13 Not Given ONCE ONE Ondansetron HCl 4 mg 07/03/24 09:30 07/03/24 10:12 Ondansetron 2 Mg/Ml Inj IVP 07/03/24 09:31 4 mg ONCE ONE Administration Pantoprazole Sodium 40 mg 07/03/24 13:49 07/03/24 14:07 Pantoprazole Sodium 40 Mg Inj IVP 07/03/24 13:50 40 mg ONCE ONE Administration <Arlene Siddiqui MD - Last Filed: 07/03/24 17:04> MDM - Chest Pain Lab Data Attestation: I reviewed the patient's lab results. <Arlene Siddiqui MD - Last Filed: 07/03/24 17:04> Labs: Lab Results 07/03/24 07/03/24 07/03/24 Range/Units 07:26 07:37 07:39 WBC 6.51 (4.50-11.00) K/uL RBC 5.07 (4.30-5.90) m/uL Hgb 14.2 (13.5-17.5) gm/dL Hct 41.8 (37.0-53.0) % MCV 82 (80-100) fL MCH 28 (26-34) pg MCHC 34 (32-36) gm/dL RDW Coeff of Carolyn 15.4 (11.5-15.5) % Plt Count 159 (140-440) K/uL Neut % (Auto) 67.1 (42.0-72.0) % Lymph % (Auto) 23.2 (20-44) % Mcclain % (Auto) 8.3 (0.0-11.0) % Eos % (Auto) 0.8 (0.0-7.0) % Baso % (Auto) 0.3 (0.0-3.0) % Neut # (Auto) 4.37 (1.7-7.0) K/uL Lymph # (Auto) 1.51 (0.90-2.90) K/uL Mcclain # (Auto) 0.50 (0.00-0.90) K/UL Eos # (Auto) 0.05 (0.00-0.50) K/uL Baso # (Auto) 0.02 (0.00-0.30) K/uL Abs Immat Gran (auto) 0.02 (0.00-0.30) K/uL Imm/Tot Granulo (auto) 0.3 % Sodium 140 (135-149) mmol/L Potassium 4.1 (3.6-5.1) mmol/L Chloride 104 (96-114) mmol/L Carbon Dioxide 27 (20-32) mmol/L Anion Gap 9 (7-15) mEq/L BUN 16 (7-30) mg/dL Creatinine 0.9 (0.5-1.5) mg/dL Estimated Creat Clear 84.50 Estimated GFR 93 ml/min Glucose 183 H (60-115) mg/dL Calcium 8.9 (8.4-10.6) mg/dL Total Bilirubin 1.0 (0.1-1.5) mg/dL AST 31 (12-35) U/L ALT 23 (4-50) U/L Alkaline Phosphatase 100 (40-150) U/L Troponin I < 0.01 (0.01-0.04) ng/mL Total Protein 7.3 (6.0-8.3) g/dL Albumin 4.2 (3.3-5.0) g/dL SARS-CoV-2 (PCR) Negative SARS-CoV-2 (Negative) Influenza Type A (PCR) Negative PCR FLU A (Negative) Influenza Type B (PCR) Negative PCR FLU B (Negative) RSV (PCR) Negative PCR RSV (Negative) POC Glucose (60-115) mg/dl 07/03/24 Range/Units 15:17 WBC (4.50-11.00) K/uL RBC (4.30-5.90) m/uL Hgb (13.5-17.5) gm/dL Hct (37.0-53.0) % MCV (80-100) fL MCH (26-34) pg MCHC (32-36) gm/dL RDW Coeff of Carolyn (11.5-15.5) % Plt Count (140-440) K/uL Neut % (Auto) (42.0-72.0) % Lymph % (Auto) (20-44) % Mcclain % (Auto) (0.0-11.0) % Eos % (Auto) (0.0-7.0) % Baso % (Auto) (0.0-3.0) % Neut # (Auto) (1.7-7.0) K/uL Lymph # (Auto) (0.90-2.90) K/uL Mcclain # (Auto) (0.00-0.90) K/UL Eos # (Auto) (0.00-0.50) K/uL Baso # (Auto) (0.00-0.30) K/uL Abs Immat Gran (auto) (0.00-0.30) K/uL Imm/Tot Granulo (auto) % Sodium (135-149) mmol/L Potassium (3.6-5.1) mmol/L Chloride (96-114) mmol/L Carbon Dioxide (20-32) mmol/L Anion Gap (7-15) mEq/L BUN (7-30) mg/dL Creatinine (0.5-1.5) mg/dL Estimated Creat Clear Estimated GFR ml/min Glucose (60-115) mg/dL Calcium (8.4-10.6) mg/dL Total Bilirubin (0.1-1.5) mg/dL AST (12-35) U/L ALT (4-50) U/L Alkaline Phosphatase (40-150) U/L Troponin I (0.01-0.04) ng/mL Total Protein (6.0-8.3) g/dL Albumin (3.3-5.0) g/dL SARS-CoV-2 (PCR) (Negative) Influenza Type A (PCR) (Negative) Influenza Type B (PCR) (Negative) RSV (PCR) (Negative) POC Glucose 97 (60-115) mg/dl <Johnnie Estes MD - Last Filed: 07/04/24 08:04> Lab Results 07/03/24 07/03/24 07/03/24 Range/Units 07:26 07:37 07:39 WBC 6.51 (4.50-11.00) K/uL RBC 5.07 (4.30-5.90) m/uL Hgb 14.2 (13.5-17.5) gm/dL Hct 41.8 (37.0-53.0) % MCV 82 (80-100) fL MCH 28 (26-34) pg MCHC 34 (32-36) gm/dL RDW Coeff of Carolyn 15.4 (11.5-15.5) % Plt Count 159 (140-440) K/uL Neut % (Auto) 67.1 (42.0-72.0) % Lymph % (Auto) 23.2 (20-44) % Mcclain % (Auto) 8.3 (0.0-11.0) % Eos % (Auto) 0.8 (0.0-7.0) % Baso % (Auto) 0.3 (0.0-3.0) % Neut # (Auto) 4.37 (1.7-7.0) K/uL Lymph # (Auto) 1.51 (0.90-2.90) K/uL Mcclain # (Auto) 0.50 (0.00-0.90) K/UL Eos # (Auto) 0.05 (0.00-0.50) K/uL Baso # (Auto) 0.02 (0.00-0.30) K/uL Abs Immat Gran (auto) 0.02 (0.00-0.30) K/uL Imm/Tot Granulo (auto) 0.3 % Sodium 140 (135-149) mmol/L Potassium 4.1 (3.6-5.1) mmol/L Chloride 104 (96-114) mmol/L Carbon Dioxide 27 (20-32) mmol/L Anion Gap 9 (7-15) mEq/L BUN 16 (7-30) mg/dL Creatinine 0.9 (0.5-1.5) mg/dL Estimated Creat Clear 84.50 Estimated GFR 93 ml/min Glucose 183 H (60-115) mg/dL Calcium 8.9 (8.4-10.6) mg/dL Total Bilirubin 1.0 (0.1-1.5) mg/dL AST 31 (12-35) U/L ALT 23 (4-50) U/L Alkaline Phosphatase 100 (40-150) U/L Troponin I < 0.01 (0.01-0.04) ng/mL Total Protein 7.3 (6.0-8.3) g/dL Albumin 4.2 (3.3-5.0) g/dL SARS-CoV-2 (PCR) Negative SARS-CoV-2 (Negative) Influenza Type A (PCR) Negative PCR FLU A (Negative) Influenza Type B (PCR) Negative PCR FLU B (Negative) RSV (PCR) Negative PCR RSV (Negative) POC Glucose (60-115) mg/dl 07/03/24 Range/Units 15:17 WBC (4.50-11.00) K/uL RBC (4.30-5.90) m/uL Hgb (13.5-17.5) gm/dL Hct (37.0-53.0) % MCV (80-100) fL MCH (26-34) pg MCHC (32-36) gm/dL RDW Coeff of Carolyn (11.5-15.5) % Plt Count (140-440) K/uL Neut % (Auto) (42.0-72.0) % Lymph % (Auto) (20-44) % Mcclain % (Auto) (0.0-11.0) % Eos % (Auto) (0.0-7.0) % Baso % (Auto) (0.0-3.0) % Neut # (Auto) (1.7-7.0) K/uL Lymph # (Auto) (0.90-2.90) K/uL Mcclain # (Auto) (0.00-0.90) K/UL Eos # (Auto) (0.00-0.50) K/uL Baso # (Auto) (0.00-0.30) K/uL Abs Immat Gran (auto) (0.00-0.30) K/uL Imm/Tot Granulo (auto) % Sodium (135-149) mmol/L Potassium (3.6-5.1) mmol/L Chloride (96-114) mmol/L Carbon Dioxide (20-32) mmol/L Anion Gap (7-15) mEq/L BUN (7-30) mg/dL Creatinine (0.5-1.5) mg/dL Estimated Creat Clear Estimated GFR ml/min Glucose (60-115) mg/dL Calcium (8.4-10.6) mg/dL Total Bilirubin (0.1-1.5) mg/dL AST (12-35) U/L ALT (4-50) U/L Alkaline Phosphatase (40-150) U/L Troponin I (0.01-0.04) ng/mL Total Protein (6.0-8.3) g/dL Albumin (3.3-5.0) g/dL SARS-CoV-2 (PCR) (Negative) Influenza Type A (PCR) (Negative) Influenza Type B (PCR) (Negative) RSV (PCR) (Negative) POC Glucose 97 (60-115) mg/dl <Arlene Siddiqui MD - Last Filed: 07/03/24 17:04> Imaging Data CT scan - chest: Attestation: I have reviewed the pertinent imaging results. <Arlene Siddiqui MD - Last Filed: 07/03/24 17:04> Radiologist's impression: Patient: ERICKA WILLIS Facility:?[facility] Patient ID:?[id number] Site Patient ID:?[id number]. 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 Reconstructed multiplanar MIP series were done. Please note that all CT scans at this facility use dose modulation, iterative reconstruction, and/or weight-based dosing when appropriate to reduce radiation dose to as low as reasonably achievable. FINDINGS: THORAX Pulmonary Arterial Vasculature: Opacification of the pulmonary arterial tree is adequate for assessment of pulmonary embolism. No intraluminal pulmonary arterial filling defect is identified to indicate a pulmonary embolism. Visualized Lower Neck: No lower cervical adenopathy. Lungs: Stable 3 mm anterior right apical pulmonary nodule (6; 40) for which no routine imaging surveillance is indicated in the absence of an established history of malignancy and without significant risk factors for lung cancer such as a smoking history. If the latter, Fleischner Society guidelines suggest an optional 12 month follow-up CT to confirm benignity. Note is otherwise made of a benign calcified right upper lobe granuloma elsewhere (6; 57). Bilateral lower lobe dependent hypoventilatory changes. Pleura: No pleural effusion. No pneumothorax. Mediastinum: Thoracic aorta and pulmonary trunk are normal in caliber. Chronic severe multivessel atherosclerotic coronary artery calcifications are noted. Trachea and esophagus are normal in appearance. No mediastinal lymphadenopathy. ABDOMEN Visualized Upper Abdomen: Nonspecific locules of extraluminal gas are noted in the left retroperitoneum of the visualized upper abdomen of undetermined etiology. CT of the abdomen and pelvis is recommended for further evaluation. Nonobstructing right nephrolith (5; 199). Cholecystectomy. SKELETON AND BODY WALL Thoracic DISH. Incidental note is made of a left shoulder hemiarthroplasty. Right glenohumeral osteoarthrosis. IMPRESSION: 1. No evidence of pulmonary embolism. 2. Nonspecific small volume left pneumoretroperitoneum of undetermined etiology/clinical significance, presumably representing a perforated hollow viscus until proven otherwise. Infection is included in the differential diagnosis. On discussing this case with Dr. Chirinos the patient is recently status post upper endoscopy and complains of left shoulder pain. CT of the abdomen and pelvis with intravenous contrast is recommended for further evaluation. 3. Stable 3 mm anterior right apical pulmonary nodule (6; 40) for which no routine imaging surveillance is indicated in the absence of an established history of malignancy and without significant risk factors for lung cancer such as a smoking history. If the latter, Fleischner Society guidelines suggest an optional 12 month follow-up CT to confirm benignity. 4. Incidental findings described in the body of the report. Findings and recommendations discussed with the ordering provider Dr. Arlene Chirinos at 9:22 a.m. INTERNAL COMBUSTION ENGINEER. Please note that all CT scans at this facility use dose modulation, iterative reconstruction, and/or weight-based dosing when appropriate to reduce radiation dose to as low as reasonably achievable. Dictated by Nathan Cano MD @ 07/03/2024 9:26:47 AM (Electronic Signature) <Arlene Siddiqui MD - Last Filed: 07/03/24 17:04> CT scan - abdomen: Attestation: I have reviewed the pertinent imaging results. <Arlene Siddiqui MD - Last Filed: 07/03/24 17:04> Radiologist's impression: Patient: ERICKA WILLIS Facility:?[facility] Patient ID:?[id number] Site Patient ID:?[id number]. Site :?[id number] Study:?CT-Abdomen/Pelvis W/ ISOVUE 370-07/03/2024 9:57:54 AM Ordering Physician:Guru Jacobs Final Report: INDICATION: Retroperitoneal air noted in the upper left abdomen on chest CT obtained earlier this day. An abdomen and pelvis CT was recommended to assess for the exact etiology. Patient has a history of recent endoscopy and history of small intestine carcinoid. COMPARISON: A chest CT from earlier the same day. Also, portions of in October 07, [address] TECHNIQUE: CT examination of the abdomen and pelvis was performed following the uneventful intravenous administration of 130 cc of Isovue 370. Thin section axial images were obtained from the lung bases through the pubic symphysis. Oral contrast was not administered. Please note that all CT scans at this facility use dose modulation, iterative reconstruction, and/or weight-based dosing when appropriate to reduce radiation dose to as low as reasonably achievable. FINDINGS: LUNG BASES: Linear opacities at the lung bases consistent with atelectasis.Heart size normal the lung bases. LIVER/BILIARY SYSTEM:Hepatic steatosis. No focal mass. Cholecystectomy. Mildly prominent biliary ductal system. This is probably reservoir phenomena from a prior cholecystectomy. This is similar to in October 07, [address] ADRENALS: Normal KIDNEYS, URETERS and BLADDER:The kidneys appear normal. No visible mass, calculus or hydronephrosis. The ureters and bladder as visualized appear normal. SPLEEN:Normal appearance. PANCREAS: Appears normal. RETROPERITONEUM and MESENTERY: No adenopathy or mass. There is a very small amount of gas in the retroperitoneum. This is adjacent to the left robert of the diaphragm in the region of the celiac and SMA. By report, this patient has had ganglionic region injections for pain management and it is possible that this is related to those injections. The patient also apparently had recent upper endoscopy and is possible that there is a micro perforation associated with an endoscopy. GASTROINTESTINAL SYSTEM: There is no evidence of diverticulitis, colitis, mechanical obstruction, or appendicitis. The small bowel as visualized appears normal.Gaseous distention of colon without mechanical obstruction. I do not see any findings indicative of small bowel carcinoid as per clinical history. I do not see any direct discontinuity in the bowel. PELVIS: No mass, adenopathy or free fluid. OSSEOUS STRUCTURES and ABDOMINAL WALL: There is an age-appropriate appearance of the osseous structures.No significant abdominal wall defect. OTHER: No free fluid or free air. IMPRESSION: 1. A few locules of air are noted in the upper abdominal retroperitoneum. This could be air related to recent injection for upper abdominal ganglionic injections for pain management. The patient also had recent upper endoscopy and it is possible this is related to a micro perforation 2. Other nonacute appearing findings as discussed above Please note that all CT scans at this facility use dose modulation, iterative reconstruction, and/or weight-based dosing when appropriate to reduce radiation dose to as low as reasonably achievable. Dictated by Richard Torres MD @ 07/03/2024 10:10:40 AM (Electronic Signature) <Arlene Siddiqui MD - Last Filed: 07/03/24 17:04> ECG Data Attestation: I personally reviewed and interpreted this ECG as follows: (Normal sinus rhythm, 64 beats per minute. Poor R-wave progression anterior precordial leads with flipped T-waves V1 V2, flattened V3 but no definitive ST segment change.) <Arlene Siddiqui MD - Last Filed: 07/03/24 17:04> ECG interpretation date: 07/03/24 <Arlene Siddiqui MD - Last Filed: 07/03/24 17:04> ECG interpretation time: 08:23 <Arlene Siddiqui MD - Last Filed: 07/03/24 17:04> Prior ECG tracings: available for review (Compared to 10/07/2023, this EKG had normal R-wave progression, no flipped T-waves.) <Arlene Siddiqui MD - Last Filed: 07/03/24 17:04> Discharge Plan Discharge Clinical Impression: Intra-abdominal free air of unknown etiology <Johnnie Estes MD - Last Filed: 07/04/24 08:04> Patient Disposition: [facility] <Johnnie Estes MD - Last Filed: 07/04/24 08:04> Discharge Location: [facility] <Johnnie Estes MD - Last Filed: 07/04/24 08:04>
--- NOTE | 2024-07-03 07:26 | CRLHL7_ITS ---
For Patients: As a result of the 21st Century Cures Act, medical imaging exams and procedure reports are released immediately into your electronic medical record. You may view this report before your referring provider. If you have questions, please contact your health care provider. INDICATION: chest pain hx small intestine carcinoid (Sic) COMPARISON: 10/07/2023 TECHNIQUE: CT pulmonary angiography with 95 cc of Isovue 370 intravenous contrast. Reconstructed multiplanar MIP series were done. Please note that all CT scans at this facility use dose modulation, iterative reconstruction, and/or weight-based dosing when appropriate to reduce radiation dose to as low as reasonably achievable. FINDINGS: THORAX Pulmonary Arterial Vasculature: Opacification of the pulmonary arterial tree is adequate for assessment of pulmonary embolism. No intraluminal pulmonary arterial filling defect is identified to indicate a pulmonary embolism. Visualized Lower Neck: No lower cervical adenopathy. Lungs: Stable 3 mm anterior right apical pulmonary nodule (6; 40) for which no routine imaging surveillance is indicated in the absence of an established history of malignancy and without significant risk factors for lung cancer such as a smoking history. If the latter, Fleischner Society guidelines suggest an optional 12 month follow-up CT to confirm benignity. Note is otherwise made of a benign calcified right upper lobe granuloma elsewhere (6; 57). Bilateral lower lobe dependent hypoventilatory changes. Pleura: No pleural effusion. No pneumothorax. Mediastinum: Thoracic aorta and pulmonary trunk are normal in caliber. Chronic severe multivessel atherosclerotic coronary artery calcifications are noted. Trachea and esophagus are normal in appearance. No mediastinal lymphadenopathy. ABDOMEN Visualized Upper Abdomen: Nonspecific locules of extraluminal gas are noted in the left retroperitoneum of the visualized upper abdomen of undetermined etiology. CT of the abdomen and pelvis is recommended for further evaluation. Nonobstructing right nephrolith (5; 199). Cholecystectomy. SKELETON AND BODY WALL Thoracic DISH. Incidental note is made of a left shoulder hemiarthroplasty. Right glenohumeral osteoarthrosis. IMPRESSION: 1. No evidence of pulmonary embolism. 2. Nonspecific small volume left pneumoretroperitoneum of undetermined etiology/clinical significance, presumably representing a perforated hollow viscus until proven otherwise. Infection is included in the differential diagnosis. On discussing this case with Dr. Chirinos the patient is recently status post upper endoscopy and complains of left shoulder pain. CT of the abdomen and pelvis with intravenous contrast is recommended for further evaluation. 3. Stable 3 mm anterior right apical pulmonary nodule (6; 40) for which no routine imaging surveillance is indicated in the absence of an established history of malignancy and without significant risk factors for lung cancer such as a smoking history. If the latter, Fleischner Society guidelines suggest an optional 12 month follow-up CT to confirm benignity. 4. Incidental findings described in the body of the report. Findings and recommendations discussed with the ordering provider Dr. Arlene Chirinos at 9:22 a.m. INFORMATION MANAGEMENT SPECIALIST. Please note that all CT scans at this facility use dose modulation, iterative reconstruction, and/or weight-based dosing when appropriate to reduce radiation dose to as low as reasonably achievable. Dictated by Nathan Cano MD @ 07/03/2024 9:26:47 AM (Electronically Signed)
--- OUTSIDE RECORDS SUMMARY | 2024-07-03 07:52 | XMS_ITS | Encounter Summary ---
Author Organization [place] Address [address] [place] [address]. [place] [address] Care Team Providers Care Dental Surgery Doctor Name Role Phone Ciarra PascalC Primary Care Provider + Denis Sharma MD Unavailable Unavailab Sergio Rosas MD Unavailable Misty Wellington NP Unavailable [phone] Prosper Shrestha MD Unavailable [phone] Jayden Brantley MD Unavailable [phone] Avril Dumont RN Unavailable Ramin Whitfield MD Unavailable [phone] Sergio Martinez MD Unavailable Sarah Gould RN Unavailable [phone] Jerrod Werner MD Unavailable [phone] Jerrod Werner MD Unavailable [phone] Reason for Visit * Reason Onset Date Comments Appointment 05/07/2023 1-2 weeks per re ferral Encounter Details Date Type Department Care Team (Late st Contact Info) Description 05/07/[address] [place] [address] Denis Sharma MD Appointment (1-2 [...] on file 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 [address] [place] [address] [address] [place] [phone] Sergio Martinez MD [address] [place] [address] 10/23/2024 10:30 AM CDT Office Visit [facility] [place] [address] [facility] [address] [place] [address] Jerrod Werner MD [address] [place] [address] 11/11/2024 9:35 AM CDT Hospital Encounter [facility] [address] [place] [address] Alfonzo Sultana MD [facility] [address] [place] [address] 11/11/2024 9:35 AM CDT - 11/11/2024 12:30 PM CDT Surgery [facility] [address] [place] [address] Alfonzo Sultana MD [facility] [place] [address] RIGHT TOTAL SHOULDER ARTHROPLASTY VERSUS Scheduled Procedures Name Priority Associated Diagnoses Date/Ti me ARTHROPLASTY, SHOULDER, TOTAL Osteoarthritis of right shoulder 11/11/2024 9:35 AM CDT ARTHROPLASTY, SHOULDER, TOTAL, REVERSE Osteoarthritis of right shoulder 11/11/2024 9:35 AM CDT documented as of this encounter Visit Diagnoses Not on filedocumented in this encounter Care Teams Dental Surgery Doctor Relationship Specialty Start Date End Date Ciarra Pascal PA-C PCP - General 05/03/20 10/21/23 Denis Sharma MD Assigned Heart and Vascular Provider 05/12/22 04/11/24 Sergio Martinez MD [address] [place] [address] Hematology 05/06/23 Misty Wellington, ERLIN [address] [place] [address] Nurse Practitioner Nurse Practitioner 05/07/23 Prosper Shrestha MD [address] [place], [place] [address] Emergency Medicine 05/07/23 Jayden Brantley MD [address] [facility] [address] [place] [address] Assigned Surgical Provider 05/11/23 07/10/23 Avril Dumont, GRZEGORZ Specialty Sheet Heater Helper Hematology & Oncology 05/28/23 05/22/24 Ramin Whitfield MD [address] [place] [address] Assigned Surgical Provider 07/11/23 Sergio Martinez MD [address] [facility] [place], [place] [address] Assigned Cancer Care Provider 09/10/23 Sarah Gould, GRZEGORZ [address] [place] [address] Specialty Sheet Heater Helper Hematology & Oncology 08/13/23 Jerrod Werner MD [address] [place] [address] Cardiovascular Disease 04/07/24 Jerrod Werner MD [address] [place] [address] Assigned Heart and Vascular Provider 04/12/24 documented as of this encounter
--- OUTSIDE RECORDS SUMMARY | 2024-07-03 07:53 | XMS_ITS | Encounter Summary ---
Author Organization [place] Address [address] 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iOp [facility] [address] [place] [address] Phone: tel: fax: Referral ID Status Reason Start Date Expiration Date Visits Re quested Visits Authorized [id number] 1 1 Encounter Details Date Type Department Care Team (Late st Contact Info) Description 07/01/2024 11:10 AM CDT - 07/01/2024 12:20 PM CDT Surgery 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 * (s) After Anesthesia (Sleep Medicine) (Togolese) documented in this encounter Medications at Time of Discharge lxwvjcc-[id number] ease (CREON 12) 40500 UNITS CPEP Take 2 capsules by mouth 3 times daily (with meals) apixaban ANTICOAGULANT (ELIQUIS ANTICOAGULANT) 5 MG tabletIndications:A trial fibrillation with RVR (H) Take 1 tablet (5 mg) by mouth 2 times daily 180 tablet 3 4 atorvastatin (LIPITOR) 40 MG tabletIndications:M ixed hyperlipidemia,Harley nary artery disease involving [place] coronary artery of [place] heart without angina pectoris Take 1 tablet [...] 50 MG tabletIndications:C oronary artery disease involving [place] coronary artery of [place] heart without angina pectoris Take 1 tablet [...] 4 times daily 4 vitamin D2 (ERGOCALCIFEROL) 39219 units (1250 mcg) capsule Take 50,000 Units by mouth twice a week Saturday & documented as of this encounter Miscellaneous Notes * Brief Op Note - Phyllis Merritt MD - 07/01/2024 12:22 PM CDT [facility] Brief Operative Note Pre-operative diagnosis: Neuroendocrine [...] 07/28/2024 9:00 AM CDT Infusion Therapy Visit [facility] [address] [place] [address] [address] [place] [phone] Heaven Sumner MD [address] [place], [place] [address] 08/18/2024 2:30 PM CDT Virtual Visit [facility] [address] [place] [phone] Heaven Sumner MD [address] [place] [address] 08/25/2024 11:00 AM CDT Infusion Therapy Visit [address] [place] [address] Heaven Sumner MD [address] [place], [place] [address] 10/23/2024 10:30 AM CDT Office Visit [facility] [place] [address] [facility] [address] [place] [address] Jerrod Werner MD [address] [place], [place] [address] 11/11/2024 9:35 AM CDT Hospital [facility] [address] [place] [phone] Alfonzo Sultana MD [facility] [address] [place] [address] 11/11/2024 9:35 AM CDT - 11/11/2024 12:30 PM CDT [facility] Services [address] [place] [address] Alfonzo Sultana MD [facility] [address] [place] [address] RIGHT TOTAL SHOULDER ARTHROPLASTY VERSUS Scheduled Procedures [...] AK ER POCT Final Result LABORATORY POC [facility] Core Lab [address] [facility], Room [address] [place] [phone] * (ABNORMAL) Glucose by meter (07/01/2024 11:01 AM CDT) GLUCOSE BY METER POCT 169(H) 70 - 99 mg/dL 07/01/2024 11:08 AM CDT U LABORATORY POC Blood, Capillary BLOOD SPECIMEN / Unknown 07/01/2024 11:01 AM CDT 07/01/2024 11:08 AM CDT Guru Nicolle Garzon MD LAB - BEAK ER POCT Final Result LABORATORY POC [facility] Core Lab [address] [facility], Room [address] [place] [phone] * UPPER EUS (07/01/2024 11:00 AM CDT) Upper EUS [facility] [address] [facility] [place] [address] [phone] Endoscopy Department ___ Patient Name: Brooks Munson [...] by the physician, the nurse and the business intelligence director in the procedure room. Mental Status Examination: [...] of the exam. Signature of teaching physician [id number] MITALI PHYLLIS MERRITT, Number of Addenda: 0 [...] documented as of this encounter Care Teams Software Quality Engineer Relationship Specialty Start Date End Date No Ref-Primary, Physician PCP - General 07/01/24 Heaven Sumner MD [address] [place] [address] Hematology 05/06/23 Misty Wellington, COSMETIC SALES [address] [place] [address] Nurse Practitioner Nurse Practitioner 05/07/23 Prosper Shrestha MD [address] [place], [place] [address] Emergency Medicine 05/07/23 Ramin Whitfield MD [address] [facility] [address] [place], [place] [address] Assigned Surgical Provider 07/11/23 Heaven Sumner MD [address] [place], [place] [address] Assigned Cancer Care Provider 09/10/23 Sarah Gould, GRZEGORZ [facility] [address] [facility] [address] [place], [place] [address] Specialty Shank Sander Hematology & Oncology 08/13/23 Jerrod Werner MD [address] [place] [address] Cardiovascular Disease 04/07/24 Jerrod Werner MD [address] [place] [address] Assigned Heart and Vascular Provider 04/12/24 [place] [address] [place] [address] Assigned Endocrinology Provider 06/10/24 documented as of this encounter
--- OUTSIDE RECORDS SUMMARY | 2024-07-03 07:53 | XMS_ITS | Encounter Summary ---
Author Organization [place] Address [facility] [place] [address] Care Team Providers Care Resource Teacher Name Role Phone Sergio Martinez MD Unavailable Misty Wellington NP Unavailable [phone] Prosper Shrestha MD Unavailable [phone] Ramin Whitfield MD Unavailable [phone] Sergio Martinez MD Unavailable Sarah Gould RN Unavailable Jerrod Werner MD Unavailable Jerrod Werner MD Unavailable RadShaila cerna MD Unavailable Encounter Details Date Type Department Care Team (Latest Contact Info) Description 06/26/2024 Prep for Procedure [facility] [place] [address] [facility] 4th [place] [address] Carmina Reed, GRZEGORZ Neuroendocrine tumor [...] on file 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 Gender Identity Not on file Sexual Orientation [...] 07/28/2024 9:00 AM CDT Infusion Therapy Visit [facility] Cancer [facility] [address] [place] [address] Sergio Martinez MD [address] [place] [address] 08/18/2024 2:30 PM CDT Virtual Visit [facility] [address] [place] [address] Sergio Martinez MD [address] [place], [place] [address] 08/25/2024 11:00 AM CDT Infusion Therapy Visit [facility] [address] [place] [place] [phone] Sergio Martinez MD [address] [place] [address] 10/23/2024 10:30 AM CDT Office Visit [facility] [place] [address] [facility] [address] [place] [address] Jerrod Werner MD [address] [place], [place] [address] 11/11/2024 9:35 AM CDT Hospital Encounter [facility] [address] [place] [address] Alfonzo Sultana MD [facility] [address] [place] [address] 11/11/2024 9:35 AM CDT - 11/11/2024 12:30 PM CDT Surgery [place] [address] [place] [address] Alfonzo Sultana MD [facility] [address] [place] [address] RIGHT TOTAL SHOULDER ARTHROPLASTY VERSUS Scheduled Procedures Name Priority Associated Diagnoses Date/Ti ri ARTHROPLASTY, SHOULDER, TOTAL Osteoarthritis of right shoulder [...] documented as of this encounter Care Teams Resource Teacher Relationship Specialty Start Date End Date Sergio Martinez MD [address] [place] [address] Hematology 05/06/23 [place] [address] [place] [address] Nurse Practitioner Nurse Practitioner 05/07/23 Prosper Shrestha MD 500 [place] [address] Emergency Medicine 05/07/23 Ramin Whitfield MD [address] [place] [address] [address] [place] [address] Assigned Surgical Provider 07/11/23 Sergio Martinez MD [address] [place] [address] Assigned Cancer Care Provider 09/10/23 Sarah Gould, GRZEGORZ [facility] [address] [facility] [address] [place] [address] Specialty Spot Checker Hematology & Oncology 08/13/23 Jerrod Werner MD [address] [place] [phone] Cardiovascular Disease 04/07/24 Jerrod Werner MD [address] [place] [address] Assigned Heart and Vascular Provider 04/12/24 [place] [address] [place] [address] Assigned Endocrinology Provider 06/10/24 documented as of this encounter
--- OUTSIDE RECORDS SUMMARY | 2024-07-03 07:53 | XMS_ITS | Encounter Summary ---
Author Organization [place] Address Critical access hospital0 [facility] 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 Gender Identity Not on file Sexual Orientation Not on file documented as of this encounter Plan of Treatment Upcoming Encounters Date Type Department Care Team (Latest Contact Info) Description 07/28/2024 9:00 AM CDT Infusion Therapy Visit [address] [place] [phone] Sergio Martinez MD 500 [place], [place] [address] 08/18/2024 2:30 PM CDT Virtual Visit [facility] 9[address] [place] [phone] Sergio Martinez MD 500 [place], [place] [address] 08/25/2024 11:00 AM CDT Infusion Therapy Visit [address] [place] [address] Sergio Martinez MD 500 [place], [place] [address] 10/23/2024 10:30 AM CDT Office Visit [facility] [address] [place] [address] [address] [place] [address] Jerrod Werner MD [address] [place] [address] 11/11/2024 9:35 AM CDT Hospital Encounter [facility] [address] [place] [address] Alfonzo Sultana MD [facility] [address] [place] [address] 11/11/2024 9:35 AM CDT - 11/11/2024 12:30 PM CDT Surgery [facility] [address] [place] [address] Alfonzo Sultana MD [facility] [address] [place] [address] RIGHT TOTAL SHOULDER ARTHROPLASTY VERSUS Scheduled Procedures [...] documented as of this encounter Care Teams Band Scroll Saw Operator Relationship Specialty Start Date End Date Sergio Martinez MD 500 [place] [address] Hematology 05/06/23 [place] [address] [address] [place] [address] Nurse Practitioner Nurse Practitioner 05/07/23 Prosper Sherstha MD 500 [place] [address] Emergency Medicine 05/07/23 Ramin Whitfield MD 420 [facility] 195 [place], [place] [address] Assigned Surgical Provider 07/11/23 Sergio Martinez MD 500 [facility] [place], [place] [address] Assigned Cancer Care Provider 09/10/23 Sarah Gould, GRZEGORZ [facility] 420 [facility] 806 [place], [place] [address] Specialty Vegetable Specker Hematology & Oncology 08/13/23 Jerrod Werner MD [address] [place], [place] [address] Cardiovascular Disease 04/07/24 Jerrod Werner MD [address] [place], [place] [address] Assigned Heart and Vascular Provider 04/12/24 [place] [address] [place], [place] [address] Assigned Endocrinology Provider 06/10/24 documented as of this encounter
--- OUTSIDE RECORDS SUMMARY | 2024-07-03 07:53 | XMS_ITS | Encounter Summary ---
Author Organization [place] Address [address] [place] [address]. [place] [address] Care Team Providers Care Public Health Nurse Name Role Phone Ciarra PascalC Primary Care Provider + Antonietta Burton APRN BASS STRING WINDER Unavailable [phone] Ramin Whitfield MD Unavailable [phone] Dago Newell MD Unavailable [phone] Denis Sharma MD Unavailable Unavailab Sergio Rosas MD Unavailable Misty Wellington PUTTY AND CAULKING SUPERVISOR Unavailable [phone] Prosper Shrestha MD Unavailable [phone] Jayden Brantley MD Unavailable [phone] Avril Dumont RN Unavailable Ramin Whitfield MD Unavailable [phone] Sergio Martinez MD Unavailable Sarah Gould RN Unavailable Jerrod Werner MD Unavailable [phone] Jerrod Werner MD Unavailable [phone] Encounter Details Date Type Department Care Team [...] on file 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 Gender Identity Not on file Sexual Orientation [...] 07/28/2024 9:00 AM CDT Infusion Therapy Visit [address] [place] [phone] Sergio Martinez MD [address] [place] [address] 08/18/2024 2:30 PM CDT Virtual Visit [facility] 909 [place] [phone] Sergio Martinez MD [address] [place] [address] 08/25/2024 11:00 AM CDT [facility] [address] [place] [phone] Sergio Martinez MD 500 [place] [address] 10/23/2024 10:30 AM CDT Office Visit [facility] [place] [address] [facility] [address] [place] [phone] Jerrod Werner MD [address] [facility] [address] [place] [address] 11/11/2024 9:35 AM CDT Hospital Encounter [facility] [address] [place] [phone] Alfonzo Sultana MD [facility] [address] [place] [address] 11/11/2024 9:35 AM CDT - 11/11/2024 12:30 PM CDT Surgery [address] [phone] Alfonzo Sultana MD [facility] [address] [place] [address] RIGHT TOTAL SHOULDER ARTHROPLASTY VERSUS Scheduled Procedures Name Priority Associated Diagnoses Date/Ti me ARTHROPLASTY, SHOULDER, TOTAL Osteoarthritis of right shoulder 11/11/2024 9:35 AM CDT ARTHROPLASTY, SHOULDER, TOTAL, REVERSE Osteoarthritis of right shoulder 11/11/2024 9:35 AM CDT documented as of this encounter Visit Diagnoses Not on filedocumented in this encounter Care Teams Public Health Nurse Relationship Specialty Start Date End Date Ciarra Pascal PA-C PCP - General 05/03/20 10/21/23 Antonietta Burton APRN BASS STRING WINDER [address] [place] [address] Assigned Heart and Vascular Provider 05/21/21 10/25/21 Ramin Whitfield MD 420 [facility] 195 [place], [place] [address] Assigned Surgical Provider 09/16/21 03/13/23 Dago Newell MD [facility] [address] [facility] 108 [place] [address] Assigned Heart and Vascular Provider 10/28/21 05/11/22 Denis Sharma MD [facility] [address] 108 [place] [address] Assigned Heart and Vascular Provider 05/12/22 04/11/24 Sergio Martinez MD 500 [place], [place] [address] Hematology 05/06/23 [place] [address] [place] [place] [address] Nurse Practitioner Nurse Practitioner 05/07/23 Prosper Shrestha MD 500 [place] [address] Emergency Medicine 05/07/23 Jayden [facility]antley MD [address] [facility] [address] [place], [place] [address] Assigned Surgical Provider 05/11/23 07/10/23 Avril Dumont RN Specialty Continuous Wave Operator Hematology & Oncology 05/28/23 05/22/24 Ramin Whitfield MD 420 [facility] 195 [place], [place] [address] Assigned Surgical Provider 07/11/23 Sergio Martinez MD 500 [place], [place] [address] Assigned Cancer Care Provider 09/10/23 Sarah Gould, GRZEGORZ [facility] 420 [facility] 806 [place], [place] [address] Specialty Continuous Wave Operator Hematology & Oncology 08/13/23 Jerrod Werner MD [address] [place] [address] Cardiovascular Disease 04/07/24 Jerrod Wrener MD [address] [place] [address] Assigned Heart and Vascular Provider 04/12/24 documented as of this encounter
--- OUTSIDE RECORDS SUMMARY | 2024-07-03 07:53 | XMS_ITS | Clinical Summary ---
Author Organization [facility] Address [address] [place] [address] Care Team Providers Care Zig Zag Stitcher Name Role Phone Ignacio Schroeder MD Primary Care Provider [phone] Allergies Active Allergy Reactions Criticality Noted Date Comments Nsaids (Non-Steroidal Anti-Inflammatory Drug) Other - Describe In Comment Field Medium 05/02/2020 Velvet Weaver is told patient he should avoid NSAIDs with past history of acute KS x2 Medications NITROGLYCERIN 0.4 MG SUBLINGUAL TAB [...] mellitus wit h diabetic cataract, unspecified whether pickler helper insulin use 04/13/2024 Megaloblastic anemia due to [...] 04/08/2020 Male erectile disorder 04/08/2020 CAD in [place] artery Overview (09/25/2004): History of mild coronary artery disease. - Initial electron-beam computed tomography scan in August 2000 showed a coronary calcium score of 329.5 (98th percentile.) Subsequent coronary angiogram at [facility] in October 2000 showed a 20% lesion [...] Department Care Team Description 04/13/2024 8:30 AM SEAFOOD CLERK Office Visit [facility] [address] [place], [place] [phone] Kelsey Akhtar, Preoperative Exam (RIGHT Shoulder replacement - [facility] - Dr. Sultana - 04/23/2024) 04/13/2024 Travel from Last 3 Months Immunizations Immunization Administration Dates Next Due COVID-19 vaccine (Fusion SheepBio NTech 30mcg/0.3mL) 12YO+ GHANSHYAM-SUCROSE GAETANO MAZARIEGOS 05/29/2021 COVID-19 vaccine (Streamline Alliance NTMedia Armor 30mcg/0.3mL) PF, MDV 06/09/2020,05/19/2020 Influenza Virus, Unspecified 04/06/2020 Influenza, IIV3 (Age >=3 years) 01/29/2006 Influenza, IIV4 01/03/2017,12/06/2015,12/03/2015 Pneumococcal Poly,23-Valent (Pneumovax) 02/07/20 02 Pneumococcal conj 13-Valent (Prevnar 13) 022 Td (Age >=7 Years) 12/11/2005 Tdap 04/11/2020 Zoster (Zostavax-ZVL, live) 02/01/2014 Family History Medical History Relation Name Comments Heart attack Father Cancer-colon Mother Genetic Other Father - a t age 48 of an [place], hx of smoking. 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 Not on file Not on file Not on fi le Obstetrics History Last Filed Vital Signs Vital Sign Reading Time Taken Comments Blood Pressure 137/85 04/13/2024 8:39 AM SEAFOOD CLERK Pulse 83 04/13/2024 8:39 AM SEAFOOD CLERK Temperature 36.7 C (98.1 F) 09/03/2022 8:55 AM CDT Respiratory Rate 14 06/20/2023 8:58 AM CDT Oxygen Saturation 98% 04/13/2024 8:39 AM SEAFOOD CLERK Inhaled Oxygen Concentration - - Weight 129.5 kg (285 lb 8 oz) 04/13/2024 8:39 AM SEAFOOD CLERK Height 189.2 cm (6' 2.5) 03/27/2024 7:03 AM SEAFOOD CLERK Body Mass Index 36.17 03/27/2024 7:03 AM SEAFOOD CLERK Plan of Treatment Health Maintenance Due Date [...] 76 07/07/203107/06, 06/30/2021, 11/02/2018 ([facility]) Tdap Completed 04/11/2020 Procedures Procedure Name Priority Date/Time Associated Diagnosis Comments SCAN-COLONOSCOPY 07/06/2021 2:00 PM CDT LIPID PANEL Timed 01/29/2006 10:10 AM SEAFOOD CLERK DYSLIPIDEMIA , PRIMARILY HYPERTRIGLYCERIDEMIA from Last 3 Months or Most Recently Relevant to Health Maintenance Results * SCAN-COLONOSCOPY (07/06/2021 2:00 PM CDT) Narrative Procedure Note Ricky Zurita MD - 07/06/2021 12:53 PM CDT [facility] [address], [address], [place] [address] Patient Name: Brooks Munson Gender: Male Exam Date: 07/06/2021 Visit Number: [id number] Age: 66 Years Date of : 1955 Attending MD: Ricky Zurita MD Medical Record#: [id number] Procedure: Colonoscopy Indications: Previous adenomatous polyp(s) Abdominal [...] signed by: Buck [place] [address] Orders Instruction(s)/Education: Instruction/Education Timeframe Assessment Colon Cancer [...] * (ABNORMAL) LIPID PANEL (01/29/2006 10:10 AM SEAFOOD CLERK) CHOLESTEROL,TOTAL 194 110 - 199 mg/dL [facility] TRIGLYCERIDES 267(H) <150 mg/dL [facility] HDL CHOLESTEROL 39(L) >40 mg/dL [facility] CHOL/HDL RATIO 4.97(H) <4.51 [facility] LDL CHOLESTEROL 102 60 - 130 mg/dL [facility] PATIENT STATUS Fasting [facility] Blood specimen (specimen) BLOOD SPECIMEN / Unknown 01/29/2006 10:10 AM SEAFOOD CLERK 01/29/2006 9:57 AM SEAFOOD CLERK Denilson Adams MD CHEMISTRY Final Result [facility] [address] [place] [address] from Last 3 Months or Most Recently Relevant to Health Maintenance Insurance MEDICARE [place] ONLY MEDICARE PART A HB ONLY [facility] MEDICARE PART B HB ONLY Advance Directives * Full Code (Latest Code Status on File) Date Activated Date Inactivated Comments 08/25/2015 8:03 AM 08/25/2015 2:56 PM Question Answer Comments Code Status Discussion: Per Existing Order Care Teams Zig Zag Stitcher Relationship Specialty Start Date End Date Ignacio Schroeder MD [facility] [place] [address] PCP - General Family Practice 04/13/24
--- OUTSIDE RECORDS SUMMARY | 2024-07-03 07:53 | XMS_ITS | Encounter Summary ---
Author Organization [place] Address [facility] [place] [address] Care Team Providers Care E Commerce Strategist Name Role Phone Sergio Martinez MD Unavailable Misty Wellington NP Unavailable [phone] Prosper Shrestha MD Unavailable [phone] Avril Dumont RN Unavailable Ramin Whitfield MD Unavailable [phone] Sergio Martinez MD Unavailable No Ref-Primary, Physician Primary Care Provider Sarah Gould RN Unavailable [phone] Jerrod Werner MD Unavailable [phone] Jerrod Werner MD Unavailable [phone] Shaila Landis MD Unavailable Encounter Details Date Type Department Care Team (Late st Contact Info) Description 04/28/2024 [facility] [address] [place] [address] Stephanie Damon, GRZEGORZ Social History [...] on file 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 Gender Identity Not on file Sexual Orientation Not on file documented as of this encounter Plan of Treatment Upcoming Encounters Date Type Department Care Team (Latest Contact Info) Description 07/28/2024 9:00 AM CDT Infusion Therapy Visit [place] [address] [place] [address] [place] [phone] Sergio Martinez MD [address] [place] [address] 08/18/2024 2:30 PM CDT Virtual Visit [facility] [address] [place] [phone] Sergio Martinez MD [address] [place] [address] 08/25/2024 11:00 AM CDT Infusion Therapy Visit [place] [address] [place] [address] Sergio Martinez MD [address] [place] [address] 10/23/2024 10:30 AM CDT Office Visit [facility] [address] [place] [address] Jerrod Werner MD [address] [place] [address] 11/11/2024 9:35 AM CDT Hospital Encounter [facility] [address] [place] [address] Alfonzo Sultana MD [facility] [address] [place] [address] 11/11/2024 9:35 AM CDT - 11/11/2024 12:30 PM CDT Surgery [facility] [address] [place] [address] Alfonzo Sultana MD [facility] [address] [place] [address] RIGHT TOTAL SHOULDER ARTHROPLASTY VERSUS Scheduled Procedures Name Priority Associated Diagnoses Date/Ti me ARTHROPLASTY, SHOULDER, TOTAL Osteoarthritis of right shoulder 11/11/2024 9:35 AM CDT ARTHROPLASTY, SHOULDER, TOTAL, REVERSE Osteoarthritis of right shoulder 11/11/2024 9:35 AM CDT documented as of this encounter Visit Diagnoses Not on filedocumented in this encounter Care Teams E Commerce Strategist Relationship Specialty Start Date End Date No Ref-Primary, Physician PCP - General 07/01/24 Sergio Martinez MD 500 [place] [address] Hematology 05/06/23 [place] [address] [place] [address] Nurse Practitioner Nurse Practitioner 05/07/23 Prosper Shrestha MD 500 [place] [address] Emergency Medicine 05/07/23 Avril Dumont, GRZEGORZ Specialty Foiling Machine Adjuster Hematology & Oncology 05/28/23 05/22/24 Ramin Whitfield MD 420 [facility] 195 [place], [place] [address] Assigned Surgical Provider 07/11/23 Sergio Martinez MD 500 [place], [place] [address] Assigned Cancer Care Provider 09/10/23 Sarah Gould, GRZEGORZ [facility] 420 [facility] 806 [place], [place] [address] Specialty Foiling Machine Adjuster Hematology & Oncology 08/13/23 Jerrod Werner MD [address] [place] [address] Cardiovascular Disease 04/07/24 Jerrod Werner MD [address] [place] [address] Assigned Heart and Vascular Provider 04/12/24 [place] [address] [place] [address] Assigned Endocrinology Provider 06/10/24 documented as of this encounter
--- OUTSIDE RECORDS SUMMARY | 2024-07-03 07:53 | XMS_ITS | Clinical Summary ---
Author Organization [facility] Address [address] [place] [address]. [place] [address] Care Team Providers Care Ring Making Machine Operator Name Role Phone Heaven Sumner MD Unavailable Misty Wellington NP Unavailable [phone] Prosper Shrestha MD Unavailable [phone] Ramin Whitfield MD Unavailable [phone] Heaven Sumner MD Unavailable No Ref-Primary, Physician Primary Care Provider Sarah Gould RN Unavailable Ihsan Sharif MD Unavailable [phone] Ihsan Sharif MD Unavailable [phone] Shaila Landis MD Unavailable Allergies No known active allergies Medications xtllxfp-lekegx-sgj tease (CREON 12) 85620 UNITS CPEP Take 2 capsules by mouth [...] by mouth daily Active vitamin D2 (ERGOCALCIFEROL) 71581 units (1250 mcg) capsule Take 50,000 Units [...] 50 MG tabletIndications: Coronary artery disease involving [place] coronary artery of [place] heart without angina pectoris Take 1 tablet [...] tabletIndications: Mixed hyperlipidemia,Cor onary artery disease involving [place] coronary artery of [place] heart without angina pectoris Take 1 tablet [...] myocardial infarction) Coronary artery disease invo lving [place] coronary artery of [place] heart without angina pectoris Overview (09/20/2014): cardiac cath 2014: BMS to OM1, cath 2010: diffuse disease Family history of early CAD Resolved Problems Problem Noted Date Diagnosed Date Resolved Date Ischemic cardiomyopathy 10/07/201407/20 Hypertriglyceridemia 016 Cardiomyopathy 10/07/2014 Overview (07/22/2014): 07/2014 EF 50-55% by Echo Encounters Date Type Department Care Team Description 07/01/2024 11:34 AM CDT Anesthesia Event [facility] PeriOp Services [address] [place] [address] Kelton Bah MD Anderson, Jeanna 07/01/2024 11:10 AM CDT - 07/01/2024 12:20 PM CDT Surgery [facility] [address] [place] [address] Guru Nicolle Garzon MD ENDOSCOPIC ULTRASOUND, ESOPHAGOSCOPY / UPPER GASTROINTESTINAL TRACT (GI) with celiac plexus block 07/01/2024 9:47 AM CDT - 07/01/2024 1:00 PM CDT Hospital Encounter [facility] Same Day Surgery [place] [address] [place] [address] Guru Nicolle Garzon MD Discharge Disposition: Home or Self Care 06/30/2024 12:00 PM CDT Infusion Therapy Visit [facility] Cancer Center [facility] [address] CARTY [address] [place] [phone] Heaven Sumner MD Neuroendocrine cancer (H) (Primary Dx) 06/29/2024 Travel 06/26/2024 Travel 06/26/[address] [facility] Gastroenterology Clinic [address] [address] Baldo Bailon 06/26/[address] [facility] Pancreas and Biliary Clinic [address] [address] Carmina Reed, GRZEGORZ Neuroendocrine tumor (H) (Primary Dx); Cancer related pain 06/23/[address] [facility]iliary [facility] [address] [address] Oxana Bullock RN 06/22/2024 8:30 AM CDT Virtual Visit [facility] Cancer [address] [phone] Heaven Sumner MD Neuroendocrine cancer (H) (Primary Dx) 06/17/2024 Orders Only [facility] Cancer [address] [phone] Heaven Sumner MD Primary pancreatic neuroendocrine tumor (H) (Primary Dx) 06/10/[address] 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 Endoscopy [address] [place] [phone] Guru Nicolle Garzon MD ESOPHAGOGASTRODUODENOS COPY, WITH FINE NEEDLE ASPIRATION BIOPSY, WITH ENDOSCOPIC ULTRASOUND GUIDANCE 05/05/2024 9:59 AM CDT Anesthesia Event [facility] Endoscopy [address] [place] [phone] Hong Reina MD 05/05/2024 8:38 AM CDT - 05/05/2024 1:01 PM CDT Hospital Encounter [facility] Same Day Surgery [place] [address] [place] [phone] Guru Nicolle Garzon MD S/P fine needle aspiration (Primary Dx) Discharge Disposition: Home or Self Care 04/28/[address] [facility] Gastroenterology Clinic [address] [phone] Stephanie Damon, GRZEGORZ 04/28/2024 Telephone [facility] [address] [place] [address] Shaila Landis MD Appointment 04/28/[address] [facility] Gastroenterology [address] [phone] Stephanie Damon, GRZEGORZ 04/28/[address] [facility] Gastroenterology [address] [address] Stephanie Damon, RN Pt. Information/instructio n (EUS) 04/27/[address] [facility] Gastroenterology [address] [address] None Procedure (EUS) 04/22/2024 7:09 AM ABALONE FISHERMAN - 04/22/2024 11:59 PM ABALONE FISHERMAN Hospital Encounter [facility] Specialty Care [address] [facility] [address] [place] [address] Ihsan Sharif MD PAF (paroxysmal atrial fibrillation) (H); Type 2 diabetes mellitus without complication, with long-term current use of insulin (H); Benign essential hypertension; Coronary artery disease involving [place] coronary artery of [place] heart without angina pectoris; Dizziness; Atrial fibrillation with RVR (H) Discharge Disposition: Home or Self Care 04/22/2024 Travel 04/21/[address] [facility] Heart [address] [place] [phone] Denis Sharma MD Refill Request 04/17/2024 Telephone [facility] [address] [place] [phone] Esther Walker RN 04/16/2024 9:57 AM ABALONE FISHERMAN - 04/16/2024 11:59 PM ABALONE FISHERMAN Hospital Encounter [facility] Imaging [address] [place] [address] Ihsan Sharif MD Discharge Disposition: Home or Self Care 04/16/2024 9:57 AM ABALONE FISHERMAN - 04/16/2024 11:59 PM ABALONE FISHERMAN Hospital Encounter [facility] Heart Care [address] [place] [address] Ihsan Sharif MD Discharge Disposition: Home or Self Care 04/16/2024 Travel 04/15/2024 7:06 AM ABALONE FISHERMAN - 04/15/2024 11:59 PM ABALONE FISHERMAN Hospital Encounter [facility] Imaging [address] [place] [address] Ihsan Sharif MD Discharge Disposition: Home or Self Care 04/15/2024 7:06 AM ABALONE FISHERMAN - 04/15/2024 11:59 PM ABALONE FISHERMAN Hospital Encounter [facility] Imaging [address] [place] [address] Ihsan Sharif MD PAF (paroxysmal atrial fibrillation) (H); Type 2 diabetes mellitus without complication, with long-term current use of insulin (H); Benign essential hypertension; Coronary artery disease involving [place] coronary artery of [place] heart without angina pectoris Discharge Disposition: Home or Self Care 04/15/2024 Travel 04/14/[address] [facility] Pancreas [facility] Biliary Clinic [address] [address] Carmina Reed RN Epigastric pain (Primary Dx) 2024 8:00 AM ABALONE FISHERMAN Office Visit [facility] [address] [place] [phone] Ihsan Sharif MD PAF (paroxysmal atrial fibrillation) (H) (Primary Dx); Type 2 diabetes mellitus without complication, with long-term current use of insulin (H); Benign essential hypertension; Coronary artery disease involving [place] coronary artery of [place] heart without angina pectoris 2024 Telephone [facility] [address] [facility] [address] [place] [address] Esther Walker RN 2024 Telephone [facility] [address] [facility] [address] [place] [address] Ihsan Sharif MD Appointment 04/06/2024 8:30 AM ABALONE FISHERMAN Virtual Visit [facility] Cancer [facility] [address] [place] [address] Heaven Sumner MD Neuroendocrine cancer [...] on file Legal Sex Male 3:10 AM ABALONE FISHERMAN Gender Identity Not on file Sexual Orientation [...] 07/28/2024 9:00 AM CDT Infusion Therapy Visit [address] [place] [phone] Heaven Sumner MD [address] [place], [place] [phone] 08/18/2024 2:30 PM CDT Virtual Visit [facility] Cancer Clinic [address] [place] [address] Heaven Sumner MD [address] [place] [address] 08/25/2024 11:00 AM CDT Infusion Therapy Visit [facility] [address] [address] [place] [phone] Heaven Sumner MD [address] [place] [address] 10/23/2024 10:30 AM CDT Office Visit [facility] Heart Clinic [place] [address] [facility] [address] [place] [address] Ihsan Sharif MD [address] [place] [address] 11/11/2024 9:35 AM CDT Hospital Encounter [facility] [address] [place] [address] Alfonzo Sultana MD [facility] [address] [place] [address] 11/11/2024 9:35 AM CDT - 11/11/2024 12:30 PM CDT Surgery [facility] [address] [place] [address] Alfonzo Sultana MD [facility] [address] [place] [phone] RIGHT TOTAL SHOULDER ARTHROPLASTY VERSUS Scheduled Procedures [...] [employer] Implanted Type Area Biodiesel Production Technician Device Identifier Shelf Expiration Date Model / Serial / Lot Cement Bone Simplex P Speedset Full Dose - [id number] Implanted:Qt y: 1 on 01/31/2022 by Alfonzo Sultana MD at [facility] Cement, Bone Left: Shoulder [employer] 03/20/2023 [id number] / / [id number] Imp [place] Hole Eliminator Hip Depuy Duraloc 1246-03-000 Implanted:Qt y: 1 on 08/04/2018 Metallic Hardware/A nchor Right: Hip [employer] [id number] 05/18/2026 [id number] / / [id number] Imp [place] Hole Eliminator Hip Depuy Duraloc 1246-03-000 Implanted:Qt y: 1 on 05/02/2020 Metallic Hardware/A nchor Left: Hip [employer] [id number] 01/17/2030 [id number] / / [id number] Cementless Femoral Stem Size 18 High Offset Implanted:Qt y: 1 on 05/02/2020 Other Left: Hip Depuy [id number] 02/17/2023 [id number] / / [id number] Imp Liner Depuy [place] Altrx [id number] +4 3709-36-041 Implanted:Qt y: 1 on 08/04/2018 Total Joint Component/ Insert Right: Hip [employer] [id number] 06/17/2022 [id number] / / [id number] Imp Cup Chris [place] 60mm 1217-22-060 Implanted:Qt y: 1 on 08/04/2018 Total Joint Component/ Insert Right: Hip [employer] [id number] 03/20/2028 [id number] / / [id number] Stem Femoral Ho Collarless Sz 16 Implanted:Qt y: 1 on 08/04/2018 Total Joint Component/ Insert Right: Hip [employer] [id number] 06/17/2020 [id number] / / [id number] Head Ceramic Delta 01/31 36mm +12 Implanted:Qt y: 1 on 08/04/2018 Total Joint Component/ Insert Right: Hip [employer] [id number] 08/17/2021 1365-36-740 / / [id number] Liner Acetabular Altrx +4 Neut [id number] Implanted:Qt y: 1 on 05/02/2020 Total Joint Component/ Insert Left: Hip [employer] [id number] 10/19/2023 1221-36-462 / / [id number] Imp Head Femoral Depuy Ceramic 36mm +1.5mm 1365-36-310 Implanted:Qt y: 1 on 05/02/2020 Total Joint Component/ Insert Left: Hip [employer] [id number] 03/20/2025 [id number] / / [id number] Imp Cup Chris [place] 62mm 1217-22-062 Implanted:Qt y: 1 on 05/02/2020 Total Joint Component/ Insert Left: Hip [employer] [id number] 09/17/2029 [id number] / / [id number] [place] Cortiloc Md 40mm - [id number] Implanted:Qt y: 1 on 01/31/2022 by Alfonzo Sultana MD at [facility] Total Joint Component/ Insert Left: Shoulder [employer] [id number] 04/25/2026 [id number] / [id number] / NA Head Humeral Stb Low Offset 05p02mu - [id number] Implanted:Qt y: 1 on 01/31/2022 by Alfonzo Sultana MD at [facility] Total Joint Component/ Insert Left: Shoulder [employer] [id number] 08/21/2026 [id number] / [id number] / NA Stem Humeral Anatomic Std Ptc 6b - [id number] Implanted:Qt y: 1 on 01/31/2022 by Alfonzo Sultana MD at [facility] Total Joint Component/ Insert Left: Shoulder [employer] [id number] 10/04/2026 [id number] / [id number] / NA Procedures Procedure Name Priority [...] CDT ECHO COMPLETE Routine 04/22/2024 7:45 AM ABALONE FISHERMAN PAF (paroxysmal atrial fibrillation) (H) Type 2 diabetes mellitus without complication, with long-term current use of insulin (H) Benign essential hypertension Coronary artery disease involving [place] coronary artery of [place] heart without angina pectoris Dizziness Atrial fibrillation with RVR (H) NM MPI WITH LEXISCAN Routine 04/16/2024 11:40 AM ABALONE FISHERMAN PAF (paroxysmal atrial fibrillation) (H) Type 2 diabetes mellitus without complication, with long-term current use of insulin (H) Benign essential hypertension Coronary artery disease involving [place] coronary artery of [place] heart without angina pectoris CT CHEST/ABDOMEN/PELVIS W CONTRAST Routine 03/31/2024 2:36 PM ABALONE FISHERMAN Neuroendocrine cancer (H) Secondary carcinoid tumors of peritoneum (H) Carcinoid tumor, unspecified site, unspecified whether malignant (H) COMPREHENSIVE METABOLIC PANEL Routine 10:00 AM ABALONE FISHERMAN Neuroendocrine cancer (H) LIPID PROFILE Routine 08/07/2023 10:46 AM CDT Mixed hyperlipidemia COLONOSCOPY - HIM SCAN 12:00 AM CDT TSH Routine 04/21/2018 10:46 PM ABALONE FISHERMAN HEMOGLOBIN A1C Routine 04/21/2018 10:46 PM ABALONE FISHERMAN Syncope, unspecified syncope type from Last 3 [...] ER POCT Final Result [facility] [place] Core Lab [address] [facility], [address] [place] [address] * UPPER EUS (07/01/2024 11:00 AM CDT) [facility] [address] [place] [address] [phone] Endoscopy Department ___ Patient Name: Brooks Willis Procedure Date: 07/01/2024 11:00 AM Date of : 1955 Admit Type: Outpatient Age: 69 Room: [place] [address] Gender: Male Note Status: Finalized Attending MD: [...] by the physician, the nurse and the toy assembly supervisor in the procedure room. Mental Status Examination: [...] of the exam. Signature of teaching physician Jean/X6rARIGGURU GARZON FRANKLIN MERRITT, Number of Addenda: 0 [...] Fine needle aspiration was not performed by [facility] staff. Aspirate immediate study/adequacy: I, ARACELI [...] component of this testing was completed at [facility] and [facility]. Stain controls for all stains resulted within this report have been reviewed and show appropriate reactivity. 05/07/2024 2:06 PM CDT SPECIALTY LABS Fine Needle Aspiration TOPOGRAPHY UNKNOWN / Unknown 05/05/2024 10:41 AM CDT 05/05/2024 10:46 AM CDT Guru Nicolle Garzon MD LAB - [place] ER AP Final Result [facility] Specialty Lab [address] [facility], [address] [place] [address] * Surgical Pathology Exam (05/05/2024 10:20 AM CDT) Case Report Surgical Pathology Report Case: [id number] Authorizing Provider: Guru Nicolle Garzon Collected: 05/05/2024 10:20 AM MD Renato Ordering Location: [facility] Received: 05/05/2024 10:52 AM Endoscopy [...] component of this testing was completed at [facility]. Stain controls for all stains [...] CDT Comment:R/O H Pylori us Guru Nicolle HARYD - SYD MASCORRO Final Result SPECIALTY LABS [facility] [address] [facility] [address] Building, [address] [address], [facility] LABORATORY [facility] [place] Core Lab [address] [facility] [address] [facility], Room [address] [address], [facility] * UPPER EUS (05/05/2024 9:43 AM CDT) Pathologist [facility] Upper E[facility] [address] [facility], [place] [address] [phone] Endoscopy Department ___ Patient Name: Brooks Willis Procedure Date: 05/05/2024 9:43 AM Date of : 1955 Admit Type: Outpatient Age: 69 Room: [place] [address] Gender: Male Note Status: Finalized Attending MD: [...] of the exam. Signature of teaching physician Titoc/X6aCDHFGURU GARZON Number of Addenda: 0 Note Initiated On: 05/05/2024 9:43 AM Scope In: Scope Out: RADIOLOGY RESULTS 05/05/2024 9:43 AM CDT us Heaven Sumner MD PROCEDURES Final Result RADIOLOGY RESULTS * ECHO COMPLETE (04/22/2024 7:45 AM ABALONE FISHERMAN) LVEF 50-55% CARDIOLOGY RESULTS Anatomical Region Laterality Modality Echocardiography 04/22/2024 7:19 AM ABALONE FISHERMAN Narrative 04/22/2024 8:12 AM ABALONE FISHERMAN [id number]^CHANTE^IHSAN^IMELDA [facility] Echocardiography Laboratory [address] [place], [place] [id number] Name: BROOKS WILLIS : 1955 Study Date: 04/22/2024 07:19 AM Age: 69 yrs Gender: Male Patient Location: [facility] Reason For Study: PAF (paroxysmal atrial fibrillation) [...] Procedure Note Shayne Castellanos MD - 04/22/2024 [id number]^CHANTE^IHSAN^IMELDA [facility] Echocardiography Laboratory [address] [place] [address] Name: BROOKS WILLIS : 1955 Study Date: 04/22/2024 07:19 AM Age: 69 yrs Gender: Male Patient Location: [facility] Reason For Study: PAF (paroxysmal atrial fibrillation) [...] stress test (nuc card) (04/16/2024 11:40 AM ABALONE FISHERMAN) Target HR 152 RADIANT Baseline Systolic BP 145 RADIANT Baseline Diastolic BP 76 RADIANT Last Stress Systolic BP 139 RADIANT Last Stress Diastolic BP 81 RADIANT Baseline HR 71 bpm RADIANT Max HR 89 RADIANT Max Predicted HR 59 % RADIANT Rate Pressure Product 12,371.0 RADIANT Left Ventricular EF 57 % RADIANT Anatomical Region Laterality Modality Chest Nuclear Medicine Narrative 04/16/2024 3:56 PM ABALONE FISHERMAN The nuclear stress test is abnormal. There [...] under the supervision of Toribio Roy MD [[id number]]. The patient reported chest discomfort, dyspnea and [...] on 04/15/2024. Nuclear Study Quality The quality control tech images demonstrate diaphragmatic attenuation. Final image quality [...] other segments are normal. Ihsan Sharif MD [facility] [place] ORDERABLES Final R esult * CT Chest/Abdomen/Pelvis w Contrast (03/31/2024 2:36 PM ABALONE FISHERMAN) Anatomical Region Laterality Modality Abdomen/Pelvis, Chest, SUBRA D CT BODY, UMP CT CHEST, UMP CT ABDOMEN PELVIS, RAD CT Positron Emission Tomography (PET) Impressions 04/01/2024 11:15 AM ABALONE FISHERMAN IMPRESSION: 1. Unchanged size of intensely radiotracer [...] GLEN FISHER MD Narrative 04/01/2024 11:15 AM ABALONE FISHERMAN Combined Report of: PET Dotatate and CT [...] spleen GLEN FISHER MD Heaven Sumner MD [facility] CT ORDERABLES Final Result * (ABNORMAL) Comprehensive metabolic panel (01/21/2024 10:00 AM ABALONE FISHERMAN) Sodium 140 135 - 145 mmol/L 01/21/2024 10:52 AM ABALONE FISHERMAN [facility] Potassium 4.4 3.4 - 5.3 mmol/L 01/21/2024 10:52 AM ABALONE FISHERMAN [facility] Carbon Dioxide (CO2) 29 22 - 29 mmol/L 01/21/2024 10:52 AM ABALONE FISHERMAN [facility] Anion Gap 8 7 - 15 mmol/L 01/21/2024 10:52 AM ABALONE FISHERMAN [facility] Urea Nitrogen 16.4 8.0 - 23.0 mg/dL 01/21/2024 10:52 AM ABALONE FISHERMAN [facility] Creatinine 1.09 0.67 - 1.17 mg/dL 01/21/2024 10:52 AM ABALONE FISHERMAN [facility] GFR Estimate 74 >60 mL/min/1.7 3m2 01/21/2024 10:52 AM ABALONE FISHERMAN [facility] Comment:eGFR calculated usin 2020 CKD-EPI equation. Calcium 8.6(L) 8.8 - 10.4 mg/dL 01/21/2024 10:52 AM ABALONE FISHERMAN [facility] Comment:Reference intervals for this test were updated on 09/03/2023 to reflect our healthy population more accurately. There may be differences in the flagging of prior results with similar values performed with this method. Those prior results can be interpreted in the context of the updated reference intervals. Chloride 103 98 - 107 mmol/L 01/21/2024 10:52 AM ABALONE FISHERMAN [facility] Glucose 129(H) 70 - 99 mg/dL 01/21/2024 10:52 AM ABALONE FISHERMAN [facility] Alkaline Phosphatase 109 40 - 150 U/L 01/21/2024 10:52 AM ABALONE FISHERMAN [facility] AST 21 0 - 45 U/L 01/21/2024 10:52 AM ABALONE FISHERMAN [facility] ALT 15 0 - 70 U/L 01/21/2024 10:52 AM ABALONE FISHERMAN [facility] Protein Total 7.2 6.4 - 8.3 g/dL 01/21/2024 10:52 AM ABALONE FISHERMAN [facility] Albumin 4.1 3.5 - 5.2 g/dL 01/21/2024 10:52 AM ABALONE FISHERMAN [facility] Bilirubin Total 0.8 <=1.2 mg/dL 01/21/2024 10:52 AM ABALONE FISHERMAN [facility] Blood BLOOD SPECIMEN / Unknown Venipuncture / Unknown 01/21/2024 10:00 AM ABALONE FISHERMAN 01/21/2024 10:16 AM ABALONE FISHERMAN us Heaven Sumner MD LAB - BLOOD ORDERABLES Final Res ult [facility] [place] Core Lab [address] [facility], [address] [place] [address] * (ABNORMAL) Lipid Profile (08/07/2023 10:46 AM [...] BLOOD ORDERABLES Fin al Result [facility] [place] Core Lab [address] [facility] J Building, [address] [place] [address], [facility] LAB[facility] Acute Care Lab [address] Lab (1st floor, no room number) [place] [address], [facility] * COLONOSCOPY - HIM SCAN (07/06/2021 12:00 AM CDT) 07/06/2021 us Provider Outside PROCEDURES Final Result * TSH (04/21/2018 10:46 PM ABALONE FISHERMAN) TSH 0.56 0.40 - 4.00 mU/L 04/21/2018 11:17 PM ABALONE FISHERMAN [facility] 04/21/2018 10:4 6 PM ABALONE FISHERMAN 04/21/2018 10:49 PM ABALONE FISHERMAN Marlon Grover MD LAB - BLOOD ORDERABLES Fin al Result Performing Organization Address [facility] de Phone Number [facility] [address] [place], [place] [phone] [place] [address] * (ABNORMAL) Hemoglobin A1c (04/21/2018 10:46 PM ABALONE FISHERMAN) Hemoglobin A1C 6.2(H) 0 - 5.6 % 04/22/2018 2:38 AM [facility] Comment: Normal <5.7% Prediabetes 5.7-6.4% Diabetes 6.5% or higher - adopted from ADA consensus guidelines. 04/21/2018 10:4 6 PM ABALONE FISHERMAN 04/21/2018 10:49 PM ABALONE FISHERMAN Marlon Grover MD LAB - BLOOD ORDERABLES Fin al Result Performing Organization Address [facility] de [facility] Number [facility] [address] [place], [place] [phone] [place] [address] from Last 3 Months or Most Recently Relevant to Health Maintenance Additional Health Concerns Active Problems Noted Date Diagnosed Date 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 Insurance [place] Advance Directives For more information, please contact: [phone] * Full Code (Latest Code Status on [...] 5:05 PM 12/05/2016 10:20 AM Care Teams Ring Making Machine Operator Relationship Specialty Start Date End Date No Ref-Primary, Physician PCP - General 07/01/24 Heaven Sumner MD [address] [place], [place] [phone] Hematology 05/06/23 Misty Wellington CORK PRESSING MACHINE OPERATOR [address] [place], [place] [id number] Nurse Practitioner Nurse Practitioner 05/07/23 Prosper Shrestha MD [address] [place], [place] [address] Emergency Medicine 05/07/23 Ramin Whitfield MD [address] [facility] [address] [place], [place] [address] Assigned Surgical Provider 07/11/23 Heaven Sumner MD [address] [place], [place] [address] Assigned Cancer Care Provider 09/10/23 Sarah Gould, [facility]Z [facility] [address] [facility] [address] [place] [address] Specialty Dog Track Kennel Manager Hematology & Oncology 08/13/23 Ihsan Sharif MD [address] [place] [address] Cardiovascular Disease 04/07/24 Ihsan Sharif MD [address] [place] [address] Assigned Heart and Vascular Provider 04/12/24 [place] [address] [place] [address] Assigned Endocrinology Provider 06/10/24
--- OUTSIDE RECORDS SUMMARY | 2024-07-03 07:53 | XMS_ITS | Encounter Summary ---
Author Organization [place] Address [address] [place] [address] Care Team Providers Care Bowl Attendant Name Role Phone Heaven Sumner MD Unavailable Misty Wellington NP Unavailable [phone] Prosper Shrestha MD Unavailable [phone] Ramin Whitfield MD Unavailable [phone] Heaven Sumner MD Unavailable No Ref-Primary, [...] block Formerly [facility] PeriOp Services [address] [place] [address] Phone: tel: fax: Referral ID Status Reason Start Date Expiration Date Visits Re quested Visits Authorized [id number] 1 1 Encounter Details Date Type Department Care Team (Latest Contact Info) Description 07/01/2024 9:47 AM CDT - 07/01/2024 1:00 PM CDT Hospital Encounter Formerly [facility] Same Day Surgery [place] [address] [place] [address] Guru Nicolle Garzon MD [address] [place] [address] Discharge Disposition: Home or Self Care Social [...] on file 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 * (s) After Anesthesia (Sleep Medicine) (Jamaican) documented in this encounter Medications at Time of Discharge cvugsyg-knqlcy-[id number] ease (CREON 12) 18738 UNITS CPEP Take 2 capsules by mouth 3 times daily (with meals) apixaban ANTICOAGULANT (ELIQUIS ANTICOAGULANT) 5 MG tabletIndications:A trial fibrillation with RVR (H) Take 1 tablet (5 mg) by mouth 2 times daily 180 tablet 3 4 atorvastatin (LIPITOR) 40 MG tabletIndications:M ixed hyperlipidemia,Harley nary artery disease involving [place] coronary artery of [place] heart without angina pectoris Take 1 tablet [...] 50 MG tabletIndications:C oronary artery disease involving [place] coronary artery of [place] heart without angina pectoris Take 1 tablet [...] 4 times daily 4 vitamin D2 (ERGOCALCIFEROL) 72742 units (1250 mcg) capsule Take 50,000 Units by mouth twice a week Saturday & documented as of this encounter Miscellaneous Notes * Brief Op Note - Phyllis Merritt MD - 07/01/2024 12:22 PM CDT [facility] Brief Operative Note Pre-operative diagnosis: Neuroendocrine tumor [...] 07/28/2024 9:00 AM CDT Infusion Therapy Visit [facility] [address] [place] [address] [place] [address] Heaven Sumner MD [address] [place] [address] 08/18/2024 2:30 PM CDT Virtual Visit [facility] [address] [place] [address] Heaven Sumner MD [address] [place] [address] 08/25/2024 11:00 AM CDT Infusion Therapy Visit [facility] [address] [place] [address] Heaven Sumner MD [address] [place] [address] 10/23/2024 10:30 AM CDT Office Visit [facility] Heart [facility] [address] [facility] [address] [place] [address] Jerrod Werner MD [address] [facility] [place] [address] 11/11/2024 9:35 AM CDT Hospital Encounter [facility] Periop Services [address] [place] [address] Alfonzo Sultana MD [facility] [address] [place] [address] 11/11/2024 9:35 AM CDT - 11/11/2024 12:30 PM CDT [facility] [address] [place] [address] Alfonzo Sultana MD [facility] [address] [place] [address] RIGHT TOTAL SHOULDER ARTHROPLASTY VERSUS Scheduled Procedures [...] BEAK POCT Final Result [facility] Core Lab [address] [facility], Room [address] [place] [address] * (ABNORMAL) Glucose by meter (07/01/2024 11:01 AM CDT) GLUCOSE BY METER POCT 169(H) 70 - 99 mg/dL 07/01/2024 11:08 AM CDT [facility] Blood, Capillary BLOOD SPECIMEN / Unknown 07/01/2024 11:01 AM CDT 07/01/2024 11:08 AM CDT us Guru Nicolle Garzon MD LAB - BEAK ER POCT Final Result [facility] Core Lab 500 [facility] [address] Building, Room [address] [place] [address] * UPPER EUS (07/01/2024 11:00 AM CDT) Pathologist [facility] Upper EUS [facility] [address] [facility] [place] [address] [phone] Endoscopy Department ___ Patient Name: Brooks Munson Procedure Date: 07/01/2024 11:00 AM Date of : 1955 Admit Type: Outpatient Age: 69 Room: [place] [address] Gender: Male Note Status: Finalized Attending MD: [...] by the physician, the nurse and the driver service technician in the procedure room. Mental Status Examination: [...] of the exam. Signature of teaching physician [id number] GARZON PHYLLIS MERRITT, Number of Addenda: 0 [...] documented as of this encounter Care Teams Bowl Attendant Relationship Specialty Start Date End Date No Ref-Primary, Physician PCP - General 07/01/24 Heaven Sumner MD [address] [place] [address] Hematology 05/06/23 [place] [address] [place] [address] Nurse Practitioner Nurse Practitioner 05/07/23 Prosper Shrestha MD 500 [place], [place] [address] Emergency Medicine 05/07/23 Ramin Whitfield MD [address] [place] [address] 195 [place] [address] Assigned Surgical Provider 07/11/23 Heaven Sumner MD [address] [place] [address] Assigned Cancer Care Provider 09/10/23 Sarah Gould, [facility] 420 [facility] 806 [place] [address] Specialty Validation Engineer Hematology & Oncology 08/13/23 Jerrod Werner MD [address] [place] [address] Cardiovascular Disease 04/07/24 Jerrod Werner MD [address] [place] [address] Assigned Heart and Vascular Provider 04/12/24 [place] [address] [place] [address] Assigned Endocrinology Provider 06/10/24 documented as of this encounter
--- OUTSIDE RECORDS SUMMARY | 2024-07-03 07:53 | XMS_ITS | Encounter Summary ---
Author Organization [place] Address [address] [place] [address] Care Team Providers Care Circular Knife Cutter Machine Name Role Phone Sergio Martinez MD Unavailable Misty Wellington NP Unavailable [phone] Prosper Shrestha MD Unavailable [phone] Ramin Whitfield MD Unavailable [phone] Sergio Martinez MD Unavailable No Ref-Primary, [...] TRACT (GI) with celiac plexus block Formerly [facility] PeriOp Services [address] [place] [address] Phone: tel: fax: Referral ID Status Reason Start Date Expiration Date Visits Re quested Visits Authorized [id number] 1 1 Encounter Details Date Type Department Care Team (Late st Contact Info) Description 07/01/2024 11:34 AM CDT Anesthesia Event M [facility] PeriOp Services [address] [place] [address] Kelton Bah MD 420 [facility] [address] [place] [address] Karin Cartagena Anesthesia Record Procedure Summary Procedure [...] on file 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 Main OR; Service: Orthopedics [facility] TOTAL HIP ARTHROPLASTY Left 05/02/2020 Procedure: LEFT DIRECT ANTERIOR TOTAL HIP ARTHROPLASTY; Surgeon: Herrera Worrell MD; Location: [facility] OR; Service: Orthopedics No Known Allergies Social [...] and realistic alternatives discussed. 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 - Discussed: - Discussed [...] 07/28/2024 9:00 AM CDT Infusion Therapy Visit [facility] [address] [place] [address] Sergio Martinez MD [address] [place] [address] 08/18/2024 2:30 PM CDT Virtual Visit [facility] [address] [place] [address] Sergio Martinez MD [address] [place] [address] 08/25/2024 11:00 AM CDT Infusion Therapy Visit [facility] [address] [place] [address] Sergio Martinez MD [address] [place] [address] 10/23/2024 10:30 AM CDT Office Visit [facility] [place] [address] [facility] [address] [place] [address] Jerrod Werner MD [address] [place] [address] 11/11/2024 9:35 AM CDT Hospital Encounter [place] [address] [place] [address] Alfonzo Sultana MD [facility] [address] [place] [address] 11/11/2024 9:35 AM CDT - 11/11/2024 12:30 PM CDT Surgery [place] [address] [place] [address] Alfonzo Sultana MD [facility] [address] [place] [address] RIGHT TOTAL SHOULDER ARTHROPLASTY VERSUS Scheduled Procedures Name Priority Associated Diagnoses Date/Ti dc ARTHROPLASTY, SHOULDER, TOTAL Osteoarthritis of right shoulder [...] documented as of this encounter Care Teams Circular Knife Cutter Machine Relationship Specialty Start Date End Date No Ref-Primary, Physician PCP - General 07/01/24 Sergio Martinez MD [address] [place] [address] Hematology 05/06/23 [place] [address] [place] [address] Nurse Practitioner Nurse Practitioner 05/07/23 Prosper Shrestha MD 500 [place] [address] Emergency Medicine 05/07/23 Ramin Whitfield MD [address] [facility] 195 [place], [place] [address] Assigned Surgical Provider 07/11/23 Sergio Martinez MD [address] [place] [address] Assigned Cancer Care Provider 09/10/23 Sarah Gould, [facility] [address] [facility] 806 [place] [address] Specialty Basket Assembler Hematology & Oncology 08/13/23 Jerrod Werner MD [address] [place] [address] Cardiovascular Disease 04/07/24 Jerrod Werner MD [address] [place] [address] Assigned Heart and Vascular Provider 04/12/24 [place] [address] [place] [address] Assigned Endocrinology Provider 06/10/24 documented as of this encounter
--- OUTSIDE RECORDS SUMMARY | 2024-07-03 07:53 | XMS_ITS ---
Author Organization [place] Address [address] [place] [address]. [place] [address] Care Team Providers Care Stull Installer Name Role Phone Sergio Martinez MD Unavailable Misty Wellington NP Unavailable [phone] Prosper Shrestha MD Unavailable Ramin Whitfield MD Unavailable [phone] Sergio Martinez MD Unavailable No Ref-Primary, [...] myocardial infarction) Coronary artery disease invo lving grayling coronary artery of gray[place] heart without angina pectoris Overview (09/20/2014): cardiac [...]
--- OUTSIDE RECORDS SUMMARY | 2024-07-03 07:53 | XMS_ITS | Encounter Summary ---
Author Organization [place] Address [facility] 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 Gender Identity Not on file Sexual Orientation Not on file documented as of this encounter Plan of Treatment Upcoming Encounters Date Type Department Care Team (Latest Contact Info) Description 07/28/2024 9:00 AM CDT Infusion Therapy Visit [address] [place] [address] Sergio Martinez MD [address] [place], [place] [address] 08/18/2024 2:30 PM CDT Virtual Visit [facility] [address] [place] [address] Sergio Martinez MD [address] [place], [place] [address] 08/25/2024 11:00 AM CDT Infusion Therapy Visit [address] [place] [address] Sergio Martinez MD [address] [place], [place] [address] 10/23/2024 10:30 AM CDT Office Visit [facility] Heart [facility] [address] [place] [address] [address] [place] [address] Jerrod Werner MD [address] [place] [address] 11/11/2024 9:35 AM CDT Hospital Encounter [facility] [address] [place] [address] Alfonzo Sultana MD [facility] [address] [place] [address] 11/11/2024 9:35 AM CDT - 11/11/2024 12:30 PM CDT Surgery [facility] [address] [place] [address] Alfonzo Sultana MD [facility] [address] [place] [address] RIGHT TOTAL SHOULDER ARTHROPLASTY VERSUS Scheduled Procedures [...] as of this encounter Care Teams Assistant Distribution Manager Relationship Specialty Start Date End Date Sergio Martinez MD [address] [place] [address] Hematology 05/06/23 [place] [address] [address] [place] [address] Nurse Practitioner Nurse Practitioner 05/07/23 Prosper Shrestha MD 500 [place] [address] Emergency Medicine 05/07/23 Ramin Whitfield MD 420 [facility] 195 [place], [place] [address] Assigned Surgical Provider 07/11/23 Sergio Martinez MD [address] [facility] [place], [place] [address] Assigned Cancer Care Provider 09/10/23 Sarah Gould, [facility] 420 [facility] 806 [place], [place] [address] Specialty Senior It Specialist Hematology & Oncology 08/13/23 Jerrod Werner MD [address] [place], [place] [address] Cardiovascular Disease 04/07/24 Jerrod Werner MD [address] [place], [place] [address] Assigned Heart and Vascular Provider 04/12/24 [place] [address] [place], [place] [address] Assigned Endocrinology Provider 06/10/24 documented as of this encounter
--- OUTSIDE RECORDS SUMMARY | 2024-07-03 07:53 | XMS_ITS | Clinical Summary ---
Author Organization [facility] Address [address] [facility] [place] [address] Care Team Providers Care Shake Splitter Name Role Phone Unassigned, Provider Primary Care Provider Unava ilable Source Comments You are receiving this document as you are listed as the primary care provider,follow-up provider, or the patient has been referred to you for consultation.This is in compliance with the Medicare and[facility] EHR Incentive Program,which states Providers who transition their patient to another setting of careor provider of care or refers their patient to another provider of care shouldprovide summary care record for each transition of care or referral. [facility] Allerg[facility] No known active allergies Medications Phentermine [...] mg by mouth. 6 Active ergocalciferol (DRISDOL) 14866 UNITS capsule Take 50,000 Units by mouth. 6 Active cyanocobalamin (HEMNVTOU31) 1000 MCG/ML injection Injection once a month [...] Take 600 mg by mouth. Active pancrelipase, Oat-Iodx-Mmbl, ([id number]) 06888 UNITS capsule-delayed release particles Take 2 Caps by mouth. 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 IHD (ischemic heart disease) 02/14/2016 Old [place] (myocardial infarction) 02/14/2016 Immunizations Immunization Administration Dates Next Due Influenza IIV4 (Quadrivalent) 0.5mL (84500) 11/18 Social History Tobacco Use Types Packs/Day Years Used Date Smoking Tobacco: Former Cigarettes Smokeless Tobacco: Never Sex and Gender Information Value Date Recorded Sex Assigned at Not on file Legal Sex Male 7:01 AM CDT Gender Identity Not on file Sexual Orientation Not on file Last Filed Vital Signs Vital Sign Reading Time Taken Comments Blood Pressure 110/79 02/14/2016 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
--- OUTSIDE RECORDS SUMMARY | 2024-07-03 07:53 | XMS_ITS | Encounter Summary ---
Author Organization [place] Address [facility] [place] [address] Care Team Providers Care Gravel Machine Operator Name Role Phone Sergio Martinez MD Unavailable Misty Wellington NP Unavailable [phone] Prosper Shrestha MD Unavailable [phone] Ramin Whitfield MD Unavailable [phone] Sergio Martinez MD Unavailable No Ref-Primary, Physician Primary Care Provider Sarah Gould RN Unavailable Jerrod Werner MD Unavailable [phone] Jerrod Werner MD Unavailable [phone] Shalia Landis MD Unavailable Encounter Details Date Type Department Care Team (Late st Contact Info) Description 06/26/2024 [facility] Medical Advice [facility] [place] [address] [facility] 4th [place] [address] Baldo Bailon Social History Tobacco [...] on file Legal 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 Male 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 Gender Identity Not on file Sexual Orientation Not on file documented as of this encounter Plan of Treatment Upcoming Encounters Date Type Department Care Team (Latest Contact Info) Description 07/28/2024 9:00 AM CDT Infusion Therapy Visit [address] [place] [address] Sergio Martinez MD [address] [place], [place] [address] 08/18/2024 2:30 PM CDT Virtual Visit [facility] 909 [place] [address] Sergio Martinez MD [address] [place], [place] [address] 08/25/2024 11:00 AM CDT Infusion Therapy Visit [place] [address] [place] [place] [address] Sergio Martinez MD [address] [place], [place] [address] 10/23/2024 10:30 AM CDT Office Visit [facility] Heart [address] [place] [address] Jerrod Werner MD [address] [place], [place] [address] 11/11/2024 9:35 AM CDT Hospital Encounter [place] [address] [place] [address] Alfonzo Sultana MD [facility] [address] [place] [address] 11/11/2024 9:35 AM CDT - 11/11/2024 12:30 PM CDT Surgery [place] [address] [place] [address] Alfonzo Sultana MD [facility] [address] [place] [address] RIGHT TOTAL SHOULDER ARTHROPLASTY VERSUS Scheduled Procedures [...] documented as of this encounter Care Teams Gravel Machine Operator Relationship Specialty Start Date End Date No Ref-Primary, Physician PCP - General 07/01/24 Sergio Martinez MD [address] [place], [place] [address] Hematology 05/06/23 [place] [address] [place] [address] Nurse Practitioner Nurse Practitioner 05/07/23 Prosper Shrestha MD 500 [place] [address] Emergency Medicine 05/07/23 Ramin Whitfield MD 420 [facility] 195 [place], [place] [address] Assigned Surgical Provider 07/11/23 Sergio Martinez MD [address] [place], [place] [address] Assigned Cancer Care Provider 09/10/23 Sarah Gould, [facility] 420 [facility] 806 [place], [place] [address] Specialty Precinct Captain Hematology & Oncology 08/13/23 Jerrod Werner MD [address] [place] [address] Cardiovascular Disease 04/07/24 Jerrod Werner MD [address] [place] [address] Assigned Heart and Vascular Provider 04/12/24 [place] [address] [place] [address] Assigned Endocrinology Provider 06/10/24 documented as of this encounter
--- OUTSIDE RECORDS SUMMARY | 2024-07-03 07:53 | XMS_ITS | Encounter Summary ---
Author Organization [place] Address [address] [place] [address]. [place] [address] Care Team Providers Care Highway Maintenance Supervisor Name Role Phone Sergio Martinez MD Unavailable Misty Wellington NP Unavailable [phone] Prosper Shrestha MD Unavailable Ramin Whitfield MD Unavailable [phone] Sergio Martinez MD Unavailable Sarah Gould [...] LANREOTIDE, 1 MG Sergio Martinez MD 500 [place] [address] Phone: tel: fax: [address] [place] [address] Phone: tel: fax: Referral ID Status Reason Start Date Expiration Date V isits Requested Visits Authorized [id number] Authorized 06/23/2024 02/17/2025 99 99 Encounter Details Date Type Department Care Team (Latest Contact Info) Description 06/30/2024 12:00 PM CDT Infusion Therapy Visit [facility] [address] [place] [address] [place] [phone] Sergio Martinez MD [address] [place], [place] [phone] Neuroendocrine cancer (H) (Primary Dx) Social History [...] on file 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 Patient seen by provider today: No Casserole Preparer present during visit today: Not Applicable. Note: [...] 07/28/2024 9:00 AM CDT Infusion Therapy Visit [facility] Medical [address]ART[address] [place] [phone] Sergio Martinez MD [address] [place], [place] [address] 08/18/2024 2:30 PM CDT Virtual Visit [facility] 909 [place] [address] Sergio Martinez MD 500 [place], [place] [address] 08/25/2024 11:00 AM CDT Infusion Therapy Visit [facility] [address] [place] [address] [address] [place] [phone] Sergio Martinez MD [address] [place] [address] 10/23/2024 10:30 AM CDT Office Visit [facility] [place] [address] [facility] [address] [place] [phone] Jerrod Werner MD [address] [place], [place] [address] 11/11/2024 9:35 AM CDT Hospital Encounter [facility] [address] [place] [phone] Alfonzo Sultana MD [facility] [address] [place] [address] 11/11/2024 9:35 AM CDT - 11/11/2024 12:30 PM CDT Surgery [place] [address] [place] [address] Alfonzo Sultana MD [facility] [address] [place] [address] RIGHT TOTAL SHOULDER ARTHROPLASTY VERSUS Scheduled Procedures Name Priority Associated Diagnoses Date/Ti vt ARTHROPLASTY, SHOULDER, TOTAL Osteoarthritis of right shoulder [...] documented as of this encounter Care Teams Highway Maintenance Supervisor Relationship Specialty Start Date End Date Sergio Martinez MD [address] [place] [address] Hematology 05/06/23 [place] [address] [place] [address] Nurse Practitioner Nurse Practitioner 05/07/23 Prosper Shrestha MD 500 [place] [address] Emergency Medicine 05/07/23 Ramin Whitfield MD [address] [place] [address] 195 [place] [address] Assigned Surgical Provider 07/11/23 Sergio Martinez MD [address] [place] [address] Assigned Cancer Care Provider 09/10/23 Sarah Gould, GRZEGORZ [facility] [address] [facility] 806 [place] [address] Specialty Associate Financial Representative Hematology & Oncology 08/13/23 Jerrod Werner MD [address] [place] [address] Cardiovascular Disease 04/07/24 Jerrod Werner MD [address] [place] [address] Assigned Heart and Vascular Provider 04/12/24 [place] [address] [place] [address] Assigned Endocrinology Provider 06/10/24 documented as of this encounter
--- OUTSIDE RECORDS SUMMARY | 2024-07-03 07:53 | XMS_ITS | Encounter Summary ---
Author Organization [place] Address [facility] [place] [address] Care Team Providers Care Primer Inserting Machine Operator Name Role Phone Sergio Martinez MD Unavailable Misty Wellington NP Unavailable [phone] Prosper Shrestha MD Unavailable Avril Dumont RN Unavailable Ramin Whitfield MD Unavailable [phone] Sergio Martinez MD Unavailable No Ref-Primary, Physician Primary Care Provider Sarah Gould RN Unavailable Jerrod Werner MD Unavailable Jerrod Werner MD Unavailable [phone] Shaila Landis MD Unavailable Encounter Details Date Type Department Care Team (Late st Contact Info) Description 04/17/[address] [address] Esther Walker, RN Social History [...] on file 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 Per below. Will fax copy of response below to 's Team at [phone] Esther LANTIGUA [facility] STAINER * Telephone Encounter - Scarlet Gudino RN - 04/22/2024 1:57 PM CST Faxed to [facility] attention Dr. Sultana's team Left message for patient to return call. Scarlet Gudino RN, BSN [phone] STAINER * Telephone Encounter - Saundra Kovacs RN [...] get cardiac clearance for patient's surgery tomorrow. STAINER * Telephone Encounter - Esther Walker RN - 04/17/2024 1:03 PM CST Patient left detailed VM. Once pt completes his Echo on 04/22 and it's reviewed by MD. If pt is cleared, he will need a clearance letter typed up and faxed to [employer]. Reminder was sent to [facility] - [phone] Fax #: [phone] Pt has Right Shoulder replacement on 04/23/2024. Esther LANTIGUA [facility] STAINER STAINER * Telephone Encounter - Esther Walker RN - 04/17/2024 10:57 AM HEEL STAINER Called patient to review stress test results. [...] Jerrod Werner MD Sent: 04/16/2024 5:10 PM HEEL STAINER To: Sergio Martinez MD; Saundra Kovacs RN; # Hi team Please tell the patient his nuclear stress test is stable and there is no indication for an angiogram before his planned orthopedic surgery. We are still awaiting his TTE to evaluate the cardiac murmur. STAINER STAINER STAINER documented in this encounter Plan of Treatment Upcoming Encounters Date Type Department Care Team (Latest Contact Info) Description 07/28/2024 9:00 AM CDT Infusion Therapy Visit [facility] [address] [place] [phone] Sergio Martinez MD 500 [place] [address] 08/18/2024 2:30 PM CDT Virtual [facility] 909 [place] [phone] Sergio Martinez MD [address] [place], [place] [address] 08/25/2024 11:00 AM CDT Infusion Therapy Visit [facility] [address] [place] [phone] Sergio Martinez MD 500 [place] [address] 10/23/2024 10:30 AM CDT Office Visit [facility] [address] [facility] [address] [place] [phone] Jerrod Werner MD [address] [place], [place] [address] 11/11/2024 9:35 AM CDT Hospital Encounter [facility] [address] [place] [phone] Alfonzo Sultana MD [facility] [address] [place] [address] 11/11/2024 9:35 AM CDT - 11/11/2024 12:30 PM CDT Surgery [facility] [address] [place] [phone] Alfonzo Sultana MD [facility] 35[address] [place] [address] RIGHT TOTAL SHOULDER ARTHROPLASTY VERSUS Scheduled Procedures Name Priority Associated Diagnoses Date/Ti me ARTHROPLASTY, SHOULDER, TOTAL Osteoarthritis of right shoulder 11/11/2024 9:35 AM CDT ARTHROPLASTY, SHOULDER, TOTAL, REVERSE Osteoarthritis of right shoulder 11/11/2024 9:35 AM CDT documented as of this encounter Visit Diagnoses Not on filedocumented in this encounter Care Teams Primer Inserting Machine Operator Relationship Specialty Start Date End Date No Ref-Primary, Physician PCP - General 07/01/24 Sergio Martinez MD 500 [place] [address] Hematology 05/06/23 [place] [address] [place] [address] Nurse Practitioner Nurse Practitioner 05/07/23 Prosper Shrestha MD 500 [place] [address] Emergency Medicine 05/07/23 Arvil Dumont, RN Specialty Supplier Quality Specialist Hematology & Oncology 05/28/23 05/22/24 Ramin Whitfield MD [address] [place] [address] Assigned Surgical Provider 07/11/23 Sergio Martinez MD 500 [facility] [place] [address] Assigned Cancer Care Provider 09/10/23 Sarah Gould, RN [address] [place] [address] Specialty Supplier Quality Specialist Hematology & Oncology 08/13/23 Jerrod Werner MD [address] [place] [address] Cardiovascular Disease 04/07/24 Jerrod Werner MD [address] [place] [address] Assigned Heart and Vascular Provider 04/12/24 [place] [address] [address] Assigned Endocrinology Provider 06/10/24 documented as of this encounter
--- OUTSIDE RECORDS SUMMARY | 2024-07-03 07:53 | XMS_ITS | Encounter Summary ---
Author Organization [place] Address [facility] [place] [address] Care Team Providers Care Spring Machine Operator Name Role Phone Sergio Martinez MD Unavailable Misty Wellington NP Unavailable [phone] Prosper Shrestha MD Unavailable [phone] Avril Dumont RN Unavailable Ramin Whitfield MD Unavailable [phone] Sergio Martinez MD Unavailable No Ref-Primary, Physician Primary Care Provider Sarah Gould RN Unavailable Jerrod Werner MD Unavailable [phone] Jerrod Werner MD Unavailable [phone] Shaila Landis MD Unavailable Encounter Details Date Type Department Care Team (Late st Contact Info) Description 04/28/2024 [facility] [address] [place] [address] Stephanie Damon, GRZEGORZ Social History [...] on file 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 Gender Identity Not on file Sexual Orientation Not on file documented as of this encounter Plan of Treatment Upcoming Encounters Date Type Department Care Team (Latest Contact Info) Description 07/28/2024 9:00 AM CDT Infusion Therapy Visit [place] [address] [place] [phone] Sergio Martinez MD [address] [place] [address] 08/18/2024 2:30 PM CDT Virtual Visit [facility] 909 [place] [phone] Sergio Martinez MD [address] [place] [address] 08/25/2024 11:00 AM CDT Infusion Therapy Visit [place] [address] [place] [phone] Sergio Martinez MD [address] [place] [address] 10/23/2024 10:30 AM CDT [facility] [address] [place] [phone] eJrrod Werner MD [address] [place] [address] 11/11/2024 9:35 AM CDT Hospital [facility] [address] [place] [address] Alfonzo Sultana MD [facility] [address] [place] [address] 11/11/2024 9:35 AM CDT - 11/11/2024 12:30 PM CDT Surgery [facility] [address] [place] [phone] Alfonzo Sultana MD [facility] [address] [place] [address] RIGHT TOTAL SHOULDER ARTHROPLASTY VERSUS Scheduled Procedures Name Priority Associated Diagnoses Date/Ti me ARTHROPLASTY, SHOULDER, TOTAL Osteoarthritis of right shoulder 11/11/2024 9:35 AM CDT ARTHROPLASTY, SHOULDER, TOTAL, REVERSE Osteoarthritis of right shoulder 11/11/2024 9:35 AM CDT documented as of this encounter Visit Diagnoses Not on filedocumented in this encounter Care Teams Spring Machine Operator Relationship Specialty Start Date End Date No Ref-Primary, Physician PCP - General 07/01/24 Sergio Martinez MD 500 [place] [address] Hematology 05/06/23 [place] [address] [place] [address] Nurse Practitioner Nurse Practitioner 05/07/23 Prosper Shrestha MD 500 [place] [address] Emergency Medicine 05/07/23 Avril Dumont, GRZEGORZ Specialty Sweetbread Trimmer Hematology & Oncology 05/28/23 05/22/24 Ramin Whitfield MD [address] [facility] 195 [place], [place] [address] Assigned Surgical Provider 07/11/23 Sergio Martinez MD [address] [place], [place] [address] Assigned Cancer Care Provider 09/10/23 Sarah Gould, GRZEGORZ [facility] [address] [facility] 806 [place], [place] [address] Specialty Sweetbread Trimmer Hematology & Oncology 08/13/23 Jerrod Werner MD [address] [place] [address] Cardiovascular Disease 04/07/24 Jerrod Werner MD [address] [place] [address] Assigned Heart and Vascular Provider 04/12/24 [place] [address] [place] [address] Assigned Endocrinology Provider 06/10/24 documented as of this encounter
--- OUTSIDE RECORDS SUMMARY | 2024-07-03 07:54 | XMS_ITS | Encounter Summary ---
Author Organization [place] Address [address] [place] [address] Care Team Providers Care Morgue Keeper Name Role Phone Sergio Martinez MD Unavailable Misty Wellington NP Unavailable [phone] Prosper Shrestha MD Unavailable [phone] Ramin Whitfield MD Unavailable [phone] Sergio Martinez MD Unavailable Sarah Gould RN Unavailable Jerrod Werner MD Unavailable Jerrod Werner MD Unavailable [phone] RadShaila cerna MD Unavailable [phone] Reason for Referral * Consultation (Priority: 1-2 Weeks) - Pending Review Specialty Diagnoses / Procedures Referred By Doris t Referred To Contact Gastroenterology Diagnoses Neuroendocrine cancer (H) Sergio Martinez MD [address] [place] [address] Phone: tel: fax: Referral ID Status Reason Start Date Expiration Date V isits Requested Visits Authorized [id number] Pending Review 06/23/2024 06/23/2025 1 1 Question Answer Service: EUS EUS Type: Upper EUS Sedation Concerns: Chronic or scheduled pain/narcotic medication use Sedation Type: General Anesthesia Reason for EUS: consider celiac block for severe pain, may need GA, may need same support as for endoscopy, thank you. Preferred Location: [facility] Patient Scheduling Instructions: [facility]i [facility] will call you to coordinate your care as prescribed by the provider. If you don t hear from a retention representative within 2 business days, please call . Comments Please be aware that coverage of these services is subject to the terms and limitations of your health insurance plan. Call member services at your health plan with any benefit or coverage questions. [facility] will call you to coordinate your care as prescribed by the provider. If you don t hear from a retention representative within 2 business days, please call . * Consultation (Priority: 1-2 Weeks) - Pending Review Specialty Diagnoses / Procedures Referred By Doris t Referred To Contact Hospice And Palliative Care Diagnoses Neuroendocrine cancer (H) Sergio Martinez MD [address] [place] [address] Phone: tel: fax: Referral ID Status Reason Start Date Expiration Date V isits Requested Visits Authorized [id number] Pending Review 06/23/2024 06/23/2025 1 1 Question Answer Reason for Referral: Evaluate and treat symptoms (including writing prescriptions) What is the patient's life-limiting diagnosis? NET with severe abdominal pain, thank you. Scheduling Instructions: [facility] will call you to coordinate your care as prescribed by your provider. If you don't hear from a retention representative within 2 business days, please call . Comments [facility] will call you to coordinate your care as prescribed by your provider. If you don't hear from a retention representative within 2 business days, please call . 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 Meds/ allergies: Reviewed in [facility] NET history: summarized from BRIE Guzman note from [facility] on 06/13/2023: 2006: Initial symptoms [...] receptor radionuclide therapy (PRRNT) 202 mCi in [facility], 07/2011: Cycle #2 [id number] DOTA-modified octreotide (ADONIS) peptide receptor radionuclide therapy (PRRNT) 202 mCi in [facility]. 10/05/2011: CT AP: Fatty liver. Normal arterial [...] CAP: No evidence of metastatic disease. 08/07/2017: [id number] PET, Yancey: Two avid mesenteric lymph nodes. 05/08/2018: Ga-68 [...] with Dr. Landis in endocrine and with [place] NET team, no major changes to plan [...] reviewed the Hb 14.9 on 06/09/2024 in [place] Assessment and Plan: 68 yo man with NET as above. On subcutaneous octreotide pump, provided by [facility]. In 05/2024, they met with him and he did agree to come off of the pump. Endocrine team agrees with it. The pump may be contributing to the pain Swapna'm unsure of how well the drug is being delivered with this old pump. Will put in for monthly lanreotide, prefers at [place] or home. He may use subq octreotide [...] partners, requesting interventions, communicating with other health child day care teacher, and documentation. Sergio Martinez M.D. Integrity Managerinside sales representative Division of Hematology, Oncology and Transplantation [facility] documented in this encounter Nursing Notes * Breanna Harris - 06/22/2024 8:30 AM CDT Current patient location: [address] [place] [phone] Is the patient currently in the state of [place]? YES Visit mode: VIDEO If the visit is dropped, the patient can be reconnected by: Mychart Will anyone else be joining the visit? NO (If patient encounters technical issues they should call [phone]) Are changes needed to the allergy [...] 07/28/2024 9:00 AM CDT Infusion Therapy Visit [facility] [address] [place] [phone] Sergio Martinez MD [address] [place] [address] 08/18/2024 2:30 PM CDT Virtual Visit [facility] [address]09 [place] [address] Sergio Martinez MD 500 [place] [address] 08/25/2024 11:00 AM CDT Infusion Therapy Visit [facility] [address] [place] [phone] Sergio Martinez MD [address] [place] [address] 10/23/2024 10:30 AM CDT Office Visit [facility] [place] [address] [facility] [address] [place] [address] Jerrod Werner MD [address] [place], [place] [address] 11/11/2024 9:35 AM CDT Hospital Encounter [facility] [address] [place] [phone] Alfonzo Sultana MD [facility] [address] [place] [address] 11/11/2024 9:35 AM CDT - 11/11/2024 12:30 PM CDT Surgery [facility] [address] [place] [phone] Alfonzo Sultana MD [facility] [address] [place] [address] RIGHT TOTAL SHOULDER ARTHROPLASTY VERSUS Scheduled Procedures Name Priority Associated Diagnoses Date/Ti me ARTHROPLASTY, SHOULDER, TOTAL Osteoarthritis of right shoulder 11/11/2024 9:35 AM CDT ARTHROPLASTY, SHOULDER, TOTAL, REVERSE Osteoarthritis of right shoulder 11/11/2024 9:35 AM CDT Scheduled Referrals Name Type Priority Associated Diagnoses Orde r Schedule Adult Palliative Care Wood Science Professor Referral Referral Routine: Next available opening Neuroendocrine cancer (H) Expected: 06/23/2024 (Approximate), Expires: 06/23/2025 Adult GI Wood Science Professor Referral - Procedure Only Referral Priority: 1-2 [...] documented as of this encounter Care Teams Morgue Keeper Relationship Specialty Start Date End Date Sergio Martinez MD [address] [place], [place] [address] Hematology 05/06/23 Misty Wellington, [place] [address] [place] [address] Nurse Practitioner Nurse Practitioner 05/07/23 Prosper Shrestha MD 500 [place], [place] [address] Emergency Medicine 05/07/23 Ramin Whitfield MD [address] [facility] 195 [place], [place] [address] Assigned Surgical Provider 07/11/23 Sergio Martinez MD [address] [place] [address] Assigned Cancer Care Provider 09/10/23 Sarah Gould, GRZEGORZ [facility] [address] [facility] 806 [place] [address] Specialty Legal Support Assistant Hematology & Oncology 08/13/23 Jerrod Werner MD [address] [place] [address] Cardiovascular Disease 04/07/24 Jerrod Werner MD [address] [place] [address] Assigned Heart and Vascular Provider 04/12/24 [place] [address] [place] [address] Assigned Endocrinology Provider 06/10/24 documented as of this encounter
--- OUTSIDE RECORDS SUMMARY | 2024-07-03 07:54 | XMS_ITS | Encounter Summary ---
Author Organization [place] Address [facility] [place] [address] Care Team Providers Care Test Engineering Technician Name Role Phone Sergio Martinez MD Unavailable Misty Wellington NP Unavailable Prosper Shrestha MD Unavailable [phone] Ramin Whitfield MD Unavailable [phone] Sergio Martinez MD Unavailable Sarah Gould RN Unavailable Jerrod Werner MD Unavailable Jerrod Werner MD Unavailable RadShaila cerna MD Unavailable Encounter Details Date Type Department Care Team (Late st Contact Info) Description 06/17/2024 [facility] [address] [place] [address] Sergio Martinez MD [address] [place] [address] Primary pancreatic neuroendocrine tumor (H) (Primary [...] on file Legal 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 Gender Identity Not on file Sexual Orientation Not on file documented as of this encounter Plan of Treatment Upcoming Encounters Date Type Department Care Team (Latest Contact Info) Description 07/28/2024 9:00 AM CDT Infusion Therapy Visit [facility] [address] [place] [phone] Sergio Martinez MD [address] [place], [place] [address] 08/18/2024 2:30 PM CDT Virtual Visit [facility] [address] [place] [address] Sergio Martinez MD [address] [place] [address] 08/25/2024 11:00 AM CDT Infusion Therapy Visit [facility] [address] [place] [address] Sergio Martinez MD [address] [place] [address] 10/23/2024 10:30 AM CDT Office Visit [facility] Heart [facility] [address] [facility] [address] [place] [address] Jerrod Werner MD [address] [place] [address] 11/11/2024 9:35 AM CDT Hospital Encounter [facility] [address] [place] [address] Alfonzo Sultana MD [facility] [address] [place] [address] 11/11/2024 9:35 AM CDT - 11/11/2024 12:30 PM CDT Surgery [facility] [address] [place] [address] Alfonzo Sultana MD [facility] [address] [place] [address] RIGHT TOTAL SHOULDER ARTHROPLASTY VERSUS Scheduled Procedures [...] Care Plan Total Joint Replacement Shoulder Pathway Colleen Walker documented as of this encounter Visit Diagnoses Diagnosis 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, any site Osteoarthritis of right shoulder 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 documented as of this encounter Care Teams Test Engineering Technician Relationship Specialty Start Date End Date Sergio Martinez MD [address] [place] [address] Hematology 05/06/23 [place] [address] [place] [address] Nurse Practitioner Nurse Practitioner 05/07/23 Prosper Shrestha MD 500 [place] [address] Emergency Medicine 05/07/23 Ramin Whitfield MD [address] [facility] [address] [place], [place] [address] Assigned Surgical Provider 07/11/23 Sergio Martinez MD [address] [place] [address] Assigned Cancer Care Provider 09/10/23 Sarah Gould, GRZEGORZ [facility] [address] [facility] [address] [place] [address] Specialty Superintendent Gas Distribution Hematology & Oncology 08/13/23 Jerrod Werner MD [address] [place] [address] Cardiovascular Disease 04/07/24 Jerrod Werner MD [address] [place] [address] Assigned Heart and Vascular Provider 04/12/24 [place] [address] [place] [address] Assigned Endocrinology Provider 06/10/24 documented as of this encounter
--- OUTSIDE RECORDS SUMMARY | 2024-07-03 07:54 | XMS_ITS | Encounter Summary ---
Author Organization [place] Address [facility] [place] [address] Care Team Providers Care Parking Regulation Enforcement Officer Name Role Phone Sergio Martinez MD Unavailable Misty Wellington NP Unavailable [phone] Prosper Shrestha MD Unavailable [phone] Ramin Whitfield MD Unavailable [phone] Sergio Martinez MD Unavailable Sarah Gould RN Unavailable Jerrod Werner MD Unavailable Jerrod Werner MD Unavailable RadShaila cerna MD Unavailable Encounter Details Date Type Department Care Team (Late st Contact Info) Description 06/23/2024 Telephone [facility] [place] [id number] [facility] 4th [place] [address] Oxana Bullock, RN Social History [...] on file 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 Garzon. Patient will need a special education bus driver, someone to stay with them for 24 hours and should stay in town for 24 hours (within 45 min of Hospital) post procedure. Patient will need a pre-op physical within 30 days of procedure. If outside Health system, will need physical faxed to number [phone] If you do not get a preop [...] to OR scheduling. Carmina Reed RN, BSN Bag Hanger Advanced Endoscopy * Telephone Encounter - Oxana [...] for endoscopy, thank you. Clinical History (per claim review medical director): Oncologic History: Diagnosis/ stage of cancer: Well-differentiated [...] 07/28/2024 9:00 AM CDT Infusion Therapy Visit [facility] [address] [place] [address] [address] [place] [address] Sergio Martinez MD [address] [place], [place] [address] 08/18/2024 2:30 PM CDT Virtual Visit [facility] [address] [place] [address] Sergio Martinez MD [address] [place] [address] 08/25/2024 11:00 AM CDT Infusion Therapy Visit [address] [place] [address] Sergio Martinez MD [address] [place], [place] [address] 10/23/2024 10:30 AM CDT Office Visit [facility] Heart [facility] [address] [facility] [address] [place] [address] Jerrod Werner MD [address] [place], [place] [address] 11/11/2024 9:35 AM CDT [facility] [address] [place] [phone] Alfonzo Sultana MD [facility] [address] [place] [address] 11/11/2024 9:35 AM CDT - 11/11/2024 12:30 PM CDT [facility] [place] [address] Alfonzo Sultana MD [facility] [address] [place] [address] RIGHT TOTAL SHOULDER ARTHROPLASTY VERSUS Scheduled Procedures [...] documented as of this encounter Care Teams Parking Regulation Enforcement Officer Relationship Specialty Start Date End Date Sergio Martinez MD [address] [place], [place] [address] Hematology 05/06/23 [place] [address] [place] [address] Nurse Practitioner Nurse Practitioner 05/07/23 Prosper Shrestha MD [address] [place], [place] [address] Emergency Medicine 05/07/23 Ramin Whitfield MD [address] [place] [address] Assigned Surgical Provider 07/11/23 Sergio Martinez MD [address] [place], [place] [address] Assigned Cancer Care Provider 09/10/23 Sarah Gould, GRZEGORZ [address] [facility] [address] [place], [place] [address] Specialty Bag Hanger Hematology & Oncology 08/13/23 Jerrod Werner MD [address] [place] [address] Cardiovascular Disease 04/07/24 Jerrod Werner MD [address] [place] [address] Assigned Heart and Vascular Provider 04/12/24 [place] [address] [place] [address] Assigned Endocrinology Provider 06/10/24 documented as of this encounter
--- OUTSIDE RECORDS SUMMARY | 2024-07-03 07:54 | XMS_ITS | Encounter Summary ---
Author Organization [place] Address [address] [facility] [place] [address] Care Team Providers Care Change Room Attendant Name Role Phone Sergio Martinez MD Unavailable Misty Wellington NP Unavailable [phone] Prosper Shrestha MD Unavailable Ramin Whitfield MD Unavailable [phone] Sergio Martinez MD Unavailable No Ref-Primary, Physician Primary Care Provider Sarah Gould RN Unavailable Jerrod Werner MD Unavailable Jerrod Werner MD Unavailable RadShaila cerna MD Unavailable Reason for Visit * Reason Onset Date Comments Results 06/10/2024 Echo & [place] Lexisc an stress test (nuc card) Encounter Details Date Type Department Care Team (Late st Contact Info) Description 06/10/2024 Telephone [facility] [address] [facility] [address] [place] [address] Jerrod Werner MD [address] 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 [address] [place] [address] [address] [place] [address] Sergio Martinez MD [address] [place], [place] [address] 08/18/2024 2:30 PM CDT Virtual Visit [facility] [address] [place] [address] Sergio Martinez MD [address] [place], [place] [address] 08/25/2024 11:00 AM CDT Infusion Therapy Visit [facility] [address] [place] [address] [address] [place] [address] Sergio Martinez MD [address] [place], [place] [address] 10/23/2024 10:30 AM CDT Office Visit [facility] [place] [address] [facility] [address] [place] [address] Jerrod Werner MD [address] [place] [address] 11/11/2024 9:35 AM CDT Hospital Encounter [address] [address] Alfonzo Sultana MD [facility] [address] [place] [address] 11/11/2024 9:35 AM CDT - 11/11/2024 12:30 PM CDT Surgery [facility] [address] [place] [address] Alfonzo Sultana MD [facility] [address] [place] [address] RIGHT TOTAL SHOULDER ARTHROPLASTY VERSUS Scheduled Procedures [...] documented as of this encounter Care Teams Change Room Attendant Relationship Specialty Start Date End Date No Ref-Primary, Physician PCP - General 07/01/24 Sergio Martinez MD [address] [place] [address] Hematology 05/06/23 [place] [address] [address] [place] [address] Nurse Practitioner Nurse Practitioner 05/07/23 Prosper Shrestha MD [address] [place], [place] [address] Emergency Medicine 05/07/23 Ramin Whitfield MD 420 [facility] 195 [place], [place] [address] Assigned Surgical Provider 07/11/23 Sergio Martinez MD [address] [place], [place] [address] Assigned Cancer Care Provider 09/10/23 Sarah Gould, GRZEGORZ [facility] 420 [facility] 806 [place], [place] [address] Specialty Loading Machine Operator Hematology & Oncology 08/13/23 Jerrod Werner MD [address] [place], [place] [address] Cardiovascular Disease 04/07/24 Jerrod Werner MD [address] [place] [address] Assigned Heart and Vascular Provider 04/12/24 [place] [address] [facility] [place] [address] Assigned Endocrinology Provider 06/10/24 documented as of this encounter
--- OUTSIDE RECORDS SUMMARY | 2024-07-03 07:54 | XMS_ITS | Encounter Summary ---
Author Organization [place] Address [facility] [address] Care Team Providers Care Building Operator Name Role Phone Sergio Martinez MD Unavailable Misty Wellington NP Unavailable [phone] Prosper Shrestha MD Unavailable [phone] Ramin Whitfield MD Unavailable [phone] Sergio Martinez MD Unavailable Sarah Gould RN Unavailable Jerrod Werner MD Unavailable Jerrod Werner MD Unavailable Reason for Visit * Reason Comments RECHECK Encounter Details Date Type Department Care Team (Latest Contact Info) Description 06/02/2024 8:00 AM CDT Virtual Visit [address] [address] Shaila Landis MD [address] [place] [address] Secondary diabetes mellitus (H) (Primary Dx); [...] on file 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 Location): Home Distant Location (provider location): Off-site Mode of Communication: Video Conference via Provigent Assessment Brooks Munson is a 69 year [...] current pump use until consultation at the [facility] on June 09, 2024. Diabetes, either [...] years and years, all prescribed/ managed by [facility] (even thought they were not [...] since 2010). He continues to follow-up at [facility] and he has an appointment scheduled [...] The patient follows up with Dr. Bello (silk conditioner in [place]). The endocrinology notes were not available at [...] receptor radionuclide therapy (PRRNT) 202 mCi in [facility], 07/2011: Cycle #2 [id number] DOTA-modified octreotide (ADONIS) peptide receptor radionuclide therapy (PRRNT) 202 mCi in [facility]. 10/05/2011: CT AP: Fatty liver. Normal [...] CAP: No evidence of metastatic disease. 08/07/2017: [id number] PET, [place]: Two avid mesenteric lymph nodes. [...] SHOULDER ARTHROPLASTY; Surgeon: Alfonzo Sultana MD; Location: [facility] Main OR BACK SURGERY Laminectomy-lower back [...] RELEASE CARPAL TUNNEL RHINOPLASTY SMALL INTESTINE SURGERY [facility] TOTAL HIP ARTHROPLASTY Right 08/04/2018 Procedure: RIGHT DIRECT ANTERIOR TOTAL HIP ARTHROPLASTY; Surgeon: Herrera Worrell MD; Location: [facility] Main OR; Service: Orthopedics [facility] TOTAL HIP ARTHROPLASTY Left 05/02/2020 Procedure: LEFT DIRECT ANTERIOR TOTAL HIP ARTHROPLASTY; Surgeon: Herrera Worrell MD; Location: [facility] Main OR; Service: Orthopedics Current Medications Current Outpatient Medications: [id number] (CREON 12) 60252 UNITS CPEP, Take 2 capsules by mouth [...] on2024), Disp: , Rfl: vitamin D2 (ERGOCALCIFEROL) 29653 units (1250 mcg) capsule, Take 50,000 Units [...] 06/02/2024 8:00 AM CDT Current patient location: [address] [place] [phone] Is the patient currently in the state of [place]? YES Visit mode: VIDEO If the visit is dropped, the patient can be reconnected by:VIDEO VISIT: Text to cell phone: Telephone Information: Will anyone else be joining the visit? NO (If patient encounters technical issues they should call [phone] :[phone]) Are changes needed to the allergy or medication list? No Are refills needed on medications prescribed by this physician? NO Rooming Documentation: Not applicable Reason for visit: RECHECK Fernanda Smith CMA VVF documented in this encounter Plan of Treatment Upcoming Encounters Date Type Department Care Team (Latest Contact Info) Description 07/28/2024 9:00 AM CDT Infusion Therapy Visit [facility] Medical [facility] [address] [place] [address] [place] [address] Sergio Martinez MD [address] [place] [address] 08/18/2024 2:30 PM CDT Virtual Visit [facility] Cancer [facility] [address] [place] [address] Sergio Martinez MD [address] [place] [address] 08/25/2024 11:00 AM CDT Infusion Therapy Visit [facility] [address] [address] [place] [address] Sergio Martinez MD [address] [place] [address] 10/23/2024 10:30 AM CDT Office [facility] Heart [facility] [address] [facility] [address] [place] [address] Jerrod Werner MD [address] [place] [address] 11/11/2024 9:35 AM CDT [facility] [address] [place] [phone] Alfonzo Sultana MD [facility] [address] [place] [address] 11/11/2024 9:35 AM CDT - 11/11/2024 12:30 PM CDT Surgery [facility] [address] [place] [phone] Alfonzo Sultana MD [facility] [address] [place] [address] RIGHT TOTAL SHOULDER ARTHROPLASTY VERSUS Scheduled Procedures [...] shoulder documented in this encounter Care Teams Building Operator Relationship Specialty Start Date End Date Sergio Martinez MD [address] [place] [address] Hematology 05/06/23 [place] [address] [place] [address] Nurse Practitioner Nurse Practitioner 05/07/23 Prosper Shrestha MD [address] [place] [address] Emergency Medicine 05/07/23 Ramin Whitfield MD [address] [place] [address] Assigned Surgical Provider 07/11/23 Sergio Martinez MD [address] [place] [address] Assigned Cancer Care Provider 09/10/23 Sarah Gould, RN [facility] [address] [facility] [address] [place] [address] Specialty System Analyst Hematology & Oncology 08/13/23 Jerrod Werner MD [address] [place] [address] Cardiovascular Disease 04/07/24 Jerrod Werenr MD [address] [place] [address] Assigned Heart and Vascular Provider 04/12/24 documented as of this encounter
[2024-07-03 07:58] LABS: Basophils Absolute Auto 0.02 K/uL (0.00-0.30); Basophils Percent Auto 0.3 % (0.0-3.0); Eosinophils Absolute Auto 0.05 K/uL (0.00-0.50); Eosinophils Percent Auto 0.8 % (0.0-7.0); Hematocrit 41.8 % (37.0-53.0); Hemoglobin* 14.2 gm/dL (13.5-17.5); Immature Granulocytes Abs Auto 0.02 K/uL (0.00-0.30); Immature Granulocytes Pct Auto 0.3 %; Lymphocytes Absolute Auto 1.51 K/uL (0.90-2.90); Lymphocytes Percent Auto 23.2 % (20-44); Mean Corpuscular HGB Conc 34 gm/dL (32-36); Mean Corpuscular Hemoglobin 28 pg (26-34); Mean Corpuscular Volume 82 fL (80-100); Monocytes Percent Auto 8.3 % (0.0-11.0); Neutrophils Absolute Auto 4.37 K/uL (1.7-7.0); Neutrophils Percent Auto 67.1 % (42.0-72.0); Platelet Count* 159 K/uL (140-440); RDW Coefficient of Variation % 15.4 % (11.5-15.5); Red Blood Count 5.07 m/uL (4.30-5.90); White Blood Count* 6.51 K/uL (4.50-11.00)
[2024-07-03 08:02] LABS: Slide Review Reflex No
[2024-07-03 08:08] LABS: Albumin* 4.2 g/dL (3.3-5.0); Chloride* 104 mmol/L (96-114); Potassium* 4.1 mmol/L (3.6-5.1); Sodium* 140 mmol/L (135-149)
[2024-07-03 08:11] LABS: Alanine Aminotransferase* 23 U/L (4-50); Alkaline Phosphatase* 100 U/L (40-150); Anion Gap 9 mEq/L (7-15); Aspartate Amino Transferase* 31 U/L (12-35); Blood Urea Nitrogen* 16 mg/dL (7-30); Calcium* 8.9 mg/dL (8.4-10.6); Carbon Dioxide* 27 mmol/L (20-32); Creatinine* 0.9 mg/dL (0.5-1.5); Estimated Glomerular Filt Rate 93 ml/min; Glucose* 183 mg/dL (60-115); Total Protein* 7.3 g/dL (6.0-8.3)
[2024-07-03 08:58] LABS: PCR FLU A Negative PCR FLU A (Negative); PCR FLU B Negative PCR FLU B (Negative); PCR RSV Negative PCR RSV (Negative); SARS PCR* Negative SARS-CoV-2 (Negative)
[2024-07-03 09:03] LABS: Troponin I* < 0.01 ng/mL (0.01-0.04)
--- NOTE | 2024-07-03 09:25 | CRLHL7_ITS ---
For Patients: As a result of the Century Cures Act, medical imaging exams and procedure reports are released immediately into your electronic medical record. You may view this report before your referring provider. If you have questions, please contact your health care provider. INDICATION: Retroperitoneal air noted in the upper left abdomen on chest CT obtained earlier this day. An abdomen and pelvis CT was recommended to assess for the exact etiology. Patient has a history of recent endoscopy and history of small intestine carcinoid. COMPARISON: A chest CT from earlier the same day. Also, portions of in October 07, [address] TECHNIQUE: CT examination of the abdomen and pelvis was performed following the uneventful intravenous administration of 130 cc of Isovue 370. Thin section axial images were obtained from the lung bases through the pubic symphysis. Oral contrast was not administered. Please note that all CT scans at this facility use dose modulation, iterative reconstruction, and/or weight-based dosing when appropriate to reduce radiation dose to as low as reasonably achievable. FINDINGS: LUNG BASES: Linear opacities at the lung bases consistent with atelectasis.Heart size normal the lung bases. LIVER/BILIARY SYSTEM:Hepatic steatosis. No focal mass. Cholecystectomy. Mildly prominent biliary ductal system. This is probably reservoir phenomena from a prior cholecystectomy. This is similar to in October 07, [address] ADRENALS: Normal KIDNEYS, URETERS and BLADDER:The kidneys appear normal. No visible mass, calculus or hydronephrosis. The ureters and bladder as visualized appear normal. SPLEEN:Normal appearance. PANCREAS: Appears normal. RETROPERITONEUM and MESENTERY: No adenopathy or mass. There is a very small amount of gas in the retroperitoneum. This is adjacent to the left robert of the diaphragm in the region of the celiac and SMA. By report, this patient has had ganglionic region injections for pain management and it is possible that this is related to those injections. The patient also apparently had recent upper endoscopy and is possible that there is a micro perforation associated with an endoscopy. GASTROINTESTINAL SYSTEM: There is no evidence of diverticulitis, colitis, mechanical obstruction, or appendicitis. The small bowel as visualized appears normal.Gaseous distention of colon without mechanical obstruction. I do not see any findings indicative of small bowel carcinoid as per clinical history. I do not see any direct discontinuity in the bowel. PELVIS: No mass, adenopathy or free fluid. OSSEOUS STRUCTURES and ABDOMINAL WALL: There is an age-appropriate appearance of the osseous structures.No significant abdominal wall defect. OTHER: No free fluid or free air. IMPRESSION: 1. A few locules of air are noted in the upper abdominal retroperitoneum. This could be air related to recent injection for upper abdominal ganglionic injections for pain management. The patient also had recent upper endoscopy and it is possible this is related to a micro perforation 2. Other nonacute appearing findings as discussed above Please note that all CT scans at this facility use dose modulation, iterative reconstruction, and/or weight-based dosing when appropriate to reduce radiation dose to as low as reasonably achievable. Dictated by Richard Torres MD @ 07/03/2024 10:10:40 AM (Electronically Signed)
[2024-07-03] MEDS: 0.9 % SODIUM CHLORIDE 500 ML 500 ML IV (10:12)
[2024-07-03] MEDS: ONDANSETRON 2 MG/ML inj 4 MG IVP (10:12)
[2024-07-03] MEDS: fentaNYL 100 MCG/2 ML inj 50 MCG IVP ×2 (10:12→14:06)
[2024-07-03] MEDS: PANTOPRAZOLE SODIUM 40 MG INJ IVP (14:07)
[2024-07-03] MEDS: PIPERACILLIN/TAZOBACTAM 3.375 GM in 0.9 % SODIUM CHLORIDE Mini-bag 100 ML IVPB (14:07)
[2024-07-03] MEDS: 0.9 % SODIUM CH + KCL 20 mEq/L 1,000 ML 100 ML IV (15:00)
[2024-07-03 15:28] LABS: Glucose, Point-of-Care* 97 mg/dl (60-115)
== END 2024-07-03 18:24 | disposition short-term general hospital (02) ==
PROVIDERS: Internal Medicine; Emergency Provider Family Medicine
DX: K68.9 Other disorders of retroperitoneum (principal); R07.9 Chest pain, unspecified; R10.9 Unspecified abdominal pain; R11.0 Nausea; F40.240 Claustrophobia; E11.9 Type 2 diabetes mellitus without complications; Z79.4 Long term (current) use of insulin
CPT/HCPCS: 36415; 71275; 74177; 80053; 82947; 84484; 85025; 87631; 93005; 96365; 96375; 99284; 99285; J2405; J2470; J2543; J3010; J7030; Q9967

== ENCOUNTER 2024-07-03 18:13 | Outpatient (CLI) | payer MEDICARE, BC, SELFPAY | END 2024-07-03 18:14 | disposition home or self-care (01) | LOC: AMB 07-09 08:55 | PROVIDERS: Visit Provider Emergency Medicine | DX: K66.8 Other specified disorders of peritoneum (principal) | CPT/HCPCS: A0425; A0434 ==

== ENCOUNTER 2024-12-31 17:46 | Emergency (ER) | payer MEDICARE, BC, SELFPAY ==
--- OUTSIDE RECORDS SUMMARY | 2024-12-08 10:20 | XMS_ITS | Encounter Summary ---
Author Organization [place] [facility] [place] [address] Care Team Providers Care Headhunter Name Role Phone Sergio Martinez MD Unavailable Misty Wellington NP Unavailable [phone] Prosper Shrestha MD Unavailable [phone] Ramin Whitfield MD Unavailable [phone] Sergio Martinez MD Unavailable No Ref-Primary, Physician Primary Care Provider Sarah Gould RN Unavailable Jerrod Werner MD Unavailable [phone] Jerrod Werner MD Unavailable [phone] Shaila Landis MD Unavailable [phone] Sarabjit Alba MD Unavailable [phone] Emre Silva MD Unavailable [phone] Emre Silva MD Unavailable [phone] Reason for Visit * Reason Comments RECHECK Encounter Details Date Type Department Care Team (Late st Contact Info) Description 12/08/2024 11:20 AM CDT Virtual Visit [facility] [place] [address] [place] [address] Emre Silva MD 420 [facility], [id number] Palliative [place] [address] Neuroendocrine cancer (H) (Primary Dx); Cancer associated pain; Drug-induced constipation Social History Tobacco Use Types Packs/Day Years Used Date Smoking Tobacco: Former Cigarettes Q uit: 02/19/1984 Passive Smoke Exposure: Never Smokeless Tobacco: Never Alcohol Use Standard Drinks/Week Comments Not Currently 0 (1 standard drink = 0.6 oz pur e alcohol) sober x 5 years PHQ-2 Answer Date Recorded PHQ-2 Score 0 06/02/2024 Adolescent Education Answer Date Record ed Getting School Help Needed Not on file 11/09 Food Insecurity Answer Date Recorded Within the past 12 months, d id you worry that your food would run out before you got money to buy more? No 11/12/2024 Within the past 12 months, d id the food you bought just not last and you didn t have money to get more? No 11/12/2024 Housing Stability Answer Date Recorded Do you have housing? (Housin g is defined as stable permanent housing and does not include staying outside in a car, in a tent, in an abandoned building, in an overnight assisted, or couch-surfing.) Yes 11/12/2024 Are you worried about losing your housing? No 11/12/2024 Financial Resource Strain Answer Date R ecorded Within the past 12 months, h ave you or your family members you live with been unable to get utilities (heat, electricity) when it was really needed? No 11/12/2024 Transportation Needs Answer Date Record ed Within the past 12 months, h as lack of transportation kept you from medical appointments, getting your medicines, non-medical meetings or appointments, work, or from getting things that you need? No 11/12/2024 Interpersonal Safety Answer Date Record ed Do you feel physically and e motionally safe where you currently live? Yes 11/11/2024 Within the past 12 months, h ave you been hit, slapped, kicked or otherwise physically hurt by someone? No 11/11/2024 Within the past 12 months, h ave you been humiliated or emotionally abused in other ways by your partner or ex-partner? 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 Gender Identity Not on file Sexual Orientation Not on file documented as of this encounter Last Filed Vital Signs Vital Sign Reading Time Taken Comments Blood Pressure - - Pulse - - Temperature - - Respiratory Rate - - Oxygen Saturation - - Inhaled Oxygen Concentration - - Weight 115.7 kg (255 lb) 12/08/2024 11:06 AM CDT Height - - Body Mass Index 31.87 11/09/2024 8:47 AM CDT documented in this encounter Progress Notes * Emre Silva MD - 12/08/2024 11:20 AM CDT Palliative Care Outpatient Clinic Patient ID: Medical - He has well-differentiated ileal neuroendocrine tumor, 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 Treatments in [facility] over the years. 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 06/2024 EUS CPN; markedly worsened pain afterwards. 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 Care Planning - HPI: History gathered today from: patient, medical chart Shoulder Pain Post-Replacement - Underwent shoulder replacement surgery approximately one month ago (November 05, 2024) - Pain managed with small doses of oxycodone, taken approximately eight times since surgery - Using a sling for shoulder support - Reports improvement in shoulder pain - Believes Butrans patch may be helping with shoulder pain Chronic Abdominal Pain Related to Ileal Neuroendocrine Tumor - Abdominal pain flares up about three days per week, less frequent and less severe than previously - Reports improvement in pain control; lanreotide perhaps helping - Continues to use Butrans pain patch 10 mcg/hr - Denies mental fuzziness with Butrans patch Bowel Symptoms - Alternating constipation and diarrhea, unchanged - Manages constipation with milk of magnesia, reports rapid relief - Has tried multiple interventions for bowel symptoms without significant change - Feels there is little more to do for bowel symptoms, managing as best as possible PE: Wt 115.7 kg (255 lb) BMI 31.87 kg/m?? Wt Readings from Last 3 Encounters: 12/08/24 115.7 kg (255 lb) 11/09/24 122.5 kg (270 lb) 10/23/24 122.5 kg (270 lb) Physical Exam- MUSCULOSKELETAL: Shoulder immobilized with a sling. Alert NAD Data Review: HGB 11.6 CR 0.9 RELIEF SALESPERSON database reviewed: y Assessment & Plan: Assessment & Plan Gutierrez Munsno, 69 years, seen for chronic abdominal pain related to ileal neuroendocrine tumor, shoulder pain post-replacement, and bowel symptoms. Chronic abdominal pain related to ileal neuroendocrine tumor: - Pain well controlled with Butrans patch. No mental fuzziness reported with current regimen. - Continue Butrans 10 micrograms per hour patch. Clinic to schedule follow-up in a few months. Shoulder pain post shoulder replacement: - Shoulder pain following recent shoulder replacement. Pain managed with intermittent low-dose oxycodone and Butrans patch. Constipation and diarrhea: - Alternating constipation and diarrhea. No change in bowel pattern. OIC managed with milk of magnesia as needed. Mood & Coping: - Doing well in general 42 minutes spent on the date of the encounter doing chart review, history and exam, patient education & counseling, documentation and other activities as noted above. The longitudinal plan of care for the diagnosis(es)/condition(s) as documented were addressed during this visit. Due to the added complexity in care, I will continue to support Gtuierrez in the subsequent management and with ongoing continuity of care. Thank you for involving us in the patient's care. Emre Silva MD / Palliative Medicine / Text me via [facility] This note may have been composed with voice recognition software and there may be mistranscriptions. Virtual Visit Details Type of service: Video Visit Video Start Time: 11:18 AM Video End Time:11:27 AM Originating Location (pt. Location): Home Distant Location (provider location): Off-site Platform used for Video Visit: Aaron documented in this encounter Nursing Notes * Britney France - 12/08/2024 11:20 AM CDT Current patient location: [address] [place] [phone] Is the patient currently in the state of [place]? YES Visit mode: VIDEO If the visit is dropped, the patient can be reconnected by:VIDEO VISIT: Text to cell phone: Telephone Information: Will anyone else be joining the visit? NO (If patient encounters technical issues they should call [phone]) Are changes needed to the allergy or medication list? Pt stated no changes to allergies and Pt stated no med changes Are refills needed on medications prescribed by this physician? NO Rooming Documentation: Questionnaire(s) not pre-assigned Reason for visit: RECHECK Britney France VVF documented in this encounter Plan of Treatment Upcoming Encounters Date Type Department Care Team (Late st Contact Info) Description 01/05/2025 2:30 PM TONGUE LINING STITCHER Infusion Therapy Visit [place] [address] [place] [phone] Sergio Martinez MD [address] [place], [place] [address] 02/02/2025 2:30 PM TONGUE LINING STITCHER Infusion Therapy Visit [place] [address] [place] [address] Sergio Martinez MD [address] [place], [place] [address] 03/02/2025 2:30 PM TONGUE LINING STITCHER Infusion Therapy Visit [place] [address] [place] [address] Sergio Martinez MD [address] [place], [place] [address] 03/10/2025 2:05 PM TONGUE LINING STITCHER Virtual Visit [facility] [address] [place] [phone] Emre Silva MD 420 [facility], [id number] Palliative Care [place], [place] [address] 04/22/2025 8:10 AM TONGUE LINING STITCHER Office Visit [facility] [address] [place] [phone] Jerrod Werner MD [address] [place] [address] Antonietta Burton APRN DERMATOLOGY SALES REPRESENTATIVE [address] [place] [address] documented as of this encounter Goals Goal Patient Goal Type Associated Problems Recent Progress Patient-Stated? Author Total Joint Replacement Shoulder Pathway Care Plan Total Joint Replacement Shoulder Pathway No Colleen Cohen Autogenerated Goal Care Plan Autogenerated Problem No Optime, Batch Job documented as of this encounter Visit Diagnoses Diagnosis Neuroendocrine cancer (H)- Primary Other malignant neoplasm without specification of site Cancer associated pain Neoplasm related pain (acute) (chronic) Drug-induced constipation Other constipation 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 Problem 10/13/2024 documented as of this encounter Care Teams Headhunter Relationship Specialty Start Date End Date No Ref-Primary, Physician PCP - General 07/01/24 Sergio Martinez MD [address] [place] [address] Hematology 05/06/23 [place] [address] [place] [address] Nurse Practitioner Nurse Practitioner 05/07/23 Prosper Shrestha MD 500 [place], [place] [address] Emergency Medicine 05/07/23 Ramin Whitfield MD 420 [facility] 195 [place], [place] [address] Assigned Surgical Provider 07/11/23 12/09/24 Sergio Martinez MD [address] [place], [place] [address] Assigned Cancer Care Provider 09/10/23 Sarah Gould, GRZEGORZ [facility] 420 [facility] [address]06 [place], [place] [address] Specialty Staff Radiographer Hematology & Oncology 08/13/23 Jerrod Werner MD [address] [place] [address] Cardiovascular Disease 04/07/24 Jerrod Werner MD [address] [place] [address] Assigned Heart and Vascular Provider 04/12/24 [place] [address] [place] [address] Assigned Endocrinology Provider 06/10/24 Sarabjit Alba MD 516 [facility], [address] [place], [place] [address] Fellow HOSPICE 07/22/24 Emre Silva MD 420 [facility], [id number] Palliative Care [place], [place] [address] Palliative Care 07/24/24 Emre Silva MD 420 [facility], [id number] Palliative Care [place], [place] [address] Assigned Palliative Care Provider 09/09/24 documented as of this encounter
--- OUTSIDE RECORDS SUMMARY | 2024-12-08 13:30 | XMS_ITS | Encounter Summary ---
Author Organization [place] Address [address] [place] [address]. [place] [address] Care Team Providers Care Steward/Stewardess Second Name Role Phone Sergio Martinez MD Unavailable Misty Wellintgon NP Unavailable [phone] Prosper Shrestha MD Unavailable [phone] Ramin Whitfield MD Unavailable [phone] Sergio Martinez MD Unavailable No Ref-Primary, Physician Primary Care Provider Sarah Gould RN Unavailable Jerrod Werner MD Unavailable [phone] Jerrod Werner MD Unavailable [phone] Shaila Landis MD Unavailable Sarabjit Alba MD Unavailable [phone] Emre Silva MD Unavailable [phone] Emre Silva MD Unavailable [phone] Reason for Visit * Reason Comments Imm/Inj Lanreotide * Treatment and Therapy Plans (Routine) - Authorized Specialty Diagnoses / Procedures Referred By Contac t Referred To Contact Infusion Therapy Diagnoses Neuroendocrine cancer (H) Procedures ZZC INJECTION, LANREOTIDE, 1 MG Sergio Martinez MD [address] [place] [address] Phone: tel: fax: [facility] [address] [place] [address] Phone: tel: fax: Referral ID Status Reason Start Date Expiration Date V isits Requested Visits Authorized [id number] Authorized 06/23/2024 02/17/2025 99 99 Encounter Details Date Type Department Care Team (Latest Contact Info) Description 12/08/2024 2:30 PM CDT Infusion Therapy Visit [facility] [address] [place] [address] Sergio Martinez MD [address] [place] [address] Neuroendocrine cancer (H) (Primary Dx) Social [...] in an abandoned building, in an overnight residential, or couch-surfing.) Yes 11/12/2024 Are you worried [...] on file Legal Sex Male 3:10 AM TEACHING PASTOR Gender Identity Not on file Sexual Orientation Not on file documented as of this encounter Last Filed Vital Signs Vital Sign Reading Time Taken Comments Blood Pressure 120/69 12/08/2024 2:06 PM CDT Pulse 73 12/08/2024 2:06 PM CDT Temperature 36.4 C (97.5 F) 12/08/2024 2:06 PM CDT Respiratory Rate 16 12/08/2024 2:06 PM CDT Oxygen Saturation 97% 12/08/2024 2:06 PM CDT Inhaled Oxygen Concentration - - Weight - - Height - - Body Mass Index - - documented in this encounter Progress Notes * Neetu Hernandez, RN - 12/08/2024 2:30 PM CDT Infusion Nursing Note: Brooks Munson presents today for Lanreotide. Patient seen by provider today: No Livestock Yard Supervisor present during visit today: Not Applicable. Note: N/A. Intravenous Access: No Intravenous access/labs at this visit. Treatment Conditions: Not Applicable. Post Infusion Assessment: Patient tolerated injection without incident. Discharge Plan: Discharge instructions reviewed with: Patient. Patient and/or family verbalized understanding of discharge instructions and all questions answered. AVS to patient via BoxCatT. Patient will return 01/05 for next appointment. Patient discharged in stable condition accompanied by: self. Departure Mode: Ambulatory. Roshan Hernandez, RN documented in this encounter Plan of Treatment Upcoming Encounters Date Type Department Care Team (Late st Contact Info) Description 01/05/2025 2:30 PM TEACHING PASTOR Infusion Therapy Visit [address] [place] [address] Sergio Martinez MD [address] [place], [place] [address] 02/02/2025 2:30 PM TEACHING PASTOR Infusion Therapy Visit [address] [place] [phone] Sergio Martinez MD [address] [place], [place] [address] 03/02/2025 2:30 PM TEACHING PASTOR Infusion Therapy Visit [address] [place] [address] Sergio Martinez MD [address] [place], [place] [address] 03/10/2025 2:05 PM TEACHING PASTOR Virtual Visit [facility] [address] [place] [phone] Emre Silva MD 420 [facility], [id number] [place] [address] 04/22/2025 8:10 AM TEACHING PASTOR Office Visit [facility] [address] [facility] [address] [place] [phone] Jerrod Werner MD [address] [place] [address] Antonietta Burton APRN DIRECTOR OF SECURITY [address] [place] [address] documented as of this encounter Goals Goal Patient Goal Type Associated Problems Recent Progress Patient-Stated? Author Total Joint Replacement Shoulder Pathway Care Plan Total Joint Replacement Shoulder Pathway No Colleen Cohen Autogenerated Goal Care Plan Autogenerated Problem No [place], Rafi Job documented as of this encounter Visit Diagnoses Diagnosis Neuroendocrine cancer (H)- Primary Other malignant neoplasm without specification of site documented in this encounter Administered Medications Inactive Administered Medications - up to 3 most recent administrations Medication Order MAR Action Action Date Dose Rate Site lanreotide acetate (SOMATULINE) injection 120 mg 120 mg, Subcutaneous, ONCE, On Sat12/08/24 at 1415, For 1 dose, Inject via the deep subcutaneous route in the superior external quadrant of the buttock. Alternate the injection site between the right and left sides from one injection to the next. See enclosed Instructions for Use Leaflet for further information.Indications:Ne uroendocrine cancer (H) $Given 12/08/2024 2:14 PM CDT 120 mg Left Upper Outer Quadrant 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 Problem 10/13/2024 documented as of this encounter Care Teams Steward/Stewardess Second Relationship Specialty Start Date End Date No Ref-Primary, Physician PCP - General 07/01/24 Sergio Martinez MD [address] [place], [place] [address] Hematology 05/06/23 [place] [address] [place] [address] Nurse Practitioner Nurse Practitioner 05/07/23 Prosper Shrestha MD 500 [place], [place] [address] Emergency Medicine 05/07/23 Ramin Whitfield MD 420 [facility] 195 [place], [place] [address] Assigned Surgical Provider 07/11/23 12/09/24 Sergio Martinez MD [address] [place], [place] [address] Assigned Cancer Care Provider 09/10/23 Sarah Gould, GRZEGORZ [facility] 420 [facility] 806 [place], [place] [address] Specialty Community Associate Hematology & Oncology 08/13/23 Jerrod Werner MD [address] [place] [address] Cardiovascular Disease 04/07/24 Jerrod Werner MD [address] [place] [address] Assigned Heart and Vascular Provider 04/12/24 [place] [address] [place] [address] Assigned Endocrinology Provider 06/10/24 Sarabjit Alba MD 516 [facility], [address] [place], [place] [address] Fellow HOSPICE 07/22/24 Emre Silva MD 420 [facility], UDH144 Palliative Care [place], [place] [address] Palliative Care 07/24/24 Emre Silva MD [address] [place], [place] [address] [place] [address] Assigned Palliative Care Provider 09/09/24 documented as of this encounter
[2024-12-31] VITALS (13 sets, daily range): BP systolic 127–160; BP diastolic 69–86; PULSE 77–100; RESP 11–24; TEMP 36.4; O2SAT 98–100; BMI 31.9
--- OUTSIDE RECORDS SUMMARY | 2024-12-31 17:48 | XMS_ITS | Encounter Summary ---
Author Organization [place] Address [facility] [place] [address] Care Team Providers Care Case Sealer Name Role Phone Sergio Martinez MD Unavailable Misty Wellington NP Unavailable [phone] Prosper Shrestha MD Unavailable [phone] Ramin Whitfield MD Unavailable [phone] Sergio Martinez MD Unavailable No Ref-Primary, Physician Primary Care Provider Sarah Gould RN Unavailable Jerrod Werner MD Unavailable [phone] Jerrod Werner MD Unavailable [phone] Shaila Landis MD Unavailable Sarabjit Alba MD Unavailable [phone] Emre Silva MD Unavailable [phone] Emre Silva MD Unavailable [phone] Encounter Details Date Type Department Care Team (Late st Contact Info) Description 07/31/2024 [facility] [address] [place] [address] Mara Henriquez APRN STADIUM MANAGER [address] [place] [address] Social History Tobacco Use Types Packs/Day Years [...] you got money to buy more? No 07/04/2024 Within the past 12 months, d id the food you bought just not last and you didn t have money to get more? No 07/04/2024 Housing Stability Answer Date Recorded Do you have housing? (Nicholas smith is defined as stable permanent housing and does not include staying outside in a car, in a tent, in an abandoned building, in an overnight retirement, or couch-surfing.) Yes 07/04/2024 Are you worried about losing your housing? No 07/04/2024 Financial Resource Strain Answer Date R ecorded Within the past 12 months, h ave you or your family members you live with been unable to get utilities (heat, electricity) when it was really needed? No 07/04/2024 Transportation Needs Answer Date Record ed Within the past 12 months, h as lack of transportation kept you from medical appointments, getting your medicines, non-medical meetings or appointments, work, or from getting things that you need? No 07/04/2024 Interpersonal Safety Answer Date Record ed Do you feel physically and e motionally safe where you currently live? Yes 07/03/2024 Within the past 12 months, h ave you been hit, slapped, kicked or otherwise physically hurt by someone? No 07/03/2024 Within the past 12 months, h ave you been humiliated or emotionally abused in other ways by your partner or ex-partner? No 07/03/2024 Sex and Gender Information Value Date Recorded Sex Assigned at Not on file Legal Sex Male 3:10 AM COMMUNICATION CENTER COORDINATOR Gender Identity Not on file Sexual Orientation Not on file documented as of this encounter Plan of Treatment Upcoming Encounters Date Type Department Care Team (Late st Contact Info) Description 01/05/2025 2:30 PM COMMUNICATION CENTER COORDINATOR Infusion Therapy Visit [address] [place] [phone] Sergio Martinez MD 500 [place], [place] [address] 02/02/2025 2:30 PM COMMUNICATION CENTER COORDINATOR Infusion Therapy Visit [address] [place] [phone] Sergio Martinez MD [address] [place], [place] [address] 03/02/2025 2:30 PM COMMUNICATION CENTER COORDINATOR Infusion Therapy Visit [facility] [address] [place] [address] [address] [place] [phone] Sergio Martinez MD [address] [place], [place] [address] 03/10/2025 2:05 PM COMMUNICATION CENTER COORDINATOR Virtual Visit [facility] [address] [place] [address] Emre Silva MD 420 [facility], [id number] Palliative Care [place], [place] [address] 04/22/2025 8:10 AM COMMUNICATION CENTER COORDINATOR Office Visit [facility] Heart [facility] [address] [facility] [address] [place] [phone] Jerrod Werner MD [address] [place] [address] Antonietta Burton APRN STADIUM MANAGER [address] [place], [place] [address] documented as of this encounter Goals Goal [...] documented as of this encounter Care Teams Case Sealer Relationship Specialty Start Date End Date No Ref-Primary, Physician PCP - General 07/01/24 Sergio Martinez MD 500 [place] [address] Hematology 05/06/23 [place] [address] [facility] [address] Nurse Practitioner Nurse Practitioner 05/07/23 Prosper Shrestha MD 500 [place], [place] [address] Emergency Medicine 05/07/23 Ramin Whitfield MD [address] [place] [address] 195 [place], [place] [address] Assigned Surgical Provider 07/11/23 12/09/24 Sergio Martinez MD [address] [place], [place] [address] Assigned Cancer Care Provider 09/10/23 Sarah Gould, [facility]Z [facility] 420 [facility] 806 [place], [place] [address] Specialty Municipal [address] Magistrate Hematology & Oncology 08/13/23 Jerrod Werner MD [address] [place] [address] Cardiovascular Disease 04/07/24 Jerrod Werner MD [address] [place] [address] Assigned Heart and Vascular Provider 04/12/24 [place] [address] [place] [address] Assigned Endocrinology Provider 06/10/24 Sarabjit Alba MD 516 [facility], [address] [place], [place] [address] Fellow HOSPICE 07/22/24 Emre Silva MD [address] [place], [place] [id number] Palliative Care [place], [place] [address] Palliative Care 07/24/24 Emre Silva MD [address] [place] [address], [id number] Palliative Care [place], [place] [address] Assigned Palliative Care Provider 09/09/24 documented as of this encounter
--- OUTSIDE RECORDS SUMMARY | 2024-12-31 17:48 | XMS_ITS | Encounter Summary ---
Author Organization [place] Address [facility] [address] Care Team Providers Care Paper Products Machine Operator Name Role Phone Sergio Martinez MD Unavailable Misty Wellington NP Unavailable [phone] Prosper Shrestha MD Unavailable [phone] Ramin Whitfield MD Unavailable [phone] Sergio Martinez MD Unavailable No Ref-Primary, Physician Primary Care Provider Sarah Gould RN Unavailable Jerrod Werner MD Unavailable [phone] Jerrod Werner MD Unavailable [phone] Shaila Landis MD Unavailable [phone] Sarabjit Alba MD Unavailable [phone] Emre Silva MD Unavailable [phone] Emre Silva MD Unavailable [phone] Encounter Details Date Type Department Care Team (Late st Contact Info) Description 07/27/2024 [facility] [address] [place] [address] Sonam Brand Social History Tobacco Use Types Packs/Day Years [...] in an abandoned building, in an overnight correction, or couch-surfing.) Yes 07/04/2024 Are you worried [...] on file Legal Sex Male 3:10 AM ROUTE CLERK Gender Identity Not on file Sexual Orientation Not on file documented as of this encounter Plan of Treatment Upcoming Encounters Date Type Department Care Team (Late st Contact Info) Description 01/05/2025 2:30 PM ROUTE CLERK Infusion Therapy Visit [address] [place] [phone] Sergio Martinez MD 500 [place], [place] [address] 02/02/2025 2:30 PM ROUTE CLERK Infusion Therapy Visit [address] [place] [address] Sergio Martinez MD 500 [place], [place] [address] 03/02/2025 2:30 PM ROUTE CLERK Infusion Therapy Visit [address] [place] [phone] Sergio Martinez MD 500 [place], [place] [address] 03/10/2025 2:05 PM ROUTE CLERK Virtual Visit [facility] 9[address] [place] [phone] Emre Silva MD 420 [facility] [place], KIG406 [place] [address] 04/22/2025 8:10 AM ROUTE CLERK Office Visit [facility] [address] [place] [phone] Jerrod Werner MD [address] [place] [address] Antonietta Burton APRN PACKAGE DRIER [address] [place] [address] documented as of this encounter Goals Goal [...] documented as of this encounter Care Teams Paper Products Machine Operator Relationship Specialty Start Date End Date No Ref-Primary, Physician PCP - General 07/01/24 Sergio Martinez MD 500 [place], [place] [address] Hematology 05/06/23 [place] [address] [place] [address] Nurse Practitioner Nurse Practitioner 05/07/23 Prosper Shrestha MD 500 [place], [place] 9933[address] Emergency Medicine 05/07/23 Ramin Whitfield MD 420 [facility] 195 [place], [place] [address] Assigned Surgical Provider 07/11/23 12/09/24 Sergio Martinez MD 500 [place] [address] Assigned Cancer Care Provider 09/10/23 Sarah Gould, [facility] 420 [facility] 806 [place] [address] Specialty Cso Hematology & Oncology 08/13/23 Jerrod Werner MD [address] [place] [address] Cardiovascular Disease 04/07/24 Jerrod Werner MD [address] [place] [address] Assigned Heart and Vascular Provider 04/12/24 [place] [address] [place] [address] Assigned Endocrinology Provider 06/10/24 Sarabjit Alba MD [address] [place] [address], [address] [place] [address] Fellow HOSPICE 07/22/24 Emre Silva MD [address] [place], [place] [id number] [place] [address] Palliative Care 07/24/24 Emre Silva MD [address] [place], [place] [address] [place] [address] Assigned Palliative Care Provider 09/09/24 documented as of this encounter
--- OUTSIDE RECORDS SUMMARY | 2024-12-31 17:48 | XMS_ITS | Encounter Summary ---
Author Organization [place] Address [facility] [place] [address] Care Team Providers Care Carbon Accountant Name Role Phone Sergio Martinez MD Unavailable Misty Wellington NP Unavailable [phone] Prosper Shrestha MD Unavailable [phone] Ramin Whitfield MD Unavailable [phone] Sergio Martinez MD Unavailable No Ref-Primary, Physician Primary Care Provider Sarah Gould RN Unavailable Jerrod Werner MD Unavailable [phone] Jerrod Werner MD Unavailable [phone] Shaila Landis MD Unavailable Sarabjit Alba MD Unavailable [phone] Emre Silva MD Unavailable [phone] Emre Silva MD Unavailable [phone] Encounter Details Date Type Department Care Team (Late st Contact Info) Description 07/16/2024 [facility] 909 [place] [address] Sarah Gould, [facility] 420 [facility] 806 [place], [place] [address] Social History Tobacco Use Types Packs/Day Years [...] Date Recorded Do you have housing? (Nicholas g is defined as stable permanent housing and does not include staying outside in a car, in a tent, in an abandoned building, in an overnight fci, or couch-surfing.) Yes 07/04/2024 Are you worried [...] on file Legal Sex Male 3:10 AM CONVENTIONAL MACHINIST Gender Identity Not on file Sexual Orientation Not on file documented as of this encounter Plan of Treatment Upcoming Encounters Date Type Department Care Team (Late st Contact Info) Description 01/05/2025 2:30 PM CONVENTIONAL MACHINIST Infusion Therapy Visit [address] [place] [phone] Sergio Martinez MD 500 [place], [place] [address] 02/02/2025 2:30 PM CONVENTIONAL MACHINIST Infusion Therapy Visit [address] [place] [phone] Sergio Martinez MD 500 [place], [place] 6[address] 03/02/2025 2:30 PM CONVENTIONAL MACHINIST Infusion Therapy Visit [address] [place] [phone] Sergio Martinez MD 500 [place], [place] [address] 03/10/2025 2:05 PM CONVENTIONAL MACHINIST Virtual Visit [facility] 909 [place] [address] Emre Silva MD 420 [facility], SKC344 Palliative Care [place], [place] [address] 04/22/2025 8:10 AM CONVENTIONAL MACHINIST Office Visit [facility] [address] [facility] [address] [place] [phone] Jerrod Werner MD [address] [place] [address] Antonietta Burton APRN WATER PLANT MAINTENANCE MECHANIC [address] [place] [address] documented as of this encounter Goals Goal [...] documented as of this encounter Care Teams Carbon Accountant Relationship Specialty Start Date End Date No Ref-Primary, Physician PCP - General 07/01/24 Sergio Martinez MD 500 [place] [address] Hematology 05/06/23 [place] [address] [place] [address] Nurse Practitioner Nurse Practitioner 05/07/23 Prosper Shrestha MD 500 [place], [place] 50[address] Emergency Medicine 05/07/23 Ramin Whitfield MD [address] [place] [address] 195 [place], [place] [address] Assigned Surgical Provider 07/11/23 12/09/24 Sergio Martinez MD 500 [place], [place] [address] Assigned Cancer Care Provider 09/10/23 Sarah Gould, [facility] 420 [facility] 806 [place] [address] Specialty Hospital Nursing Assistant Hematology & Oncology 08/13/23 Jerrod Werner MD [address] [place] [address] Cardiovascular Disease 04/07/24 Jerrod Werner MD [address] [place] [address]155 Assigned Heart and Vascular Provider 04/12/24 [place] [address] [place], [place] [address] Assigned Endocrinology Provider 06/10/24 Sarabjit Alba MD 6 [facility], [address] [place] [address] Fellow HOSPICE 07/22/24 Emre Silva MD [address] [place], [place] [id number] [place] [address] Palliative Care 07/24/24 Emre Silva MD [address] [place], [place] [address] [place] [address] Assigned Palliative Care Provider 09/09/24 documented as of this encounter
--- OUTSIDE RECORDS SUMMARY | 2024-12-31 17:48 | XMS_ITS | Encounter Summary ---
Author Organization [place] Address On license of [facility]0 [facility] [place] [address] Care Team Providers Care Liquor Stores [employer] Agencies Supervisor Name Role Phone Sergio Martinez MD Unavailable Misty Wellington NP Unavailable [phone] Prosper Shrestha MD Unavailable [phone] Ramin Whitfield MD Unavailable [phone] Sergio Martinez MD Unavailable No Ref-Primary, Physician Primary Care Provider Sarah Gould RN Unavailable Jerrod Werner MD Unavailable [phone] Jerrod Werner MD Unavailable [phone] Shaila Landis MD Unavailable Sarabjit Alba MD Unavailable [phone] Emre Silva MD Unavailable [phone] Emre Silva MD Unavailable [phone] Encounter Details Date Type Department Care Team (Late st Contact Info) Description 07/24/[address] 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 TAILINGS DAM LABORER Gender Identity Not on file Sexual Orientation Not on file documented as of this encounter Plan of Treatment Upcoming Encounters Date Type Department Care Team (Late st Contact Info) Description 01/05/2025 2:30 PM TAILINGS DAM LABORER Infusion Therapy Visit [address] [place] [phone] Sergio Martinez MD 500 [place], [place] [address] 02/02/2025 2:30 PM TAILINGS DAM LABORER Infusion Therapy Visit [address] [place] [phone] Sergio Martinez MD 500 [place], [place] [address] 03/02/2025 2:30 PM TAILINGS DAM LABORER Infusion Therapy Visit [facility] [address] [place] [address] [address] [place] [phone] Sergio Martinez MD 500 [place], [place] [address] 03/10/2025 2:05 PM TAILINGS DAM LABORER Virtual Visit [facility] 909 [place] [address] Emer Silva MD 420 [facility], CMY013 Palliative Care [place], [place] [address] 04/22/2025 8:10 AM TAILINGS DAM LABORER Office Visit [facility] [address] [facility] [address] [place] [phone] Jerrod Werner MD [address] [place] [id number] Antonietta Burton APRN LOCAL OWNER OPERATOR TRUCK DRIVER [address] [place], [place] [address] documented as of this encounter Goals Goal [...] documented as of this encounter Care Teams Liquor Stores And Agencies Supervisor Relationship Specialty Start Date End Date No Ref-Primary, Physician PCP - General 07/01/24 Sergio Martinez MD 500 [place] [address] Hematology 05/06/23 [place] [address] [facility] [place] [id number] Nurse Practitioner Nurse Practitioner 05/07/23 Prosper Shrestha MD 500 [place], [place] 89[address] Emergency Medicine 05/07/23 Ramin Whitfield MD [address] [place] [address] 195 [place], [place] [address] Assigned Surgical Provider 07/11/23 12/09/24 Sergio Martinez MD 500 [place], [place] [address] Assigned Cancer Care Provider 09/10/23 Sarah Gould, [facility] 420 [facility] 806 [place], [place] [address] Specialty Sharepoint Engineer Hematology & Oncology 08/13/23 Jerrod Werner MD [address] [place] [id number] Cardiovascular Disease 04/07/24 Jerrod Werner MD [address] [place] [id number] Assigned Heart and Vascular Provider 04/12/24 [place] [address] [place] [address] Assigned Endocrinology Provider 06/10/24 Sarabjit Alba MD 516 [facility], [address] [place], [place] [address] Fellow HOSPICE 07/22/24 Emre Silva MD [address] [place], [place] [id number] Palliative Care [place], [place] [address] Palliative Care 07/24/24 Emre Silva MD [address] [place] [address], KTA953 Palliative Care [place], [place] [address] Assigned Palliative Care Provider 09/09/24 documented as of this encounter
--- OUTSIDE RECORDS SUMMARY | 2024-12-31 17:48 | XMS_ITS | Clinical Summary ---
Author Organization [facility] Address [address] [place] [address] Care Team Providers Care Marine Cargo Inspector Name Role Phone Ignacio Schroeder MD Primary Care Provider [phone] Allergies Active Allergy Reactions Criticality Noted Date Comments Nsaids (Non-Steroidal Anti-Inflammatory Drug) Other - Describe In Comment Field Medium 05/02/2020 Machine Burrer is told patient he should avoid NSAIDs with past history of acute MS x2 Medications NITROGLYCERIN 0.4 MG SUBLINGUAL TAB [...] mL with octreotide 50 mcg/mL soln 500 mcgIndications:oc triatide per infusion pump Inject 25 mcg/hr intravenous continuous. Indications: octriatide per infusion pump Active cyanocobalamin (VITAMIN B12) 1,000 mcg/mL injection Inject 1,000 mcg intramuscular every 4 weeks. 03/30/19 21 Active ergocalciferol (VITAMIN D2; DRISDOL) 50,000 unit capsule 04/04/19 Active apixaban (ELIQUIS) 5 mg tablet Take 1 tablet by mouth 2 times daily. 0 04/11/19 Active Calcitrate 200 mg (950 mg) tablet TAKE 1 TABLET BY MOUTH 3 TIMES A DAY WITH EACH MEAL 06/24/19 Active clomiPHENE citrate (CLOMID) 50 mg tablet Take 50 mg by mouth. 04/09/19 21 Active [facility] [facility] Set iset 06/28/19 Active octreotide (SANDOSTATIN) 100 mcg/mL soln Inject subcutaneous. Active bd insulin pen needle uf mini 31 gauge x 3/16 USES 1 PEN 4 TIMES DAILY 06/16/19 Active atorvastatin (LIPITOR) 20 mg tablet Take 20 mg by mouth once daily. 04/29/19 Active metoprolol tartrate (LOPRESSOR) 50 mg tablet Take 50 mg by mouth. 04/13/19 Active lancets (ACCU-CHEK FASTCLIX LANCET DRUM MISC) Accu-Chek Fastclix Lancet Drum USE 1 LANCET 4 TIMES DAILY Active diabetic supplies, miscellan. BD Luer-Lisset Syringe 3 mL 22 x 1 1/2 USE 1 SYRINGE ONCE MONTHLY FOR CYANOCOBALAMIN INJECTIONS Active lancets Accu-Chek Fastclix Lancet Drum USE 1 LANCET 4 TIMES DAILY Active famotidine (PEPCID) 40 mg tablet Take 40 mg by mouth once daily. 04/10/19 24 Active gabapentin (NEURONTIN) 300 mg capsule Take 2 Capsules (600 mg) by mouth three times daily. 03/27/19 25 Active baclofen 10 mg tablet Take 10 mg by mouth. 04/28/19 24 Active buprenorphine 10 mcg/hr (BUTRANS) 10 mcg/hour transdermal patch Apply 1 Patch on dry, clean, hairless skin once weekly. Active cyclobenzaprine (FLEXERIL) 10 mg tablet Take 10 mg by mouth once daily in the evening. 05/18/19 24 Active diazePAM (VALIUM) 5 mg tablet PLEASE SEE ATTACHED FOR DETAILED DIRECTIONS 04/09/19 25 Active empagliflozin (JARDIANCE) 25 mg tablet Take 25 mg by mouth. Active hydrOXYzine HCL (ATARAX) 10 mg tablet take 1 tablet by mouth every 4 to 6 hours as needed Active lanreotide (SOMATULINE DEPOT) 120 mg/0.5 mL syringe Inject 120 mg subcutaneous every 4 weeks. Active lubiprostone (AMITIZA) 24 mcg capsule Take 24 mcg by mouth once daily. Active naloxone (NARCAN) 4 mg/actuation nasal spray Inhale 4 mg into affected nostril(s). 08/01/19 25 Active omeprazole (PRILOSEC) 40 mg Delayed-Release capsule Take 40 mg by mouth once daily. Active ondansetron (ZOFRAN ODT) 4 mg disintegrating tablet DISSOLVE 1 TABLET ON TONGUE 4 TIMES A DAY NEEDED FOR NAUSEA 03/30/19 25 Active Lantus Solostar U-100 Insulin 100 unit/mL (3 mL) pen INJECT UP TO 40 UNITS DAILY DIRECTED Active Active Problems Problem Noted Date Diagnosed Date Type 2 diabetes mellitus wit h diabetic cataract, unspecified whether intermodal customer service insulin use 04/13/2024 Megaloblastic anemia due to [...] 04/08/2020 Male erectile disorder 04/08/2020 CAD in [place] artery Overview (09/25/2004): History of mild coronary artery disease. - Initial electron-beam computed tomography scan in August 2000 showed a coronary calcium score of 329.5 (98th percentile.) Subsequent coronary angiogram at [facility] in October 2000 showed a 20% lesion [...] Encounters Date Type Department Care Team Description 10/29/2024 8:05 AM CDT Office Visit [facility] [address] [place] [address] Kelsey Akhtar, Preoperative Exam (RIGHT shoulder repair - 11/11/2024 - [facility] - Dr. Sultana ) 10/29/2024 Travel 10/28/2024 Travel 10/27/2024 Travel from Last 3 Months Immunizations Immunization Administration Dates Next Due COVID-19 vaccine (Vitamin Research Products-Bio NTech 30mcg/0.3mL) 12YO+ GHANSHYAM-SUCROSE PF, MDV 05/29/2021 COVID-19 vaccine (Vitamin Research Products-Bio NTech 30mcg/0.3mL) PF, MDV 06/09/2020,05/19/2020 Influenza Virus, Unspecified 04/06/2020 Influenza, IIV3 (Age >=3 years) 01/29/2006 Influenza, IIV4 01/03/2017,12/06/2015,12/03/2015 Pneumococcal Poly,23-Valent (Pneumovax) 02/07/20 02 Pneumococcal conj 13-Valent (Prevnar 13) 022 Td (Age >=7 Years) 12/11/2005 Tdap 04/11/2020 Zoster (Zostavax-ZVL, live) 02/01/2014 Family History Medical History Relation Name Comments Heart attack Father Cancer-colon Mother Genetic Other Father - a t age 48 of an MS, hx of smoking. Mother - at age [...] isolated from those around you? 0 03/26/2024 Alcohol Use Answer Date Recorded How often do you have a drink containing alcohol ? 0 10/29/2024 How many drinks containing a lcohol do you have on a typical day when you are drinking? 0 10/29/2024 How often do you have five or more drinks on one occasion? 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 Not on file Not on file Not on fi le Obstetrics History Last Filed Vital Signs Vital Sign Reading Time Taken Comments Blood Pressure 121/78 10/29/2024 8:13 AM CDT Pulse 66 10/29/2024 8:13 AM CDT Temperature 36.7 C (98.1 F) 09/03/2022 8:55 AM CDT Respiratory Rate 14 06/20/2023 8:58 AM CDT Oxygen Saturation 99% 10/29/2024 8:13 AM CDT Inhaled Oxygen Concentration - - Weight 122.7 kg (270 lb 8 oz) 10/29/2024 8:13 AM CDT Height 189.2 cm (6' 2.5) 03/27/2024 7:03 AM MANUFACTURING COORDINATOR Body Mass Index 34.27 03/27/2024 7:03 AM MANUFACTURING COORDINATOR Plan of Treatment Health Maintenance Due Date Last Done Comments Hepatitis C screening for age 18-79 1974 Lipids for age 45-75 01/29/2011 01/29/2006, 09/26/2004, 09/26/2004, Additional history exists Zoster (shingles) series for age 50+ (2 of 3) 03/29/2014 02/01/2014 RSV vaccine for adults or (1 - Risk 60-74 years 1-dose series) 2016 AAA screening age 65-74 2021 Medicare Wellness for age 65+ 2021 Depression screening for age 12+ 08/22/2021 08/22/2020, 08/22/2020, 08/22/2020 Influenza Vaccine (#1) 2024 , 01/03/2017, 12/06/2015, Additional history exists BMI (ht and wt on same day) for age 18+ 03/27/2025 03/27/2024, 06/20/2023, 01/26/2022, Additional history exists Pneumococcal series for age 50+ (3 of 3 - PCV20 or PCV21) 01/26/2027 01/26/2022, 02/06/2002 Tetanus booster 04/11/2030 04/11/2020, 12/11/2005 Colonoscopy through age 75 07/07/203107/06, 06/30/2021, 11/02/2018 (Completed outside of [facility]) Hepatitis B series for 19+ Aged Out N o longer eligible based on patient's age to complete this topic Procedures Procedure Name Priority Date/Time Associated Diagnosis Comments HEMOGLOBIN Routine 10/29/2024 8:45 AM CDT Pre-op evaluation SCAN-COLONOSCOPY 07/06/2021 2:00 PM CDT LIPID PANEL Timed 01/29/2006 10:10 AM MANUFACTURING COORDINATOR DYSLIPIDEMIA , PRIMARILY HYPERTRIGLYCERIDEMIA from Last 3 Months or Most Recently Relevant to Health Maintenance Results * (ABNORMAL) HEMOGLOBIN (10/29/2024 8:45 AM CDT) HEMOGLOBIN 11.9(L) 13.2 - 17.1 g/dL 10/30/2024 3:05 AM CDT [facility] MCV 82.1 80.0 - 100.0 fL 10/30/2024 3:05 AM CDT [facility] Blood BLOOD SPECIMEN / Unknown [facility] / Unknown 10/29/2024 8:45 AM CDT 10/29/2024 8:45 AM CDT us Adei Giovana DO HEMATOLOGY Final Result [facility] [address] [address], * SCAN-COLONOSCOPY (07/06/2021 2:00 PM CDT) Narrative Procedure Note Ricky Zurita MD - 07/06/2021 12:53 PM CDT [facility] [address] [facility], [address], [place] [address] Patient Name: Brooks Munson Gender: Male Exam Date: 07/06/2021 Visit Number: [id number] Age: 66 Years Date of : 1955 Attending MD: Ricky Zurita MD Medical Record#: [id number] Procedure: Colonoscopy Indications: Previous adenomatous polyp(s) Abdominal [...] signed by: Buck Carrasco MD Interpreted at [facility], [address] [place] [address] Orders Instruction(s)/Education: Instruction/Education Timeframe Assessment Colon Cancer [...] cc: No Primary cc: Migel Greenwood MD us Ricky Zurita MD OTHER Final R esult * (ABNORMAL) LIPID PANEL (01/29/2006 10:10 AM MANUFACTURING COORDINATOR) CHOLESTEROL,TOTAL 194 110 - 199 mg/dL [facility] TRIGLYCERIDES 267(H) <150 mg/dL [facility] HDL CHOLESTEROL 39(L) >40 mg/dL [facility] CHOL/HDL RATIO 4.97(H) <4.51 [facility] LDL CHOLESTEROL 102 60 - 130 mg/dL [facility] PATIENT STATUS Fasting [facility] Blood specimen (specimen) BLOOD SPECIMEN / Unknown 01/29/2006 10:10 AM MANUFACTURING COORDINATOR 01/29/2006 9:57 AM MANUFACTURING COORDINATOR us Denislon Adams MD CHEMISTRY Final Result [facility] [address] [place], [place] [id number] from Last 3 Months or Most Recently Relevant to Health Maintenance Insurance MEDICARE [place] ONLY MEDICARE PART A HB ONLY [facility] MEDICARE PART B HB ONLY Advance Directives * Full Code (Latest Code Status on File) Date Activated Date Inactivated Comments 08/25/2015 8:03 AM 08/25/2015 2:56 PM Question Answer Comments Code Status Discussion: Per Existing Order Care Teams Marine Cargo Inspector Relationship Specialty Start Date End Date Ignacio Schroeder MD [address] [place] [address] PCP - General Family Practice 04/13/24
--- OUTSIDE RECORDS SUMMARY | 2024-12-31 17:48 | XMS_ITS | Patient Health Record ---
Author Organization [facility] Address [address] [place] [address] Care Team Providers Care Drop Forger Name Role Phone Jonelleeann Ramin Primary Care Provider IMELDA Villagran Unavailable [phone] Reason For Referral No Information Medications Medication SIG (Take, Route, Frequency, Duration) Notes Start Date End Date Status Lantus SoloStar Acti ve Vitamin D (Ergocalciferol) Active Omeprazole Active Cyanocobalamin 1000 MCG/ML Solution 1 ml Injection Active BD Luer-Lisset Syringe Active Accu-Chek Nelida Plus Active HumaLOG KwikPen Acti ve Levothyroxine Sodium Active Atorvastatin Calcium 10 MG Tablet 1 tablet Orally Once a day Active Metoprolol Tartrate 25 MG Tablet 1 tablet Orally Twice a day Active PriLOSEC Active Creon 99245 UNIT Capsule Delayed Release Particles Orally Ac tive Gabapentin 300 MG Capsule 1 capsule Oral ly Three times a day Active metFORMIN HCl 1000 MG Tablet 1 tablet wi th meals Orally Twice a day Active Lisinopril 5 MG Tablet 1 tablet Orally O nce a day Active Social History Tobacco Use: Social History Observation Description Date Details (start date - stop date) Never Smoker NA - NA Social History Tobacco Use: Social Info Question Answer Notes Tobacco use/smoking Are you a nonsmoker Problems Problem Type SNOMED Code ICD Code Onset Dates Problem Status W/U Status Risk Notes Problem Deviated nasal septum (452381546) Deviated nasal septum (J34.2) Active confirmed Problem Epistaxis (970706594) Epistaxis (R04.0) Active confirmed Problem Deviated nasal septum (279072487) Nasal septal deviation (J34.2) Active confirmed Problem Nasal vestibulitis (82222343) Nasal vestibulitis (J34.89) Active confirmed Plan Of Treatment No Information Insurance Providers Payer Name Payer Address Payer Phone Subscriber Number Group Number Insured Name Patient Relationship to Insured Coverage Start Date Coverage End Date [facility] [address] [facility], [place] [id number] Brooks Munson Self - patient is the insured Medical (General) History Medical History History ICD Code Easy Bleeding Heart Disease Diabetes Cancer Epistaxis Nasal vestibulitis Surgical History Surgery Date(Month/Year) Stomach [id number] Septoplasty 08/25/2015 Hospitalization History Reason Date(Month/Year) heart attack 2014
--- OUTSIDE RECORDS SUMMARY | 2024-12-31 17:48 | XMS_ITS | Clinical Summary ---
Author Organization [facility] Address [address] [place] [address]. [place] [address] Care Team Providers Care Branch Office Manager Name Role Phone Sergio Martinez MD Unavailable Misty Wellington NP Unavailable [phone] Prosper Shrestha MD Unavailable [phone] Sergio Martinez MD Unavailable No Ref-Primary, Physician Primary Care Provider Sarah Gould RN Unavailable Jerrod Werner MD Unavailable [phone] Jerrod Werner MD Unavailable [phone] Shaila Landis MD Unavailable Sarabjit Alba MD Unavailable [phone] Emre Silva MD Unavailable [phone] Emre Silav MD Unavailable [phone] Allergies Active Allergy Reactions Criticality Noted Date Comments Nsaids Other (See Comments) 11/10/2024 Stomach cx x2 Medications mwrnuow-ylocya-x rotease (CREON 12) 64495 UNITS CPEP Take 2 capsules by mouth 3 times daily (with meals) Active cyanocobalamin (VITAMIN B12) 1000 MCG/ML injection Inject 1 mL into the muscle every 30 days Injection once a month 016 Active levothyroxine (SYNTHROID, LEVOTHROID) 125 MCG tablet Take 2 tablets (250 mcg) by mouth daily 016 Active insulin lispro (HUMALOG PEN) 100 UNIT/ML pen Inject 8 Units Subcutaneous 3 times daily (before meals) Active empagliflozin (JARDIANCE) 25 MG TABS tablet Take 25 mg by mouth daily. 022 Active insulin glargine (LANTUS PEN) 100 UNIT/ML pen Inject 26 Units Subcutaneous At Bedtime Active omeprazole (PRILOSEC) [address] capsule Take 40 mg by mouth daily Active vitamin D2 (ERGOCALCIFEROL) 22103 units (1250 mcg) capsule Take 50,000 Units by mouth twice a week Saturday & Active polyethylene glycol (MIRALAX) 17 g packet Take 1 packet by mouth daily as needed for constipation. Active lanreotide acetate (SOMATULINE) 120 MG/0.5ML injection Inject 120 mg subcutaneously every 4 weeks. Active insulin syringe-needle U-100 (29G X 1/2 0.5 ML) 29G X 1/2 0.5 ML miscellaneousInd ications:Neuroen docrine cancer (H) Use syringes as directed for octreotide administration. 100 each 1 025 Active insulin syringe-needle U-100 (31G X 5/16 0.5 ML) 31G X 5/16 0.5 ML miscellaneousInd ications:Neuroen docrine cancer (H),Abdominal pain, generalized Use syringes as directed for octreotide administration. 100 each 025 Active naloxone (NARCAN) 4 MG/0.1ML nasal sprayIndications :Cancer associated pain [place] 1 spray (4 mg) into one nostril alternating nostrils as needed for opioid reversal. every 2-3 minutes until assistance arrives 2 each 025 Active apixaban ANTICOAGULANT (ELIQUIS ANTICOAGULANT) 5 MG tabletIndication s:Atrial fibrillation with RVR (H) Take 1 tablet (5 mg) by mouth 2 times daily. 180 tablet 2 025 Active metoprolol tartrate (LOPRESSOR) 50 MG tabletIndication s:Coronary artery disease involving lummi coronary artery of lummi heart without angina pectoris Take 1 tablet (50 mg) by mouth 2 times daily. 180 tablet 1 025 Active atorvastatin (LIPITOR) 40 MG tabletIndication s:Mixed hyperlipidemia,C oronary artery disease involving lummi coronary artery of lummi heart without angina pectoris Take 1 tablet (40 mg) by mouth daily. 90 tablet 1 025 Active baclofen (LIORESAL) 10 MG tablet Take 10 mg by mouth daily as needed. Active buprenorphine (BUTRANS) 10 MCG/HR WK patchIndications :Cancer associated pain PLACE 1 PATCH OVER 168 HOURS ONTO THE SKIN EVERY 7 DAYS. 4 patch 1 025 Active senna-docusate (SENOKOT-S/PERIC OLACE) 8.6-50 MG tabletIndication s:Status post total shoulder arthroplasty, right Take 1-2 tablets by mouth 2 times daily. Take while on oral narcotics to prevent or treat constipation. 025 Active doxycycline monohydrate (MONODOX) 100 MG capsuleIndicatio ns:Status post total shoulder arthroplasty, right Take 1 capsule (100 mg) by mouth 2 times daily. 14 capsule 025 Active acetaminophen (TYLENOL) 325 MG tabletIndication s:Status post total shoulder arthroplasty, right Take 3 tablets (975 mg) by mouth every 8 hours. 025 Active gabapentin (NEURONTIN) 300 MG capsule Take 2 capsules (600 mg) by mouth 3 times daily. 025 Active oxyCODONE (ROXICODONE) 5 MG tabletIndication s:Status post total shoulder arthroplasty, right Take 0.5 tablets (2.5 mg) by mouth every 4 hours as needed for pain. 10 tablet 025 Active lubiprostone (AMITIZA) 24 MCG capsule Take 24 mcg by mouth daily. 024 2024 Discontinued Active Problems Problem Noted Date Diagnosed Date Status post total shoulder arthroplasty, right 0 11/11/2024 Gastroesophageal reflux disease without esophagi tis 11/11/2024 Chronic, continuous use of opioids 11/11/2024 Chronic anticoagulation 11/11/2024 History of non-ST elevation myocardial infarctio n (NSTEMI) 11/11/2024 History of heart artery stent 11/11/2024 Bowel perforation 07/03/2024 Neuroendocrine cancer 06/23/2024 Nonrheumatic mitral valve regurgitation 03/07/19 Benign essential hypertension 05/05/2018 PAF (paroxysmal atrial [...] myocardial infarction) Coronary artery disease invo lving lummi coronary artery of lummi heart without angina pectoris Overview (09/20/2014): cardiac cath 2014: BMS to OM1, cath 2010: diffuse disease Family history of early CAD Resolved Problems Problem Noted Date Diagnosed Date Resolved Date Ischemic cardiomyopathy 10/07/201407/20 Hypertriglyceridemia 016 Cardiomyopathy 10/07/2014 Overview (07/22/2014): 07/2014 EF 50-55% by Echo Encounters Date Type Department Care Team Description 12/30/2024 Orders Only [facility] - Cancer Care Service Line [address] [place] [phone] Madhav Cook MD Neuroendocrine cancer (H) (Primary Dx) 12/29/2024 Orders Only [address] [facility] [place] [address] Madhav Cook MD 12/08/2024 2:30 PM CDT Infusion Therapy [facility] [address] [facility] [address] [place] [address] Sergio Martinez MD Neuroendocrine cancer (H) (Primary Dx) 12/08/2024 11:20 AM CDT Virtual Visit [facility] [address] [place] [address] Emre Silva MD Neuroendocrine cancer (H) (Primary Dx); Cancer associated pain; Drug-induced constipation 12/08/2024 Travel 12/07/2024 Travel 11/11/2024 12:26 PM CDT Anesthesia Event [facility] Services [place] [address] Pauline Ga MD 11/11/2024 12:05 PM CDT - 11/11/2024 3:00 PM CDT Surgery [address] [place] [address] [place] [address] Alfonzo Sultana MD RIGHT TOTAL SHOULDER ARTHROPLASTY 11/11/2024 9:35 AM CDT Ancillary Procedure [facility] Ultrasound [place] [address] Pauline Ga MD 11/11/2024 9:06 AM CDT - 11/12/2024 2:01 PM CDT Hospital Encounter [facility] [address] [place] [phone] Alfonzo Sultana MD Status post total shoulder arthroplasty, right (Primary Dx) Discharge Disposition: Home or Self Care 11/11/2024 Travel 11/10/2024 2:30 PM CDT Infusion Therapy Visit [facility] [address] [place] [phone] Sergio Martinez MD Neuroendocrine cancer (H) (Primary Dx) 11/10/2024 Travel 11/09/2024 9:00 AM CDT Virtual Visit [address] [address] Sergio Martinez MD Neuroendocrine cancer (H) (Primary Dx) 11/09/2024 Travel 10/30/[address] [phone] Emre Silva MD Medication Refill (butrans) 10/23/2024 10:30 AM CDT Office Visit [address] [place] [address] Jerrod Werner MD Atrial fibrillation with RVR (H) (Primary Dx); Coronary artery disease involving lummi coronary artery of lummi heart without angina pectoris; Paroxysmal atrial fibrillation (H) 10/23/2024 Travel 10/20/[address] [place] [address] Jerrod Werner MD Refill Request (atorvastatin) 10/20/2024 Travel from Last 3 Months Immunizations Immunization [...] in an abandoned building, in an overnight mcfp, or couch-surfing.) Yes 11/12/2024 Are you worried [...] on file Legal Sex Male 3:10 AM GROUP LEADER SEMICONDUCTOR PROCESSING Gender Identity Not on file Sexual Orientation Not on file Last Filed Vital Signs Vital Sign Reading Time Taken Comments Blood Pressure 120/69 12/08/2024 2:06 PM CDT Pulse 73 12/08/2024 2:06 PM CDT Temperature 36.4 C (97.5 F) 12/08/2024 2:06 PM CDT Respiratory Rate 16 12/08/2024 2:06 PM CDT Oxygen Saturation 97% 12/08/2024 2:06 PM CDT Inhaled Oxygen Concentration - - Weight 115.7 kg (255 lb) 12/08/2024 11:06 AM CDT Height 190.5 cm (6' 3) 11/09/2024 8:47 AM CDT Body Mass Index 31.87 11/09/2024 8:47 AM CDT Plan of Treatment Upcoming Encounters Date Type Department Care Team (Late st Contact Info) Description 01/05/2025 2:30 PM GROUP LEADER SEMICONDUCTOR PROCESSING Infusion Therapy Visit [facility] [address] [place] [phone] Sergio Martinez MD [address] [place], [place] [phone] 02/02/2025 2:30 PM GROUP LEADER SEMICONDUCTOR PROCESSING [facility] [id number] [place] [address] [address] [place] [phone] Sergio Martinez MD [address] [place] [address] 03/02/2025 2:30 PM GROUP LEADER SEMICONDUCTOR PROCESSING Infusion Therapy [facility] [id number] [place] [address] [address] [place] [phone] Sergio Martinez MD [address] [place], [place] [address] 03/10/2025 2:05 PM GROUP LEADER SEMICONDUCTOR PROCESSING Virtual Visit [facility] [address] [place] [phone] Emre Silva MD [address] [facility] [address] [place] [address] 04/22/2025 8:10 AM GROUP LEADER SEMICONDUCTOR PROCESSING Office Visit [facility] [address] [facility] [address] [place] [phone] Jerrod Werner MD [address] [place] [phone] Antonietta Burton APRN TREE WORKER [address] [phone] Health Maintenance Due Date Last Done Comments ADVANCE CARE PLANNING 1955 ANNUAL REVIEW OF HM ORDERS 1956 CONTROLLED SUBSTANCE AGREEMENT FOR CHRONIC PAIN MANAGEMENT 1956 CT COLONOGRAPHY 1956 DIABETIC FOOT EXAM 1956 FIT 1956 FLEX SIG 1956 TIP ASSESSMENT 1956 MICROALBUMIN 1956 PHQ-9 1956 URINE DRUG SCREEN 1956 sDNA (Cologuard) 1956 HEPATITIS C SCREENING 1974 RSV VACCINE (1 - Risk 50-74 years 1-dose series) 2006 ZOSTER VACCINE (1 of 2) 03/29/2014 02/01/2014 TSH W/FREE T4 REFLEX 04/22/2019 04/21/2018, 06/04/2017, 12/03/2016 FALL RISK ASSESSMENT 2021 MEDICARE ANNUAL WELLNESS VISIT 2021 PNEUMOCOCCAL VACCINE 50+ YEARS (3 of 3 - PCV20 or PCV21) 03/23/2022 01/26/2022, 02/06/2002 EYE EXAM 04/12/2024 04/12/2023 COVID-19 VACCINE (4 - season) 2024 05/29/2021, 06/09/2020, 05/19/2020 INFLUENZA VACCINE (#1) 2024 , 01/03/2017, 12/06/2015, Additional history exists A1C 01/03/2025 07/03/2024, 03/0 05/2018, 12/03/2016, Additional history exists BMP 07/17/2025 07/17/2024, 06/18, 07/03/2024, Additional history exists LIPID 07/17/2025 07/17/2024, 07/19, 05/08/2022, Additional history exists DTAP/TDAP/TD VACCINE (2 - Td or Tdap) 04/11/2030 04/11/2020 COLONOSCOPY 07/07/2031 07/06/2021, 06/18, 06/30/2021, Additional history exists COLORECTAL CANCER SCREENING 07/07/2031 PHQ-2 (once per calendar year) Completed 06/02/2024, 2024, 08/07/2023, Additional history exists AORTIC ANEURYSM SCREENING (SYSTEM ASSIGNED) Completed 07/03/2024, 03/31/2024, 05/06/2023, Additional history exists HPV VACCINE (No Doses Required) Completed MENINGITIS VACCINE Aged Out No longer eligible based on patient's age to complete this topic Goals Goal Patient Goal Type Associated Problems Recent Progress Patient-Stated? Author Total Joint Replacement Shoulder Pathway Care Plan Total Joint Replacement Shoulder Pathway No Colleen Cohen Autogenerated Goal Care Plan Autogenerated Problem No Optime, Batch Job Medical Devices Implanted Type Area Supervisor Slate Splitting Device Identifier Shelf Expiration Date Model / Serial / Lot Cement Bone Simplex P Speedset Full Dose - [id number] Implanted:Qt y: 1 on 01/31/2022 by Alfonzo Sultana MD at [facility] Cement, Bone Left: Shoulder [employer] 03/20/2023 6192-1-001 / / [id number] Cement Bone Simplex P Speedset Full Dose - [id number] Implanted:Qt y: 1 on 11/11/2024 by Alfonzo Sultana MD at [facility] Cement, Bone Right: Shoulder [employer] [id number] 05/18/2025 6192-1-001 / / [id number] Imp [place] Hole Eliminator Hip Depuy Duraloc 1246-03-000 Implanted:Qt y: 1 on 08/04/2018 Metallic Hardware/A nchor Right: Hip [employer]- [id number] 05/18/2026 [id number] / / [id number] Imp [place] Hole Eliminator Hip Depuy Duraloc 1246-03-000 Implanted:Qt y: 1 on 05/02/2020 Metallic Hardware/A nchor Left: Hip [employer]- [id number] 01/17/2030 [id number] / / [id number] Cementless Femoral Stem Size 18 High Offset Implanted:Qt y: 1 on 05/02/2020 Other Left: Hip Depuy [id number] 02/17/2023 [id number] / / [id number] Imp Cup Chris [place] 60mm 1217-22-060 Implanted:Qt y: 1 on 08/04/2018 Total Joint Component/ Insert Right: Hip [employer] [id number] 03/20/2028 [id number] / / [id number] Stem Femoral Ho Collarless Sz 16 Implanted:Qt y: 1 on 08/04/2018 Total Joint Component/ Insert Right: Hip [facility]- [id number] 06/17/2020 [id number] / / [id number] Head Ceramic Delta 01/31 36mm +12 Implanted:Qt y: 1 on 08/04/2018 Total Joint Component/ Insert Right: Hip [facility]- [id number] 08/17/2021 1365-36-740 / / [id number] Imp Liner Depuy [place] Altrx 54g61on +4 0967-11-608 Implanted:Qt y: 1 on 08/04/2018 Total Joint Component/ Insert Right: Hip [facility]- [id number] 06/17/2022 1221-98-460 / / [id number] Imp Cup Chris [place] 62mm 1217-22-042 Implanted:Qt y: 1 on 05/02/2020 Total Joint Component/ Insert Left: Hip [facility]- [id number] 09/17/2029 [id number] / / [id number] Liner Acetabular Altrx +4 Neut [id number] Implanted:Qt y: 1 on 05/02/2020 Total Joint Component/ Insert Left: Hip [facility]- [id number] 10/19/2023 1221-36-462 / / [id number] Imp Head Femoral Depuy Ceramic 36mm +1.5mm 1363-36-979 Implanted:Qt y: 1 on 05/02/2020 Total Joint Component/ Insert Left: Hip [facility]- [id number] 03/20/2025 [id number] / / [id number] Glenoid Cortilemily [place] 40mm - [id number] Implanted:Qt y: 1 on 01/31/2022 by Alfonzo Sultana MD at [facility] Total Joint Component/ Insert Left: Shoulder [employer] [id number] 04/25/2026 [id number] / [id number] / NA Head Humeral Stb Low Offset 55h71of - [id number] Implanted:Qt y: 1 on 01/31/2022 by Alfonzo Sultana MD at [facility] Total Joint Component/ Insert Left: Shoulder [employer] [id number] 08/21/2026 [id number] / [id number] / NA Stem Humeral Anatomic Std Ptc 6b - [id number] Implanted:Qt y: 1 on 01/31/2022 by Alfonzo Sultana MD at [facility] Total Joint Component/ Insert Left: Shoulder [employer] [id number] 10/04/2026 [id number] / [id number] / NA Glenoid Cortiloc 40mm - [id number] Implanted:Qt y: 1 on 11/11/2024 by Alfonzo Sultana MD at [facility] Total Joint Component/ Insert Right: Shoulder [employer] [id number] 01/03/2028 [id number] / [id number] / Head Humeral Stb Low Offset 53l54if - [id number] Implanted:Qt y: 1 on 11/11/2024 by Alfonzo Sultana MD at [facility] Total Joint Component/ Insert Right: Shoulder [employer] [id number] 10/21/2027 [id number] / [id number] / Stem Humeral Anatomic Std Ptc 6b - [id number] Implanted:Qt y: 1 on 11/11/2024 by Alfonzo Sultana MD at [facility] Total Joint Component/ Insert Right: Shoulder [employer] [id number] 04/14/2029 [id number] / [id number] / Procedures Procedure Name Priority Date/Time Associated Diagnosis Comments GLUCOSE Routine 11/12/2024 7:34 AM CDT HEMOGLOBIN Routine 11/12/2024 7:34 AM CDT GLUCOSE BY METER Routine 11/12/2024 6:03 AM CDT GLUCOSE BY METER Routine 11/11/2024 9:09 PM CDT GLUCOSE BY METER Routine 11/11/2024 4:55 PM CDT XR SHOULDER RIGHT PORT G/E 2 VIEWS STAT 11/11/2024 3:40 PM CDT GLUCOSE BY METER Routine 11/11/2024 3:14 PM CDT ANE AIRWAY ETT PERFORMABLE Routine 11/11/2024 12:39 PM CDT RECONSTR TOTAL SHOULDER IMPLANT 11/11/2024 12:25 PM CDT Osteoarthritis of right shoulder Case Notes LORA GUZMAN (FLEX).Maya FontanaAlida [phone] Cameron SAlida [phone] ANE PERIPHERAL/PARAVETEB RAL BLOCK Routine 11/11/2024 12:05 PM CDT GLUCOSE BY METER Routine 11/11/2024 10:0 3 AM CDT POC US GUIDANCE NEEDLE PLACEMENT Routine 11/11/2024 9:30 AM CDT EKG 12-LEAD COMPLETE W/READ - CLINICS Routine 10/23/2024 Atrial fibrillation with RVR (H) LIPID PROFILE Routine 07/17/2024 8:55 AM CDT Mixed hyperlipidemia Coronary artery disease involving lummi coronary artery of lummi heart without angina pectoris COMPREHENSIVE METABOLIC PANEL Routine 07/17/2024 8:55 AM CDT Neuroendocrine cancer (H) CT ABDOMEN PELVIS W CONTRAST Routine 07/03/2024 11:48 PM CDT HEMOGLOBIN A1C Routine 07/03/2024 8:32 PM CDT COLONOSCOPY - HIM SCAN 07/06/2021 12:00 AM CDT TSH Routine 04/21/2018 10:46 PM GROUP LEADER SEMICONDUCTOR PROCESSING from Last 3 Months or Most Recently Relevant to Health Maintenance Results * (ABNORMAL) Hemoglobin (11/12/2024 7:34 AM CDT) Hemoglobin 11.6(L) 13.3 - 17.7 g/dL 11/12/2024 7:51 AM CDT [facility] MCV 74.8(L) 78.0 - 100.0 fL 11/12/2024 7:51 AM CDT [facility] Blood BLOOD SPECIMEN / Unknown Venipuncture / Unknown 11/12/2024 7:34 AM CDT 11/12/2024 7:46 AM CDT Kenyetta Romo PA-C LAB - BLOOD ORDERABLES Final Result [facility] [address] [place] [address], [facility] * (ABNORMAL) Glucose (11/12/2024 7:34 AM CDT) Glucose 175(H) 70 - 99 mg/dL 11/12/2024 8:07 AM CDT [facility] Patient Fasting > 8hrs? Yes 11/12/2024 8:07 AM CDT [facility] Blood BLOOD SPECIMEN / Unknown Venipuncture / Unknown 11/12/2024 7:34 AM CDT 11/12/2024 7:46 AM CDT Alfonzo Sultana MD LAB - BLOOD ORDERABLES Final R esult Performing Organization Address City/[facility]/ZIP Co de Phone Number [facility] [address] [place] [address], [facility] * (ABNORMAL) Glucose by meter (11/12/2024 6:03 AM CDT) Only the most recent of5 resultswithin the time period is included. GLUCOSE BY METER POCT 166(H) 70 - 99 mg/dL 11/12/2024 6:12 AM CDT [facility] POCT RESULTS Blood, Capillary BLOOD SPECIMEN / Unknown 11/12/2024 6:03 AM CDT 11/12/2024 6:12 AM CDT Alfonzo Sultana MD [facility] POCT Final Result [facility] POCT RESULTS [address] [place] [address] * XR Shoulder Right Port G/E 2 Views (11/11/2024 3:40 PM CDT) Anatomical Region Laterality Modality Shoulder, Right Shoulder Compute d Radiography 11/11/2024 3:40 PM CDT Impressions 11/11/2024 3:43 PM CDT IMPRESSION: Completed right total shoulder arthroplasty. Normal joint alignment. No evidence of periprosthetic fracture or other immediate complication. Postoperative air in the soft tissues. Mild degenerative arthritis at the acromioclavicular joint. Calcified granuloma in the right midlung. Degenerative changes in the spine. Narrative 11/11/2024 3:43 PM CDT EXAM: XR SHOULDER RIGHT PORT G/E 2 VIEWS LOCATION: [facility] DATE: 11/11/2024 INDICATION: Status post surgery COMPARISON: 01/16/2022. Procedure Note Maurice Hill MD - 11/11/2024 EXAM: XR SHOULDER RIGHT PORT G/E 2 VIEWS LOCATION: [facility] DATE: 11/11/2024 INDICATION: Status post surgery COMPARISON: 01/16/2022. IMPRESSION: Completed right total shoulder arthroplasty. Normal jointalignment. No evidence of periprosthetic fracture or other immediatecomplication. Postoperative air in the soft tissues. Mild degenerativearthritis at the acromioclavicular joint. Calcified granuloma in the right midlung. Degenerative changes in thespine. Kenyetta Romo PA-C [facility]G DIAGNOSTIC IMAGING ORDERABLES Final Result * ANE AIRWAY ETT PERFORMABLE (11/11/2024 12:39 PM CDT) Narrative Issa Gonzalez APRN SHEETMETAL WORKER - 11/11/2024 12:39 PM CDT Issa Gonzalez APRN SHEETMETAL WORKER 11/11/2024 1:04 PM Airway Patient location during procedure: OR Procedure Start/Stop Times: 11/11/2024 12:39 PM Staff - SHEETMETAL WORKER: Issa Gonzalez APRN SHEETMETAL WORKER Performed By: SHEETMETAL WORKER Consent for Airway Urgency: elective Indications and Patient Condition Indications for airway management: igor-procedural Induction type:intravenous Mask difficulty assessment: 2 - vent by mask + OA or adjuvant +/- NMBA Final Airway Details Final airway type: endotracheal airway Successful airway: ETT - single Endotracheal Airway Details ETT size (mm): 8.0 Cuffed: yes Cuff volume (mL): 10 Successful intubation technique: video laryngoscopy VL Blade Size: Glidescope 3 Grade View of Cords: 1 Adjucts: stylet Position: Left Measured from: lips Secured at (cm): 25 Bite block used: None Post intubation assessment Placement verified by: capnometry, equal breath sounds and chest rise Number of attempts at approach: 1 Number of other approaches attempted: 0 Ease of procedure: easy Dentition: Unchanged Medication(s) Administered Medication Administration Time: 11/11/2024 12:39 PM Pauline Ga MD ID ANESTHESIA Final Result * Peripheral/Paravertebral Block (11/11/2024 12:05 PM CDT) Narrative Pauline Ga MD - 11/11/2024 12:05 PM CDT Pauline Ga MD 11/11/2024 12:22 PM Other (Interscalene) Procedure Note Pre-Procedure Staff - Anesthesiologist: Pauline Ga MD Performed By: anesthesiologist Location: pre-op Procedure Start/Stop Times: 11/11/2024 12:05 PM and 11/11/2024 12:09 PM Pre-Anesthestic Checklist: patient identified, IV checked, site marked, risks and benefits discussed, informed consent, monitors and equipment checked, pre-op evaluation, at physician/surgeon's request and post-op pain management Timeout: Correct Patient: Yes Correct Procedure: Yes Correct Site: Yes Correct Position: Yes Correct Laterality: Yes Site Marked: Yes Procedure Documentation Procedure: Other (Interscalene) Laterality: right Patient Position: sitting Patient Prep/Sterile Barriers: sterile gloves, mask Skin prep: Chloraprep Needle Type: Touhy needle Needle Gauge: 22. Needle Length (Inches): 2 Ultrasound guided 1. Ultrasound was used to identify targeted nerve, plexus, vascular marker, or fascial plane and place a needle adjacent to it in real-time. 2. Ultrasound was used to visualize the spread of anesthetic in close proximity to the above referenced structure. 3. A permanent image is entered into the patient's record. 4. The visualized anatomic structures appeared normal. 5. There were no apparent abnormal pathologic findings. Assessment/Narrative Bolus given via needle. no blood aspirated via catheter. Secured via. Insertion/Infusion Method: Single Shot Complications: none Medication(s) Administered Bupivacaine 0.5% PF (Infiltration) - Infiltration 15 mL - 11/11/2024 12:05:00 PM Bupivacaine liposome (Exparel) 1.3% LA inj susp (Infiltration) - Infiltration 10 mL - 11/11/2024 12:05:00 PM Medication Administration Time: 11/11/2024 12:05 PM FOR [facility] ([facility]) ONLY: Pain Team Contact information: please page the Pain Team Via Screenmailer. Search Pain. During daytime hours, please page the attending first. At night please page the resident first. Pauline Ga MD ID ANESTHESIA Final Result * POC US Guidance Needle Placement (11/11/2024 9:30 AM CDT) Narrative [facility] - 11/11/2024 9:30 AM CDT Ultrasound was performed as guidance to an anesthesia procedure. Click PACS images hyperlink below to view any stored images. For specific procedure details, view procedure note authored by anesthesia. Pauline Ga MD IMG POCUS Final Result [facility] * EKG 12-lead complete w/read - Clinics (performed today) (10/23/2024) Jerrod Werner MD ECG ORDERABLES Final Res ult * (ABNORMAL) Lipid Profile (07/17/2024 8:55 AM CDT) Cholesterol 114 <200 mg/dL 07/17/2024 5:26 PM CDT [facility] Triglycerides 205(H) <150 mg/dL 07/17/2024 5:26 PM CDT [facility] Direct Measure HDL 33(L) >=40 mg/dL 07/17/2024 5:26 PM CDT [facility] LDL Cholesterol Calculated 40 <100 mg/dL 07/17/2024 5:26 PM CDT [facility] Non HDL Cholesterol 81 <130 mg/dL 07/17/2024 5:26 PM CDT [facility] Patient Fasting > 8hrs? No 07/17/2024 5:26 PM CDT [facility] Blood STRUCTURE OF LEFT UPPER LIMB / Unknown Venipuncture / Unknown 07/17/2024 8:55 AM CDT 07/17/2024 8:58 AM CDT Narrative [facility] - 07/17/2024 5:26 PM CDT Cholesterol Desirable: < 200 mg/dL Borderline High: 200 - 239 mg/dL High: >= 240 mg/dL Triglycerides Normal: < 150 mg/dL Borderline High: 150 - 199 mg/dL High: 200-499 mg/dL Very High: >= 500 mg/dL Direct Measure HDL Female: >= 50 mg/dL Male: >= 40 mg/dL LDL Cholesterol Desirable: < 100 mg/dL Above Desirable: 100 - 129 mg/dL Borderline High: 130 - 159 mg/dL High: 160 - 189 mg/dL Very High: >= 190 mg/dL Non HDL Cholesterol Desirable: < 130 mg/dL Above Desirable: 130 - 159 mg/dL Borderline High: 160 - 189 mg/dL High: 190 - 219 mg/dL Very High: >= 220 mg/dL us Denis Sharma MD LAB - BLOOD ORDERABLES Fin al Result [facility] [place] Core Lab [address] [facility] [address] Building, Room [address] [place] [address], [facility] [address] Lab (1st floor, no room number) [place] [address], [facility] * (ABNORMAL) Comprehensive metabolic panel (07/17/2024 8:55 AM CDT) Sodium 139 135 - 145 mmol/L 07/17/2024 10:14 AM [facility] Potassium 4.7 3.4 - 5.3 mmol/L 07/17/2024 10:14 AM [facility] Carbon Dioxide (CO2) 22 22 - 29 mmol/L 07/17/2024 10:14 AM [facility] Anion Gap 14 7 - 15 mmol/L 07/17/2024 10:14 AM [facility] Urea Nitrogen 13.3 8.0 - 23.0 mg/dL 07/17/2024 10:14 AM [facility] Creatinine 0.91 0.67 - 1.17 mg/dL 07/17/2024 10:14 AM [facility] GFR Estimate >90 >60 mL/min/1.7 3m2 07/17/2024 10:14 AM [facility] Comment:eGFR calculated usin 2020 CKD-EPI equation. Calcium 8.9 8.8 - 10.4 mg/dL 07/17/2024 10:14 AM [facility] Chloride 103 98 - 107 mmol/L 07/17/2024 10:14 AM [facility] Glucose 190(H) 70 - 99 mg/dL 07/17/2024 10:14 AM [facility] Alkaline Phosphatase 111 40 - 150 U/L 07/17/2024 10:14 AM [facility] AST 18 0 - 45 U/L 07/17/2024 10:14 AM [facility] ALT 18 0 - 70 U/L 07/17/2024 10:14 AM [facility] Protein Total 7.2 6.4 - 8.3 g/dL 07/17/2024 10:14 AM [facility] Albumin 4.1 3.5 - 5.2 g/dL 07/17/2024 10:14 AM [facility] Bilirubin Total 0.5 <=1.2 mg/dL 07/17/2024 10:14 AM [facility] Blood STRUCTURE OF LEFT UPPER LIMB / Unknown Venipuncture / Unknown 07/17/2024 8:55 AM CDT 07/17/2024 8:58 AM CDT Mara Henriquez APRN TREE WORKER LAB - BLOOD ORDERABLES Fi nal Result [facility] Acute Care Lab [address] Lab (1st floor, no room number) [place] [address], [facility] * CT Abdomen Pelvis w Contrast (07/03/2024 11:48 PM CDT) Anatomical Region Laterality Modality Abdomen/Pelvis, SUBRAD CT DORIE DY, UMP CT ABDOMEN PELVIS, RAD CT Computed Tomography Impressions 07/04/2024 7:20 AM CDT IMPRESSION: A few punctate foci of air with trace surrounding fat stranding along the left diaphragmatic robert, likely postprocedural/inflammatory change from recent celiac plexus block. No oral contrast extravasation or bowel wall inflammatory change to suggest perforation. I have personally reviewed the examination and initial interpretation and I agree with the findings. LISA ALDANA DO Narrative 07/04/2024 7:20 AM CDT EXAM: CT abdomen and pelvis with intravenous and oral contrast. 07/03/2024 11:48 PM HISTORY: evaluate small focus of air along celiac plexus TECHNIQUE: Helical acquisition of image data was performed for the abdomen and pelvis with intravenous and oral contrast. COMPARISON: PET CT 03/31/2024. FINDINGS: Oil Well Logger: Unremarkable. Lower thorax: No suspicious pulmonary nodules or masses. No focal airspace consolidation. No pleural effusions. No pericardial effusion. The visualized esophagus appears unremarkable. Bibasal dependent atelectasis. Liver: No intrahepatic biliary dilatation. No focal hepatic mass. Gallbladder/biliary tree: The common bile duct is dilated measuring 1.1 cm in diameter, likely reservoir effect. There is mild intrahepatic biliary duct dilatation. Cholecystectomy. Pancreas: Moderate to severe fatty atrophy of the pancreas. Pancreatic duct is not dilated. Spleen: The spleen is not enlarged. Adrenal glands: No adrenal nodules. Kidneys/ureters: No hydronephrosis. No renal calculi. Contrast in the renal collecting system. Bladder/pelvic organs: The urinary bladder is mildly distended and filled with contrast. Somewhat limited evaluation of the pelvis due to streak artifact from bilateral hip arthroplasties. Bowel/mesentery: No dilated loops of small bowel or colon. The appendix is not visualized. Colonic diverticulosis without evidence for diverticulitis. Oral contrast within a few loops of small bowel. No extraluminal leakage of contrast. Stomach: Oral contrast material within the stomach. Stomach is otherwise unremarkable. Peritoneum/retroperitoneum: Punctate foci of free air along the left diaphragmatic robert in the area of the celiac plexus with trace surrounding fat stranding. No free fluid in the abdomen or pelvis. Lymph nodes: No enlarged abdominal or pelvic lymph nodes by short axis criteria. Stable small subcentimeter mesenteric root which were avid on recent Dotatate PET/CT. Major vessels: No aneurysmal dilation. Mild aortobiiliac vascular calcifications. Bones/soft tissues: Mild degenerative changes of the spine. Bilateral total hip arthroplasties. No acute or suspicious osseous abnormality. Procedure Note Lisa Aldana, DO - 07/04/2024 EXAM: CT abdomen and pelvis with intravenous and oral contrast. 07/03/2024 11:48 PM HISTORY: evaluate small focus of air along celiac plexus TECHNIQUE: Helical acquisition of image data was performed for the abdomen and pelvis with intravenous and oral contrast. COMPARISON: PET CT 03/31/2024. FINDINGS: Oil Well Logger: Unremarkable. Lower thorax: No suspicious pulmonary nodules or masses. No focal airspace consolidation. No pleural effusions. No pericardial effusion. The visualized esophagus appears unremarkable. Bibasal dependent atelectasis. Liver: No intrahepatic biliary dilatation. No focal hepatic mass. Gallbladder/biliary tree: The common bile duct is dilated measuring 1.1 cm in diameter, likely reservoir effect. There is mild intrahepatic biliary duct dilatation. Cholecystectomy. Pancreas: Moderate to severe fatty atrophy of the pancreas. Pancreatic duct is not dilated. Spleen: The spleen is not enlarged. Adrenal glands: No adrenal nodules. Kidneys/ureters: No hydronephrosis. No renal calculi. Contrast in the renal collecting system. Bladder/pelvic organs: The urinary bladder is mildly distended and filled with contrast. Somewhat limited evaluation of the pelvis due to streak artifact from bilateral hip arthroplasties. Bowel/mesentery: No dilated loops of small bowel or colon. The appendix is not visualized. Colonic diverticulosis without evidence for diverticulitis. Oral contrast within a few loops of small bowel. No extraluminal leakage of contrast. Stomach: Oral contrast material within the stomach. Stomach is otherwise unremarkable. Peritoneum/retroperitoneum: Punctate foci of free air along the left diaphragmatic robert in the area of the celiac plexus with trace surrounding fat stranding. No free fluid in the abdomen or pelvis. Lymph nodes: No enlarged abdominal or pelvic lymph nodes by short axis criteria. Stable small subcentimeter mesenteric root which were avid on recent Dotatate PET/CT. Major vessels: No aneurysmal dilation. Mild aortobiiliac vascular calcifications. Bones/soft tissues: Mild degenerative changes of the spine. Bilateral total hip arthroplasties. No acute or suspicious osseous abnormality. IMPRESSION: A few punctate foci of air with trace surrounding fat stranding along the left diaphragmatic robert, likely postprocedural/inflammatory change from recent celiac plexus block. No oral contrast extravasation or bowel wall inflammatory change to suggest perforation. I have personally reviewed the examination and initial interpretation and I agree with the findings. LISA ALDANA DO us Amy Monae APRN, CNP IMG CT ORDERABLES Final Re sult * (ABNORMAL) Hemoglobin A1c (07/03/2024 8:32 PM CDT) Estimated Average Glucose 203(H) <117 mg/dL 07/03/2024 9:16 PM CDT [facility] Hemoglobin A1C 8.7(H) <5.7 % 07/03/2024 9:16 PM CDT [facility] Comment: Normal <5.7% Prediabetes 5.7-6.4% Diabetes 6.5% or higher Note: Adopted from ADA consensus guidelines. Blood STRUCTURE OF RIGHT HAND / Unknown Venipuncture / Unknown 07/03/2024 8:32 PM CDT 07/03/2024 8:37 PM CDT us Amy Monae APRN, CNP LAB - BLOOD ORDERABLES Fin al Result [facility] Acute Care Lab [address] [facility], [address] [place] [address], [facility] * COLONOSCOPY - HIM SCAN (07/06/2021 12:00 AM CDT) 07/06/2021 us Provider Outside PROCEDURES Final Result * TSH (04/21/2018 10:46 PM GROUP LEADER SEMICONDUCTOR PROCESSING) TSH 0.56 0.40 - 4.00 mU/L 04/21/2018 11:17 PM GROUP LEADER SEMICONDUCTOR PROCESSING [facility] 04/21/2018 10:4 6 PM GROUP LEADER SEMICONDUCTOR PROCESSING 04/21/2018 10:49 PM GROUP LEADER SEMICONDUCTOR PROCESSING us Marlon Grover MD LAB - BLOOD ORDERABLES Fin al Result [facility] [address] [place] [address], [facility] [phone] from Last 3 Months or Most Recently Relevant to Health Maintenance Additional Health Concerns Active Problems Noted Date Diagnosed Date 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 Problem 10/13/2024 Insurance MEDICARE [facility] MEDICARE SUPPLEMENT [facility] Advance Directives For more information, please contact: [phone] * Full Code (Latest Code Status on File) Date Activated Date Inactivated Comments 11/11/2024 4:42 PM 11/12/2024 4:01 PM All basic an d advanced life-sustaining interventions are performed as appropriate Question Answer Comments Code status determined by: Unable to dis cuss and no AD/POLST on file; continue PREVIOUSLY ORDERED code status * Full Code Date Activated Date Inactivated Comments 07/03/2024 8:12 PM 07/07/2024 1:01 PM All basic an d advanced life-sustaining interventions are performed as appropriate Question Answer Comments Code status determined by: Discussion with patie nt/ legal decision maker * Full Code Date Activated Date Inactivated Comments 01/31/2022 2:54 [...] by: Discussion with patie nt/legal decision maker Care Teams Branch Office Manager Relationship Specialty Start Date End Date No Ref-Primary, Physician PCP - General 07/01/24 Sergio Martinez MD [address] [place] [address] Hematology 05/06/23 [place] [address] [place] [address] Nurse Practitioner Nurse Practitioner 05/07/23 Prosper Shrestha MD [address] [place] [address] Emergency Medicine 05/07/23 Sergio Martinez MD [address] [place] [address] Assigned Cancer Care Provider 09/10/23 Sarah Gould, GRZEGORZ [address] [place] [address] Specialty Single Pass Soil Stabilizer Operator Hematology & Oncology 08/13/23 Jerrod Werner MD [address] [place] [id number] Cardiovascular Disease 04/07/24 Jerrod Werner MD [address] [place] [id number] Assigned Heart and Vascular Provider 04/12/24 [place] [address] [place] [address] Assigned Endocrinology Provider 06/10/24 Sarabjit Alba MD 6 [facility], [address] [place] [address] Fellow HOSPICE 07/22/24 Emre Silva MD [address] [place], [place] [id number] [place] [address] Palliative Care 07/24/24 Emre Silva MD [address] [place], [place] [id number] [place] [address] Assigned Palliative Care Provider 09/09/24
--- OUTSIDE RECORDS SUMMARY | 2024-12-31 17:48 | XMS_ITS | Encounter Summary ---
Author Organization [place] Address [address] [place] [address]. [place] [address] Care Team Providers Care Stone Mason Name Role Phone Sergio Martinez MD Unavailable Misty Wellington NP Unavailable [phone] Prosper Shrestha MD Unavailable [phone] Ramin Whitfield MD Unavailable [phone] Sergio Martinez MD Unavailable No Ref-Primary, Physician Primary Care Provider Sarah Gould RN Unavailable Jerrod Werner MD Unavailable [phone] Jerrod Werner MD Unavailable [phone] Shaila Landis MD Unavailable Sarabjit Alba MD Unavailable [phone] Emre Silva MD Unavailable [phone] Erme Silva MD Unavailable [phone] Encounter Details Date Type Department Care Team (Latest Contact Info) Description 12/08/2024 Travel Social History Tobacco Use Types Packs/Day [...] in an abandoned building, in an overnight prison, or couch-surfing.) Yes 11/12/2024 Are you worried [...] on file Legal 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 Gender Identity Not on file Sexual Orientation Not on file documented as of this encounter Plan of Treatment Upcoming Encounters Date Type Department Care Team (Late st Contact Info) Description 01/05/2025 2:30 PM DIESEL TRAILER MECHANIC Infusion Therapy Visit [facility] [address] [place] [phone] Sergio Martinez MD [address] [place], [place] [id number] 02/02/2025 2:30 PM DIESEL TRAILER MECHANIC Infusion Therapy Visit [address] [place] [address] Sergio Martinez MD [address] [place] [address] 03/02/2025 2:30 PM DIESEL TRAILER MECHANIC Infusion Therapy Visit [address] [place] [address] Sergio Martinez MD [address] [place] [address] 03/10/2025 2:05 PM DIESEL TRAILER MECHANIC Virtual Visit [facility] [address] [place] [phone] Emre Silva MD 420 [facility], [id number] [place] [address] 04/22/2025 8:10 AM DIESEL TRAILER MECHANIC Office Visit [facility] Heart [facility] [address] [facility] [address] [place] [phone] Jerrod Werner MD [address] [place] [address] Antonietta Burton APRN [employer] [address] [place] [id number] documented as of this encounter Goals Goal Patient Goal Type Associated Problems Recent Progress Patient-Stated? 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 Problem 10/13/2024 documented as of this encounter Care Teams Stone Mason Relationship Specialty Start Date End Date No Ref-Primary, Physician PCP - General 07/01/24 Sergio Martinez MD [address] [place] [address] Hematology 05/06/23 [place] [address] [place] [address] Nurse Practitioner Nurse Practitioner 05/07/23 Prosper Shrestha MD 500 [place] [address] Emergency Medicine 05/07/23 Ramin Whitfield MD [address] [place] [address] [address] [place], [place] [address] Assigned Surgical Provider 07/11/23 12/09/24 Sergio Martinez MD [address] [place] [address] Assigned Cancer Care Provider 09/10/23 Sarah Gould, GRZEGORZ [facility] [address] [facility] [address] [place], [place] [address] Specialty Welding Equipment Repairer Hematology & Oncology 08/13/23 Jerrod Werner MD [address] [place] [id number] Cardiovascular Disease 04/07/24 Jerrod Werner MD [address] [place] [address] Assigned Heart and Vascular Provider 04/12/24 [place] [address] [place] [address] Assigned Endocrinology Provider 06/10/24 Sarabjit Alba MD [address] [place] [address], [address] [place] [address] Fellow HOSPICE 07/22/24 Emre Silva MD [address] [place] [address], [id number] [place] [address] Palliative Care 07/24/24 Emre Silva MD [address] [place], [place] [id number] [place] [address] Assigned Palliative Care Provider 09/09/24 documented as of this encounter
--- OUTSIDE RECORDS SUMMARY | 2024-12-31 17:49 | XMS_ITS | Encounter Summary ---
Author Organization [place] Address [address] [place] [address]. [place] [address] Care Team Providers Care Full Roll Inspector Name Role Phone Sergio Martinez MD Unavailable Misty Wellington STOCK HOUSE WORKER Unavailable [phone] Prosper Shrestha MD Unavailable [phone] Avril Dumont RN Unavailable Ramin Whitfield MD Unavailable [phone] Sergio Martinez MD Unavailable No Ref-Primary, Physician Primary Care Provider Sarah Gould RN Unavailable Jerrod Werenr MD Unavailable [phone] Jerrod Werner MD Unavailable [phone] Shaila Landis MD Unavailable Fu Sarabjit Arango MD Unavailable [phone] Emre Silva MD Unavailable [phone] Emre Silva MD Unavailable [phone] Encounter Details Date Type Department Care Team (Late st Contact Info) Description 04/28/2024 [facility] [address] [place] [phone] Stephanie Damon RN Social History Tobacco Use Types Packs/Day [...] on file Legal Sex Male 3:10 AM WAITER Gender Identity Not on file Sexual Orientation Not on file documented as of this encounter Plan of Treatment Upcoming Encounters Date Type Department Care Team (Late st Contact Info) Description 01/05/2025 2:30 PM WAITER Infusion Therapy Visit [place] [address] [place] [address] [place] [phone] Sergio Martinez MD 500 [place] [address] 02/02/2025 2:30 PM WAITER Infusion Therapy Visit [place] [address] [place] [phone] Sergio Martinez MD [address] [place] [address] 03/02/2025 2:30 PM WAITER Infusion Therapy Visit [place] [address] [address] [place] [address] Sergio Martinez MD 500 [place] [address] 03/10/2025 2:05 PM WAITER Virtual [facility] [address] [place] [phone] Emre Silva MD 420 [facility], APB427 [place] [address] 04/22/2025 8:10 AM WAITER Office Visit [facility] Heart [facility] [address] [facility] [address] [place] [phone] Jerrod Werner MD [address] [place] [address] Antonietta Burton APRN SAILING OFFICER [address] [place] [address] documented as of this encounter Visit Diagnoses Not on filedocumented in this encounter Additional Health Concerns Infection Onset Date Last Indicated Resolved Time Rule Out C-difficile 07/05/2024 07/05/2024 025 3:01 PM CDT documented as of this encounter Care Teams Full Roll Inspector Relationship Specialty Start Date End Date No Ref-Primary, Physician PCP - General 07/01/24 Sergio Martinez MD [address] [place] [address] Hematology 05/06/23 [place] [address] [address] [place] [address] Nurse Practitioner Nurse Practitioner 05/07/23 Prosper Shrestha MD 500 [place], [place] 9[address] Emergency Medicine 05/07/23 Avril Dumont, GRZEGORZ Specialty Insurance Salesperson Hematology & Oncology 05/28/23 05/22/24 Ramin Whitfield MD 420 [facility] 195 [place], [place] [address] Assigned Surgical Provider 07/11/23 12/09/24 Sergio Martinez MD [address] [place], [place] [address] Assigned Cancer Care Provider 09/10/23 Sarah Gould, GRZEGORZ [facility] 420 [facility] 806 [place], [place] [address] Specialty Insurance Salesperson Hematology & Oncology 08/13/23 Jerrod Werner MD [address] [place], [place] [address] Cardiovascular Disease 04/07/24 Jerrod Werner MD [address] [place], [place] [address] Assigned Heart and Vascular Provider 04/12/24 [place] [address] [place], [place] [address] Assigned Endocrinology Provider 06/10/24 Sarabjit Alba MD [address] [facility], [address] [place], [place] [address] Fellow HOSPICE 07/22/24 Emre Silva MD [address] [place], [place] [id number] Palliative Care [place], [place] [address] Palliative Care 07/24/24 Emre Silva MD [address] [place] [address], [id number] Palliative Care [place], [place] 23[address] Assigned Palliative Care Provider 09/09/24 documented as of this encounter
--- OUTSIDE RECORDS SUMMARY | 2024-12-31 17:49 | XMS_ITS | Encounter Summary ---
Author Organization [place] Address Formerly [facility], [facility] [place] [address] Care Team Providers Care New Car Make Ready Worker Name Role Phone Sergio Martinez MD Unavailable Misty Wellington NP Unavailable [phone] Prosper Shrestha MD Unavailable [phone] Ramin Whitfield MD Unavailable [phone] Sergio Martinez MD Unavailable No Ref-Primary, Physician Primary Care Provider Sarah Gould RN Unavailable Jerrod Werner MD Unavailable [phone] Jerrod Werner MD Unavailable [phone] Shaila Landis MD Unavailable Sarabjit Alba MD Unavailable [phone] Emre Silva MD Unavailable [phone] Emre Silva MD Unavailable [phone] Reason for Visit * Reason Onset Date Comments Results 06/10/2024 Echo & NM Lexisc an stress test (nuc card) Encounter Details Date Type Department Care Team (Late st Contact Info) Description 06/10/2024 [facility] Heart [facility] [address] [facility] [address] [place] [phone] Jerrod Werner MD [address] [place] [id number] Results (Echo & NM Lexiscan stress test [...] on file 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 Gender Identity Not on file Sexual Orientation [...] June Kelly - 06/10/2024 8:15 AM CDT [facility] Phone Message May a detailed message be [...] st Contact Info) Description 01/05/2025 2:30 PM ART 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 Infusion Therapy Visit [place] [address] [place] [address] Sergio Martinez MD 500 [place], [place] [address] 02/02/2025 2:30 PM ART 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 Infusion Therapy Visit [place] [address] [place] [address] Sergio Martinez MD 500 [place], [place] [address] 03/02/2025 2:30 PM ART 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 Infusion Therapy Visit [place] [address] [place] [address] Sergio Martinez MD 500 [place], [place] [address] 03/10/2025 2:05 PM ART 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 Virtual Visit [facility] 909 [place] [phone] Emre Silva MD 420 [facility], [id number] Palliative Care [employer] [place] [address] 04/22/2025 8:10 AM ART 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 Office Visit [facility] Heart [facility] [address] [place] [phone] Jerrod Werner MD [address] [place] [address] Antonietta Burton APRN TEXTILE BROKER [address] [place] [address] documented as of this encounter Goals Goal Patient Goal Type Associated Problems Recent Progress Patient-Stated? 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 Infection Onset Date Last Indicated Resolved Time Rule Out C-difficile 07/05/2024 07/05/2024 025 3:01 PM CDT documented as of this encounter Care Teams New Car Make Ready Worker Relationship Specialty Start Date End Date No Ref-Primary, Physician PCP - General 07/01/24 Sergio Martinez MD 500 [place], [place] [address] Hematology 05/06/23 [place] [address] [place] [address] Nurse Practitioner Nurse Practitioner 05/07/23 Prosper Shrestha MD 500 [place], [place] 295435 Emergency Medicine 05/07/23 Ramin Whitfield MD 420 [facility] 195 [employer] [place] [address] Assigned Surgical Provider 07/11/23 12/09/24 Sergio Martinez MD 500 [place], [place] [address] Assigned Cancer Care Provider 09/10/23 Sarah Gould, GRZEGORZ [facility] 420 [facility] 806 [place], [place] [address] Specialty Imaging Engineer Hematology & Oncology 08/13/23 Jerrod Werner MD [address] [place], [place] [address] Cardiovascular Disease 04/07/24 Jerrod Werner MD [address] [place], [place] [address] Assigned Heart and Vascular Provider 04/12/24 [place] [address] [place] [address] Assigned Endocrinology Provider 06/10/24 Sarabjit Alba MD 516 [facility], PWB 6[address]163 [place] [address] Fellow HOSPICE 07/22/24 Emre Silva MD 420 [facility] Emergency Department, [id number] Palliative [place] [address] Palliative Care 07/24/24 Emre Silva MD 420 [facility] Emergency [facility], EPA150 Palliative [place] [address] Assigned Palliative Care Provider 09/09/24 documented as of this encounter
--- OUTSIDE RECORDS SUMMARY | 2024-12-31 17:49 | XMS_ITS | Encounter Summary ---
Author Organization [place] Address [address] [place] [address]. [place] [address] Care Team Providers Care Photography Intern Name Role Phone Sergio Martinez MD Unavailable Misty Wellington NP Unavailable [phone] Prosper Shrestha MD Unavailable [phone] Ramin Whitfield MD Unavailable [phone] Sergio Martinez MD Unavailable No Ref-Primary, Physician Primary Care Provider Sarah Gould RN Unavailable Jerrod Werner MD Unavailable [phone] Jerrod Werner MD Unavailable [phone] Shaila Landis MD Unavailable Sarabjit Alba MD Unavailable [phone] Emre Silva MD Unavailable [phone] Emre Silva MD Unavailable [phone] Encounter Details Date Type Department Care Team (Latest Contact Info) Description 12/07/2024 Travel Social History Tobacco Use Types Packs/Day [...] in an abandoned building, in an overnight group home, or couch-surfing.) Yes 11/12/2024 Are you worried [...] on file Legal Sex Male 3:10 AM WINDOW DECORATOR Gender Identity Not on file Sexual Orientation Not on file documented as of this encounter Plan of Treatment Upcoming Encounters Date Type Department Care Team (Late st Contact Info) Description 01/05/2025 2:30 PM WINDOW DECORATOR Infusion Therapy Visit [facility] [address] [place] [phone] Sergio Martinez MD 500 [place], [place] [address] 02/02/2025 2:30 PM WINDOW DECORATOR Infusion Therapy Visit [address] [place] [address] Sergio Martinez MD 500 [place] [address] 03/02/2025 2:30 PM WINDOW DECORATOR Infusion Therapy Visit [address] [place] [phone] Sergio Martinez MD [address] [place] [address] 03/10/2025 2:05 PM WINDOW DECORATOR Virtual Visit [facility] 909 [place] [phone] Emre Silva MD 420 [facility], [id number] [place] [address] 04/22/2025 8:10 AM WINDOW DECORATOR Office Visit [facility] Heart [facility] [address] [facility] [address] [place] [address] Jerrod Werner MD [address] [place] [address] Antonietta Burton APRN FISCAL OFFICER [address] [place] [address] documented as of this encounter Goals Goal [...] documented as of this encounter Care Teams Photography Intern Relationship Specialty Start Date End Date No Ref-Primary, Physician PCP - General 07/01/24 Sergio Martinez MD 500 [place] [address] Hematology 05/06/23 [place] [address] [place] [address] Nurse Practitioner Nurse Practitioner 05/07/23 Prosper Shrestha MD 500 [place] [address] Emergency Medicine 05/07/23 Raimn Whitfield MD [address] [place] [address] 195 [place], [place] [address] Assigned Surgical Provider 07/11/23 12/09/24 Sergio Martinez MD 500 [place] [address] Assigned Cancer Care Provider 09/10/23 Sarah Gould, GRZEGORZ [facility] 420 [facility] 806 [place], [place] [address] Specialty Dry Wall Nailer Hematology & Oncology 08/13/23 Jerrod Werner MD [address] [place] [address] Cardiovascular Disease 04/07/24 Jerrod Werner MD [address] [place] [address] Assigned Heart and Vascular Provider 04/12/24 [place] [address] [place] [address] Assigned Endocrinology Provider 06/10/24 Sarabjit Alba MD [address] [place] [address], [address]163 [place] [address] Fellow HOSPICE 07/22/24 Emre Silva MD [address] [place] [address], [id number] [place] [address] Palliative Care 07/24/24 Emre Silva MD [address] [place], [place] [address] [place] [address] Assigned Palliative Care Provider 09/09/24 documented as of this encounter
--- OUTSIDE RECORDS SUMMARY | 2024-12-31 17:49 | XMS_ITS | Encounter Summary ---
Author Organization [place] Address [address] [place] [address]. [place] [address] Care Team Providers Care Vertical Roll Operator Name Role Phone Sergio Martinez MD Unavailable Misty Wellington TRACK COACH Unavailable [phone] Prosper Shrestha MD Unavailable [phone] Avril Dumont RN Unavailable Ramin Whitfield MD Unavailable [phone] Sergio Martinez MD Unavailable No Ref-Primary, Physician Primary Care Provider Sarah Gould RN Unavailable Jerrod Werner MD Unavailable [phone] Jerrod Werner MD Unavailable [phone] Shaila Landis MD Unavailable Fu Sarabjit Arango MD Unavailable [phone] Emre Silva MD Unavailable [phone] Emre Silva MD Unavailable [phone] Encounter Details Date Type Department Care Team (Late st Contact Info) Description 04/28/2024 [facility] [address] [place] [phone] Stephanie Damon RN Social History Tobacco Use [...] on file Legal Sex Male 3:10 AM DIRECTOR LABOR STANDARDS Gender Identity Not on file Sexual Orientation Not on file documented as of this encounter Plan of Treatment Upcoming Encounters Date Type Department Care Team (Late st Contact Info) Description 01/05/2025 2:30 PM DIRECTOR LABOR STANDARDS Infusion Therapy Visit [place] [address] [place] [phone] Sergio Martinez MD 500 [place] [address] 02/02/2025 2:30 PM DIRECTOR LABOR STANDARDS Infusion Therapy Visit [place] [address] [place] [address] Sergio Martinez MD [address] [place] [address] 03/02/2025 2:30 PM DIRECTOR LABOR STANDARDS Infusion Therapy Visit [place] [address] [address] [place] [address] Sergio Martinez MD 500 [place] [address] 03/10/2025 2:05 PM DIRECTOR LABOR STANDARDS [facility] 909 [place] [phone] Emre Silva MD 420 [facility], [id number] [place] [address] 04/22/2025 8:10 AM DIRECTOR LABOR STANDARDS Office Visit [facility] Heart [facility] [address] [facility] [address] [place] [address] Jerrod Werner MD [address] [place] [address] Antonietta Burton APRN PATIENT INTAKE REPRESENTATIVE [address] [place] [address] documented as of this encounter Visit Diagnoses Not on filedocumented in this encounter Additional Health Concerns Infection Onset Date Last Indicated Resolved Time Rule Out C-difficile 07/05/2024 07/05/2024 025 3:01 PM CDT documented as of this encounter Care Teams Vertical Roll Operator Relationship Specialty Start Date End Date No Ref-Primary, Physician PCP - General 07/01/24 Sergio Matrinez MD 500 [place] [address] Hematology 05/06/23 [place] [address] [place] [address] Nurse Practitioner Nurse Practitioner 05/07/23 Prosper Shrestha MD 500 [place], [place] 5[address] Emergency Medicine 05/07/23 Avril Dumont, GRZEGORZ Specialty Music Department Chair Hematology & Oncology 05/28/23 05/22/24 Ramin Whitfield MD 420 [facility] 195 [place], [place] [address] Assigned Surgical Provider 07/11/23 12/09/24 Sergio Martinez MD 500 [place], [place] [address] Assigned Cancer Care Provider 09/10/23 Sarah Gould, GRZEGORZ [facility] 420 [facility] 806 [place], [place] [address] Specialty Music Department Chair Hematology & Oncology 08/13/23 Jerrod Werner MD [address] [place], [place] [address] Cardiovascular Disease 04/07/24 Jerrod Werner MD [address] [place], [place] [address] Assigned Heart and Vascular Provider 04/12/24 [place] [address] [place], [place] [address] Assigned Endocrinology Provider 06/10/24 Sarabjit Alba MD 516 [facility], [address] 6[address]163 [place], [place] [address] Fellow HOSPICE 07/22/24 Emre Silva MD [address] [place], [place] [address] Palliative Care [place], [place] [address] Palliative Care 07/24/24 Emre Silva MD [address] [place] [address], [id number] Palliative Care [place], [place] [address] Assigned Palliative Care Provider 09/09/24 documented as of this encounter
--- OUTSIDE RECORDS SUMMARY | 2024-12-31 17:49 | XMS_ITS | Clinical Summary ---
Author Organization [facility] Address [address] [place] [address] Care Team Providers Care American Indian Studies Professor Name Role Phone Unassigned, Provider Primary Care Provider Unava ilable Source Comments You are receiving this document as you are listed as the primary care provider,follow-up provider, or the patient has been referred to you for consultation.This is in compliance with the Medicare and[facility] EHR Incentive Program,which states Providers who transition their patient to another setting of careor provider of care or refers their patient to another provider of care shouldprovide summary care record for each transition of care or referral. [facility] Allergies No known active allergies Medications Phentermine [...] mg by mouth. 6 Active ergocalciferol (DRISDOL) 02627 UNITS capsule Take 50,000 Units by mouth. 6 Active cyanocobalamin (HXJUTGMD45) 1000 MCG/ML injection Injection once a month [...] Take 600 mg by mouth. Active pancrelipase, Xek-Knrj-Rcqh, ([id number]) 32045 UNITS capsule-delayed release particles Take 2 Caps by mouth. 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 IHD (ischemic heart disease) 02/14/2016 Old [place] (myocardial infarction) 02/14/2016 Immunizations Immunization Administration Dates Next Due Influenza IIV4 (Quadrivalent) 0.5mL (63676) 11/18 Social History Tobacco Use Types Packs/Day Years Used Date Smoking Tobacco: Former Cigarettes Smokeless Tobacco: Never Sex and Gender Information Value Date Recorded Sex Assigned at Not on file Legal Sex Male 7:01 AM CDT Gender Identity Not on file Sexual Orientation Not on file Last Filed Vital Signs Vital Sign Reading Time Taken Comments Blood Pressure 110/79 02/14/2016 8:22 AM SQUIRREL WORKER Pulse 79 02/14/2016 8:22 AM SQUIRREL WORKER Temperature - - Respiratory Rate - - Oxygen Saturation - - Inhaled Oxygen Concentration - - Weight - - Height - - Body Mass Index - - Plan of Treatment Health Maintenance Due Date Last Done Comments Diabetes: Albumin/Creatinine Ratio, Urine 1956 Diabetes: Creatinine 1956 Diabetes: Eye Exam 1956 Diabetes: Foot Exam 1956 Diabetes: HGBA1C 1956 Diabetes: Lipid Panel 1956 Hep B Immunization Discussion 1956 Hep C Screening (Preventive Services) 1956 PSA Screening Discussion 1956 Adult Preventive Visit 1974 DTaP/Tdap/Td Vaccine (1 - Tdap) 1975 Pneumococcal Vaccine 50+ Yrs (1 of 2 - PCV) 1975 Zoster/Shingles Vaccine (1 of 2) 2006 Colon Cancer Screening Plan Due 02/24/2010 1 COVID-19 Vaccine (1 - 2023-2 5 season) 2024 Influenza Vaccine (#1) 2024 12/03/2015 RSV Vaccine (1 - 1-dose 75+ series) [...] this topic Insurance FULLY INSURED Care Teams American Indian Studies Professor Relationship Specialty Start Date End Date Unassigned, Provider [address] [place] [address] PCP - General 01/28/00
--- OUTSIDE RECORDS SUMMARY | 2024-12-31 17:49 | XMS_ITS ---
Author Organization [place] Address [address] [place] [address]. [place] [address] Care Team Providers Care Head Paper Tester Name Role Phone Sergio Martinez MD Unavailable Misty Wellington NP Unavailable [phone] Prosper Shrestha MD Unavailable [phone] Sergio Martinez MD Unavailable No Ref-Primary, Physician Primary Care Provider Sarah Gould RN Unavailable Jerrod Werner MD Unavailable [phone] Jerrod Werner MD Unavailable [phone] Shaila Landis MD Unavailable Sarabjit Alba MD Unavailable [phone] Emre Silva MD Unavailable [phone] Emre Silva MD Unavailable [phone] Active Problems Problem Noted Date Diagnosed Date [...] myocardial infarction) Coronary artery disease invo lving g[place] coronary artery of [place] heart without angina pectoris Overview (09/20/2014): cardiac cath 2014: BMS to OM1, cath 2010: diffuse disease Family history of early CAD Current Treatment and Therapy Plans OP ONC Neuroendocrine - Lanreotide* Plan Start Date:06/30/2024 Plan Provider:Sergio Martinez MD Linked Problems Neuroendocrine cancer (H) Treatment Medications Current Day (Day 1 , Cycle 7 - Planned for 01/05/2025) Next Day (Day 1, Cycle 8 - Planned for 02/02/2025) No medications scheduled. No medications schedul ed. No medications scheduled. Past Treatment and Therapy Plans No past plan information found. Resolved Problems Problem Noted Date Diagnosed Date Resolved Date Ischemic cardiomyopathy 10/07/201407/20 Hypertriglyceridemia 016 Cardiomyopathy 10/07/2014 Overview (07/22/2014): 07/2014 EF 50-55% by Echo
--- OUTSIDE RECORDS SUMMARY | 2024-12-31 17:49 | XMS_ITS | Encounter Summary ---
Author Organization [place] Address [facility] [place] [address] Care Team Providers Care Hogshead Packer Name Role Phone Sergio Martinez MD Unavailable Misty Wellington NP Unavailable [phone] Prosper Shrestha MD Unavailable [phone] Ramin Whitfield MD Unavailable [phone] Sergio Martinez MD Unavailable No Ref-Primary, Physician Primary Care Provider Sarah Gould RN Unavailable [phone] Jerrod Werner MD Unavailable [phone] Jerrod Werner MD Unavailable [phone] Shaila Landis MD Unavailable [phone] Sarabjit Alba MD Unavailable [phone] Emre Silva MD Unavailable [phone] Emre Silva MD Unavailable [phone] Encounter Details Date Type Department Care Team (Late st Contact Info) Description 06/26/2024 [facility] [address] [place] [address] Baldo Bailon Social History Tobacco [...] on file Legal Sex Male 3:10 AM COVER OPERATOR Gender Identity Not on file Sexual Orientation Not on file documented as of this encounter Plan of Treatment Upcoming Encounters Date Type Department Care Team (Late st Contact Info) Description 01/05/2025 2:30 PM COVER OPERATOR Infusion Therapy Visit [place] [address] [place] [phone] Sergio Martinez MD [address] [place] [address] 02/02/2025 2:30 PM COVER OPERATOR Infusion Therapy Visit [place] [address] [address] [place] [address] Sergio Martinez MD [address] [place] [address] 03/02/2025 2:30 PM COVER OPERATOR Infusion Therapy Visit [place] [address] [address] [place] [address] Sergio Martinez MD 500 [place] [address] 03/10/2025 2:05 PM COVER OPERATOR Virtual Visit [facility] 909 [place] [address] Emre Silva MD 420 [facility], [id number] Palliative Care [place], [place] [address] 04/22/2025 8:10 AM COVER OPERATOR Office Visit [facility] Heart [facility] [address] [place] [phone] Jerrod Werner MD [address] [place], [place] [address] Antonietta Burton APRN CNP [address] [place], [place] [address] documented as of this encounter Goals Goal [...] documented as of this encounter Care Teams Hogshead Packer Relationship Specialty Start Date End Date No Ref-Primary, Physician PCP - General 07/01/24 Sergio Martinez MD 500 [place] [address] Hematology 05/06/23 Misty Wellington NP [address] [place] [address] [place] [address] Nurse Practitioner Nurse Practitioner 05/07/23 Prosper Shrestha MD 500 [place], [place] [address] Emergency Medicine 05/07/23 Ramin Whitfield MD 420 [facility] 195 [place], [place] [address] Assigned Surgical Provider 07/11/23 12/09/24 Sergio Martinez MD 500 [place], [place] [address] Assigned Cancer Care Provider 09/10/23 Sarah Gould, GRZEGORZ [facility] 420 [facility] 806 [place], [place] [address] Specialty Eligibility Clerk Hematology & Oncology 08/13/23 Jerrod Werner MD [address] [place] [address] Cardiovascular Disease 04/07/24 Jerrod Werner MD [address] [place] [address] Assigned Heart and Vascular Provider 04/12/24 [place] [address] [place] [address] Assigned Endocrinology Provider 06/10/24 Sarabjit Alba MD 516 [facility], [address] 6[address]163 [place], [place] [address] Fellow HOSPICE 07/22/24 Emre Silva MD 420 [facility], [id number] Palliative Care [place], [place] [address] Palliative Care 07/24/24 Emre Silva MD 420 [facility], [id number] Palliative Care [place], [place] [address] Assigned Palliative Care Provider 09/09/24 documented as of this encounter
--- OUTSIDE RECORDS SUMMARY | 2024-12-31 17:49 | XMS_ITS | Encounter Summary ---
Author Organization [facility] Address [address] [place] [address]. [place] [address] Care Team Providers Care Striper Spray Gun Name Role Phone Sergio Martinez MD Unavailable Misty Wellington NP Unavailable [phone] Prosper Shrestha MD Unavailable [phone] Avril Dumont RN Unavailable Ramin Whitfield MD Unavailable [phone] Sergio Martinez MD Unavailable No Ref-Primary, Physician Primary Care Provider Sarah Gould RN Unavailable Jerrod Werner MD Unavailable [phone] Jerrod Werner MD Unavailable [phone] Shaila Landis MD Unavailable Fu Sarabjit Arango MD Unavailable [phone] Emre Silva MD Unavailable [phone] Emre Silva MD Unavailable [phone] Encounter Details Date Type Department Care Team (Late st Contact Info) Description 04/17/2024 [facility] [address] [address] Esther Walker RN Social History Tobacco Use Types Packs/Day [...] on file Legal Sex Male 3:10 AM SAFE AND VAULT INSTALLER Gender Identity Not on file Sexual Orientation Not on file documented as of this encounter Miscellaneous Notes * Telephone Encounter - Esther Walker RN - 04/22/2024 2:13 PM CST Images from the original note were not included. Per below. Will fax copy of response below to 's Team at [phone] Esther LANTIGUA [facility] AND VAULT INSTALLER * Telephone Encounter - Scarlet Gudino RN - 04/22/2024 1:57 PM CST Faxed to [facility] attention Dr. Sultana's team Left message for patient to return call. Scarlet Gudino RN, BSN [phone] AND VAULT INSTALLER * Telephone Encounter - Saundra Kovacs RN [...] get cardiac clearance for patient's surgery tomorrow. AND VAULT INSTALLER * Telephone Encounter - Esther Walker RN - 04/17/2024 1:03 PM CST Patient left detailed VM. Once pt completes his Echo on 04/22 and it's reviewed by MD. If pt is cleared, he will need a clearance letter typed up and faxed to [employer]. Reminder was sent to [facility] - [phone] Fax #: [phone] Pt has Right Shoulder replacement on 04/23/2024. Esther LANTIGUA [facility] AND VAULT INSTALLER AND VAULT INSTALLER * Telephone Encounter - Esther Walker RN - 04/17/2024 10:57 AM SAFE AND VAULT INSTALLER Called patient to review stress test results. [...] Jerrod Werner MD Sent: 04/16/2024 5:10 PM SAFE AND VAULT INSTALLER To: Sergio Martinez MD; Saundra Kovacs RN; # Or team Please tell the patient his nuclear stress test is stable and there is no indication for an angiogram before his planned orthopedic surgery. We are still awaiting his TTE to evaluate the cardiac murmur. AND VAULT INSTALLER AND VAULT INSTALLER AND VAULT INSTALLER documented in this encounter Plan of Treatment Upcoming Encounters Date Type Department Care Team (Late st Contact Info) Description 01/05/2025 2:30 PM SAFE AND VAULT INSTALLER Infusion Therapy Visit [address] [place] [phone] Sergio Martinez MD 500 [place], [place] [address] 02/02/2025 2:30 PM SAFE AND VAULT INSTALLER Infusion Therapy Visit [address] [place] [address] Sergio Martinez MD [address] [place], [place] [id number] 03/02/2025 2:30 PM SAFE AND VAULT INSTALLER Infusion Therapy Visit [address] [place] [address] Sergio Martinez MD 500 [place], [place] [address] 03/10/2025 2:05 PM SAFE AND VAULT INSTALLER Virtual Visit [facility] [address] [place] [phone] Emre Silva MD [address] [place] [address], SAT015 Palliative Care [place], [place] [address] 04/22/2025 8:10 AM SAFE AND VAULT INSTALLER Office Visit [facility] [address] [facility] [address] [place] [phone] Jerrod Werner MD [address] [place] [address] Antonietta [place] APRN HEALTH CARE SOCIAL WORKER [address] [place] [address] documented as of this encounter Visit Diagnoses Not on filedocumented in this encounter Additional Health Concerns Infection Onset Date Last Indicated Resolved Time Rule Out C-difficile 07/05/2024 07/05/2024 025 3:01 PM CDT documented as of this encounter Care Teams Striper Spray Gun Relationship Specialty Start Date End Date No Ref-Primary, Physician PCP - General 07/01/24 Sergio Martinez MD [address] [place], [place] [address]32[address] Hematology 05/06/23 Misty Wellington, GIVER [address] [place] [address] Nurse Practitioner Nurse Practitioner 05/07/23 Prosper Shrestha MD 500 [place], [place] 7497[address] Emergency Medicine 05/07/23 Avril Dumont, RN Specialty Operator [employer] Hematology & Oncology 05/28/23 05/22/24 Ramin Whitfield MD [address] [place] [address] [id number] Assigned Surgical Provider 07/11/23 12/09/24 Sergio Martinez MD 500 [place] [address] Assigned Cancer Care Provider 09/10/23 Sarah Gould, [facility] 420 [facility] 806 [place] [address] Specialty Operator [employer] Hematology & Oncology 08/13/23 Jerrod Werner MD [address] [place], [place] [address] Cardiovascular Disease 04/07/24 Jerrod Werner MD [address] [place], [place] [address] Assigned Heart and Vascular Provider 04/12/24 [place] [address] [address] [place], [place] [address] Assigned Endocrinology Provider 06/10/24 Sarabjit Alba MD [address] [place] [address], [address] [place], [place] [address] Fellow HOSPICE 07/22/24 Emre Silva MD [address] [place] [address], [id number] Palliative Care [place], [place] [address] Palliative Care 07/24/24 Emre Silva MD [address] [place] [address], LSH154 Palliative Care [place], [place] [address] Assigned Palliative Care Provider 09/09/24 documented as of this encounter
--- OUTSIDE RECORDS SUMMARY | 2024-12-31 17:49 | XMS_ITS | Encounter Summary ---
Author Organization [place] Address [facility] [place] [address] Care Team Providers Care Database Designer Name Role Phone Sergio Martinez MD Unavailable Misty Wellington NP Unavailable [phone] Prosper Shrestha MD Unavailable [phone] Sergio Martinez MD Unavailable No Ref-Primary, Physician Primary Care Provider Sarah Gould RN Unavailable Jerrod Werner MD Unavailable [phone] Jerrod Werner MD Unavailable [phone] Shaila Landis MD Unavailable Sarabjit Alba MD Unavailable [phone] Emre Silva MD Unavailable [phone] Emre Silva MD Unavailable [phone] Encounter Details Date Type Department Care Team (Late st Contact Info) Description 12/29/2024 Orders Only [facility] [address] [place] [address] 200 [facility] [place] [phone] [place] [address] [address] Social History Tobacco Use Types Packs/Day Years [...] in an abandoned building, in an overnight snf, or couch-surfing.) Yes 11/12/2024 Are you worried [...] on file Legal Sex Male 3:10 AM NIB FINISHER Gender Identity Not on file Sexual Orientation Not on file documented as of this encounter Plan of Treatment Upcoming Encounters Date Type Department Care Team (Late st Contact Info) Description 01/05/2025 2:30 PM NIB FINISHER Infusion Therapy Visit [facility] [address] [place] [address] [address] [place] [address] Sergio Martinez MD 500 [place], [place] [address] 02/02/2025 2:30 PM NIB FINISHER Infusion Therapy Visit [facility] [address] [place] [address] [address] [place] [address] Sergio Martinez MD [address] [place], [place] [address] 03/02/2025 2:30 PM NIB FINISHER Infusion Therapy Visit [facility] [address] [place] [address] [address] [place] [address] Sergio Martinez MD [address] [place], [place] [address] 03/10/2025 2:05 PM NIB FINISHER Virtual Visit [facility] [address] [place] [address] Emre Silva MD 420 [facility], [id number] [place] [address] 04/22/2025 8:10 AM NIB FINISHER Office Visit [facility] [address] [facility] [address] [place] [address] Jerrod Werner MD [address] [place] [address] Antonietta [place] APRN CORK MIXER [address] [place] [address] documented as of this encounter Goals Goal [...] documented as of this encounter Care Teams Database Designer Relationship Specialty Start Date End Date No Ref-Primary, Physician PCP - General 07/01/24 Sergio Martinez MD 500 [place] [address] Hematology 05/06/23 [place] [address] [place] [address] Nurse Practitioner Nurse Practitioner 05/07/23 Prosper Shrestha MD 500 [place], [place] 98[address] Emergency Medicine 05/07/23 Sergio Martinez MD [address] [place] [address] Assigned Cancer Care Provider 09/10/23 Sarah Gould, [facility] [address] [place] [address] Specialty Sound Equipment Mechanic Hematology & Oncology 08/13/23 Jerrod Werner MD [address] [place] [address] Cardiovascular Disease 04/07/24 Jerrod Werner MD [address] [place] [address] Assigned Heart and Vascular Provider 04/12/24 [place] [address] [place] [address] Assigned Endocrinology Provider 06/10/24 Sarabjit Alba MD [address] [place] [address], [address] [place] [address] Fellow HOSPICE 07/22/24 Emre Silva MD [address] [place] [address], [id number] [place] [address] Palliative Care 07/24/24 Emre Silva MD [address] [place], [place] [address] [place] [address] Assigned Palliative Care Provider 09/09/24 documented as of this encounter
--- OUTSIDE RECORDS SUMMARY | 2024-12-31 17:49 | XMS_ITS | Encounter Summary ---
Author Organization [facility] Address [address] [place] [address]. 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 Floor Layer Apprentice Name Role Phone Sergio Martinez MD Unavailable Misty Wellington NP Unavailable [phone] Prosper Shrestha MD Unavailable [phone] Sergio Martinez MD Unavailable No Ref-Primary, Physician Primary Care Provider Sarah Gould RN Unavailable Jerrod Werner MD Unavailable [phone] Jerrod Werner MD Unavailable [phone] Shaila Landis MD Unavailable Sarabjit Alba MD Unavailable [phone] Emre Silva MD Unavailable [phone] Emre Silva MD Unavailable [phone] Reason for Referral * Diagnostic Imaging CT Scan (Routine) - Authorized Specialty Diagnoses / Procedures Referred By Contac t Referred To Contact Radiology. Diagnoses Neuroendocrine cancer (H) Procedures CT Chest/Abdomen/[place] [address] [address] Phone: tel: fax: Referral ID Status Reason Start Date Expiration Date V isits Requested Visits Authorized [id number] Authorized 12/30/2024 12/30/2025 1 1 DINE OPERATOR Encounter Details Date Type Department Care Team (Late st Contact Info) Description 12/30/2024 Orders Only [facility] - Cancer Care Service Line [address] [place] [address] [place] [address] [address] Neuroendocrine cancer (H) (Primary Dx) Social History [...] in an abandoned building, in an overnight [facility], or couch-surfing.) Yes 11/12/2024 Are you worried [...] on file 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 Gender Identity Not on file Sexual Orientation Not on file documented as of this encounter Plan of Treatment Upcoming Encounters Date Type Department Care Team (Late st Contact Info) Description 01/05/2025 2:30 PM PYRIDINE OPERATOR Infusion Therapy Visit [address] [place] [address] Sergio Martinez MD [address] [place] [address] 02/02/2025 2:30 PM PYRIDINE OPERATOR Infusion Therapy Visit [place] [address] [place] [address] [place] [address] Sergio Martinez MD [address] [place] [address] 03/02/2025 2:30 PM PYRIDINE OPERATOR Infusion Therapy Visit [place] [address] [place] [address] [place] [address] Sergio Martinez MD [address] [place] [address] 03/10/2025 2:05 PM PYRIDINE OPERATOR Virtual Visit [facility] 909 [place] [phone] Emre Silva MD 420 [facility], RYE102 [place] [address] 04/22/2025 8:10 AM PYRIDINE OPERATOR Office Visit [facility] [address] [facility] [address] [place] [address] Jerrod Werner MD [address] [place], [place] [address] Antonietta [place] APRN SCIENTIFIC ASSOCIATE [address] [place] [id number] Scheduled Orders Name Type Priority Associated Diagnoses Orde r Schedule CT Chest/Abdomen/Pelvis w Contrast Imaging Routine Neuroendocrine cancer (H) Expected: 03/01/2025 (Approximate), Expires: 12/30/2025 documented as of this encounter Goals Goal [...] specification of site 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 Problem 10/13/2024 documented as of this encounter Care Teams Carpet Floor Layer Apprentice Relationship Specialty Start Date End Date No Ref-Primary, Physician PCP - General 07/01/24 Sergio Martinez MD 500 [place], [place] [address] Hematology 05/06/23 [place] [address] [place] 4[address] Nurse Practitioner Nurse Practitioner 05/07/23 Prosper Shrestha MD 500 [place], [place] 454[address] Emergency Medicine 05/07/23 Sergio Martinez MD 500 [place], [place] 29[address]25 Assigned Cancer Care Provider 09/10/23 Sarah Gould, [facility] 420 [facility] 806 [place], [place] [address] Specialty Computer Art Instructor Hematology & Oncology 08/13/23 Jerrod Werner MD [address] [place], [place] [address] Cardiovascular Disease 04/07/24 Jerrod Werner MD [address] [place], [place] [address] Assigned Heart and Vascular Provider 04/12/24 [place] [address] [address] [place], [place] [address] Assigned Endocrinology Provider 06/10/24 Sarabjit Alba MD 516 [facility], [address] [place], [place] [address] Fellow HOSPICE 07/22/24 Emre Silva MD 420 [facility], [id number] Palliative Care [place], [place] [address] Palliative Care 07/24/24 Erme Silva MD [address] [place] [address], [id number] Palliative Care [place], [place] [address] Assigned Palliative Care Provider 09/09/24 documented as of this encounter
--- NOTE | 2024-12-31 18:12 | CRLHL7_ITS ---
For Patients: As a result of the Cures Act, medical imaging exams and procedure reports are released immediately into your electronic medical record. You may view this report before your referring provider. If you have questions, please contact your health care provider. INDICATION: Chest pain TECHNIQUE: Chest radiograph 2 views COMPARISON: None FINDINGS: Mediastinum: The mediastinum is normal in appearance. The heart silhouette is normal in size and morphology. Lung: Both lungs are unremarkable in appearance. No sign of pleural effusion seen. No pneumothorax is identified. Bone and Soft tissue: Bilateral shoulder arthroplasties are partially visualized. IMPRESSION: 1. No acute cardiopulmonary disease is seen. Dictated by Chaz Briscoe MD @ 12/31/2024 6:45:10 PM Dictated by: Chaz Briscoe MD @ 12/31/2024 18:45:13 (Electronically Signed)
--- NOTE | 2024-12-31 18:15 | ED.ARRPALP ---
HPI - Arrhythmia/Palpitations General Date Seen: 12/31/24 Chief Complaint: Arrhythmia/Palpitations Stated Complaint: Chest tight, jaw pain Time Seen by Provider: 12/31/24 17:48 Source: patient Mode of arrival: ambulatory Limitations: no limitations History of Present Illness HPI narrative: Patient is a 69-year-old male with a history of coronary artery disease with 3 stents, high blood pressure, high cholesterol, diabetes, history of AFib on Eliquis presenting to the emergency department for chest pain that he states radiates to his left jaw. He states today he was eating when he suddenly felt a fluttering in his chest. States the pain went up to his jaw and he is having some shortness of breath with it. He states they have had a relatively stressful day as they had to put down their dog at the vet today. He has also been hunting and a mini split unit in the garage. He was concerned because this occurred 30 minutes ago and is not going away. He does state the chest pain is improved along with a jaw pain the pain is still there. He still feels mildly short of breath. Was concerned he could be having a heart attack as he previously had jaw pain meets had his heart attacks. Most recent 1 was 7 years ago. He has 3 stents. He states last episode of AFib was 10 years ago and says it caused a pass out. Denies fevers, chills, hemoptysis, history of blood clots, abdominal pain, diarrhea, constipation, headache, vision changes, lightheadedness, dizziness. No other concerns at this time Related Data Home Medications ?Medication ?Instructions ?Recorded ?Confirmed apixaban 5 mg tablet (Eliquis) 5 mg PO BID 10/07/23 07/03/24 atorvastatin 20 mg tablet 20 mg PO DAILY 10/07/23 07/03/24 baclofen 10 mg tablet 10 mg PO QPM 10/07/23 07/03/24 calcium citrate 200 mg PO 3XD 10/07/23 07/03/24 clomiphene citrate 50 mg tablet 50 mg PO Q1D 10/07/23 10/07/23 (Clomid) cyanocobalamin (vitamin B-12) 1,000 mcg IM 10/07/23 1,000 mcg/mL injection solution empagliflozin 25 mg tablet 25 mg PO DAILY 08/19/24 08/19/24 (Jardiance) ergocalciferol (vitamin D2) 1,250 1,250 mcg PO 2XW 10/07/23 10/07/23 mcg (50,000 unit) capsule famotidine 40 mg tablet 40 mg PO DAILY 10/07/23 07/03/24 gabapentin 300 mg capsule 600 mg PO 3XD 10/07/23 07/03/24 insulin glargine 100 unit/mL (3 0 - 40 unit subcut DAILY 10/07/23 10/07/23 mL) subcutaneous pen (Lantus Solostar U-100 Insulin) insulin lispro 100 unit/mL 0 - 55 unit subcut DAILY 10/07/23 10/07/23 subcutaneous pen (Humalog KwikPen (U-100) Insulin) levothyroxine 125 mcg tablet 250 mcg PO DAILY 10/07/23 07/03/24 vugaga-[id number]-upygwxf(pork)12,000-38,000-60,000 2 cap PO 3XD 10/07/23 07/03/24 unit capsule,del rel (Creon) lubiprostone 24 mcg capsule 24 mcg PO DAILY 10/07/23 07/03/24 metoprolol tartrate 50 mg tablet 50 mg PO BID 10/07/23 07/03/24 omeprazole 40 mg capsule,delayed 40 mg PO DAILY 10/07/23 07/03/24 release oxycodone 5 mg tablet 5 mg PO Q6H PRN pain 10/07/23 10/07/23 sucralfate 1 gram tablet 1 g PO QID 10/07/23 10/07/23 Allergies Allergy/AdvReac Type Severity Reaction Status Date / Time No Known Drug Allergies Allergy Verified 12/31/24 19:17 Review of Systems Status of ROS: Reports: 10 or more systems reviewed and unremarkable except as noted in History and below PFSH PFS Social History Smoking Status: Never smoker Do you use any of these nicotine containing products: None Second hand tobacco smoke exposure: No How often do you have a drink containing alcohol: never AUDIT-C Alcohol total score: 0 Non-prescribed substance use: denies use Exam Narrative: Exam Narrative: Const: Well-nourished, Well-developed, in mild distress Eyes: PERRL, no conjunctival injection, and symmetrical lids HENT: Atraumatic external nose and ears. Moist mucous membranes. Neck: Symmetric, trachea midline, No thyromegaly. CVS: Irregular irregular rhythm, 2/6 diastolic murmur that radiates the left axilla. Peripheral pulses 2+ and equal in all extremities RESP: Unlabored respiratory effort. Clear to auscultation bilaterally. GI: Nontender/Nondistended, No rebound or guarding. MSK:Extremities w/o deformity, Normal Active ROM Skin: Warm, Dry. No rashes or lesions. Neuro: Normal Muscle tone, No focal neurological deficits. Psych: Awake, Alert, & Oriented x3. Appropriate mood and affect. Const: Vital Signs, click to edit/add: Vital Signs - 24 hr 12/31/24 17:57 12/31/24 18:01 12/31/24 18:15 Temperature 97.6 F Pulse Rate 100 85 Pulse Rate [Pulse Oximeter] 90 Respiratory Rate 18 16 20 Blood Pressure Blood Pressure [Ri ght Upper Arm] 160/86 H Pulse Oximetry 99 98 98 Oxygen Delivery Me thod Room Air 12/31/24 18:30 12/31/24 18:36 12/31/24 18:48 Temperature Pulse Rate 77 77 78 Pulse Rate [Pulse Oximeter] Respiratory Rate 23 11 L 19 Blood Pressure 127/69 Blood Pressure [Ri ght Upper Arm] Pulse Oximetry 99 100 99 Oxygen Delivery Me thod 12/31/24 19:00 12/31/24 19:23 12/31/24 19:30 Temperature Pulse Rate 77 87 80 Pulse Rate [Pulse Oximeter] Respiratory Rate 24 19 Blood Pressure Blood Pressure [Ri ght Upper Arm] Pulse Oximetry 98 98 99 Oxygen Delivery Me thod 12/31/24 19:45 12/31/24 20:00 12/31/24 20:15 Temperature Pulse Rate 79 78 77 Pulse Rate [Pulse Oximeter] Respiratory Rate 21 16 22 Blood Pressure Blood Pressure [Ri ght Upper Arm] Pulse Oximetry 99 99 100 Oxygen Delivery Me thod 12/31/24 20:30 Temperature Pulse Rate 80 Pulse Rate [Pulse Oximeter] Respiratory Rate 22 Blood Pressure Blood Pressure [Ri ght Upper Arm] Pulse Oximetry 100 Oxygen Delivery Me thod Course Vital Signs Vital signs: Initial Vital Signs Temperature 97.6 F 12/31/24 17:57 Temperature Source Temporal Artery Scan 12/31/24 17:57 Pulse Rate 90 12/31/24 17:57 Respiratory Rate 18 12/31/24 17:57 Blood Pressure 160/86 H 12/31/24 17:57 Blood Pressure Mean 110 H 12/31/24 17:57 Blood Pressure Position Sitting 12/31/24 17:57 Pulse Oximetry 99 12/31/24 17:57 Oxygen Delivery Method Room Air 12/31/24 17:57 Vital Signs Temperature 97.6 F 12/31/24 17:57 Pulse Rate 90 12/31/24 17:57 Respiratory Rate 18 12/31/24 17:57 Blood Pressure 160/86 H 12/31/24 17:57 Pulse Oximetry 99 12/31/24 17:57 Oxygen Delivery Method Room Air 12/31/24 17:57 Temperature 97.6 F 12/31/24 17:57 Pulse Rate 80 12/31/24 20:30 Respiratory Rate 22 12/31/24 20:30 Blood Pressure 127/69 12/31/24 18:36 Pulse Oximetry 100 12/31/24 20:30 Oxygen Delivery Method Room Air 12/31/24 17:57 Medications Administered Medications: Generic Name Dose Route Start Last Admin Trade Name Freq PRN Reason Stop Dose Admin Magnesium Oxide 400 mg 01/01/25 09:00 12/31/24 20:14 Magnesium Oxide 400 Mg Tablet PO 400 mg DAILY CAREY Administration Discontinued Medications Generic Name Dose Route Start Last Admin Trade Name Freq PRN Reason Stop Dose Admin Aspirin 324 mg 12/31/24 18:12 12/31/24 18:35 Aspirin 81 Mg Tab.Chew PO 12/31/24 18:13 324 mg ONCE ONE Administration Potassium Bicarbonate 50 meq 12/31/24 19:31 12/31/24 20:07 Potassium Bicarb 25 Meq Effervescent Tab PO 12/31/24 19:32 50 meq ONCE ONE Administration MDM - Arrhythmia/Palpitations MDM Narrative Medical decision making narrative: Patient is a 69-year-old male presenting to the emergency department for chest pain. The differential diagnosis of chest pain is broad and includes common etiologies such as musculoskeletal strain, GERD, pneumonia, etc. More serious etiologies considered include PE, coronary artery disease, pneumothorax, aortic dissection, aortic aneurysm. Will do an EKG to look for signs of arrhythmias along with a troponin to look for cardiac abnormalities. On the heart monitor he does appear to be in AFib. Cannot rule out a blood clot at this time and he has shortness of breath so will do a D-dimer. Will also order chest x-ray look for signs of pneumonia or pneumothorax. He otherwise appears well and I have low concern for aortic dissection or aortic aneurysm. Heart rate is only in the upper 90s to lower 100s likely related to his metoprolol he is also 1. Will also order BMP, CBC, magnesium, viral swabs, BNP. Patient's lab work returned was slightly elevated D-dimer at 0.79. Age adjustment cannot rule out a blood clot. He has since gone back into normal sinus rhythm showing on repeat EKG. Potassium is 3.3 and magnesium is 1.8. Cardiology typically once this had 4 and 2 respectively so they were replenished. EKG now shows normal sinus rhythm as initial EKG showed AFib. Rest is lab work shows no concerning abnormalities. Very slightly elevated BNP. Chest x-ray interpreted by myself and the radiologist shows no acute concerning abnormalities. His symptoms have resolved 1 now that he is in normal sinus rhythm. I do believe most likely symptoms were related to AFib. He is already anticoagulated. CT scan interpreted independently by myself and the radiologist showed no acute concerning abnormalities. Considering he does have previous heart disease with multiple stents I will do a 2nd troponin. Second troponin within normal limits. At this time he is doing well safe for discharge. I do believe his symptoms were related to his AFib which has now resolved. I informed to follow-up with his electrical engineering manager. He continues to be asymptomatic. He is satting 100% on room air and heart rate is in the 70s to 80s. He is agreeable to this plan. Lab Data Labs: Lab Results 12/31/24 12/31/24 12/31/24 Range/Units 18:00 18:15 20:43 WBC 9.90 (4.50-11.00) K/uL RBC 5.05 (4.30-5.90) m/uL Hgb 12.4 L (13.5-17.5) gm/dL Hct 38.6 (37.0-53.0) % MCV 76 L (80-100) fL MCH 25 L (26-34) pg MCHC 32 (32-36) gm/dL RDW Coeff of Carolyn 15.3 (11.5-15.5) % Plt Count 203 (140-440) K/uL Neut % (Auto) 59.3 (42.0-72.0) % Lymph % (Auto) 28.9 (20-44) % Whitfield % (Auto) 9.9 (0.0-11.0) % Eos % (Auto) 1.3 (0.0-7.0) % Baso % (Auto) 0.5 (0.0-3.0) % Neut # (Auto) 5.87 (1.7-7.0) K/uL Lymph # (Auto) 2.86 (0.90-2.90) K/uL Whitfield # (Auto) 1.00 H (0.00-0.90) K/UL Eos # (Auto) 0.13 (0.00-0.50) K/uL Baso # (Auto) 0.05 (0.00-0.30) K/uL Abs Immat Gran (auto) 0.01 (0.00-0.30) K/uL Imm/Tot Granulo (auto) 0.1 % D-Dimer Quant (PE/DVT) 0.79 H (0.00-0.50) ug/ml Sodium 136 (135-149) mmol/L Potassium 3.3 L (3.6-5.1) mmol/L Chloride 100 (96-114) mmol/L Carbon Dioxide 21 (20-32) mmol/L Anion Gap 15 (7-15) mEq/L BUN 15 (7-30) mg/dL Creatinine 1.1 (0.5-1.5) mg/dL Estimated Creat Clear 76.82 Estimated GFR 73 ml/min Glucose 76 (60-115) mg/dL Calcium 8.8 (8.4-10.6) mg/dL Magnesium 1.8 (1.5-2.6) mg/dL Troponin I < 0.01 (0.01-0.04) ng/mL NT-Pro-B Natriuret Pep 499 H (See Note) pg/mL POC Troponin I 0.01 0.01 (0.01-0.04) ng/ml Imaging Data Chest x-ray: Attestation: I have reviewed the pertinent imaging results. Radiologist's impression: 1. No acute cardiopulmonary disease is seen. Dictated by Chaz Briscoe MD @ 12/31/2024 6:45:10 PM CTA chest: Attestation: I have reviewed the pertinent imaging results. Radiologist's impression: 1. No pulmonary embolism identified. 2. No acute intrathoracic pathology. 3. Coronary artery calcifications. Please note that all CT scans at this facility use dose modulation, iterative reconstruction, and/or weight-based dosing when appropriate to reduce radiation dose to as low as reasonably achievable. Dictated by Chandra Collado MD @ 12/31/2024 8:50:40 PM ECG Data Attestation: I personally reviewed and interpreted this ECG as follows: Prior ECG tracings: available for review Interpretation: Initial EKG at 17:56 AFib with RVR and a rate of 102 beats per minute, normal intervals, normal axis, no ST or T-wave abnormalities. Repeat EKG at 18:54 shows normal sinus rhythm with a rate 77 beats per minute, normal intervals, normal axis, no ST or T-wave abnormalities. Appears similar previous EKGs on file. Discharge Plan Discharge Clinical Impression: Atrial fibrillation Qualifiers: Atrial fibrillation type: paroxysmal Qualified Code(s): I48.0 - Paroxysmal atrial fibrillation Patient Disposition: Home, Self-Care Condition: Improved Instructions: A-fib (Atrial Fibrillation) (ED) Additional Instructions: I believe her symptoms were all related to her AFib. I recommend following up with your electrical engineering manager about this. Return to emergency department for new or worsening symptoms Prescriptions: No Action famotidine 40 mg tablet 40 mg PO DAILY omeprazole 40 mg capsule,delayed release(DR/EC) 40 mg PO DAILY baclofen 10 mg tablet 10 mg PO QPM levothyroxine 125 mcg tablet 250 mcg PO DAILY metoprolol tartrate 50 mg tablet 50 mg PO BID gabapentin 300 mg capsule 600 mg PO 3XD ergocalciferol (vitamin D2) 1,250 mcg (50,000 unit) capsule 1,250 mcg PO 2XW calcium citrate 200 mg (950 mg) tablet 200 mg PO 3XD lubiprostone 24 mcg capsule 24 mcg PO DAILY Creon 12,000-38,000 -60,000 unit capsule,delayed release(DR/EC) 2 cap PO 3XD Eliquis 5 mg tablet 5 mg PO BID Jardiance 25 mg tablet 25 mg PO DAILY atorvastatin 20 mg tablet 20 mg PO DAILY clomiphene citrate [Clomid] 50 mg tablet 50 mg PO Q1D sucralfate 1 gram tablet 1 g PO QID cyanocobalamin (vitamin B-12) 1,000 mcg/mL solution 1,000 mcg IM oxycodone 5 mg tablet 5 mg PO Q6H PRN (Reason: pain) insulin lispro [Humalog KwikPen Insulin] 100 unit/mL insulin pen 0 - 55 unit subcut DAILY insulin glargine [Lantus Solostar U-100 Insulin] 100 unit/mL (3 mL) insulin pen 0 - 40 unit subcut DAILY Follow Up/Referrals: Provider,Not a Local [Primary Care Provider, Family Practice] Stand Alone Forms: MyHealth Info Instructions
[2024-12-31 18:16] LABS: Troponin, Point-of-Care* 0.01 ng/ml (0.01-0.04)
[2024-12-31 18:21] LABS: Hematocrit* 38.6 % (37.0-53.0); Hemoglobin* 12.4 gm/dL (13.5-17.5); Immature Granulocytes Abs Auto 0.01 K/uL (0.00-0.30); Immature Granulocytes Pct Auto 0.1 %; Lymphocytes Absolute Auto 2.86 K/uL (0.90-2.90); Mean Corpuscular HGB Conc 32 gm/dL (32-36); Mean Corpuscular Hemoglobin 25 pg (26-34); Mean Corpuscular Volume 76 fL (80-100); RDW Coefficient of Variation % 15.3 % (11.5-15.5); Red Blood Count* 5.05 m/uL (4.30-5.90); White Blood Count* 9.90 K/uL (4.50-11.00)
[2024-12-31 18:24] LABS: Slide Review Reflex No
[2024-12-31] MEDS: ASPIRIN 81 MG TAB.CHEW 324 MG PO (18:35)
[2024-12-31 18:46] LABS: Chloride* 100 mmol/L (96-114)
[2024-12-31 18:47] LABS: Potassium* 3.3 mmol/L (3.6-5.1)
[2024-12-31 18:50] LABS: Anion Gap 15 mEq/L (7-15); Blood Urea Nitrogen* 15 mg/dL (7-30); Calcium* 8.8 mg/dL (8.4-10.6); Carbon Dioxide* 21 mmol/L (20-32); Creatinine* 1.1 mg/dL (0.5-1.5); Est. Creatinine Clearance* 76.82; Estimated Glomerular Filt Rate 73 ml/min; Glucose* 76 mg/dL (60-115)
[2024-12-31 18:52] LABS: D Dimer Quantitative* 0.79 ug/ml (0.00-0.50)
[2024-12-31 19:03] LABS: NT Pro B Type NatriureticPept* 499 pg/mL (See Note)
[2024-12-31 19:05] LABS: Sodium* 136 mmol/L (135-149)
--- NOTE | 2024-12-31 19:08 | CRLHL7_ITS ---
For Patients: As a result of the Century Cures Act, medical imaging exams and procedure reports are released immediately into your electronic medical record. You may view this report before your referring provider. If you have questions, please contact your health care provider. INDICATION: Pulmonary embolism (PE) suspected, chest pain. History of intestinal carcinoid. TECHNIQUE: CT chest PE was acquired with 95 cc Isovue 370 IV contrast. Multiplanar reformats performed including 3D MIP reconstructions. COMPARISON: [facility] chest 07/03/2024. FINDINGS: Heart and vasculature: No pulmonary embolism appreciated. Main pulmonary artery normal in caliber. No thoracic aortic aneurysm. No cardiomegaly or pericardial effusion. There are coronary artery calcifications and scattered atherosclerotic calcifications of the aorta and its major branches. Lungs and pleura: No focal consolidation. Right upper lobe calcified granuloma. Stable right upper lobe pulmonary nodule. No new pulmonary nodule or mass. No pleural effusion or pneumothorax. Patent central airways. Lymph nodes/mediastinum: No suspicious lymphadenopathy. Chest wall: No suspicious chest wall mass or fluid collection. Upper abdomen: No acute abnormality. Bones: No acute abnormality. IMPRESSION: 1. No pulmonary embolism identified. 2. No acute intrathoracic pathology. 3. Coronary artery calcifications. Please note that all CT scans at this facility use dose modulation, iterative reconstruction, and/or weight-based dosing when appropriate to reduce radiation dose to as low as reasonably achievable. Dictated by Chandra Collado MD @ 12/31/2024 8:50:40 PM (Electronically Signed)
[2024-12-31] MEDS: POTASSIUM BICARB 25 MEQ EFFERVESCENT TAB 50 MEQ PO (20:07)
[2024-12-31] MEDS: MAGNESIUM OXIDE 400 MG TABLET PO (20:14)
[2024-12-31 21:25] LABS: Troponin, Point-of-Care* 0.01 ng/ml (0.01-0.04)
== END 2024-12-31 21:40 | disposition home or self-care (01) ==
PROVIDERS: Emergency Provider Student in an Organized Health Care Education/Training Program
DX: I48.91 Unspecified atrial fibrillation (principal); Z79.01 Long term (current) use of anticoagulants
CPT/HCPCS: 36415; 71046; 71275; 80048; 83735; 83880; 84484; 85025; 85379; 87631; 93005; 99284; 99285; A9270; Q9967